=== PATIENT | female | born 1980 | race Caucasian/White ===

== ENCOUNTER 2020-02-05 14:21 | Outpatient (REF) | payer SELFPAY | END 2020-02-05 14:22 | disposition home or self-care (01) | LOC: HO.LNP 14:21 | PROVIDERS: Visit Provider Internal Medicine | DX: Z20.828 Contact with and (suspected) exposure to other viral communicable diseases (principal) | CPT/HCPCS: U0003 ==

== ENCOUNTER 2020-11-05 13:59 | Outpatient (REF) | payer OTHER, SELFPAY ==
[2020-11-05 14:45] LABS: Influenza A PCR NEGATIVE (Negative); Influenza B PCR NEGATIVE (Negative); Resp Syncy Virus RNA Qual PCR NEGATIVE (Negative); SARS COV2 PCR INHOUSE NEGATIVE (Negative)
== END 2020-11-05 14:00 | disposition home or self-care (01) ==
LOC: HO.LNP 13:59
PROVIDERS: Visit Provider Internal Medicine
DX: Z20.822 Contact with and (suspected) exposure to COVID-19 (principal)
CPT/HCPCS: 0241U

== ENCOUNTER 2020-11-08 11:29 | Emergency (ER) | payer OTHER, SELFPAY ==
[2020-11-08 11:48] VITALS: BP 149/86; PULSE 82; RESP 16; TEMP 36.3; O2SAT 98; BMI 42.0
--- NOTE | 2020-11-08 12:41 | ED_ITS ---
HPI - Skin/Abscess/Foreign Bdy General Chief complaint: Skin/Abscess/Foreign Body Stated complaint: eye swollen, reaction? Time Seen by Provider: 11/08/20 12:06 Source: patient Mode of arrival: ambulatory History of Present Illness HPI narrative: 40-year-old female with no significant past medical history presenting to the ED complaining of right eyelid swelling, erythema, and pain x2 days. Admits to white spot to upper eyelid. Wears glasses and contacts however has not been wearing contacts. Denies direct injury/trauma, visual change/loss, blurry vision, and foreign body sensation, pain with EOMs, fever, chills, ear pain Related Data Previous Rx's Medication Instructions Recorded cefdinir 300 mg capsule 300 mg PO BID 7 Days #14 cap 11/08/20 sulfamethoxazole 800 1 tab PO Q12H 7 Days #14 tab 11/08/20 mg-trimethoprim 160 mg tablet (Bactrim DS) Allergies Allergy/AdvReac Type Severity Reaction Status Date / Time amoxicillin [AMOXICILLIN] Allergy Unknown RASH Unverified 11/07/19 15:06 Review of Systems Review of Systems: Constitutional: No Fever, No Chills, No Fatigue, No Malaise ENT/Mouth: No Ear Pain, No sore throat Eyes: No Eye Pain, + Swelling, + Redness, No Foreign Body, No Discharge, No Vision Changes Cardiovascular: No Chest Pain, No SOB Respiratory: No Cough, No Dyspnea Gastrointestinal: No Nausea, No Vomiting, No Diarrhea, No Constipation, No Abdominal pain Genitourinary:No Dysuria, No Urinary Frequency, No Hematuria Musculoskeletal: No joint pain, No Myalgias, No Joint Swelling Skin: No Skin Lesions, No rash Neuro: No Weakness, No Numbness, No Headache Yes all other systems are reviewed and are negative [facility] Past Medical History Attestation statement: The following information was validated with the patient. Social History Social History Advance Directives: No Advance Directives Information Provided: No Physical Exam Vital Signs: Vital Signs: Last Vital Signs Temp 97.3 F 11/08/20 11:48 Pulse 82 11/08/20 11:48 Resp 16 11/08/20 11:48 BP 149/86 H 11/08/20 11:48 Pulse Ox 98 11/08/20 11:48 Body Mass Index 42.0 Const: General: cooperative and healthy appearing Orientation /consciousness: patient oriented x3 Limitations: no limitations HENMT: Head: Yes normal to inspection Ears: hearing grossly normal bilaterally General nose exam: Normal external nose present Face and sinus: Yes normal facial exam Eyes: Other: Right upper eyelid with notable swelling and erythema with large internal stye. Clear watery eye discharge. Conjunctivae/sclerae WNL EOMs intact without pain General: appearance normal, both eyes and all related structures Conjunctivae: conjunctivae normal Sclerae: sclerae normal Pupils: Equal, round and reactive pupils present EOM: EOMs intact bilaterally Neck: Neck: Yes normal visual inspection Resp: Effort & Inspection: normal respiratory effort Auscultation: clear to auscultation bilaterally Cardio: Rate: regular rate Heart sounds: S1 normal heart sound present and S2 normal heart sound present Skin: Rashes: no rashes Wounds: no wounds Neuro: General: patient oriented x3 Cranial nerves: Yes Equal, round and reactive pupils present Gait exam (Neuro): Normal gait present Extrem: General: Yes normal to inspection MDM - Skin/Abscess/Foreign Bdy MDM Narrative Medical decision making narrative: 40-year-old female with no significant past medical history presenting to the ED complaining of right eyelid swelling, erythema, and pain x2 days. On exam VSS, NAD/well-appearing, physical exam as above. Concern for infected stye/preseptal cellulitis. Exam not consistent with orbital cellulitis. Discussed worrisome signs and symptoms and strict return precautions Medical Records Attestation: I reviewed the patient's medical records. Discharge Plan Discharge Clinical Impression: Preseptal cellulitis of right eye Patient Disposition: Home, Self-Care Instructions: Periorbital Cellulitis in Adults (ED) Additional Instructions: Cefdinir and Bactrim are antibiotics, please take as prescribed Apply warm compresses to her eye Please follow-up with her doctor or return to the ED for re-evaluation in 2 days If area begins to look worse, swelling worsens, it develops redness, you have any visual change/loss or fever return to the ED immediately Prescriptions: New sulfamethoxazole-trimethoprim [Bactrim DS] 800-160 mg tablet 1 tab PO Q12H 7 Days Qty: 14 RF: 0 cefdinir 300 mg capsule 300 mg PO BID 7 Days Qty: 14 RF: 0 Referrals: Boris Jones MD [Primary Care Provider] - 3 days Stand Alone Forms: Work/School Release Interventions: ED Discharge Assessment Last Done: 11/08/20 12:53 Discharge Date/Time: 11/08/20 12:53
== END 2020-11-08 12:53 | disposition home or self-care (01) ==
PROVIDERS: Emergency Provider Emergency Medicine Emergency Medical Services; PCP Internal Medicine
DX: H00.033 Abscess of eyelid right eye, unspecified eyelid (principal); H57.11 Ocular pain, right eye; Z79.899 Other long term (current) drug therapy
CPT/HCPCS: 99283; 99284

== ENCOUNTER 2021-01-11 11:39 | Outpatient (REF) | payer OTHER, SELFPAY ==
[2021-01-11 11:57] VITALS: BMI 44.8
[2021-01-11 11:58] VITALS: BP 157/93; PULSE 82; RESP 16; TEMP 37.1; O2SAT 98
[2021-01-11 13:53] VITALS: BP 148/77; PULSE 76; RESP 16; O2SAT 98
== END 2021-01-11 11:40 | disposition home or self-care (01) ==
LOC: HO.MS 11:39
PROVIDERS: PCP Internal Medicine; Visit Provider Ophthalmology
PROC: (CPT 67800; principal; 2021-01-11 15:40)
DX: H00.11 Chalazion right upper eyelid (principal); I10 Essential (primary) hypertension; Z79.899 Other long term (current) drug therapy; Z88.0 Allergy status to penicillin
CPT/HCPCS: 67800

== ENCOUNTER 2021-02-17 10:01 | Emergency (ER) | payer OTHER, SELFPAY ==
[2021-02-17 11:17] VITALS: BP 167/72; PULSE 80; RESP 18; TEMP 36.7; O2SAT 100; BMI 45.7
--- NOTE | 2021-02-17 12:14 | ED.URI ---
HPI - URI/Sore Throat General Chief Complaint: Upper Respiratory Symptoms Stated Complaint: +covid test at home Time Seen by Provider: 02/17/21 11:57 Source: patient Mode of arrival: ambulatory Limitations: no limitations History of Present Illness HPI Narrative: Patient comes emergency room complaining of cough, headache, itchy throat. Patient states that her son has similar symptoms. His son tested positive with a home kit. Patient was questionably positive. Patient denies chest pain, no shortness of breath, calf pain. Related Data Previous Rx's Medication Instructions Recorded cefdinir 300 mg capsule 300 mg PO BID 7 Days #14 cap 11/08/20 sulfamethoxazole 800 1 tab PO Q12H 7 Days #14 tab 11/08/20 mg-trimethoprim 160 mg tablet (Bactrim DS) acetaminophen 500 mg capsule 500 mg PO QID PRN #14 cap 02/17/21 Allergies Allergy/AdvReac Type Severity Reaction Status Date / Time amoxicillin [AMOXICILLIN] Allergy Unknown RASH Unverified 02/17/21 11:26 Review of Systems Review of Systems: Constitutional : No Weight loss, No Fever, No Chills, No Night Sweats, No Fatigue, No Malaise ENT/Mouth : No ear pain, no nasal congestion, no sinus pain, complaining itchy throat, no difficulty swallowing Eyes: No Eye Pain, No Swelling, No Redness, No Foreign Body, No Discharge, No Vision Changes Cardiovascular : No Chest Pain, No SOB, No Dyspnea on Exertion, No Orthopnea, No Edema, No Palpitations Respiratory : Complaining of dry cough, No Sputum, No Wheezing, No Smoke Exposure, No Dyspnea Gastrointestinal : No Nausea, No Vomiting, No Diarrhea, No Constipation, No abdominal Pain, No Hematochezia, No Melena Genitourinary : no irregular bleeding, No Dysuria, No Urinary Frequency, No Hematuria, No Urinary Incontinence, No Urgency, No Flank Pain, No Urinary Flow Changes, No Hesitancy Musculoskeletal : No joint pain, No Myalgias, No Joint Swelling Skin : No Skin Lesions, No rash Neuro : No Weakness, No Numbness, No Paresthesias, No Loss of Consciousness, No Dizziness, complaining of Headache Psych : No Anxiety/Panic, No Depression, No SI/HI/AH/VH, No Social Issues, Heme/Lymph: No Bruising, No Bleeding,No Lymphadenopathy Endocrine : No Polyuria, No Polydipsia, No Temperature Intolerance [facility] Past Medical History Medical History Hypertension Social History Social History Advance Directives: No Advance Directives Information Provided: No Patient : No Physical Exam Vital Signs: Vital Signs: Last Vital Signs Temp 98.0 F 02/17/21 11:17 Pulse 80 02/17/21 11:17 Resp 18 02/17/21 11:17 BP 167/72 H 02/17/21 11:17 Pulse Ox 100 02/17/21 11:17 BMI result Body Mass Index 45.7 Const: Other: Appearance: Alert. Oriented X3. No acute distress. Eyes: Pupils equal, round and reactive to light. ENT: Pharynx normal. Neck: Normal inspection. Neck supple. No lymph nodes noted. No crepitus CVS: Normal heart rate and rhythm. Pulses normal. Normal S1 and S2 Respiratory: No respiratory distress. Breath sounds normal. No Wheezing. No rales Abdomen: Soft and nontender. No rigidity. No distention. Skin: Skin warm and dry. Normal skin color. Normal skin turgor. Extremities: No lower extremity edema. No Lacerations. No Rash Neuro: Oriented X 3. No motor deficit. No sensory deficit. Moving all extermities. No slurred speech. Course Course Course Narrative: Patient tested positive for COVID-19. Patient has no respiratory symptoms other than cough, no shortness of breath, no chest pain, oxygen saturation 100% on room air MDM - URI/Sore Throat Lab Data Labs: Lab Results 02/17/21 Range/Units 13:36 COVID-19 ([facility]AD[facility]) Positive A (Negative) COVID-19 Clin Com See Note Discharge Plan Discharge Clinical Impression: COVID-19 Patient Disposition: Home, Self-Care Instructions: COVID-19 (Coronavirus Disease 2019) (ED) Additional Instructions: You need to quarantine for 7 days. Please follow-up with your primary care physician tomorrow. If you have any worsening or new symptoms, please return to the emergency room or call 911 Prescriptions: New acetaminophen 500 mg capsule 500 mg PO QID PRN (Reason: fever or pain) Qty: 14 RF: 0 No Action sulfamethoxazole-trimethoprim [Bactrim DS] 800-160 mg tablet 1 tab PO Q12H 7 Days Qty: 14 RF: 0 cefdinir 300 mg capsule 300 mg PO BID 7 Days Qty: 14 RF: 0
[2021-02-17 13:50] LABS: COVID-19 Test Positive (Negative)
== END 2021-02-17 14:09 | disposition home or self-care (01) ==
PROVIDERS: Physician Assistant; Emergency Provider Emergency Medicine; PCP Internal Medicine
DX: U07.1 COVID-19 (principal); I10 Essential (primary) hypertension
CPT/HCPCS: 36415; 87635; 99283

== ENCOUNTER 2021-09-30 12:00 | Outpatient (REF) | payer OTHER, SELFPAY ==
[2021-09-30 13:41] LABS: MANUAL DIFF FLAG NO
[2021-09-30 13:43] LABS: Basophils Percent Auto 0.3 % (0-2); Eosinophils Absolute Auto 0.2 X10*3/uL (0.0-0.4); Hematocrit 32.3 % (37.0-47.0); Hemoglobin 9.5 g/dl (12.0-16.0); Imm Gran Abs Auto 0.03 X10*3/uL (0.00-0.03); Imm Gran Pct Auto 0.3 % (0.0-0.4); Lymphocytes Absolute Auto 2.8 X10*3/uL (1.2-4.9); Lymphocytes Percent Auto 29.6 % (20-40); Mean Corpuscular HGB Conc 29.4 g/dl (31.0-35.0); Mean Corpuscular Hemoglobin 20.6 pg (27.0-33.0); Mean Corpuscular Volume 69.9 fL (80.0-98.0); Mean Platelet Volume 8.7 fL (9.4-12.3); Monocytes Absolute Auto 0.5 X10*3/uL (0.1-1.2); Monocytes Percent Auto 5.5 % (2-11); Neutrophils Absolute Auto 5.8 x10*3/uL (2.0-8.3); Neutrophils Percent Auto 62.3 % (45-73); Platelet Count 483 X10*3/uL (160-400); Red Blood Count 4.62 X10*6/uL (4.20-5.50); Red Cell Distribution Width 18.8 % (11.0-16.0); White Blood Count 9.3 X10*3/uL (4.8-10.8)
[2021-09-30 14:04] LABS: Alanine Aminotransferase 14 U/L (0-31); Albumin Level 3.9 g/dL (3.5-5.0); Alkaline Phosphatase 46 U/L (39-117); Anion Gap 15 (12-20); Aspartate Amino Transferase 13 U/L (5-31); Bilirubin Total 0.5 mg/dL (0.0-1.0); Blood Urea Nitrogen 12 mg/dL (9-16); Calcium 9.2 mg/dL (8.4-10.2); Carbon Dioxide 24 mmol/L (22-29); Chloride 105 mmol/L (96-108); Cholesterol 167 mg/dL; Estimated Glomerular Filt Rate > 60; Glucose Fasting 93 mg/dL (60-99); HDL Cholesterol 48 mg/dL; LDL Cholesterol Calculated 102 mg/dl; Potassium 4.2 mmol/L (3.3-5.1); Sodium 140 mmol/L (135-145); Total Protein 7.9 g/dL (6.5-8.0); Triglycerides 87 mg/dL
[2021-09-30 14:25] LABS: Free T4 (Free Thyroxine) 1.11 ng/dL (0.71-1.85); Thyroid Stimulating Hormone 1.12 uIU/mL (0.32-4.0)
[2021-09-30 14:41] LABS: Vitamin B12 315 pg/mL (200-900)
== END 2021-09-30 12:01 | disposition home or self-care (01) ==
LOC: HO.10HDL 12:00
PROVIDERS: Visit Provider Internal Medicine
DX: I10 Essential (primary) hypertension (principal); R53.83 Other fatigue; R51.9 Headache, unspecified
CPT/HCPCS: 36415; 80053; 80061; 82607; 84439; 84443; 85025

== ENCOUNTER 2022-02-17 10:07 | Outpatient (REF) | payer OTHER, SELFPAY ==
--- NOTE | ~2022-02-17 | XR_ITS ---
EXAMINATION: XR LUMBOSACRAL SPINE CLINICAL INFORMATION: Right sciatica pain COMPARISON: Lumbar radiographs 02/05/2016 TECHNIQUE: Three views of the lumbosacral spine. FINDINGS: Normal lumbar segmentation with 5 nonrib-bearing lumbar vertebrae of normal height and normal lumbar lordosis. There is borderline dextrocurvature again demonstrated. There is no lumbar vertebral compression, spondylolisthesis, destructive process. There is interval disc narrowing L4-L5. No endplate sclerosis or erosive changes. The SI joints and visualized sacrum are unremarkable. XR/XR lumbar spine 2-3V IMPRESSION: 1. Interval disc narrowing L4-L5 since prior imaging 2015. 2. No vertebral compression, spondylolisthesis, destructive process.
== END 2022-02-17 10:08 | disposition home or self-care (01) ==
LOC: HO.XRAY 10:07
PROVIDERS: PCP Internal Medicine; Visit Provider Internal Medicine
DX: M54.31 Sciatica, right side (principal)
CPT/HCPCS: 72100

== ENCOUNTER 2022-02-22 08:32 | Emergency (ER) | payer OTHER, SELFPAY ==
[2022-02-22 08:59] VITALS: BP 178/104; PULSE 77; RESP 20; TEMP 36.7; O2SAT 98; BMI 41.1
--- NOTE | 2022-02-22 10:53 | ED_ITS ---
HPI - Back Pain/Injury General Chief Complaint: Back Pain/Injury Stated Complaint: Sciatic pain Time Seen by Provider: 02/22/22 10:48 Source: patient Mode of arrival: ambulatory Limitations: no limitations History of Present Illness HPI Narrative: Patient is a 42-year-old female who presents to the emergency department for evaluation of right-sided sciatica pain. She reports this has been ongoing x1 month since early January. She was seen by her primary care provider for this. Initially was given a prescription for gabapentin without any improvement. 02/15/2022 she was given a prescription for methylprednisolone Dosepak, she is going to complete this tonight but she states she has not had any improvement. Had a lumbar spine x-ray obtained 02/17/2022 but has not yet received the results from her primary care provider. Pain continues to be in the right lower back radiating into the buttock and down the leg to the foot. Reports intermittent numbness to the right to great toe. Has had a history of sciatica pain in the past, but typically does not last this long. Denies recent precipitating injury, fevers, chills, burning with micturition, urinary frequency/urgency/hesitancy, bladder or bowel dysfunction, numbness or tingling of the perineum or bilateral legs. Denies any recent surgical procedures, any known immune compromising conditions, personal history of cancer, or IV drug usage. MD elicited complaint: back pain Related Data Previous Rx's Medication Instructions Recorded cefdinir 300 mg capsule 300 mg PO BID 7 days #14 caps 11/08/20 sulfamethoxazole 800 1 tab PO Q12H 7 days #14 tabs 11/08/20 mg-trimethoprim 160 mg tablet (Bactrim DS) acetaminophen 500 mg capsule 500 mg PO QID PRN fever or pain 02/17/21 #14 caps cyclobenzaprine 10 mg tablet 10 mg PO TID PRN muscle spasm #14 02/22/22 tabs Allergies Allergy/AdvReac Type Severity Reaction Status Date / Time amoxicillin [AMOXICILLIN] Allergy Unknown RASH Unverified 02/17/21 11:26 Review of Systems Review of Systems: Constitutional: No weight loss, fever, chills, weakness or fatigue. HEENT: No visual loss, blurred vision, double vision. No hearing loss, sneezing, congestion, runny nose or sore throat. Skin: No rash or itching. Cardiovascular: No chest pain, chest pressure or chest discomfort. No palpitations or pedal edema. Respiratory: No shortness of breath, cough or sputum production. Gastrointestinal: No anorexia, nausea, vomiting or diarrhea. No abdominal pain or blood in stool. Genitourinary: No burning micturition. No urinary frequency or incontinence. Neurologic: No headache, dizziness, syncope, unilateral weakness, ataxia, numbness or tingling in the extremities. No change in bowel or bladder control. Musculoskeletal: + Back pain as noted in HPI. No joint pain or stiffness. Hematologic: No bleeding or bruising. Lymphatics: No enlarged lymph nodes. Psychiatric:No depression or anxiety. Endocrine: No reports of sweating. No cold or heat intolerance. No polyuria or polydipsia. Yes all other systems are reviewed and are negative PMF Past Medical History Attestation statement: The following information was validated with the patient. Source: old records reviewed Medical History Hypertension Social History Social History Advance Directives: No Advance Directives Information Provided: Yes Physical Exam Vital Signs: Vital Signs: Last Vital Signs Temp 98.1 F 02/22/22 08:59 Pulse 77 02/22/22 08:59 Resp 20 02/22/22 08:59 BP 178/104 H 02/22/22 08:59 Pulse Ox 98 02/22/22 08:59 O2 Del Method 02/22/22 08:59 BMI result Body Mass Index 41.1 Appearance: Alert.?Oriented to person, place and time. No acute distress.?Normal affect. Eyes: Pupils equal, round and reactive to light.? ENT: Pharynx normal.?? Neck: Normal inspection.? Neck supple.?? CVS: Heart sounds normal. Normal heart rate and rhythm.? Pulses normal; bilateral radial pulses 2+, bilateral posterior tibial/dorsalis pedis pulses 2+.? Respiratory: No respiratory distress.? Lung sounds clear to auscultation bilaterally?? Abdomen: Soft and non-tender. Normoactive bowel sounds. No pulsatile mass.?? Skin: Skin warm and dry.? Normal skin color.? Normal skin turgor.?? Extremities: No lower extremity edema.? No calf ttp? Back: + mild paraspinal muscular tenderness from lumbar region to coccyx. No CVA tenderness. No midline spinal tenderness, step-off's, or deformity. Full ROM intact in bilateral lower extremities. Straight leg test positive on right; Straight leg test negative on left. No rashes, lesions, areas of induration or fluctuance, or signs of infection noted., Neuro: Moves all extremities spontaneously. 5/5 strength in hip extension/flexion, abduction, adduction. Sensation to light touch intact bilaterally. Patellar and Achilles reflex 2+ bilaterally. No ataxia, gait normal and steady.. No focal neuro deficits. Medical Decision Making Medical Decision Making MDM Narrative: Patient is a 42-year-old female with a past medical history of hypertension presenting to emergency department for evaluation of right lower back pain. Of note patient found to be hypertensive today, , she is currently compliant with her antihypertensive regimen, and states she is following her primary care provider closely as she has been having elevated blood pressure readings in the recent past; currently she is without dizziness, lightheadedness, headache, vision changes, neck pain, chest pain, difficulty breathing; asymptomatic hypertension at this time. Regarding her back pain, she is overall well- appearing, ambulatory with a slow steady gait. Pain is most consistent with lumbar radiculopathy, although cannot completely exclude herniated disc. On neurological exam there are no deficits. Not consistent with spinal fracture, spinal infection, epidural abscess, AAA, epidural abscess, or dissection. No high risk past medical history including incontinence, fever, immunosuppression, recent surgery or lumbar puncture, coagulopathy, significant trauma, recent unintentional weight loss, pulsatile mass, history of cancer, history of TB, history of IV drug use that would warrant MRI or CT. Not consistent with ectopic , pyelonephritis, urinary tract infection, renal calculi, pelvic infection, appendicitis, diverticulitis. On exam no concern for cauda equina syndrome. No imaging is currently indicated at this time. Plan for discharge home with prescription for cyclobenzaprine, and follow-up with primary care provider, and patient agreed with plan. Differential Diagnosis Differential Diagnoses: The differential diagnosis associated with the presentation includes (As noted above) Tests considered The following testing was considered but not selected: Considered CT/MRI of the lumbar spine, however history and physical examination without concern for cauda equina syndrome, no focal neurological deficits, imaging deferred at this time Prescription Management I considered prescription management with: Pain Medication (Prescription for cyclobenzaprine sent to patient's pharmacy.) Discharge Plan Discharge Clinical Impression: Lumbar radiculopathy Patient Disposition: Home, Self-Care Instructions: Lumbar Radiculopathy (ED), Lower Back Exercises (ED) Additional Instructions: As discussed, please contact your primary care provider to arrange for a follow- up visit regarding your persistent back pain, recent x-ray imaging, and elevated blood pressure readings despite the use of your blood pressure medications. A prescription for cyclobenzaprine, a muscle relaxer was sent to your pharmacy. As we discussed, this medication may make you drowsy. You should not drive, drink alcohol, or work while taking this medication. Please be sure to rest over the next few days, consider gentle stretching exercises of the lower back as advised and handouts. You may return back to emergency department with any new or worsening symptoms or concerns. Prescriptions: New cyclobenzaprine 10 mg tablet 10 mg PO TID PRN (Reason: muscle spasm) Qty: 14 0RF No Action sulfamethoxazole-trimethoprim [Bactrim DS] 800-160 mg tablet 1 tab PO Q12H 7 Days Qty: 14 0RF cefdinir 300 mg capsule 300 mg PO BID 7 Days Qty: 14 0RF acetaminophen 500 mg capsule 500 mg PO QID PRN (Reason: fever or pain) Qty: 14 0RF Referrals: Boris Jones MD [Primary Care Provider] -
[2022-02-22 10:57] VITALS: BP 188/99; PULSE 74; RESP 16; O2SAT 100
== END 2022-02-22 11:14 | disposition home or self-care (01) ==
PROVIDERS: Emergency Provider Emergency Medicine; PCP Internal Medicine
DX: M54.16 Radiculopathy, lumbar region (principal); I10 Essential (primary) hypertension; Z79.899 Other long term (current) drug therapy
CPT/HCPCS: 99283

== ENCOUNTER 2022-03-11 12:47 | Outpatient (REF) | payer OTHER, SELFPAY ==
--- NOTE | ~2022-03-11 | MR_ITS ---
EXAMINATION: MR LUMBAR SPINE WITHOUT CONTRAST CLINICAL INFORMATION: Right buttock and leg pain. Right foot paresthesias. Right sciatic and sacroiliac joint pain. COMPARISON: Most recent lumbar spine radiographs dated 02/17/2022. TECHNIQUE: MRI of the lumbar spine was obtained using routine sequences without contrast. FINDINGS: Normal vertebral body alignment. The lumbar lordosis is maintained. No acute fracture or subluxation. No loss of vertebral body height. Loss of intervertebral disc height with disc desiccation at L4-L5. The remaining intervertebral discs are well hydrated. No marrow edema or evidence of acute osseous injury. No concerning lytic or blastic osseous lesion. The visualized paraspinal soft tissues are unremarkable. The visualized distal cord is unremarkable with the conus terminating at the level of T12. L1-L2: No significant disc bulge. No central canal or neural foraminal stenosis. L2-L3: No significant disc bulge. No central canal or neural foraminal stenosis. L3-L4: No significant disc bulge. Bilateral facet arthropathy. No central canal or neural foraminal stenosis. L4-L5: Broad-based disc bulge with a superimposed right paracentral disc protrusion which contacts and displaces the traversing right L5 nerve root within the lateral recess as well as abuts the traversing left L5 nerve root within the lateral recess. Bilateral facet arthropathy and thickening of the ligamentum flavum with no significant neural foraminal stenosis. L5-S1: No significant disc bulge. Bilateral facet arthropathy. No central canal or neural foraminal stenosis. MR/MR lumbar spine wo con IMPRESSION: 1. Degenerative disc disease at L4-L5 with a broad-based disc bulge and superimposed right paracentral disc protrusion which contacts and displaces the traversing right L5 nerve root as well as abuts the traversing left L5 nerve root. Bilateral facet arthropathy and thickening of the ligamentum flavum without significant neural foraminal stenosis. 2. Bilateral facet arthropathy at L3-L4 and L5-S1 without significant central canal or neural foraminal stenosis.
== END 2022-03-11 12:48 | disposition home or self-care (01) ==
LOC: HO.MRI 12:47
PROVIDERS: PCP Internal Medicine; Visit Provider Internal Medicine
DX: M54.31 Sciatica, right side (principal); M25.551 Pain in right hip; M53.88 Other specified dorsopathies, sacral and sacrococcygeal region
CPT/HCPCS: 72148

== ENCOUNTER → 2022-03-14 15:41 | Outpatient (BNVA) | payer OTHER, SELFPAY | PROVIDERS: PCP Internal Medicine; Visit Provider Physician Assistant | DX: Z13.89 Encounter for screening for other disorder (principal) ==

== ENCOUNTER → 2022-03-23 08:14 | Outpatient (BNVA) | payer OTHER, SELFPAY | PROVIDERS: PCP Internal Medicine; Visit Provider Surgery | DX: Z13.89 Encounter for screening for other disorder (principal) ==

== ENCOUNTER 2022-03-28 17:00 | Outpatient (RCR) | payer OTHER, SELFPAY ==
--- NOTE | 2022-03-16 10:42 | MHC.PT.EP ---
[facility] [place] Office [place] Office [place] Office [address] Rao Ritchie [address] [phone] F: [phone] F: [phone] F: [phone] F: [phone] Physical Therapy Plan of Care Date of Evaluation: Date of Surgery: N/A Diagnosis: Pain in right hip sciatica, right side other specified dorsopathies, sacral and sacrococcygeal region Assessment: Pt is a pleasant 42yo F who presents to PT with low back pain radiating into R LE. She is awaiting results of lumbar MRI. She presents to PT with current impairments in pain, decreased lumbar ROM, decreased muscle length, decreased core stabilization, increased lumbar lordosis, impaired posture, and impaired gait. She is TTP throughout lumbar vertebrae, lumbar PS, R glutes and R piriformis. She is limited functionally by prolonged standing, prolonged walking, stair navigation, and bending. She is an excellent candidate for skilled PT in order to address current impairments to facilitate return to PLOF. Frequency and Duration: The patient will be seen 2x/week for 5 weeks Short Term Goals: Pt will be I with HEP to promote self management of symptoms Pt will have centralization of symptoms Pt will demonstrate improvements in postural awareness and body mechanics throughout the day Penitentiary Goals: Pt will demonstrate ability to squat and pick object up from the floor with proper mechanics and minimal to no pain Pt will tolerate standing and walking with improved gait mechanics > 60 min with minimal to no pain Pt will demonstrate improvements in functional mobility as evidenced by statistically significant improvement in Modified Oswestry Low Back Pain Disability Questionnaire Treatment Plan: Modalities to reduce pain, spasms and effusion. Manual therapy to restore motion and function. Therapeutic exercise to improve strength and flexibility. Neuromuscular re-education for posture and balance. Therapeutic activities to return to functional activities of daily living. Electronically signed by: Riya Barroso, PT, DPT Please sign and return to therapist. Thank you for your referral.
--- NOTE | 2022-04-04 11:04 | MHC.PT.DC ---
[facility] [place] Office [place] [facility] [place] [facility] [address] Rao Ritchie [address] [phone] F: [phone] F: [phone] F: [phone] F: [phone] Physical Therapy Discharge Report Diagnosis: Pain in right hip sciatica, right side other specified dorsopathies, sacral and sacrococcygeal region Date of Surgery: N/A Date of Evaluation: 03/15/22 Date of Discharge: 04/04/22 Treatments to Date: 2 Cancellations to Date: No Shows to Date: Discharge Status: Patient Elected to Stop Discharge Summary: Pt was seen for PT from 03/15/22-03/17/22. She attended initial PT evaluation and 1 treatment session. Pt called [facility] on 03/28/22 requesting to self D/C from PT. Pt is being D/C from PT at this time per her request. Pt current level of function unknown. Electronically signed by: Riya Barroso, PT, DPT Please sign and return to therapist. Thank you for your referral.
== END 2022-04-04 11:04 | disposition home or self-care (01) ==
LOC: HO.PT 17:00
PROVIDERS: PCP Internal Medicine; Visit Provider Internal Medicine
DX: M25.551 Pain in right hip (principal); M54.31 Sciatica, right side; M53.88 Other specified dorsopathies, sacral and sacrococcygeal region
CPT/HCPCS: 97110; 97112; 97140; 97162

== ENCOUNTER 2022-03-30 09:08 | Emergency (ER) | payer OTHER, SELFPAY ==
[2022-03-30 09:22] VITALS: BP 193/89; PULSE 86; RESP 16; TEMP 36.8; O2SAT 98; BMI 43.0
--- NOTE | 2022-03-30 10:11 | ED.BACK ---
HPI - Back Pain/Injury General Chief Complaint: Back Pain/Injury Stated Complaint: back pain going into L leg Time Seen by Provider: 03/30/22 09:21 Source: patient Mode of arrival: ambulatory Limitations: no limitations History of Present Illness HPI Narrative: 42 yo female with history of sciatia, bulging discs, GERD, obesity, HTN who presents to the ER for evaluation of nontraumatic acute on chronic right sided low back pain for the last 2 months. She has been followed closely by her primary care doctor and recently had an MRI. This showed bulging discs. She has an appointment with a neurosurgeon next week. She has been given 2 courses of prednisone among other medications with no relief. She reports the pain is her right lower back and extends down the back of her right leg to just about the knee. She reports difficulty with ambulation and driving. She denies any urinary issues but she has been constipated lately. No incontinence. No numbness or tingling just pain. MD elicited complaint: back pain Pertinent past history: prior back pain Onset (ago): month(s) Timing: constant and progressively worsening Severity: severe Pain scale (0-10): 10 Similar Symptoms Previously: Yes Quality: burning, sharp and spasming Location: right lower back Radiation: right upper leg and right leg below the knee Exacerbating factors: movement and walking Relieving factors: none Context: unknown Associated symptoms: denies other symptoms Treatments prior to arrival: NSAIDS Work related injury: No Related Data Home Medications Medication Instructions Recorded Confirmed losartan 50 mg tablet 50 mg PO BID 03/14/22 03/23/22 tramadol 50 mg tablet 50 mg PO BID PRN 03/23/22 03/23/22 Previous Rx's Medication Instructions Recorded acetaminophen 500 mg capsule 500 mg PO QID PRN fever or pain 02/17/21 #14 caps cyclobenzaprine 10 mg tablet 10 mg PO TID PRN muscle spasm #14 03/30/22 tabs hydrocodone 5 mg-acetaminophen 325 1 tab PO Q4-6H PRN severe pain 03/30/22 mg tablet (scale score 7-10) #10 tabs lidocaine 5 % topical patch 1 patch topical DAILY #15 ea 03/30/22 naproxen 500 mg tablet 500 mg PO BID PRN pain #20 tabs 03/30/22 Allergies Allergy/AdvReac Type Severity Reaction Status Date / Time amoxicillin [AMOXICILLIN] Allergy Unknown RASH Verified 03/23/22 12:39 Review of Systems Review of Systems: Yes all other systems are reviewed and are negative [facility] Past Medical History Medical History (Updated 03/30/22 @ 10:12 by ALIZE Tomas) Back pain GERD (gastroesophageal reflux disease) Hypertension Morbid obesity Surgical History (Updated 03/23/22 @ 12:43 by Jermaine Lucas MD) History of appendectomy Hx of eye surgery Family History Family History (Updated 03/14/22 @ 15:58 by Alicja Thomson CMA) Mother Fibromyalgia Arthritis Father Heart problem Brother No problems noted. Son Asthma Social History Social History (Updated 03/14/22 @ 15:58 by Alicja Thomson CMA) Alcohol intake: current Alcohol intake frequency: holidays/special occasions only Patient Tobacco Use Status: Never used Tobacco Advance Directives: No Advance Directives Information Provided: No Physical Exam Vital Signs: Vital Signs: Last Vital Signs Temp 98.3 F 03/30/22 09:22 Pulse 86 03/30/22 09:22 Resp 16 03/30/22 09:22 BP 193/89 H 03/30/22 09:22 Pulse Ox 98 03/30/22 09:22 O2 Del Method 03/30/22 09:22 BMI result Body Mass Index 43.0 Appearance: Alert. Oriented X3. Sitting at the edge of the stretcher, appears uncomfortable. HEENT: normal inspection CVS: Normal heart rate and rhythm. Pulses normal. Respiratory: No respiratory distress. Skin: Skin warm and dry. Normal skin color. Normal skin turgor. No rashes. Back: normal inspection, tenderness of the right lower lumbar area and SI joint. Extremities: normal inspection of bilateral LE. Neuro: Oriented X 3. No motor deficit. No sensory deficit. Slow but steady gait. Course Course Course Narrative: 42 yo female presenting with acute on chronic right-sided low back pain that radiates down the right leg. History of sciatica with recent MRI. No red flag symptoms today. She has a appointment with a neurosurgeon in 1 week. She is ambulatory. Will prescribe short course of oral narcotics and muscle relaxers. She is stable for discharge home with ongoing outpatient workup and follow-up. Patient agrees with plan. Medications Administered Discontinued Medications Generic Name Dose Route Start Last Admin Trade Name Freq PRN Reason Stop Dose Admin Acetaminophen 975 mg 03/30/22 10:10 03/30/22 10:15 Acetaminophen 325 Mg Tablet PO 03/30/22 10:11 975 mg ONCE ONE Administration Ketorolac Tromethamine 30 mg 03/30/22 10:10 03/30/22 10:16 Ketorolac Tromethamine 30 Mg/Ml Vial IM 03/30/22 10:11 30 mg ONCE ONE Administration Lidocaine 1 patch 03/30/22 10:10 03/30/22 10:16 Lidocaine 4 % Patch Adh..Patch TRANSDERMA 03/30/22 10:11 1 patch ONCE ONE Administration Protocol Medical Decision Making Differential Diagnosis Differential Diagnoses: The differential diagnosis associated with the presentation includes Inflammatory disorders, malignancy, , trauma, osteoporosis, nerve root compression, radiculopathy, plexopathy, degenerative disc disease, disc herniation, spinal stenosis, sacroiliac joint dysfunction, facet joint injury, and less likely infection like epidural or paraspinal abscess External Record Review External record reviewed: Outpatient record, Prior outpatient labs and Prior outpatient radiology ?MR/MR lumbar spine wo con IMPRESSION: 1. Degenerative disc disease at L4-L5 with a broad-based disc bulge and superimposed right paracentral disc protrusion which contacts and displaces the traversing right L5 nerve root as well as abuts the traversing left L5 nerve root. Bilateral facet arthropathy and thickening of the ligamentum flavum without significant neural foraminal stenosis. ? 2. Bilateral facet arthropathy at L3-L4 and L5-S1 without significant central canal or neural foraminal stenosis. Prescription Management I considered prescription management with: Pain Medication Chronic Conditions Patient?s care impacted by: Other ( Obesity and degenerative disc disease) Critical Care Time Critical Care Time Critical Care Time: No Discharge Plan Discharge Clinical Impression: Sciatica Patient Disposition: Home, Self-Care Instructions: Sciatica (ED) Additional Instructions: No bending, lifting or twisting. Use ice several times per day for 20 minutes at a time for the next 48 hours and then change to heat. Take medications as prescribed to help with pain and discomfort. Follow up with your Primary Care Doctor this week as well as your Neurosurgeon as scheduled on 04/05. If your pain worsens, if you develop new numbness, tingling, weakness, loss of function or incontinence call 911 or come back to the ER right away for evaluation. Prescriptions: New cyclobenzaprine 10 mg tablet 10 mg PO TID PRN (Reason: muscle spasm) Qty: 14 0RF lidocaine 5 % adhesive patch,medicated 1 patch topical DAILY Qty: 15 0RF Rx Instructions: leave on most painful area for up to 12 hrs naproxen 500 mg tablet 500 mg PO BID PRN (Reason: pain) Qty: 20 0RF hydrocodone-acetaminophen 5-325 mg tablet 1 tab PO Q4-6H PRN (Reason: severe pain (scale score 7-10)) Qty: 10 0RF Rx Instructions: Partial Fill upon patient request. No Action acetaminophen 500 mg capsule 500 mg PO QID PRN (Reason: fever or pain) Qty: 14 0RF losartan 50 mg tablet 50 mg PO BID tramadol 50 mg tablet 50 mg PO BID PRN Referrals: Borsi Jones MD [Primary Care Provider] - Stand Alone Forms: Work/School Release Interventions: ED Discharge Assessment Last Done: 03/30/22 10:25 Discharge Date/Time: 03/30/22 10:25
[2022-03-30] MEDS: Acetaminophen 325 MG TABLET 975 MG PO (10:15)
[2022-03-30] MEDS: Lidocaine 4 % Patch ADH..PATCH 1 PATCH TRANSDERMA (10:16)
[2022-03-30] MEDS: Ketorolac Tromethamine 30 MG/ML VIAL IM (10:16)
== END 2022-03-30 10:25 | disposition home or self-care (01) ==
PROVIDERS: Emergency Provider Emergency Medicine; PCP Internal Medicine
DX: M54.41 Lumbago with sciatica, right side (principal); I10 Essential (primary) hypertension; E66.9 Obesity, unspecified; Z68.41 Body mass index [BMI] 40.0-44.9, adult; Z79.899 Other long term (current) drug therapy
CPT/HCPCS: 96372; 99283; 99284; J1885

== ENCOUNTER 2022-04-01 07:55 | Outpatient (REF) | payer OTHER, SELFPAY ==
--- NOTE | ~2022-04-01 | XR_ITS ---
EXAMINATION: XR CHEST CLINICAL INFORMATION: Morbid obesity COMPARISON: None TECHNIQUE: 2 views of the chest were obtained. FINDINGS: Clear lungs. No effusion or pneumothorax. Cardiomediastinal silhouette is within normal limits. XR/XR chest 2V IMPRESSION: Unremarkable examination.
[2022-04-01 08:12] LABS: MANUAL DIFF FLAG NO
--- NOTE | 2022-04-01 08:12 | ECG_ITS ---
Test Reason : morbid obesity Blood Pressure : / mmHG Vent. Rate : 074 BPM Atrial Rate : 074 BPM P-R Int : 160 ms QRS Dur : 076 ms QT Int : 358 ms P-R-T Axes : 013 042 025 degrees QTc Int : 397 ms Normal sinus rhythm Normal ECG When compared with ECG of 23-OCT-2018 08:40, QT has shortened Referred By: Jermaine Lucas Electronically Signed By:NERY LEE MD
[2022-04-01 08:47] LABS: Basophils Percent Auto 0.4 % (0-2); Eosinophils Absolute Auto 0.2 X10*3/uL (0.0-0.4); Eosinophils Percent Auto 2.2 % (0-4); Hematocrit 31.9 % (37.0-47.0); Hemoglobin 9.3 g/dl (12.0-16.0); Imm Gran Abs Auto 0.03 X10*3/uL (0.00-0.03); Imm Gran Pct Auto 0.4 % (0.0-0.4); Lymphocytes Absolute Auto 2.4 X10*3/uL (1.2-4.9); Lymphocytes Percent Auto 28.4 % (20-40); Mean Corpuscular HGB Conc 29.2 g/dl (31.0-35.0); Mean Corpuscular Hemoglobin 20.9 pg (27.0-33.0); Mean Corpuscular Volume 71.7 fL (80.0-98.0); Mean Platelet Volume 9.1 fL (9.4-12.3); Monocytes Absolute Auto 0.6 X10*3/uL (0.1-1.2); Monocytes Percent Auto 6.9 % (2-11); Neutrophils Absolute Auto 5.3 x10*3/uL (2.0-8.3); Neutrophils Percent Auto 61.7 % (45-73); Platelet Count 434 X10*3/uL (160-400); Red Blood Count 4.45 X10*6/uL (4.20-5.50); Red Cell Distribution Width 19.7 % (11.0-16.0); White Blood Count 8.5 X10*3/uL (4.8-10.8)
[2022-04-01 08:51] LABS: Estimated Average Glucose 123 mg/dL; Hemoglobin A1c % 5.9 %
[2022-04-01 09:08] LABS: Alanine Aminotransferase 10 U/L (0-31); Albumin Level 3.7 g/dL (3.5-5.0); Alkaline Phosphatase 39 U/L (39-117); Anion Gap 13 (12-20); Aspartate Amino Transferase 12 U/L (5-31); Bilirubin Total 0.2 mg/dL (0.0-1.0); Blood Urea Nitrogen 13 mg/dL (9-16); C Reactive Protein 3.39 mg/dL (< or = 0.50); Carbon Dioxide 22 mmol/L (22-29); Chloride 108 mmol/L (96-108); Cholesterol 162 mg/dL; Estimated Glomerular Filt Rate > 60; Glucose Random 104 mg/dL (60-115); HDL Cholesterol 55 mg/dL; Iron 27 mcg/dL (30-160); LDL Cholesterol Calculated 90 mg/dl; Percent Iron Saturation 8 % (15-50); Potassium 4.4 mmol/L (3.3-5.1); Sodium 139 mmol/L (135-145); Total Iron Binding Capacity 351 mcg/dL (228-428); Total Protein 7.1 g/dL (6.5-8.0); Triglycerides 86 mg/dL; Unsaturated Iron Binding 324 ug/dL
[2022-04-01 09:41] LABS: Ferritin 9 ng/mL (10-250); Folate 10.6 ng/mL (> or = 4.0); Insulin 23 uU/mL (2-29); TSH reflex Free T4 1.94 uIU/mL (0.32-4.0); Vitamin B12 343 pg/mL (200-900); Vitamin D 25-OH Total 6.3 ng/mL (>30)
[2022-04-05 17:17] LABS: Zinc 67 mcg/dL (60-130)
[2022-04-07 03:54] LABS: Vitamin A 42 mcg/dL (38-98)
[2022-04-14 14:33] LABS: Vitamin B1 18 nmol/L (8-30)
== END 2022-04-01 07:56 | disposition home or self-care (01) ==
LOC: HO.XRAY 07:55
PROVIDERS: PCP Internal Medicine; Visit Provider Surgery
DX: E66.01 Morbid (severe) obesity due to excess calories (principal); I10 Essential (primary) hypertension; K21.9 Gastro-esophageal reflux disease without esophagitis
CPT/HCPCS: 36415; 71046; 80053; 80061; 82306; 82607; 82728; 82746; 83036; 83525; 83540; 83970; 84425; 84443; 84590; 84630; 85025; 86140; 93005

== ENCOUNTER → 2022-04-05 08:00 | Outpatient (BNVA) | payer OTHER, SELFPAY | PROVIDERS: PCP Internal Medicine; Visit Provider Physician Assistant Surgical | DX: Z11.0 Encounter for screening for intestinal infectious diseases (principal) | CPT/HCPCS: 99211 ==

== ENCOUNTER 2022-04-05 16:07 | Outpatient (REF) | payer OTHER, SELFPAY ==
[2022-04-06 12:06] LABS: H Pylori Breath Test Positive (Negative)
== END 2022-04-05 16:08 | disposition home or self-care (01) ==
LOC: HO.LNP 16:07
PROVIDERS: Visit Provider Surgery
DX: E66.01 Morbid (severe) obesity due to excess calories (principal); K21.9 Gastro-esophageal reflux disease without esophagitis; I10 Essential (primary) hypertension
CPT/HCPCS: 83013

== ENCOUNTER → 2022-04-20 08:26 | Outpatient (BNVA) | payer OTHER, SELFPAY | PROVIDERS: PCP Internal Medicine; Visit Provider Surgery | DX: Z13.89 Encounter for screening for other disorder (principal) ==

== ENCOUNTER 2022-04-27 15:34 | Outpatient (REF) | payer OTHER, SELFPAY ==
[2022-04-27 15:59] LABS: IDNOW Serial# 6674DD1D
[2022-04-27 16:01] LABS: Strep A Nucleic Acid Invalid (Negative)
== END 2022-04-27 15:35 | disposition home or self-care (01) ==
LOC: HO.LNP 15:34
PROVIDERS: Visit Provider Internal Medicine
DX: J02.9 Acute pharyngitis, unspecified (principal)
CPT/HCPCS: 87651

== ENCOUNTER 2022-12-30 09:44 | Outpatient (REF) | payer OTHER, SELFPAY ==
[2022-12-30 11:09] LABS: MANUAL DIFF FLAG NO
[2022-12-30 11:34] LABS: Basophils Percent Auto 0.5 % (0-2); Eosinophils Absolute Auto 0.1 X10*3/uL (0.0-0.4); Eosinophils Percent Auto 1.9 % (0-4); Hematocrit 33.9 % (37.0-47.0); Imm Gran Abs Auto 0.02 X10*3/uL (0.00-0.03); Imm Gran Pct Auto 0.3 % (0.0-0.4); Lymphocytes Absolute Auto 2.6 X10*3/uL (1.2-4.9); Lymphocytes Percent Auto 34.7 % (20-40); Mean Corpuscular HGB Conc 29.5 g/dl (31.0-35.0); Mean Corpuscular Hemoglobin 21.6 pg (27.0-33.0); Mean Corpuscular Volume 73.4 fL (80.0-98.0); Mean Platelet Volume 8.8 fL (9.4-12.3); Monocytes Absolute Auto 0.6 X10*3/uL (0.1-1.2); Neutrophils Percent Auto 54.6 % (45-73); Platelet Count 428 X10*3/uL (160-400); Red Blood Count 4.62 X10*6/uL (4.20-5.50); Red Cell Distribution Width 16.8 % (11.0-16.0); White Blood Count 7.4 X10*3/uL (4.8-10.8)
[2022-12-30 11:40] LABS: Anion Gap 9 (12-20); Blood Urea Nitrogen 10 mg/dL (9-16); C Reactive Protein 3.04 mg/dL (< or = 0.50); Calcium 9.2 mg/dL (8.4-10.2); Carbon Dioxide 28 mmol/L (22-29); Chloride 107 mmol/L (96-108); Estimated Glomerular Filt Rate > 60; Glucose Random 93 mg/dL (60-115); Potassium 4.2 mmol/L (3.3-5.1); Sodium 140 mmol/L (135-145)
[2022-12-30 11:54] LABS: Estimated Average Glucose 120 mg/dL; Hemoglobin A1c % 5.8 % (<6.0)
[2022-12-30 11:59] LABS: Vitamin B12 460 pg/mL (200-900)
== END 2022-12-30 09:45 | disposition home or self-care (01) ==
LOC: HO.10HDL 09:44
PROVIDERS: Visit Provider Internal Medicine
DX: I10 Essential (primary) hypertension (principal); R73.03 Prediabetes; G62.9 Polyneuropathy, unspecified
CPT/HCPCS: 36415; 80048; 82550; 82607; 83036; 85025; 86140

== ENCOUNTER 2023-01-04 08:55 | Outpatient (REF) | payer OTHER, SELFPAY ==
--- NOTE | 2023-01-04 09:08 | EMG_ITS ---
Please see scanned EMG / Nerve Conduction Report. MTDD
== END 2023-01-04 08:56 | disposition home or self-care (01) ==
LOC: HO.NEURO 08:55
PROVIDERS: PCP Internal Medicine; Visit Provider Internal Medicine
DX: M79.641 Pain in right hand (principal); M79.642 Pain in left hand
CPT/HCPCS: 95886; 95913

== ENCOUNTER 2023-01-14 15:12 | Emergency (ER) | payer OTHER, SELFPAY ==
--- NOTE | ~2023-01-14 | XR_ITS ---
EXAMINATION: XR CHEST CLINICAL INFORMATION: Cough, chest tightness COMPARISON: None available. TECHNIQUE: 2 views of the chest were obtained. FINDINGS: No significant abnormality is noted involving the heart, lungs, mediastinum, bony thorax or soft tissues. XR/XR chest 2V IMPRESSION: Unremarkable chest examination.
[2023-01-14 15:17] VITALS: BP 159/90; PULSE 106; RESP 16; TEMP 36.5; O2SAT 100; BMI 42.1
--- NOTE | 2023-01-14 15:17 | ED.GENADULT ---
HPI - General Adult General Chief complaint: Upper Respiratory Symptoms Stated complaint: back pain,cough,congestion Time Seen by Provider: 01/14/23 17:10 Source: patient, RN notes reviewed and old records reviewed Mode of arrival: ambulatory History of Present Illness HPI narrative: 42-year-old female with a past medical history of vitamin B12 and D deficiency, anemia, GERD, HTN, obesity, presenting to the ED complaining of dry cough x 3 days with SOB, chest tightness/discomfort with coughing, and back discomfort with coughing. Also reports sore throat which is improved at present. Denies fever/chills, recent travel, sick contacts, difficulty/inability to swallow, pedal edema Onset (ago): day(s) Related Data Home Medications Medication Instructions Recorded Confirmed losartan 50 mg tablet 50 mg PO BID 03/14/22 03/23/22 tramadol 50 mg tablet 50 mg PO BID PRN 03/23/22 03/23/22 Previous Rx's Medication Instructions Recorded acetaminophen 500 mg capsule 500 mg PO QID PRN fever or pain 02/17/21 #14 caps cyclobenzaprine 10 mg tablet 10 mg PO TID PRN muscle spasm #14 03/30/22 tabs hydrocodone 5 mg-acetaminophen 325 1 tab PO Q4-6H PRN severe pain 03/30/22 mg tablet (scale score 7-10) #10 tabs lidocaine 5 % topical patch 1 patch topical DAILY #15 ea 03/30/22 naproxen 500 mg tablet 500 mg PO BID PRN pain #20 tabs 03/30/22 cholecalciferol (vitamin D3) 125 125 mcg PO DAILY #30 caps 04/07/22 mcg (5,000 unit) capsule clarithromycin 500 mg tablet 500 mg PO Q12H #28 tabs 04/07/22 iron,carbonyl 65 mg-vitamin C 125 1 tab PO DAILY #30 tabs 04/07/22 mg tablet,delayed release (Vitron-C) mecobalamin (vitamin B12) 1,000 1,000 mcg sublingual DAILY #30 tabs 04/07/22 mcg disintegrating tablet,sublingual metronidazole 500 mg tablet 500 mg PO Q12H #28 tabs 04/07/22 omeprazole 40 mg capsule,delayed 40 mg PO DAILY #14 caps 04/07/22 release bismuth subsalicylate 262 mg 2 tab PO QID 14 days #112 tabs 04/20/22 chewable tablet ciprofloxacin HCl 500 mg tablet 500 mg PO Q12H #28 tabs 04/20/22 (Cipro) esomeprazole magnesium 40 mg 40 mg PO DAILY #14 caps 04/20/22 capsule,delayed release metronidazole 500 mg tablet 500 mg PO BID #28 tabs 04/20/22 albuterol sulfate 90 mcg/actuation 2 puff inhalation Q4-6H PRN 01/14/23 aerosol inhaler shortness of breath or wheezing #6.7 grams benzonatate 100 mg capsule 100 mg PO TID PRN cough #14 caps 01/14/23 hydrocodone-homatropine 5 mg-1.5 5 ml PO Q4-6H PRN cough 3 days 01/14/23 mg/5 mL (5 mL) oral syrup (Hycodan) #100 mL prednisone 20 mg tablet 40 mg (2 x 20 mg) PO DAILY 5 days 01/14/23 #10 tabs Allergies Allergy/AdvReac Type Severity Reaction Status Date / Time amoxicillin [AMOXICILLIN] Allergy Unknown RASH Verified 01/14/23 15:20 Review of Systems Review of Systems: Constitutional: No Fever, No Chills ENT/Mouth: No Ear Pain, No Nasal Congestion, No Sinus Pain, No Hoarseness, No sore throat, + Rhinorrhea, No Swallowing Difficulty Cardiovascular: + Chest Pain w/cough, + SOB Respiratory: + Cough, No Sputum, No Wheezing Gastrointestinal: No Nausea, No Vomiting, No Diarrhea, No Constipation, No Abdominal pain Musculoskeletal: No joint pain, No Myalgias, No Joint Swelling Skin: No Skin Lesions, No rash Yes all other systems are reviewed and are negative Constitutional: Constitutional: Reports as per [facility] Past Medical History Attestation statement: The following information was validated with the patient. Source: old records reviewed Medical History Back pain GERD (gastroesophageal reflux disease) Morbid obesity Hypertension Surgical History History of appendectomy Hx of eye surgery Family History Family History Mother Fibromyalgia Arthritis Father Heart problem Brother No problems noted. Son Asthma Social History Alcohol intake: current Alcohol intake frequency: holidays/special occasions only Patient Tobacco Use Status: Never used Tobacco Advance Directives: No Advance Directives Information Provided: No Physical Exam ED Vital Signs: Vital Signs - 24 hr 01/14/23 15:17 Temperature 97.7 F Pulse Rate 106 H Respiratory Rate 16 Blood Pressure 159/90 H Pulse Oximetry 100 Oxygen Delivery Method Room Air BMI result Body Mass Index 42.1 Const General: cooperative, healthy appearing and no acute distress Orientation/consciousness: patient oriented x3 Limitations: no limitations HENMT Head: Yes normal to inspection and Yes atraumatic Ears: hearing grossly normal bilaterally, external ears normal and TM's normal bilaterally General nose exam: Normal external nose present Face and sinus: Yes normal facial exam Mouth: Normal oral and palatal mucosa present Throat: Yes posterior oropharynx normal, Yes tonsils normal, Yes uvula midline, No peritonsillar mass, No uvula laterally displaced and No uvular edema Eyes General: appearance normal, both eyes and all related structures EOM: EOMs intact bilaterally Neck Neck: Yes normal visual inspection and Yes no meningeal signs Chest Chest palpation & inspection: normal inspection of the chest Resp Effort & Inspection: normal respiratory effort and no respiratory distress Auscultation: clear to auscultation bilaterally, no crackles, no rales, no rhonchi and no wheezes Cardio Rate: regular rate and tachycardic Heart sounds: S1 normal heart sound present and S2 normal heart sound present GI Inspection: Yes normal to inspection Palpation (GI): Soft to palpation, nontender, no guarding and not rigid Skin Rashes: no rashes Wounds: no wounds Neuro General: patient oriented x3, tone normal and no meningeal signs Cranial nerves: Yes CN's II-XII intact bilaterally Gait exam (Neuro): Normal gait present Extrem General: Yes normal to inspection and Yes no pedal edema Course Course Course Narrative: RME:?42 yo female w/ hx of GERD, HTN, obesity, anemia presents to the ED today for eval of cough productive of green sputum x5 days. Began having chest tightness and rib pain on coughing today. Reports sore throat 1 week ago that has resolved. Taking robutussin at home. No sick contacts. Denies fever, palpitations, wheezing, sob, chest pain. No recent travel/car rides. PE: no chest wall ttp. lungs cta b/l. Plan: serology, cxr Full HPI, ROS and PE to be performed by the primary ED provider. XR chest 2V IMPRESSION: Unremarkable chest examination. -COVID/flu/RSV negative Results discussed with patient including worrisome signs and symptoms and strict return precautions, and when to return to the emergency department. They verbalized understanding and feel safe for discharge at this time. Medical Decision Making Medical Decision Making MDM Narrative: 42-year-old female with a past medical history of vitamin B12 and D deficiency, anemia, GERD, HTN, obesity, presenting to the ED complaining of dry cough x 3 days with SOB, chest tightness/discomfort with coughing, and back discomfort with coughing. On exam mildly tachycardic likely from dry cough on exam, NAD, nontoxic appearing, lungs CTA, oropharynx WNL, no respiratory distress, talking in complete sentences. Concern for bronchitis vs pneumonia vs viral syndrome vs costochondritis. Low suspicion for ACS/PE, DVT, dissection or strep pharyngitis plan: Viral testing, CXR, cough suppressant Please refer to course for remaining clinical decision making, interpretation of labs/imaging results, and discussions with consultants and/or family members. Differential Diagnosis Differential Diagnoses: The differential diagnosis associated with the presentation includes As above Lab Data [facility] Lab Attestation statement: I reviewed the patient's lab results. Labs: Lab Results 01/14/23 Range/Units 15:37 Influenza Type A (PCR) NEGATIVE (Negative) Influenza Type B (PCR) NEGATIVE (Negative) RSV RNA Qual (PCR) NEGATIVE (Negative) SARS-CoV-2 RNA (RT-PCR) NEGATIVE (Negative) Independent Interpretation I performed an independent interpretation of an: Plain X-Ray Radiology Impression Discussion of test interpretation with radiology: I have reviewed the radiologist's reading. External Record Review External record reviewed: Inpatient record, Office record, Outpatient record, Prior outpatient labs, Prior outpatient radiology, Primary care record and Outside ED record Tests considered The following testing was considered but not selected: As above Prescription Management I considered prescription management with: Pain Medication and Antibiotic Discharge Plan Discharge Clinical Impression: Bronchitis Patient Disposition: Home, Self-Care Instructions: Acute Bronchitis (ED) Additional Instructions: You tested negative for COVID, flu, RSV. your x-ray is unremarkable use inhalers at home as needed tessalon Perles are for cough. Hycodan is an opiate cough medication, take only when cough is severe for the next 3 days Prednisone as a steroid which will help clear you out Follow-up with your doctor If symptoms persist or worsen return to the ED Prescriptions: New prednisone 20 mg tablet 40 mg PO DAILY 5 Days Qty: 10 0RF benzonatate 100 mg capsule 100 mg PO TID PRN (Reason: cough) Qty: 14 0RF albuterol sulfate 90 mcg/actuation HFA aerosol inhaler 2 puff inhalation Q4-6H PRN (Reason: shortness of breath or wheezing) Qty: 6.7 0RF hydrocodone-homatropine [Hycodan] 5-1.5 mg/5 mL (5 mL) syrup 5 ml PO Q4-6H PRN (Reason: cough) 3 Days Qty: 100 0RF Rx Instructions: Partial Fill upon patient request. No Action Vitron-C 65 mg iron- 125 mg tablet,delayed release (DR/EC) 1 tab PO DAILY Qty: 30 2RF Rx Instructions: swallow whole; do not chew/break/dissolve/open cholecalciferol (vitamin D3) 125 mcg (5,000 unit) capsule 125 mcg PO DAILY Qty: 30 2RF mecobalamin (vitamin B12) 1,000 mcg tablet,disintegrating 1,000 mcg sublingual DAILY Qty: 30 2RF Rx Instructions: place tablet under tongue and allow to dissolve for at least30 secs before swallowing omeprazole 40 mg capsule,delayed release(DR/EC) 40 mg PO DAILY Qty: 14 0RF clarithromycin 500 mg tablet 500 mg PO Q12H Qty: 28 0RF metronidazole 500 mg tablet 500 mg PO Q12H Qty: 28 0RF acetaminophen 500 mg capsule 500 mg PO QID PRN (Reason: fever or pain) Qty: 14 0RF cyclobenzaprine 10 mg tablet 10 mg PO TID PRN (Reason: muscle spasm) Qty: 14 0RF lidocaine 5 % adhesive patch,medicated 1 patch topical DAILY Qty: 15 0RF Rx Instructions: leave on most painful area for up to 12 hrs naproxen 500 mg tablet 500 mg PO BID PRN (Reason: pain) Qty: 20 0RF hydrocodone-acetaminophen 5-325 mg tablet 1 tab PO Q4-6H PRN (Reason: severe pain (scale score 7-10)) Qty: 10 0RF Rx Instructions: Partial Fill upon patient request. losartan 50 mg tablet 50 mg PO BID tramadol 50 mg tablet 50 mg PO BID PRN esomeprazole magnesium 40 mg capsule,delayed release(DR/EC) 40 mg PO DAILY Qty: 14 0RF ciprofloxacin HCl [Cipro] 500 mg tablet 500 mg PO Q12H Qty: 28 0RF metronidazole 500 mg tablet 500 mg PO BID Qty: 28 0RF bismuth subsalicylate 262 mg tablet,chewable 2 tab PO QID 14 Days Qty: 112 0RF Referrals: Boris Jones MD [Primary Care Provider] - 5 days
[2023-01-14 16:29] LABS: Influenza A PCR NEGATIVE (Negative); Influenza B PCR NEGATIVE (Negative); Resp Syncy Virus RNA Qual PCR NEGATIVE (Negative); SARS COV2 PCR INHOUSE NEGATIVE (Negative)
[2023-01-14 17:34] VITALS: PULSE 94; RESP 18; O2SAT 98
[2023-01-14] MEDS: HYDROcodone/Homat 5/1.5/5 ML 5 ML SYRUP PO (17:37)
[2023-01-14] MEDS: Benzonatate 100 MG CAPSULE PO (17:38)
== END 2023-01-14 17:45 | disposition home or self-care (01) ==
PROVIDERS: Physician Assistant Medical; Emergency Provider Emergency Medicine Emergency Medical Services; PCP Internal Medicine
DX: J40 Bronchitis, not specified as acute or chronic (principal); Z20.822 Contact with and (suspected) exposure to COVID-19; Z20.828 Contact with and (suspected) exposure to other viral communicable diseases; E66.9 Obesity, unspecified; Z68.41 Body mass index [BMI] 40.0-44.9, adult
CPT/HCPCS: 0241U; 71046; 99283

== ENCOUNTER 2023-04-30 17:14 | Inpatient (IN) | payer OTHER, SELFPAY ==
--- NOTE | 2023-04-30 17:26 | ECG_ITS ---
Test Reason : OVERDOSED Blood Pressure : / mmHG Vent. Rate : 071 BPM Atrial Rate : 071 BPM P-R Int : 170 ms QRS Dur : 086 ms QT Int : 378 ms P-R-T Axes : 015 014 015 degrees QTc Int : 410 ms Normal sinus rhythm Normal ECG When compared with ECG of 01-APR-2022 08:16, No significant change was found Referred By: Angelic Gomez Electronically Signed By:NERY LEE MD
[2023-04-30 17:34] VITALS: BP 127/72; BP 140/90; PULSE 83; PULSE 84; RESP 16; TEMP 36.7; O2SAT 95; O2SAT 98; BMI 46.6
--- NOTE | 2023-04-30 17:35 | ED.OVERDOSE ---
HPI - Overdose General Chief Complaint: Psychiatric Symptoms Stated Complaint: SI, unknown amount of cough and blood pressure med Time Seen by Provider: 04/30/23 17:25 Source: patient, EMS and RN notes reviewed Mode of arrival: EMS Limitations: no limitations History of Present Illness HPI Narrative: Patient is a 43-year-old female presenting to the emergency department via EMS after family called 911 for a wellbeing check. Patient was found by police on the side of the road, emotionally upset. She reported to PD that she took liquid cough medication as well as Losartan, but is unable to state amount. She reports feeling depressed and states ingestion was an intentional suicide attempt. Patient is answering questions with minimal answers, is guarded. She denies any current chest or abdominal pain, shortness of breath. She denies homicidal ideation, auditory or visual hallucinationss. MD complaint: intentional overdose Onset (ago): hour(s) Timing confirmed by: other (unknown) Intent: suicide attempt How Overdose Was Discovered: other (family called for wellbeing check) Associated symptoms: depression Treatments Prior to Arrival: none Related Data Home Medications Medication Instructions Recorded Confirmed losartan 50 mg tablet 50 mg PO BID 03/14/22 04/30/23 tramadol 50 mg tablet 50 mg PO BID PRN 03/23/22 03/23/22 Previous Rx's Medication Instructions Recorded acetaminophen 500 mg capsule 500 mg PO QID PRN fever or pain 02/17/21 #14 caps cyclobenzaprine 10 mg tablet 10 mg PO TID PRN muscle spasm #14 03/30/22 tabs hydrocodone 5 mg-acetaminophen 325 1 tab PO Q4-6H PRN severe pain 03/30/22 mg tablet (scale score 7-10) #10 tabs lidocaine 5 % topical patch 1 patch topical DAILY #15 ea 03/30/22 naproxen 500 mg tablet 500 mg PO BID PRN pain #20 tabs 03/30/22 clarithromycin 500 mg tablet 500 mg PO Q12H #28 tabs 04/07/22 iron,carbonyl 65 mg-vitamin C 125 1 tab PO DAILY #30 tabs 04/07/22 mg tablet,delayed release (Vitron-C) mecobalamin (vitamin B12) 1,000 1,000 mcg sublingual DAILY #30 tabs 04/07/22 mcg disintegrating tablet,sublingual metronidazole 500 mg tablet 500 mg PO Q12H #28 tabs 04/07/22 omeprazole 40 mg capsule,delayed 40 mg PO DAILY #14 caps 04/07/22 release esomeprazole magnesium 40 mg 40 mg PO DAILY #14 caps 04/20/22 capsule,delayed release metronidazole 500 mg tablet 500 mg PO BID #28 tabs 04/20/22 albuterol sulfate 90 mcg/actuation 2 puff inhalation Q4-6H PRN 01/14/23 aerosol inhaler shortness of breath or wheezing #6.7 grams hydrocodone-homatropine 5 mg-1.5 5 ml PO Q4-6H PRN cough 3 days 01/14/23 mg/5 mL (5 mL) oral syrup (Hycodan) #100 mL prednisone 20 mg tablet 40 mg (2 x 20 mg) PO DAILY 5 days 01/14/23 #10 tabs Allergies Allergy/AdvReac Type Severity Reaction Status Date / Time amoxicillin [AMOXICILLIN] Allergy Unknown RASH Verified 01/14/23 15:20 Review of Systems Review of Systems: As per HPI. Yes all other systems are reviewed and are negative Constitutional: Constitutional: Reports as per HPI [facility] Past Medical History Medical History Back pain GERD (gastroesophageal reflux disease) Morbid obesity Hypertension Surgical History History of appendectomy Hx of eye surgery Family History Family History Mother Fibromyalgia Arthritis Father Heart problem Brother No problems noted. Son Asthma Social History Social History Alcohol intake: current Alcohol intake frequency: holidays/special occasions only Patient Tobacco Use Status: Never used Tobacco Advance Directives: No Advance Directives Information Provided: No Physical Exam Vital Signs: Vital Signs: Last Vital Signs Temp 97.5 F 04/30/23 21:58 Pulse 70 04/30/23 21:58 Resp 12 04/30/23 21:58 BP 130/78 04/30/23 21:58 Pulse Ox 96 04/30/23 21:58 O2 Del Method Room Air 04/30/23 21:58 BMI result Body Mass Index 46.6 Vital signs have been reviewed and appear to be correct. Blood pressure normal. Heart rate normal. Respiratory rate normal. Temperature normal. Oxygen saturation normal. Const: General: cooperative, healthy appearing and no acute distress Orientation/consciousness: oriented to person, oriented to place, oriented to time and patient oriented x3 Limitations: no limitations HEENT: Head: Yes normocephalic and Yes atraumatic Ears: external ears normal General nose exam: Normal external nose present Face and sinus: Yes face symmetric Mouth: oropharynx normal and moist mucous membranes Throat: Yes uvula midline Eyes: Pupils: Equal, round and reactive pupils present Neck: Neck: Yes normal visual inspection and Yes supple Resp: Effort & Inspection: normal respiratory effort and able to speak in complete sentences Auscultation: clear to auscultation bilaterally Cardio: Rate: regular rate Rhythm: regular rhythm Heart sounds: S1 normal heart sound present and S2 normal heart sound present GI: Palpation (GI): Soft to palpation and nontender Auscultation: normoactive bowel sounds : General: Yes no CVA tenderness Back/Spine/Pelvis: Back: no CVA tenderness Skin: General skin exam: elasticity normal and turgor normal Neuro: General: oriented to person, oriented to place, oriented to time, patient oriented x3, moves all extremities, no focal motor deficits and CN's II-XI intact bilaterally Cranial nerves: Yes Equal, round and reactive pupils present Cognition (Neuro): normal cognition Extrem: General: Yes full ROM, Yes no pedal edema and Yes no calf tenderness Psych: Appearance: grossly normal Mental Status: mental status grossly normal Speech and movement: Normal speech and movement present Affect: Sad affect present Attitude: Guarded attititude/behavior present Thought process: Normal thought process present Thought content: Suicidality present, no homicidality, no hallucinations and Depressive thoughts present Course Course Course Narrative: Wilbur from CARE team recommending section for inpatient treatment and I am in agreement with this plan, will be inpatient bed search. Medications Administered Discontinued Medications Generic Name Dose Route Start Last Admin Trade Name Freq PRN Reason Stop Dose Admin Ondansetron HCl 4 mg 04/30/23 21:41 04/30/23 21:47 Ondansetron Odt 4 Mg Tab.Deisidis TRANSLINGU 04/30/23 21:42 4 mg ONCE ONE Administration Medical Decision Making Medical Decision Making MDM Narrative: Patient is a 43-year-old female presenting to the emergency department via EMS after intentional ingestion of Hycodan cough syrup and losartan in suicide attempt. On exam patient is awake, A+Ox3, VS WNL, afebrile, normal neurological exam without focal deficits, physical exam findings as above. Given reported symptoms and physical exam findings, initial differential includes intentional overdose, depression, suicide attempt. RN contacted poison control who recommended CBC, CMP, magnesium, EKG, Tylenol and ASA levels, and close monitoring. Labs notable for chronic anemia, no significant electrolyte abnormalities, flat troponin. Patient has been observed in the ED for 4 hours, RN spoke with poison control again who agree patient can be medically cleared for CARE team eval. Will place patient on physician observation pending CARE eval. Differential Diagnosis Differential Diagnoses: The differential diagnosis associated with the presentation includes As per MDM. Admission/Observation Consideration of admission/observation: Escalation of care including admission/observation considered Consult Healthcare Provider Management of the patient was discussed with: Behavioral Health Provider Lab Data [facility] Lab Attestation statement: I reviewed the patient's lab results. As per MDM. 04/30/23 17:49 04/30/23 17:49 Labs: Lab Results 04/30/23 04/30/23 04/30/23 Range/Units 17:49 18:52 20:52 WBC 11.4 H (4.8-10.8) X10*3/uL RBC 4.64 (4.20-5.50) X10*6/uL Hgb 10.5 L (12.0-16.0) g/dl Hct 33.4 L (37.0-47.0) % MCV 72.0 L (80.0-98.0) fL MCH 22.6 L (27.0-33.0) pg MCHC 31.4 (31.0-35.0) g/dl RDW 17.4 H (11.0-16.0) % Plt Count 450 H (160-400) X10*3/uL MPV 8.8 L (9.4-12.3) fL Immature Gran % (Auto) 0.4 (0.0-0.4) % Neut % (Auto) 77.5 H (45-73) % Lymph % (Auto) 14.2 L (20-40) % [place] % (Auto) 7.5 (2-11) % Eos % (Auto) 0.1 (0-4) % Baso % (Auto) 0.3 (0-2) % Lymph # (Auto) 1.6 (1.2-4.9) X10*3/uL [place] # (Auto) 0.9 (0.1-1.2) X10*3/uL Eos # (Auto) 0.0 (0.0-0.4) X10*3/uL Baso # (Auto) 0.0 (0.0-0.2) X10*3/uL Abs Immat Gran (auto) 0.04 H (0.00-0.03) X10*3/uL Absolute Neuts (auto) 8.8 H (2.0-8.3) x10*3/uL Absolute Nucleated RBC 0.000 (0.0-0.012) X10*3/uL Nucleated RBC % (auto) 0.0 (0.0-0.2) /100WBC PT 13.9 H (11.1-13.3) SEC INR 1.1 (0.9-1.1) Sodium 141 (135-145) mmol/L Potassium 3.6 (3.3-5.1) mmol/L Chloride 107 (96-108) mmol/L Carbon Dioxide 22 (22-29) mmol/L Anion Gap 16 (12-20) BUN 10 (9-16) mg/dL Creatinine 0.90 (0.5-1.4) mg/dL Estim Creat Clear Calc 108.1 Estimated GFR > 60 Random Glucose 135 H (60-115) mg/dL Calcium 9.4 (8.4-10.2) mg/dL Magnesium 2.2 (1.6-2.6) mg/dL Total Bilirubin 0.4 (0.0-1.0) mg/dL AST 10 (5-31) U/L ALT 8 (0-31) U/L Alkaline Phosphatase 45 (39-117) U/L Troponin I High Sens 5.8 5.7 (<3.5-17.0) ng/L Total Protein 8.0 (6.5-8.0) g/dL Albumin 3.8 (3.5-5.0) g/dL Beta HCG, Quant < 2 mIU/mL Urine Color Yellow Urine Appearance Cloudy Urine pH 6.5 (5.0-9.0) Ur Specific [place] 1.020 (1.005-1.025) Urine Protein 30 (1+) H (Neg-Trace) mg/dL Urine Glucose (UA) Negative (Negative) mg/dL Urine Ketones Trace (Negative) mg/dL Urine Blood Large (3+) H (Negative) Urine Nitrite Negative (Negative) Ur Leukocyte Esterase Moderate (2+) H (Negative) Urine RBC >20 H (0-2) /HPF Urine WBC 21-50 H (0-5) /HPF Ur Squamous Epith Cells 11-20 (0-2) /HPF Urine Bacteria 4+ (None Seen) Hyaline Casts 3-5 (0-2) /LPF Salicylates < 5.0 L (15-30) mg/dL Urine Opiates Screen POSITIVE H (Not Detect) Urine Fentanyl Screen Not Detected (Not Detect) Acetaminophen < 3 (<30) mcg/mL Ur Barbiturates Screen Not Detected (Not Detect) Ur Phencyclidine Scrn Not Detected (Not Detect) Ur Amphetamines Screen Not Detected (Not Detect) U Benzodiazepines Scrn Not Detected (Not Detect) Urine Cocaine Screen Not Detected (Not Detect) U Marijuana (THC) Screen Not Detected (Not Detect) Ethyl Alcohol < 10 mg/dL COVID-19 (PRADEEP) Negative (Negative) COVID-19 Clin Com See Note Independent Interpretation I performed an independent interpretation of an: EKG (normal sinus rhythm 71 bpm, normal UT interval and QTc) External Record Review External record reviewed: Inpatient record, Office record and Outpatient record Discharge Plan Discharge Clinical Impression: Intentional overdose, Suicidal ideation Patient Disposition: Still a Patient Prescriptions: No Action Vitron-C 65 mg iron- 125 mg tablet,delayed release (DR/EC) 1 tab PO DAILY Qty: 30 2RF Rx Instructions: swallow whole; do not chew/break/dissolve/open mecobalamin (vitamin B12) 1,000 mcg tablet,disintegrating 1,000 mcg sublingual DAILY Qty: 30 2RF Rx Instructions: place tablet under tongue and allow to dissolve for at least30 secs before swallowing omeprazole 40 mg capsule,delayed release(DR/EC) 40 mg PO DAILY Qty: 14 0RF clarithromycin 500 mg tablet 500 mg PO Q12H Qty: 28 0RF metronidazole 500 mg tablet 500 mg PO Q12H Qty: 28 0RF acetaminophen 500 mg capsule 500 mg PO QID PRN (Reason: fever or pain) Qty: 14 0RF cyclobenzaprine 10 mg tablet 10 mg PO TID PRN (Reason: muscle spasm) Qty: 14 0RF lidocaine 5 % adhesive patch,medicated 1 patch topical DAILY Qty: 15 0RF Rx Instructions: leave on most painful area for up to 12 hrs naproxen 500 mg tablet 500 mg PO BID PRN (Reason: pain) Qty: 20 0RF hydrocodone-acetaminophen 5-325 mg tablet 1 tab PO Q4-6H PRN (Reason: severe pain (scale score 7-10)) Qty: 10 0RF Rx Instructions: Partial Fill upon patient request. prednisone 20 mg tablet 40 mg PO DAILY 5 Days Qty: 10 0RF albuterol sulfate 90 mcg/actuation HFA aerosol inhaler 2 puff inhalation Q4-6H PRN (Reason: shortness of breath or wheezing) Qty: 6.7 0RF hydrocodone-homatropine [Hycodan] 5-1.5 mg/5 mL (5 mL) syrup 5 ml PO Q4-6H PRN (Reason: cough) 3 Days Qty: 100 0RF Rx Instructions: Partial Fill upon patient request. losartan 50 mg tablet 50 mg PO BID tramadol 50 mg tablet 50 mg PO BID PRN esomeprazole magnesium 40 mg capsule,delayed release(DR/EC) 40 mg PO DAILY Qty: 14 0RF metronidazole 500 mg tablet 500 mg PO BID Qty: 28 0RF Interventions: [place]-Suicide Risk Severity Scale Last Done: 04/30/23 17:49
[2023-04-30 17:53] VITALS: BP 122/77; PULSE 69; RESP 14; TEMP 36.6; O2SAT 97
[2023-04-30 17:58] LABS: MANUAL DIFF FLAG NO
[2023-04-30 17:59] LABS: Basophils Percent Auto 0.3 % (0-2); Eosinophils Percent Auto 0.1 % (0-4); Hematocrit 33.4 % (37.0-47.0); Hemoglobin 10.5 g/dl (12.0-16.0); Imm Gran Abs Auto 0.04 X10*3/uL (0.00-0.03); Imm Gran Pct Auto 0.4 % (0.0-0.4); Lymphocytes Absolute Auto 1.6 X10*3/uL (1.2-4.9); Lymphocytes Percent Auto 14.2 % (20-40); Mean Corpuscular HGB Conc 31.4 g/dl (31.0-35.0); Mean Corpuscular Hemoglobin 22.6 pg (27.0-33.0); Mean Platelet Volume 8.8 fL (9.4-12.3); Monocytes Absolute Auto 0.9 X10*3/uL (0.1-1.2); Monocytes Percent Auto 7.5 % (2-11); Neutrophils Absolute Auto 8.8 x10*3/uL (2.0-8.3); Neutrophils Percent Auto 77.5 % (45-73); Platelet Count 450 X10*3/uL (160-400); Red Blood Count 4.64 X10*6/uL (4.20-5.50); Red Cell Distribution Width 17.4 % (11.0-16.0); White Blood Count 11.4 X10*3/uL (4.8-10.8)
--- NOTE | 2023-04-30 18:04 | MHC.EDTECH ---
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
[2023-04-30 18:06] LABS: INTERNATIONAL NORM RATIO 1.1 (0.9-1.1); Prothrombin Time 13.9 SEC (11.1-13.3)
[2023-04-30 18:18] LABS: Acetaminophen LAB < 3 mcg/mL (<30); Magnesium 2.2 mg/dL (1.6-2.6); Salicylate < 5.0 mg/dL (15-30)
[2023-04-30 18:23] LABS: Anion Gap 16 (12-20); Blood Urea Nitrogen 10 mg/dL (9-16); Carbon Dioxide 22 mmol/L (22-29); Chloride 107 mmol/L (96-108); Creatinine Clr Calc Pharmacy 108.1; Estimated Glomerular Filt Rate > 60; Glucose Random 135 mg/dL (60-115); Potassium 3.6 mmol/L (3.3-5.1); Sodium 141 mmol/L (135-145)
[2023-04-30 18:24] LABS: Alanine Aminotransferase 8 U/L (0-31); Albumin Level 3.8 g/dL (3.5-5.0); Alkaline Phosphatase 45 U/L (39-117); Aspartate Amino Transferase 10 U/L (5-31); Bilirubin Total 0.4 mg/dL (0.0-1.0); Calcium 9.4 mg/dL (8.4-10.2); Ethanol < 10 mg/dL
[2023-04-30 18:25] LABS: Troponin-I High Sensitivity 5.8 ng/L (<3.5-17.0)
[2023-04-30 18:28] LABS: COVID-19 Test Negative (Negative); IDNOW Serial# 08D9AD1C
[2023-04-30 18:31] LABS: HCG Quantitative < 2 mIU/mL
--- NOTE | 2023-04-30 18:42 | PC.NURSE ---
This director underwriter sales called and spoke with Christiana from poison control, alerted pt took unknown amount of Losartan, and hydrocodone-homatrapine. Labs ordered that were requested, told we could call back once EKG/labs results. At this time supportive care provided, pt tearful and not wanting to give up much more information. Pt unable to say how she got were PD found her, why she took the medications besides for SI reasons, she does not want to talk with family at this time.
[2023-04-30 19:03] LABS: Appearance Urine Cloudy; Color Urine Yellow; Glucose Urine UA Negative (Negative); Leukocyte Esterase Urine Moderate (2+) (Negative); Nitrite Urine Negative (Negative); PH 6.5 (5.0-9.0); UMIC TRIGGER UACC YES; Urine Blood Large (3+) (Negative); Urine Ketones Trace mg/dL (Negative); Urine Protein 30 (1+) mg/dL (Neg-Trace)
--- NOTE | 2023-04-30 19:07 | PC.NURSE ---
This RN received report from Luisa DENIS, assumed care of pt. pt resting in stretcher, no acute distress noted. pt normal sinus on tele 67-68bpm. 1:1 sitter at bedside, pt refusing to answer si/hi at this time.
[2023-04-30 19:08] LABS: Bacteria Urine 4+ (None Seen); RBC Urine >20 /HPF (0-2); UACC Culture Trigger YES; WBC Urine 21-50 /HPF (0-5)
[2023-04-30 19:13] LABS: Amphetamine Screen Urine Not Detected (Not Detect); Barbiturates, Urine Not Detected (Not Detect); Benzodiazepines Screen Urine Not Detected (Not Detect); Cannabinoid Screen Urine Not Detected (Not Detect); Cocaine Screen Urine Not Detected (Not Detect); Fentanyl, urine Not Detected (Not Detect); Opiate Screen Urine POSITIVE (Not Detect); Phencyclidine Screen Urine Not Detected (Not Detect)
[2023-04-30 21:17] LABS: Troponin-I High Sensitivity 5.7 ng/L (<3.5-17.0)
--- NOTE | 2023-04-30 21:24 | PC.NURSE ---
Santa from [facility] on phone for update, update given, recommendation for medical clearance.
[2023-04-30] MEDS: Ondansetron ODT 4 MG TAB.RAPDIS TRANSLINGU (21:47)
--- NOTE | 2023-04-30 21:48 | PC.NURSE ---
pt medicated per apr nausea.
[2023-04-30 21:58] VITALS: BP 130/78; PULSE 70; RESP 12; TEMP 36.4; O2SAT 96
--- NOTE | 2023-04-30 22:07 | PC.NURSE ---
attempted to do medreq for pt, pt reports only taking losarton, denies other home medication use.
--- NOTE | 2023-04-30 22:15 | PC.NURSE ---
report given to Diamond RN in pod.
[2023-05-01 05:21] VITALS: BP 135/59; PULSE 70; RESP 17; TEMP 36.6; O2SAT 98
--- NOTE | 2023-05-01 06:57 | PC.NURSE ---
Assumed care of patient at 0645, patient appears to be sleeping, respirations even and unlabored, no apparent distress noted. Continue plan of care for Sec 12 inpt bedsearch
[2023-05-01] MEDS: hydrOXYzine HCL 50 MG TABLET PO (12:36)
--- NOTE | 2023-05-01 15:47 | PM.PSYCN ---
History of Present Illness Date of Service: 05/01/2023 Chief Complaint: depressed SI Reason for Consult: SA Discussed with referring provider: Yes Sources of Information: patient interviewed, chart reviewed and crisis/core team assessment reviewed HPI Narrative: Ms. Galvin is a 42 year-old woman with hx of MDD. She was brought via EMS after found in car after she reported intentional OD on medications including losartan and cough medication to her ex partner. In the ED, pt was alert. She seemed guarded but no medical complications found after intentional OD. No EKG changes, no LOC, no electrolyte abnormality, normal renal function as well as liver function. Pt seen in the ED. She presents somewhat tearful. She reports she had recent break up of relationship with partner of 2 years. She reports relationship is over. She adamantly denies SI/HI. She reports wanting to be connected with OP services. She reports she lives with mother who was present during our interview. She denies hx of VH/AH. No delusional content. REPLACED BY [facility] Medical History (Updated 05/04/23 @ 08:38 by Chris Davis MD) Agoraphobia without history of panic disorder MDD (major depressive disorder), recurrent severe, without psychosis Back pain GERD (gastroesophageal reflux disease) Morbid obesity Hypertension Surgical History History of appendectomy Hx of eye surgery Diagnostics Vital Signs (24Hr): Vital Signs - 24 hr 04/30/23 17:34 04/30/23 17:53 04/30/23 21:58 Temperature 98.0 F 97.9 F 97.5 F Pulse Rate 83 69 70 Respiratory Rate 16 14 12 Blood Pressure 127/72 122/77 130/78 Pulse Oximetry 95 97 96 Oxygen Delivery Method Room Air Room Air Room Air 05/01/23 05:21 Temperature 97.8 F Pulse Rate 70 Respiratory Rate 17 Blood Pressure 135/59 L Pulse Oximetry 98 Oxygen Delivery Method Room Air BMI result Body Mass Index 46.6 Labs 04/30/23 17:49 05/03/23 08:32 Labs: Laboratory Results - last 48 hr 04/30/23 04/30/23 04/30/23 17:49 18:52 20:52 WBC 11.4 H RBC 4.64 Hgb 10.5 L Hct 33.4 L MCV 72.0 L MCH 22.6 L MCHC 31.4 RDW 17.4 H Plt Count 450 H MPV 8.8 L Immature Gran % (Auto) 0.4 Neut % (Auto) 77.5 H Lymph % (Auto) 14.2 L [place] % (Auto) 7.5 Eos % (Auto) 0.1 Baso % (Auto) 0.3 Lymph # (Auto) 1.6 [place] # (Auto) 0.9 Eos # (Auto) 0.0 Baso # (Auto) 0.0 Abs Immat Gran (auto) 0.04 H Absolute Neuts (auto) 8.8 H Absolute Nucleated RBC 0.000 Nucleated RBC % (auto) 0.0 PT 13.9 H INR 1.1 Sodium 141 Potassium 3.6 Chloride 107 Carbon Dioxide 22 Anion Gap 16 BUN 10 Creatinine 0.90 Estim Creat Clear Calc 108.1 Estimated GFR > 60 Random Glucose 135 H Calcium 9.4 Magnesium 2.2 Total Bilirubin 0.4 AST 10 ALT 8 Alkaline Phosphatase 45 Troponin I High Sens 5.8 5.7 Total Protein 8.0 Albumin 3.8 Beta HCG, Quant < 2 Urine Color Yellow Urine Appearance Cloudy Urine pH 6.5 Ur Specific [place] 1.020 Urine Protein 30 (1+) H Urine Glucose (UA) Negative Urine Ketones Trace Urine Blood Large (3+) H Urine Nitrite Negative Ur Leukocyte Esterase Moderate (2+) H Urine RBC >20 H Urine WBC 21-50 H Ur Squamous Epith Cells 11-20 Urine Bacteria 4+ Hyaline Casts 3-5 Salicylates < 5.0 L Urine Opiates Screen POSITIVE H Urine Fentanyl Screen Not Detected Acetaminophen < 3 Ur Barbiturates Screen Not Detected Ur Phencyclidine Scrn Not Detected Ur Amphetamines Screen Not Detected U Benzodiazepines Scrn Not Detected Urine Cocaine Screen Not Detected U Marijuana (THC) Screen Not Detected Ethyl Alcohol < 10 COVID-19 (PRADEEP) Negative COVID-19 Clin Com See Note Mental Status Exam Mental Status Exam Narrative: Appearance: wearing hospital gown, fair hygiene, in NAD Behavior: guarded, superficially cooperative Psychomotor: no agitation or retardation noted Speech: clear, normal rate/rhythm/volume, spontaneous TP: linear TC: wanting to go home Mood: anxious Affect: somewhat frustrated, mildly irritable SI: denies HI: none VH/AH: none Delusions: none Insight/judgment: fair x 2. memory/cog: alert, oriented x 3. grossly intact to conversational testing. Medications Allergies Allergies Allergy/AdvReac Type Severity Reaction Status Date / Time amoxicillin [AMOXICILLIN] Allergy Unknown RASH Verified 01/14/23 15:20 Assessment & Plan Assessment & Plan (1) MDD (major depressive disorder), recurrent severe, without psychosis: Status: Acute Code(s): F33.2 - Major depressive disorder, recurrent severe without psychotic features Plan Ms. Galvin is a 43 year-old woman with hx of MDD. She was brought via EMS after police found her in her car, upset, reported intentional OD with losartan and cough medication as suicide attempt in setting of recently break up of relationship. She denied SI/HI. She did request connection with therapy and psychiatry. She was somewhat guarded and minimizing events leading to ED visit. PLAN 1. inpt level of care for safety, containment and stabilization Total time managing care of this patient today ____ minutes.
[2023-05-01 17:07] VITALS: BP 109/49; PULSE 69; RESP 16; TEMP 36.8; O2SAT 99
--- NOTE | 2023-05-01 20:10 | PC.NURSE ---
patient appears to remain at rest at present respirations are even and unlabored patient appears in no distress, using phone ad melvin.
[2023-05-01] MEDS: Losartan Potassium 50 MG TABLET PO (21:56)
[2023-05-02 06:13] VITALS: BP 118/70; PULSE 70; RESP 16; TEMP 36.6; O2SAT 98
[2023-05-02] MEDS: Losartan Potassium 50 MG TABLET PO ×2 (09:33→20:10)
[2023-05-02] MEDS: LORazepam 1 MG TABLET 2 MG PO (09:33)
--- NOTE | 2023-05-02 09:33 | PC.NURSE ---
pt verbalized feeling anxious and lookung for something to calm down, pt reports she takes no meds other than her losartan. spoke wtih MD rowland and PO 2mg Ativan ordered. will give per MAR
[2023-05-02 09:39] VITALS: BP 123/69; PULSE 78; TEMP 36.8; O2SAT 97
[2023-05-02 15:16] VITALS: BMI 42.2
[2023-05-02 15:17] VITALS: BP 144/84; PULSE 88; RESP 18; O2SAT 99
--- NOTE | 2023-05-02 15:25 | PC.NURSE ---
Pt signed 3 day notice 05/02/23 1522
[2023-05-02 20:05] VITALS: BP 143/74; PULSE 95; TEMP 36.6
--- NOTE | 2023-05-03 01:52 | PC.ADMIT ---
A single, , female aged 43 years [facility] at 1458 following referral from [facility] ED and CARE team. Pt signed a 3-day notice shortly after arrival. Pt had skin check upon arrival with no skin issues noted. Pt reports IPLOC elsewhere, but denies inpatient admissions for Etoh or substances. Pt was brought to ED via ambulance after family called 911 for a wellness check on pt. Pt was found tearful on side of road by police who called ambulance. Pt informed EMS that she had attempted to commit suicide via overdose of cough syrup. Pt reported the stressor of recent a break up with significant other. Pt reports a previous suicide attempt about 5-6 years ago; pt was unable to remember means. Pt was calm and cooperative with admission. Pt rated anxiety as high and depression at 8/10. Pt denied SI/HI, AVH. Pt reports ok sleep . Pt stated that sometimes her brain won't shut down . Pt reports unknown amount of weight loss r/t decreased appetite due to depressive symptoms. Pt reports having a trauma history, but was vague. Pt does not have therapist or psychiatric medication provider. Pt says is open to referral to providers and medication management. Pt lives with her mother and adult child in a house in [place] and has stable housing. Medical issues include: HTN, obstructive sleep apnea. Pt reports history of back surgery in June 2022. Pt reports ongoing right leg pain. Pt denied current pain during admission. HINTON positive for opioids. [id number] done, admission orders obtained. Initial treatment plan and safety tool done but need to be signed. Pt is resting in room at this time on 15 minute safety checks.
[2023-05-03] MEDS: Acetaminophen 325 MG TABLET 650 MG PO ×2 (05:36→14:19)
[2023-05-03 07:45] VITALS: BP 122/57; PULSE 69; RESP 18; TEMP 36.1; O2SAT 99
[2023-05-03] MEDS: Losartan Potassium 50 MG TABLET PO ×2 (08:20→20:33)
[2023-05-03 08:48] LABS: Estimated Average Glucose 114 mg/dL; Hemoglobin A1c % 5.6 % (<6.0)
[2023-05-03 09:18] LABS: Alanine Aminotransferase 12 U/L (0-31); Alkaline Phosphatase 49 U/L (39-117); Anion Gap 12 (12-20); Aspartate Amino Transferase 15 U/L (5-31); Bilirubin Total 0.3 mg/dL (0.0-1.0); Blood Urea Nitrogen 22 mg/dL (9-16); Carbon Dioxide 27 mmol/L (22-29); Chloride 106 mmol/L (96-108); Cholesterol 168 mg/dL (<200); Estimated Glomerular Filt Rate 32; Glucose Fasting 113 mg/dL (60-99); HDL Cholesterol 43 mg/dL (>40); LDL Cholesterol Calculated 104 mg/dL (<100); Potassium 3.9 mmol/L (3.3-5.1); Sodium 141 mmol/L (135-145); Total Protein 8.3 g/dL (6.5-8.0); Triglycerides 108 mg/dL (<150)
[2023-05-03 09:21] LABS: TSH reflex Free T4 0.87 uIU/mL (0.32-4.0)
--- NOTE | 2023-05-03 09:39 | P.HPPS_ITS ---
HPI Date of Service: 05/03/23 Chief Complaint: depressed SI Sources of Information: patient interviewed, chart reviewed and crisis/core team assessment reviewed HPI Subjective Notes: Jacobo Warning, Conditional Voluntary and 3 Day Narrative: pt is a 43 yo with hx of hypertension, MDD, anxiety with agoraphobia who presents for worsening depression and suicide attempt in face of upsetting break up. Pt reports she was doing well, in relationship with boyfriend for 2 years, living together for 7 months. Last month, without warning he broke up with her and asked her to move out; she went to her moms house. For the past weeks patient has felt depressed, still working which she does from home but not wanting to do much else, staying in bed more of the day, increased anxiety, low energy, diminished interest. Patient has been intermittently talking to her Ex on the phone trying to get resolution but he remained vague and would give her no substantial reasons for suddenly breaking off their 2 year relationship. The other day patient was in the car, talking to him, feeling distraught. While on the phone she had overwhelming sense of emptiness, despair and still while talking with them took an overdose of losartan and cough medicine; she told him she was doing so and he called her mother who called 911 and patient was brought to the hospital. No medical interventions necessary. Patient says at the time she wanted to , that her Flood of emotions blocked out all reason including thinking about her son. However she is very grateful she did not . Now in the hospital she feels she is accepted that the relationship is over and feels ready to move on. She has therapy appointment pending and agrees she needs to get into therapy and not only processes event but her history of anxiety and why she had such a strong emotional reaction. Patient denies any history of twyla, symptoms or episodes; denies any drug or alcohol abuse; denies history of trauma; endorses chronic anxiety with agoraphobia, avoiding crowds, going into stores if she can, sometimes needing to leave; no panic. Patient has not been on psychotropic medications but agrees it is armijo to start 1 now and agrees to Lexapro, (risks/side effects reviewed and understood). Past Psychiatric History: One psychiatric hospitalization 6 years ago for depressive episode with SI following divorce. Patient said she pseudo attempted suicide but not really Medical Evaluation Reviewed: Yes no UTI tsh wnl PMFSH Medical History (Updated 05/04/23 @ 08:38 by Chris Davis MD) Agoraphobia without history of panic disorder MDD (major depressive disorder), recurrent severe, without psychosis Back pain GERD (gastroesophageal reflux disease) Morbid obesity Hypertension Surgical History History of appendectomy Hx of eye surgery Family History: mother: depression Social History: Works full-time at [employer] Now, from home recent break up with boyfriend after 2 years; moved back to live with mother who is very supportive Has a young son who lives with his biological father; patient sees him regularly Substance History: Denies Trauma History: Deny Diagnostics Vital Signs (24Hr): Vital Signs - 24 hr 05/02/23 15:17 05/02/23 20:05 05/03/23 07:45 Temperature 97.9 F 97.0 F Pulse Rate 88 95 69 Respiratory Rate 18 18 Blood Pressure 144/84 H 143/74 H 122/57 L Pulse Oximetry 99 99 Oxygen Delivery Method Room Air Room Air BMI result Body Mass Index 42.2 Labs 04/30/23 17:49 05/03/23 08:32 Labs: Laboratory Results - last 48 hr 05/03/23 08:32 Sodium 141 Potassium 3.9 Chloride 106 Carbon Dioxide 27 Anion Gap 12 BUN 22 H Creatinine 1.75 H Estim Creat Clear Calc 47.0 Estimated GFR 32 Fasting Glucose 113 H Estimat Average Glucose 114 Hemoglobin A1c % 5.6 Calcium 10.0 D Total Bilirubin 0.3 AST 15 ALT 12 Alkaline Phosphatase 49 Total Protein 8.3 H Albumin 4.0 Triglycerides 108 Cholesterol 168 LDL Cholesterol, Calc 104 H HDL Cholesterol 43 TSH 0.87 Meds/Allergies Meds Home Medications Medication Instructions Recorded Confirmed Type losartan 50 mg tablet 50 mg PO BID 03/14/22 04/30/23 History Allergies Allergies Allergy/AdvReac Type Severity Reaction Status Date / Time amoxicillin [AMOXICILLIN] Allergy Unknown RASH Verified 01/14/23 15:20 Mental Status Exam Mental Status Exam Narrative: Pt is alert and oriented; behavior is cooperative, friendly and calm; patient is not in distress; dressed in casual attire with adequate hygiene; mood is described as okay, better and affect congruent; eye contact appropriate; Speech is normal rate, volume and prosody and not pressured; no psychomotor agitation/retardation present; thought process is organized and goal directed; Thought content is on tx; otherwise pertinent to relevant topics and without any delusional content, paranoid ideations or grandiosity; denies any SI/HI. There is no evidence of perceptual disturbance. Patients insight and judgment appear intact. Assessment & Plan Assessment & Plan (1) MDD (major depressive disorder), recurrent severe, without psychosis: Status: Acute Code(s): F33.2 - Major depressive disorder, recurrent severe without psychotic features (2) Agoraphobia without history of panic disorder: Status: Acute Code(s): F40.02 - Agoraphobia without panic disorder Plan pt is a 43 yo with hx of hypertension, MDD, anxiety with agoraphobia who presents for worsening depression and suicide attempt in face of upsetting break up. Pt reports she was doing well, in relationship with boyfriend for 2 years, living together for 7 months. Last month, without warning he broke up with her and asked her to move out; she went to her moms house. For the past weeks patient has felt depressed, still working which she does from home but not wanting to do much else, staying in bed more of the day, increased anxiety, low energy, diminished interest. Patient has been intermittently talking to her Ex on the phone trying to get resolution but he remained vague and would give her no substantial reasons for suddenly breaking off their 2 year relationship. The other day patient was in the car, talking to him, feeling distraught. While on the phone she had overwhelming sense of emptiness, despair and still while talking with them took an overdose of losartan and cough medicine; she told him she was doing so and he called her mother who called 911 and patient was brought to the hospital. No medical interventions necessary. Patient says at the time she wanted to , that her Flood of emotions blocked out all reason including thinking about her son. However she is very grateful she did not . Now in the hospital she feels she is accepted that the relationship is over and feels ready to move on. She has therapy appointment pending and agrees she needs to get into therapy and not only processes event but her history of anxiety and why she had such a strong emotional reaction. Patient denies any history of twyla, symptoms or episodes; denies any drug or alcohol abuse; denies history of trauma; endorses chronic anxiety with agoraphobia, avoiding crowds, going into stores if she can, sometimes needing to leave; no panic. Patient has not been on psychotropic medications but agrees it is armijo to start 1 now and agrees to Lexapro, (risks/side effects reviewed and understood). Impression: History of MDD; history of chronic anxiety/agoraphobia. No history of medication trials. Patient presents with insight knowing that she needs to address her anxiety and figure out why she had such a strong emotional reaction resulting in a suicide attempt (albeit with low lethality and high rescue). Patient says she is feeling better, regrets attempt and would like to return home and continue treatment as an outpatient. Patient's mother visited day of admission and discussed case with director underwriter sales. She feels that patient is now doing much better, getting back to her regular self; she corroborates the patient has not had any other suicidality at all other than after her divorce 6 years ago and thinks that patient is safe, able to return home. -patient agrees to start Lexapro Plan: CV but then signed 3 day Q 15 minute checks Start Lexapro 5 mg daily for anxiety/depression Continue losartan Hydroxyzine and clonidine available p.r.n. for anxiety Patient educated on: diagnosis, medication risk/benefits and therapeutic strategies Informed Consent: understands Reason for continued inpatient stay Substantial Risk for: rapid decompensation Statement Statement: I have reviewed the history and physical and performed a pertinent examination on my patient. No changes have occurred unless specified. If the History and Physical was not performed prior to admission, the Hospitalist's service will be consulted for completing the admission physical. Time Spent With Patient Time: Total time managing care of this patient today ____ minutes.
[2023-05-03] MEDS: Escitalopram Oxalate 5 MG TABLET PO (13:48)
[2023-05-03 18:00] VITALS: BP 133/68; PULSE 72; RESP 18; TEMP 36.6; O2SAT 98
[2023-05-04 07:00] VITALS: BMI 42.6
[2023-05-04] MEDS: Losartan Potassium 50 MG TABLET PO ×2 (08:24→19:57)
[2023-05-04 08:31] VITALS: BP 137/72; PULSE 87; RESP 18; TEMP 36.1; O2SAT 97
--- NOTE | 2023-05-04 09:44 | P.PNPSI_ITS ---
Subjective Subjective Date of Service: 05/04/23 Reason For Visit: depressed SI Interim History: met with patient; discussed with team Patient reports that her mood is better and she does not feel overly anxious. Tried Lexapro yesterday and pretty quickly afterwards, about 25 minutes she said she started feeling quiet and thinks it is due to the medication; later on she said she got a headache. Today this morning she has a dry mouth. Instead, she agreed to switch to Zoloft which securities underwriter will start at a very low dose to avoid any risk of side effects. Discussed patient's history and she was able to identify that fear of being abandoned is big trigger for her which is why she got so emotional and suicidal. Patient discussed a little bit about her past, being raised by her grandmother and there complicated relationship were sometimes she would get punished and then reported immediately afterwards. She feels that her feelings of abandonment and struggles with self-worth stem from experiences in childhood. Patient agreed that she very much needs therapy and says she will engage on discharge. She remains without any SI and looking forward to going home. Mental Status Exam Mental Status Exam Narrative: Pt is alert and oriented; behavior is cooperative, friendly and calm; patient is not in distress; dressed in casual attire with adequate hygiene; mood is described as good and affect congruent, brighter, calm; eye contact appropriate; Speech is normal rate, volume and prosody and not pressured; no psychomotor agitation/retardation present; thought process is organized and goal directed; Thought content is on tx; otherwise pertinent to relevant topics and without any delusional content, paranoid ideations or grandiosity; denies any SI/HI. There is no evidence of perceptual disturbance. Patients insight and judgment is intact Diagnostics Vital Signs (24Hr): Vital Signs - 24 hr 05/03/23 18:00 05/04/23 08:31 Temperature 97.8 F 96.9 F Pulse Rate 72 87 Respiratory Rate 18 18 Blood Pressure 133/68 137/72 Pulse Oximetry 98 97 Oxygen Delivery Method Room Air Room Air BMI result Body Mass Index 42.6 Labs 04/30/23 17:49 05/03/23 08:32 Labs: Laboratory Results - last 48 hr 05/03/23 08:32 Sodium 141 Potassium 3.9 Chloride 106 Carbon Dioxide 27 Anion Gap 12 BUN 22 H Creatinine 1.75 H Estim Creat Clear Calc 47.0 Estimated GFR 32 Fasting Glucose 113 H Estimat Average Glucose 114 Hemoglobin A1c % 5.6 Calcium 10.0 D Total Bilirubin 0.3 AST 15 ALT 12 Alkaline Phosphatase 49 Total Protein 8.3 H Albumin 4.0 Triglycerides 108 Cholesterol 168 LDL Cholesterol, Calc 104 H HDL Cholesterol 43 TSH 0.87 Medications Medications Current Medications Acetaminophen (Acetaminophen 325 Mg Tablet) 650 mg PO Q6H PRN PRN Reason: Headache/Pain Mild Scale (1-3) Last Admin: 05/03/23 14:19 Dose: 650 mg Al Hydroxide/Mg Hydroxide (Magnesium Hydrox/Alum Hydrox 30 Ml Oral.Susp) 30 ml PO Q6H PRN PRN Reason: Heartburn/Nausea Clonidine HCl (Clonidine Hcl 0.1 Mg Tablet) 0.1 mg PO Q4H PRN; Protocol PRN Reason: anxiety Escitalopram Oxalate (Escitalopram Oxalate 5 Mg Tablet) 5 mg PO DAILY [facility] Last Admin: 05/04/23 08:30 Dose: Not Given Hydroxyzine HCl (Hydroxyzine Hcl 25 Mg Tablet) 25 mg PO Q6H PRN PRN Reason: Anxiety Losartan Potassium (Losartan Potassium 50 Mg Tablet) 50 mg PO BID [facility]; Protocol Last Admin: 05/04/23 08:24 Dose: 50 mg Magnesium Hydroxide (Milk Of Magnesia 30 Ml Oral.Susp) 30 ml PO DAILY PRN PRN Reason: Constipation Nicotine Polacrilex (Nicotine Polacrilex 2 Mg Gum) 4 mg BUCCAL Q2H PRN PRN Reason: Nicotine Cravings Olanzapine (Olanzapine 5 Mg Tablet) 5 mg PO TID PRN PRN Reason: agitation Trazodone HCl (Trazodone Hcl 50 Mg Tablet) 50 mg PO BEDTIME [id number] PRN PRN Reason: Insomnia Allergies Allergies Allergy/AdvReac Type Severity Reaction Status Date / Time amoxicillin [AMOXICILLIN] Allergy Unknown RASH Verified 01/14/23 15:20 Assessment & Plan Assessment & Plan (1) MDD (major depressive disorder), recurrent severe, without psychosis: Status: Acute Code(s): F33.2 - Major depressive disorder, recurrent severe without psychotic features (2) Agoraphobia without history of panic disorder: Status: Acute Code(s): F40.02 - Agoraphobia without panic disorder Plan pt is a 43 yo with hx of hypertension, MDD, anxiety with agoraphobia who presents for worsening depression and suicide attempt in face of upsetting break up. Pt reports she was doing well, in relationship with boyfriend for 2 years, living together for 7 months. Last month, without warning he broke up with her and asked her to move out; she went to her moms house. For the past weeks patient has felt depressed, still working which she does from home but not wanting to do much else, staying in bed more of the day, increased anxiety, low energy, diminished interest. Patient has been intermittently talking to her Ex on the phone trying to get resolution but he remained vague and would give her no substantial reasons for suddenly breaking off their 2 year relationship. The other day patient was in the car, talking to him, feeling distraught. While on the phone she had overwhelming sense of emptiness, despair and still while talking with them took an overdose of losartan and cough medicine; she told him she was doing so and he called her mother who called 911 and patient was brought to the hospital. No medical interventions necessary. Patient says at the time she wanted to , that her Flood of emotions blocked out all reason including thinking about her son. However she is very grateful she did not . Now in the hospital she feels she is accepted that the relationship is over and feels ready to move on. She has therapy appointment pending and agrees she needs to get into therapy and not only processes event but her history of anxiety and why she had such a strong emotional reaction. Patient denies any history of twyla, symptoms or episodes; denies any drug or alcohol abuse; denies history of trauma; endorses chronic anxiety with agoraphobia, avoiding crowds, going into stores if she can, sometimes needing to leave; no panic. Patient has not been on psychotropic medications but agrees it is armijo to start 1 now and agrees to Lexapro, (risks/side effects reviewed and understood). Impression: History of MDD; history of chronic anxiety/agoraphobia. No history of medication trials. Patient presents with insight knowing that she needs to address her anxiety and figure out why she had such a strong emotional reaction resulting in a suicide attempt (albeit with low lethality and high rescue). Patient says she is feeling better, regrets attempt and would like to return home and continue treatment as an outpatient. Patient's mother visited day of admission and discussed case with securities underwriter. She feels that patient is now doing much better, getting back to her regular self; she corroborates the patient has not had any other suicidality at all other than after her divorce 6 years ago and thinks that patient is safe, able to return home. -patient agrees to start Lexapro Hospital course: 05/03 Patient reports that her mood is better and she does not feel overly anxious. Tried Lexapro yesterday and pretty quickly afterwards, about 25 minutes she said she started feeling quiet and thinks it is due to the medication; later on she said she got a headache. Today this morning she has a dry mouth. Instead, she agreed to switch to Zoloft which securities underwriter will start at a very low dose to avoid any risk of side effects. Discussed patient's history and she was able to identify that fear of being abandoned is big trigger for her which is why she got so emotional and suicidal. Patient discussed a little bit about her past, being raised by her grandmother and there complicated relationship were sometimes she would get punished and then reported immediately afterwards. She feels that her feelings of abandonment and struggles with self-worth stem from experiences in childhood. Patient agreed that she very much needs therapy and says she will engage on discharge. She remains without any SI and looking forward to going home. Patient's 3 day notice is coming due. She has remained in good behavioral and impulse control, appropriate with peers and staff. She remains without any SI and feels she is getting back to her regular self, safe and able to go home and continue treatment in the community. Patient's mother agrees that she is safe and ready to come home. Patient returns to live with her mother who is supportive. She has outpatient services being set up and she remains future oriented, ready to get back to work. Patient is not in imminent risk for harm to self or others and request for discharge honored. Plan: 3 day Q 15 minute checks Start Zoloft 12.5 mg daily for anxiety/depression Continue losartan Hydroxyzine and clonidine available p.r.n. for anxiety Patient educated on: diagnosis, medication risk/benefits and therapeutic strategies Informed Consent: understands Reason for continued inpatient stay Substantial Risk for: stable for discharge Time Spent With Patient Time: Total time managing care of this patient today ____ minutes.
[2023-05-04] MEDS: Sertraline HCL 25 MG TABLET 12.5 MG PO (14:02)
[2023-05-04 18:00] VITALS: BP 160/69; PULSE 70; RESP 18; TEMP 35.9; O2SAT 100
--- NOTE | 2023-05-04 18:40 | PM.PSYDC ---
DS: Providers Provider Date of Service: 05/05/23 Date of admission: 05/02/23 14:39 Date of discharge: 05/05/23 Primary care physician: Boris Jones MD Attending physician on admission: Chris Davis Consults: 04/30/23 21:44 Consult to Care Team Routine Comment: Reason for consultation: SI, intentional overdose Attending physician on discharge: Chris Davis DS: Diagnosis Discharge Diagnosis (1) MDD (major depressive disorder), recurrent severe, without psychosis: Status: Acute (2) Agoraphobia without history of panic disorder: Status: Acute DS: Medications Discharge Medications Home Medications: Home Medications Medication Instructions Recorded Confirmed losartan 50 mg tablet 50 mg PO BID 03/14/22 04/30/23 Mental Status Exam Mental Status Exam Narrative: Pt is alert and oriented; behavior is cooperative, friendly and calm; patient is not in distress; dressed in casual attire with adequate hygiene; mood is described as good and affect congruent, brighter, calm; eye contact appropriate; Speech is normal rate, volume and prosody and not pressured; no psychomotor agitation/retardation present; thought process is organized and goal directed; Thought content is on tx; otherwise pertinent to relevant topics and without any delusional content, paranoid ideations or grandiosity; denies any SI/HI. There is no evidence of perceptual disturbance. Patients insight and judgment is intact Data Data Completed and Pending Completed studies during hospitalization [Text1]: 04/30/23 04/30/23 04/30/23 17:49 18:52 20:52 WBC 11.4 H RBC 4.64 Hgb 10.5 L Hct 33.4 L MCV 72.0 L MCH 22.6 L MCHC 31.4 RDW 17.4 H Plt Count 450 H MPV 8.8 L Immature Gran % (Auto) 0.4 Neut % (Auto) 77.5 H Lymph % (Auto) 14.2 L [place] % (Auto) 7.5 Eos % (Auto) 0.1 Baso % (Auto) 0.3 Lymph # (Auto) 1.6 [place] # (Auto) 0.9 Eos # (Auto) 0.0 Baso # (Auto) 0.0 Abs Immat Gran (auto) 0.04 H Absolute Neuts (auto) 8.8 H Absolute Nucleated RBC 0.000 Nucleated RBC % (auto) 0.0 PT 13.9 H INR 1.1 Sodium 141 Potassium 3.6 Chloride 107 Carbon Dioxide 22 Anion Gap 16 BUN 10 Creatinine 0.90 Estim Creat Clear Calc 108.1 Estimated GFR > 60 Random Glucose 135 H Fasting Glucose Estimat Average Glucose Hemoglobin A1c % Calcium 9.4 Magnesium 2.2 Total Bilirubin 0.4 AST 10 ALT 8 Alkaline Phosphatase 45 Troponin I High Sens 5.8 5.7 Total Protein 8.0 Albumin 3.8 Triglycerides Cholesterol LDL Cholesterol, Calc HDL Cholesterol TSH Beta HCG, Quant < 2 Urine Color Yellow Urine Appearance Cloudy Urine pH 6.5 Ur Specific Calvin 1.020 Urine Protein 30 (1+) H Urine Glucose (UA) Negative Urine Ketones Trace Urine Blood Large (3+) H Urine Nitrite Negative Ur Leukocyte Esterase Moderate (2+) H Urine RBC >20 H Urine WBC 21-50 H Ur Squamous Epith Cells 11-20 Urine Bacteria 4+ Hyaline Casts 3-5 Salicylates < 5.0 L Urine Opiates Screen POSITIVE H Urine Fentanyl Screen Not Detected Acetaminophen < 3 Ur Barbiturates Screen Not Detected Ur Phencyclidine Scrn Not Detected Ur Amphetamines Screen Not Detected U Benzodiazepines Scrn Not Detected Urine Cocaine Screen Not Detected U Marijuana (THC) Screen Not Detected Ethyl Alcohol < 10 COVID-19 ([facility]) Negative COVID-19 Clin Com See Note 05/03/23 08:32 WBC RBC Hgb Hct MCV MCH MCHC RDW Plt Count MPV Immature Gran % (Auto) Neut % (Auto) Lymph % (Auto) [place] % (Auto) Eos % (Auto) Baso % (Auto) Lymph # (Auto) [place] # (Auto) Eos # (Auto) Baso # (Auto) Abs Immat Gran (auto) Absolute Neuts (auto) Absolute Nucleated RBC Nucleated RBC % (auto) PT INR Sodium 141 Potassium 3.9 Chloride 106 Carbon Dioxide 27 Anion Gap 12 BUN 22 H Creatinine 1.75 H Estim Creat Clear Calc 47.0 Estimated GFR 32 Random Glucose Fasting Glucose 113 H Estimat Average Glucose 114 Hemoglobin A1c % 5.6 Calcium 10.0 D Magnesium Total Bilirubin 0.3 AST 15 ALT 12 Alkaline Phosphatase 49 Troponin I High Sens Total Protein 8.3 H Albumin 4.0 Triglycerides 108 Cholesterol 168 LDL Cholesterol, Calc 104 H HDL Cholesterol 43 TSH 0.87 Beta HCG, Quant Urine Color Urine Appearance Urine pH Ur Specific Calvin Urine Protein Urine Glucose (UA) Urine Ketones Urine Blood Urine Nitrite Ur Leukocyte Esterase Urine RBC Urine WBC Ur Squamous Epith Cells Urine Bacteria Hyaline Casts Salicylates Urine Opiates Screen Urine Fentanyl Screen Acetaminophen Ur Barbiturates Screen Ur Phencyclidine Scrn Ur Amphetamines Screen U Benzodiazepines Scrn Urine Cocaine Screen U Marijuana (THC) Screen Ethyl Alcohol COVID-19 ([facility]) COVID-19 Clin Com 04/30/23 18:52 Urine clean catch - Urine casey top Urine Culture - Final DS: Summary Hospital Course Hospital Course: HPI: pt is a 43 yo with hx of hypertension, MDD, anxiety with agoraphobia who presents for worsening depression and suicide attempt in face of upsetting break up. Pt reports she was doing well, in relationship with boyfriend for 2 years, living together for 7 months. Last month, without warning he broke up with her and asked her to move out; she went to her moms house. For the past weeks patient has felt depressed, still working which she does from home but not wanting to do much else, staying in bed more of the day, increased anxiety, low energy, diminished interest. Patient has been intermittently talking to her Ex on the phone trying to get resolution but he remained vague and would give her no substantial reasons for suddenly breaking off their 2 year relationship. The other day patient was in the car, talking to him, feeling distraught. While on the phone she had overwhelming sense of emptiness, despair and still while talking with them took an overdose of losartan and cough medicine; she told him she was doing so and he called her mother who called 911 and patient was brought to the hospital. No medical interventions necessary. Patient says at the time she wanted to , that her Flood of emotions blocked out all reason including thinking about her son. However she is very grateful she did not . Now in the hospital she feels she is accepted that the relationship is over and feels ready to move on. She has therapy appointment pending and agrees she needs to get into therapy and not only processes event but her history of anxiety and why she had such a strong emotional reaction. Patient denies any history of twyla, symptoms or episodes; denies any drug or alcohol abuse; denies history of trauma; endorses chronic anxiety with agoraphobia, avoiding crowds, going into stores if she can, sometimes needing to leave; no panic. Patient has not been on psychotropic medications but agrees it is armijo to start 1 now and agrees to Lexapro, (risks/side effects reviewed and understood). Initial Impression: History of MDD; history of chronic anxiety/agoraphobia. No history of medication trials. Patient presents with insight knowing that she needs to address her anxiety and figure out why she had such a strong emotional reaction resulting in a suicide attempt (albeit with low lethality and high rescue). Patient says she is feeling better, regrets attempt and would like to return home and continue treatment as an outpatient. Patient's mother visited day of admission and discussed case with advertising copywriter. She feels that patient is now doing much better, getting back to her regular self; she corroborates the patient has not had any other suicidality at all other than after her divorce 6 years ago and thinks that patient is safe, able to return home. Hospital course: 05/03 Patient reports that her mood is better and she does not feel overly anxious. Tried Lexapro yesterday and pretty quickly afterwards, about 25 minutes she said she started feeling quiet and thinks it is due to the medication; later on she said she got a headache. Today this morning she has a dry mouth. Instead, she agreed to switch to Zoloft which advertising copywriter will start at a very low dose to avoid any risk of side effects. Discussed patient's history and she was able to identify that fear of being abandoned is big trigger for her which is why she got so emotional and suicidal. Patient discussed a little bit about her past, being raised by her grandmother and there complicated relationship were sometimes she would get punished and then reported immediately afterwards. She feels that her feelings of abandonment and struggles with self-worth stem from experiences in childhood. Patient agreed that she very much needs therapy and says she will engage on discharge. She remains without any SI and looking forward to going home. Patient made safety plan with social service agency director. Patient's 3 day notice is coming due. She has remained in good behavioral and impulse control, appropriate with peers and staff. She remains without any SI and feels she is getting back to her regular self, safe and able to go home and continue treatment in the community. Patient's mother agrees that she is safe and ready to come home. Patient returns to live with her mother who is supportive. She has outpatient services being set up and she remains future oriented, ready to get back to work. Patient is not in imminent risk for harm to self or others and request for discharge honored. Time spent discussing smoking cessation with patient: 3 to 10 minutes Status at Discharge Functional status at discharge: independent ambulation Overall status at discharge: patient is progressing back to baseline Time Spent with Patient Time attestation: Total time managing care of this patient today __35__ minutes. Time spent: Greater than 30 minutes Discharge Plan Discharge Anticipated Discharge Date/Time: 05/05/23 11:00 Patient Disposition: Home, Self-Care Discharge Diagnosis: MDD, recurrent, severe without psychosis, in partial remission Referrals: [facility] Intake w Nichelle Sheets [Other] - 05/09/23 2:00 pm [facility] Psychiatry w Lupis Eric [Other] - 06/07/23 1:00 pm (Telehealth in the office.) [facility] Med Mgmt w Lupis Eric [Other] - 07/05/23 10:00 am (Telehealth in office.) Boris Jones MD [Primary Care Provider] - 05/10/23 10:45 am (in office) Discharge Medications: New hydroxyzine HCl 25 mg Tablet See Rx Instructions .ROUTE .COMPLEX PRN (Reason: Anxiety) 30 Days Qty: 60 1RF Rx Instructions: take 1 to 2 tabs, up to 3x a day as needed for anxiety sertraline 25 mg Tablet 12.5 mg PO DAILY 30 Days Qty: 15 0RF Continued losartan 50 mg tablet 50 mg PO BID Discharge Orders: Discharge Order (Routine); Ordered 05/05/23 Ordered By: Chris Davis Diet: Regular diet Activity on Discharge: As tolerated Stand Alone Forms: Patient Portal Discharge page, Community Support Print Language: Faroese Care Plan Goals: Maintain mood and safe behaviors Take medications as prescribed Practice coping skills Continue with outpatient providers and reach out to them as needed Health Concerns: Mood stability and behaviors Hypertension Plan of Treatment: Follow up with your PCP, psychiatric provider and other outpatient providers regarding above concerns Take medications as prescribed Assessment: Risk assessment at time of discharge:? Patient was interviewed prior to discharge and found to be fully oriented and without any SI or HI. Patient has improved insight and judgment and wants to continue treatment. Patient is not in imminent risk of harm to self or others and has a safety plan that includes presenting to the closest ER or calling 911 if feeling unsafe.? Patient has been observed closely by nursing and unit staff throughout admission; patient has not engaged in any behaviors that suggest dangerousness to self or others and has demonstrated appropriate behaviors and impulse control Discharge Date/Time: 05/05/23 10:38
[2023-05-05 08:10] VITALS: BP 123/77; PULSE 71; RESP 16; TEMP 36.4; O2SAT 95
[2023-05-05] MEDS: Sertraline HCL 25 MG TABLET 12.5 MG PO (08:27)
[2023-05-05] MEDS: Losartan Potassium 50 MG TABLET PO (08:27)
== END 2023-05-05 10:38 | disposition home or self-care (01) | DRG 751 ==
LOC: HO.ED 05-02 06:50 → HO.PM5 05-02 14:51
PROVIDERS: Registered Nurse Emergency; Admitting Provider Psychiatry & Neurology Psychiatry; Emergency Provider Emergency Medicine Emergency Medical Services; PCP Internal Medicine; Visit Provider Psychiatry & Neurology Psychiatry
DX: F33.2 Major depressive disorder, recurrent severe without psychotic features (principal); R45.851 Suicidal ideations; F40.02 Agoraphobia without panic disorder; Z20.822 Contact with and (suspected) exposure to COVID-19; Z79.899 Other long term (current) drug therapy
CPT/HCPCS: 36415; 80053; 80061; 80143; 80179; 80307; 81001; 81003; 83036; 83735; 84443; 84484; 84702; 85025; 85610; 87086; 87635; 93005; 99285; S9485

== ENCOUNTER → 2023-04-30 17:26 | Outpatient (BNV) | payer OTHER, SELFPAY | PROVIDERS: Emergency Provider Emergency Medicine; PCP Internal Medicine; Visit Provider Internal Medicine Cardiovascular Disease | DX: R41.82 Altered mental status, unspecified (principal) | CPT/HCPCS: 93010 ==

== ENCOUNTER → 2023-05-02 14:39 | Outpatient (BNV) | payer OTHER, SELFPAY | PROVIDERS: Admitting Provider Psychiatry & Neurology Psychiatry; Emergency Provider Emergency Medicine Emergency Medical Services; PCP Internal Medicine; Visit Provider Psychiatry & Neurology Psychiatry | DX: F33.2 Major depressive disorder, recurrent severe without psychotic features (principal); F40.02 Agoraphobia without panic disorder | CPT/HCPCS: 90792; 99232; 99239; 99285 ==

== ENCOUNTER 2023-09-01 16:06 | Outpatient (REF) | payer OTHER, SELFPAY ==
[2023-09-01 16:46] LABS: Estimated Average Glucose 120 mg/dL; Hemoglobin A1c % 5.8 % (<6.0)
[2023-09-01 17:05] LABS: Anion Gap 13 (12-20); Blood Urea Nitrogen 10 mg/dL (9-16); Calcium 9.6 mg/dL (8.4-10.2); Carbon Dioxide 27 mmol/L (22-29); Chloride 105 mmol/L (96-108); Estimated Glomerular Filt Rate > 60; Glucose Random 93 mg/dL (60-115); Potassium 3.9 mmol/L (3.3-5.1); Sodium 141 mmol/L (135-145)
[2023-09-01 17:21] LABS: Thyroid Stimulating Hormone 0.91 uIU/mL (0.32-4.0)
== END 2023-09-01 16:07 | disposition home or self-care (01) ==
LOC: HO.LAB 16:06
PROVIDERS: PCP Internal Medicine; Visit Provider Internal Medicine
DX: I10 Essential (primary) hypertension (principal); R73.03 Prediabetes; R63.5 Abnormal weight gain
CPT/HCPCS: 36415; 80048; 83036; 84443

== ENCOUNTER → 2024-05-14 07:47 | Outpatient (BNVA) | payer OTHER, SELFPAY | PROVIDERS: PCP Internal Medicine; Visit Provider Surgery ==

== ENCOUNTER 2024-05-20 08:06 | Outpatient (AMB) | payer OTHER, SELFPAY ==
--- NOTE | 2024-05-20 10:02 | MHC.OFFVISWM ---
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*: Details: Start time: 9.49am, End time: 10.34am ?I spent 36 minutes speaking with the patient on the phone plus an additional 5 minutes reviewing and updating records for a total of 41 minutes HPI Comments Details: Previous weight loss efforts: Weight Watchers, self diets Wakes up: 6am, Sleeps: 10pm Breakfast: skips Lunch: 12pm (sandwich, salad) Dinner: 4-5pm (rice, beans, salad, chicken) Snacks: 11am (chips or cake), 9pm (cakes, chips) Exercise: has treadmill at home and Gym membership Fluids: Coffee: 1 cup/day (cream and sugar), Tea: none, soda: Coke zero, juice: V8 plus 2-3/week, ETOH: 2/month (1 drink) [facility] Medical History (Updated 09/09/23 @ 00:03 by Alex Parrish) Intentional overdose Agoraphobia without history of panic disorder MDD (major depressive disorder), recurrent severe, without psychosis Back pain GERD (gastroesophageal reflux disease) Morbid obesity Hypertension Surgical History History of appendectomy Hx of eye surgery Family History (Updated 05/14/24 @ 07:53 by NAM Jaquez) Mother Fibromyalgia Arthritis Father Heart problem Brother No problems noted. Son Asthma Maternal Grandmother Diabetes Social History Household Members: Other Household Members Other:: mother and son Housing: House Do you presently have visiting nurse or other home services: No Alcohol intake: current Alcohol intake frequency: holidays/special occasions only Patient Tobacco Use Status: Never used Tobacco e-Cigarette/Vaping Use: Never Used Second Hand Smoke Exposure: No service: No Sexual orientation: Straight/Heterosexual Telehealth Telehealth Telehealth Platform: Telephone Location of provider rendering services: practice address Location of patient: address on file Patient Identification confirmed using: Name, : Yes Telehealth method: voice only Patient verbally consented to treatment: Yes Patient verbally consented to billing insurance company: Yes Patient informed of any privacy concerns related to visit: Yes Minutes spent on Phone/Video with Pt.: 45 Assessment & Plan Assessment & Plan (1) Morbid obesity: Code(s): E66.01 - Morbid (severe) obesity due to excess calories Category: Medical Plan: 1.? Plan for lap sleeve gastrectomy. If diaphragmatic or ventral hernias are present at time of surgery, these will be repaired laparoscopically as well. I emphasized the importance of close follow-up, adherence to instructions and good communication. The surgery does not replace the need to change your lifestlyle which is the cause of the obesity problem. The surgery provides the motivation to try again to change your lifestyle, it reduces the appetite and make the transition to a better lifestyle easier and doubles the amount of weight you would lose compared to doing the lifestyle change without the surgery. You will need to be on a liquid diet with protein shakes for 2 weeks before surgery to maximize weight loss and boost your nutritional status to recover better from surgery and also for the first two weeks after surgery to let the stomach heal before we introduce other foods. After the first 2 weeks we will introduce protein bars and soft foods like scrambled eggs, cottage cheese and yogurt and after the 6th week will introduce meat, fish and cooked vegetables in small amounts. Over time you should be able to eat everything in small amounts. Side effects like nausea, vomiting, heartburn or abdominal pain are not common in the practice unless you are not following in the practice. This operation requires lifetime commitment to following in our practice and communication with me. You will much less weight and experience side effects if you don?t communicate or not following in the practice. Complications are rare and in our practice is about 1/10 of the national average. However, you can develop bleeding that may require transfusion (hasn?t happened for year in the practice), you may from complications (we did not have any deaths in the practice) and infections. Infections are usually a result of breakdown in communication or not understanding or following directions correctly. They are difficult to treat, they can happen during the first 6 weeks, they may require to be in the hospital for weeks or even months, not being able to eat by mouth and you may have drains and surgeries to try and correct the issue. Other risks and complications include possible conversion to an open procedure, leaks, small bowel obstruction, blood clots, cardiac, or pulmonary complications, as residential complications such as ulcers, insufficient weight loss and vitamin deficiencies. 2. You will receive a link of our software kyle to generate an individualized nutritional and exercise plan specific for you. Please send me a screenshot of the plans you will generate Meal to include lean meat (beef, fish, pork, turkey, chicken), or honduran yogurt, or egg whites, or beans with a salad with olive oil and fruits (berries, pears, apples, kiwi). Avoid salt, breads, potatoes, rice, pasta, desserts. ?3. If you choose shakes, each shake would be drunk slowly, like coffee in a period of 2 hours. ?4. If you choose bars, cut each bar in 4 pieces and eat each piece in 30min ?to make each bar last 2 hours. ?5. I emphasized the importance of measuring accurately the food portion and measure it when serving the food in plate ?6. The meal portions include a specific number of forks of meat and salad. You always eat the meat portion but you can replace up to half of salad/vegetables portion with rice, potatoes or pasta, or a fruit ?if you like. The less you do it the better weight loss will be. ?7. One full-size fork is what it can be scooped on the fork without falling aside and not what can be bit with the fork. Use regular forks like those you find in a typical restaurant. ?8.? Please buy the body composition scale we discussed and send me weight measurements as soon as possible and then once a week. Always include your diet and exercise plan. 9. The best choice would be to purchase a stationary bike, elliptical or treadmill at home that can track calories. Let me know if you do so I can give you an exercise plan. 9. The best exercise choice would be to use your treadmill at home that can track calories. You can create and exercise plan with the [employer] kyle. ?10.?It is important of avoiding and for at least 18 months postoperatively and has been discussed at the infosession. ?11. Goal is to lose at least 1.5-2lbs per week ?12. Goal to lose 10% of your weight before surgery, which is about 25lbs. Ultimate weight goal: 225lbs before surgery 13. Please follow the diet plan exactly without any change. If you don't like something about the plan or you feel hungry you need to communicate with me so I can help you revise the plan. You should not change the plan yourself. 14. To be scheduled for EGD due to the history of GERD. The possibility of biopsies was discussed. Patient needs to avoid use of NSAIDs and aspirin for 1 week prior to EGD. You must be on liquids only the day before your endoscopy. Risks of perforation and bleeding was discussed with the patient. This will be an outpatient procedure with IV sedation. 15. Start the Zepbound when you get your body composition scale once a week. We discussed the potential side effects of Zepbound such as nausea, vomiting, abdominal pain, diarrhea and constipation and you will need to contact me if any of these symptoms occur or for any other new symptom you may experience Orders: Orders H Pylori Breath Test Today E66.01 - Morbid (severe) obesity due to excess calories, I10 - Essential (primary) hypertension, K21.9 - Gastro-esophageal reflux disease without esophagitis Comprehensive Met. Panel Today E66.01 - Morbid (severe) obesity due to excess calories, I10 - Essential (primary) hypertension, K21.9 - Gastro-esophageal reflux disease without esophagitis Vitamin B12 and Folate Today E66.01 - Morbid (severe) obesity due to excess calories, I10 - Essential (primary) hypertension, K21.9 - Gastro-esophageal reflux disease without esophagitis Vitamin A Today E66.01 - Morbid (severe) obesity due to excess calories, I10 - Essential (primary) hypertension, K21.9 - Gastro-esophageal reflux disease without esophagitis TSH reflex Free T4 Today E66.01 - Morbid (severe) obesity due to excess calories, I10 - Essential (primary) hypertension, K21.9 - Gastro-esophageal reflux disease without esophagitis Ferritin Today E66.01 - Morbid (severe) obesity due to excess calories, I10 - Essential (primary) hypertension, K21.9 - Gastro-esophageal reflux disease without esophagitis US abdomen comp w elastography Today E66.01 - Morbid (severe) obesity due to excess calories, I10 - Essential (primary) hypertension, K21.9 - Gastro-esophageal reflux disease without esophagitis XR chest 2V Today E66.01 - Morbid (severe) obesity due to excess calories, I10 - Essential (primary) hypertension, K21.9 - Gastro-esophageal reflux disease without esophagitis ECG 12 lead EKG Today E66.01 - Morbid (severe) obesity due to excess calories, I10 - Essential (primary) hypertension, K21.9 - Gastro-esophageal reflux disease without esophagitis FL upper GI w air Today E66.01 - Morbid (severe) obesity due to excess calories, I10 - Essential (primary) hypertension, K21.9 - Gastro-esophageal reflux disease without esophagitis Insulin Today E66.01 - Morbid (severe) obesity due to excess calories, I10 - Essential (primary) hypertension, K21.9 - Gastro-esophageal reflux disease without esophagitis Hemoglobin A1c Today E66.01 - Morbid (severe) obesity due to excess calories, I10 - Essential (primary) hypertension, K21.9 - Gastro-esophageal reflux disease without esophagitis Complete Blood Count Auto Diff Today E66.01 - Morbid (severe) obesity due to excess calories, I10 - Essential (primary) hypertension, K21.9 - Gastro-esophageal reflux disease without esophagitis Lipid Panel Today E66.01 - Morbid (severe) obesity due to excess calories, I10 - Essential (primary) hypertension, K21.9 - Gastro-esophageal reflux disease without esophagitis IRON PROFILE Today E66.01 - Morbid (severe) obesity due to excess calories, I10 - Essential (primary) hypertension, K21.9 - Gastro-esophageal reflux disease without esophagitis Zinc Today E66.01 - Morbid (severe) obesity due to excess calories, I10 - Essential (primary) hypertension, K21.9 - Gastro-esophageal reflux disease without esophagitis C Reactive Protein Today E66.01 - Morbid (severe) obesity due to excess calories, I10 - Essential (primary) hypertension, K21.9 - Gastro-esophageal reflux disease without esophagitis Vitamin B1 Today E66.01 - Morbid (severe) obesity due to excess calories, I10 - Essential (primary) hypertension, K21.9 - Gastro-esophageal reflux disease without esophagitis Vitamin D 25-OH Total Today E66.01 - Morbid (severe) obesity due to excess calories, I10 - Essential (primary) hypertension, K21.9 - Gastro-esophageal reflux disease without esophagitis Referrals Behavioral Health Referral E66.01 - Morbid (severe) obesity due to excess calories, I10 - Essential (primary) hypertension, K21.9 - Gastro-esophageal reflux disease without esophagitis Nutrition/Dietitian Referral E66.01 - Morbid (severe) obesity due to excess calories, I10 - Essential (primary) hypertension, K21.9 - Gastro-esophageal reflux disease without esophagitis Medications: New tirzepatide (weight loss) (Zepbound) for 4 weeks 2.5 mg (0.5 mL) subcut QWEEK 2 mL 0RF E66.01 - Morbid (severe) obesity due to excess calories
[2024-05-20 10:12] VITALS: BMI 45.8
== END 2024-05-20 10:34 | disposition home or self-care (01) ==
LOC: HO.HBS 08:06
PROVIDERS: PCP Internal Medicine; Visit Provider Surgery
DX: E66.813 Obesity, class 3 (principal); Z68.42 Body mass index [BMI] 45.0-49.9, adult
CPT/HCPCS: 98014

== ENCOUNTER → 2024-05-28 15:48 | Outpatient (BNVA) | payer OTHER, SELFPAY | PROVIDERS: PCP Internal Medicine; Visit Provider Physician Assistant Surgical ==

== ENCOUNTER 2024-05-31 11:20 | Outpatient (AMB) | payer OTHER, SELFPAY ==
--- NOTE | 2024-05-31 11:05 | A.OFFWM_ITS ---
Intake Intake Visit Reasons: VIDEO BH Intake Allergies amoxicillin [AMOXICILLIN] Allergy (Unknown, Verified 05/20/24 10:02) [facility] Medical History (Updated 09/09/23 @ 00:03 by Alex Parrish) Intentional overdose Agoraphobia without history of panic disorder MDD (major depressive disorder), recurrent severe, without psychosis Back pain GERD (gastroesophageal reflux disease) Morbid obesity Hypertension Surgical History History of appendectomy Hx of eye surgery Family History (Updated 05/14/24 @ 07:53 by NAM Jaquez) Mother Fibromyalgia Arthritis Father Heart problem Brother No problems noted. Son Asthma Maternal Grandmother Diabetes Social History Household Members: Other Household Members Other:: mother and son Housing: House Do you presently have visiting nurse or other home services: No Alcohol intake: current Alcohol intake frequency: holidays/special occasions only Patient Tobacco Use Status: Never used Tobacco e-Cigarette/Vaping Use: Never Used Second Hand Smoke Exposure: No service: No Sexual orientation: Straight/Heterosexual Behavioral Health Assessment Weight Management Therapy Therapy Notes Details PT is a 44 years old Female, who presents for a initial visit to start BH assessment as part of surgical weight loss program. Presenting Concerns Referral Source WMP-Provider. Reason for referral Completion of behavioral health assessment as part of process for weight-loss surgery. Precipitating Event Obesity Living Situation Current Living Situation Relative's/Guardian's Ryann Comments PT lives with her mother, who is a home over and her son. Food/Weight/Diet Expectations of change Initial goal to lose 10% of your weight before surgery, which is about 25lbs. Ultimate weight goal: 225lbs before surgery PT started the program on 05/20/2024 at 250Lbs, and most recent weight recorded on 05/25/2024 was 248.8 Lbs PT wants to improve her health, be more active and able to do normal things without being out of breath. She hopes to reach at least 160Lbs post-op, and definitely out of the 200Lb. PT is implementing the following: Current meal plan: Shakes and 2 meals at day (lunch and dinner, 7F/7F) Exercise plan: treadmill 3 times at week. scale: yes Communication with surgeon: Saturdays. History/Relationship with food Example of meals before starting the program: Breakfast: Lunch: Dinner: Snacks: Drinks/Liquids: History/Relationship with weight In the last 10 years, the patient's Lowest weight was and highest Social History Family history and relationship PT is in 2019. She has 1 son who is 19 y/o. She is currently living at her mom's house. Her father is . She has 1 sibling. PT reports good family relationships. 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 Developmental history and status None reported. Currently WNL. Social support Mother and best friend. Some family members. Community support Pt has a counselor. Jain/Spirituality Sabianism. Cultural/Ethnic information . Legal Involvement and History Current or historical involvement with the legal system? None reported. Education Highest grade completed HS. Some college. Preferred learning style Learn by doing and Visual Currently enrolled in educational program? No Interested in further educational program? 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 ) Wants help to find employment? No Meaningful activities Home, shopping family activities, reading. Financial Situation Describe current financial situation Comfortable Financial assistance? None Service Service? No Mental Health and Addiction Treatment Current/Past substance abuse? No Comments Alcohol: 1-2 times at month, 1 drink either wine or a mixed drink like a keith. Cigarettes/Tobacco: None. Cannabis/Edibles: None. Current/Past addictive behavior concerns? No Psychiatric history PT currently attends counseling at [facility] every 2 weeks in person and sees a prescriber at the same place, she sees Dr Stafford. She has been diagnosed with depression and anxiety but doesn't know the type or specific diagnosis. Last year she had Sx of agoraphobia when going to places, and avoiding leaving the house, however now she is better and is able to manage her anxiety Sx. Currently gets prescribed with: - Hydroxyzine 25mg, 1 as needed. - Sertraline 25mg, 1 at day. She started these meds about a year ago. PT reports she has been hospitalized for MH, last time was april/2023 due to a suicide attempt while she went trough a major depressive episode. She also had another SA in 2019. PT denies an y recent safety concerns around SI/SA since last hospitalization and/or any other concern around self-harm/other harm ever. PT reports she feels stable at this time. Medical and Physical Health Summary Additional Medical History not covered in history None additional Sexual History concerns None reported. Physical exam in the last year? Yes Pain Screening Current pain? Yes Pain in the last few months? Yes Comments Back pain, she had surgery. At times pain radiates towards her left side down left leg. Medications Is the patient compliant with medications? Yes Does the patient have Bae Guardian in place? Not applicable Does the patient use complimentary health approaches? No Trauma/Abuse History History of trauma? No Questionnaires PHQ-9 Over the last 2 weeks, how often have you been bothered by any of the following problems? 1. Little interest or pleasure in doing things: not at all 2. Feeling down, depressed, or hopeless: not at all 3. Trouble falling or staying asleep, or sleeping too much: not at all 4. Feeling tired or having little energy: several days 5. Poor appetite or overeating: more than half the days 6. Feeling bad about yourself - or that you are a failure or have let yourself or your family down: not at all 7. Trouble concentrating on things, such as reading the newspaper or watching television: not at all 8. Moving or speaking so slowly that other people could have noticed. Or the opposite - being so fidgety or restless that you have been moving around a lot more than usual: not at all 9. Thoughts that you would be better off or of hurting yourself in some way: not at all Total score: 3 Depression Screening Interpretation: Negative (Completed on 05/14/2024 with new PT pack, scanned on 05/22. New one will be administered before finishing evaluation.) Depression Screening Done: Yes Source: Developed by Drs. Jesse Tovar, Jerica B.W. Henrique Coleman and colleagues, with an educational marito from [employer]. Binge Eating Scale Group 1 A. I don't feel self-conscious about my wt. or body size when I'm with others. B. I feel concerned about how I look to others, but it normally does not make me fell disappointed with myself C. I do get self-conscious about my appearance and wt. which makes me feel disappointed in myself. D. I feel very self-conscious about my wt. and frequently I feel intense shame and disgust for myself. I try to avoid social contacts because of my self- consciousness. Response Group 1: B Group 2 A. I don't have any difficulty eating slowly in the proper manner. B. Although I seem to gobble down foods, I don't end up feeling stuffed because of eating to much. C. At times, I tend to eat quickly and then, I feel uncomfortably full afterwards. D. I have the habit of bolting down my food, without really chewing it. When this happens I usually feel uncomfortably stuffed because I've eaten to much. Response Group 2: A Group 3 A. I feel capable to control my eating urges when I want to. B. I feel like I have failed to control my eating more than the average person. C. I feel utterly helpless when it comes to feeling in control of my eating urges. D. Because I feel so helpless about controlling my eating I have become very desperate about trying to get control. Response Group 3: C Group 4 A. I don't have the habit of eating when I'm bored. B. I sometimes eat when I'm bored, but often I'm able to get busy and get my mind off food. C. I have a regular habit of eating when I'm bored, but occasionally, I can use some other activity to get my mind off eating. D. I have a strong habit of eating when I'm bored. Nothing seems to help me breath the habit. Response Group 4: D Group 5 A. I'm usually physically hungry when I eat something. B. Occasionally, I eat something on impulse even though I really am not hungry. C. I have the regular habit of eating foods, that I might not really enjoy, to satisfy a hungry feeling even though physically, I don't need the food. D. Although I'm not physically hungry, I get a hungry feeling in my mouth that only seems to be satisfied when I eat a food, like sandwich, that fills my mouth. Sometimes, when I eat the food to satisfy my mouth hunger, I then spit the food out so I won't gain weight. Response Group 5: B Group 6 A. I don't feel any guilt or self-hate after I overeat. B. After I overeat, occasionally I feel guilt or self-hate. C. Almost all the time I experience strong guilt or self-hate after I overeat. Response Group 6: A Group 7 A. I don't lose total control of my eating when dieting even after periods when I overeat. B. Sometimes when I eat a forbidden food on a diet, I feel like I blew it and eat even more. C. Frequently, I have the habit of saying to myself, I've blown it now, why not go all the way, when I overeat on a diet. When that happens I eat more. D. I have a regular habit of starting a strict diets for myself but I break the diets by going on an eating binge. My life seems to be either a feast or famine. Response Group 7: B Group 8 A. I rarely eat so much food that I feel uncomfortably stuffed afterwards. B. Usually about once a month, I each such a quantity of food, I end up feeling very stuffed. C. I have regular periods during the month when I eat large amounts of food, either at mealtime or at snacks. D. I eat so much food that I regularly feel quite uncomfortable after eating and sometimes a bit nauseous. Response Group 8: C Group 9 A. My level of calorie intake does not go up very high or go down very low on a regular basis. B. Sometimes after I overeat, I will try to reduce my caloric intake to almost nothing to compensate for the excess calories I've eaten. C. I have a regular habit of overeating during the night. It seems that my routine is not to be hungry in the morning but overeat in the evening. D. In my adult years, I have had week-long periods where I practically starve myself. This follows periods when I overeat. It seems I live a life of either feast or famine. Response Group 9: C Group 10 A. I usually am able to stop eating when I want to. I know when enough is enou gh. B. Every so often, I experience a compulsion to eat which I can't seem to control. C. Frequently, I experience strong urges to eat which I seem unable to control, but at other times I can control my eating urges. D. I feel incapable of controlling urges to eat. I have a fear of not being able to stop eating voluntarily. Response Group 10: B Group 11 A. I don't have any problem stopping eating when I feel full. B. I usually can stop eating when I feel full but occasionally overeat leaving me feeling uncomfortably stuffed. C. I have a problem stopping eating once I start and usually I feel un comfortably stuffed after I eat a meal. D. Because I have a problem not being able to stop eating when I want, I sometimes have to induce vomiting to relieve my stuffed feeling. Response Group 11: B Group 12 A. I seem to eat just as much when I'm with others, Family social gatherings as when I'm by myself. B. Sometimes, when I'm with other persons, I don't eat as much as I want to eat because I'm self-conscious about my eating. C. Frequently, I eat only a small amount of food when others are present, because I'm very embarrassed about my eating. D. I feel so ashamed about overeating that I pick times to overeat when I know no one will see me. I feel like a closet eater. Response Group 12: B Group 13 A. I eat three meals a day with only an occasional between meal snack. B. I eat 3 meals a day, but I also normally snack between meals. C. When I am snacking heavily, I get in the habit of skipping regular meals. D. There are regular periods when I seem to be continually eating, with no planned meals. Response Group 13: C Group 14 A. I don't think much about trying to control unwanted eating urges. B. At least some of the time, I feel my thoughts are pre-occupied with trying to control my eating urges. C. I feel that frequently I spend much time thinking about how much I ate or about trying not to eat anymore. D. It seems to me that most of my waking hours are pre-occupied by thoughts about eating or not eating. I feel like I'm constantly struggling not to eat. Response Group 14: A Group 15 A. I don't think about food a great deal. B. I have strong craving for food but they last only for brief periods of time. C. I have days when I can't seem to think about anything else but food. D. Most of my days seem to be pre-occupied with thoughts about food. I feel like I live to eat. Response Group 15: B Group 16 A. I usually know whether or not I'm physically hungry. I take the right portion of food to satisfy me. B. Occasionally, I feel uncertain about knowing whether or not I'm physically hungry. A these times it's hard to know how much food I should take to satisfy me. C. Even though I might know how many calories I should eat, I don't have any idea what is a normal amount of food for me. Response Group 16: B Binge Eating Score: 19 Score less than 17 Minimal Risk Score between 18-26 Moderate Risk Score between 27-46 High Risk Assessment & Plan Assessment & Plan (1) Major depressive disorder: Code(s): F32.9 - Major depressive disorder, single episode, unspecified Qualifiers: Active/Remission status: remission status unspecified Major depression recurrence: recurrent Qualified Code(s): F33.9 - Major depressive disorder, recurrent, unspecified (2) Agoraphobia without history of panic disorder: Code(s): F40.02 - Agoraphobia without panic disorder (3) Pre-bariatric surgery psychological evaluation: Code(s): Z71.89 - Other specified counseling Plan Patient was not cleared today as the behavioral health assessment has not yet been completed. She will be seen again in 2?4 weeks to continue the evaluation. A new PHQ-9 will be administered at the next visit, and the Binge Eating Scale (BES) will also be reviewed. Next appointment: 06/24/2024 at 12:00 PM, via Telehealth. Telehealth Telehealth Telehealth Platform: [employer] Location of provider rendering services: practice address Location of patient: address on file Patient Identification confirmed using: Name, : Yes Telehealth method: voice only Patient verbally consented to treatment: Yes Patient verbally consented to billing insurance company: Yes Patient informed of any privacy concerns related to visit: Yes Minutes spent on Phone/Video with Pt.: 55 Coding Level of Care Code New Pt Tele Psy Diag Eval ([id number]) Patient Type New Diagnoses Recurrent major depressive disorder, remission status unspecified F33.9 Active/Remission status: remission status unspecified Major depression recurrence: recurrent Agoraphobia without history of panic disorder F40.02 Pre-bariatric surgery psychological evaluation Z71.89 Time Spent (min) 55
--- OUTSIDE RECORDS SUMMARY | 2024-05-31 12:20 | XMS_ITS | Clinical Summary ---
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 Name Role Phone Unavailable Primary Care Provider Unavailabl e Immunizations Immunization Administration Dates Next Due DTP 1985, 3,1980,1980,1980 Hep B, ped/adol 09/07/1998 MMR 09/30/1991,04/01/1982 OPV 1985, 3,1980,1980,1980 Td (adult) (Tenivac), 5 Lf t etanus toxoid, PF, adsorbed 03/23/1994 Social History Tobacco Use Types Packs/Day Years Used Date Smoking Tobacco: Never Assessed Comments Unknown Sex and Gender Information Value Date Recorded Sex Assigned at Not on file Legal Sex Female 3:10 PM EDT Gender Identity Not on file Sexual Orientation Not on file Plan of Treatment Health Maintenance Due Date Last Done Comments Varicella Vaccines (1 of 2 - 13+ 2-dose series) 02/17/1993 DTaP,Tdap,and Td Vaccines (6 - Tdap) 03/24/1994 03/23/1994, 1985, 04/01/1982, Additional history exists Hepatitis B Vaccines (2 of 3 - 3-dose series) 10/05/1998 09/07/1998 Influenza Vaccines (#1) 2023 COVID-19 Vaccine ( season) 2023 IPV Vaccines Completed 1985, 03/23, 1980, Additional history exists MMR Vaccines Completed 09/30/1991, 04/01/1982 HIB Vaccines Aged Out No longer eligi ble based on patient's age to complete this topic HPV Vaccines Aged Out No longer eligi ble based on patient's age to complete this topic Hepatitis A Vaccines Aged Out No long er eligible based on patient's age to complete this topic Men B Vaccine Aged Out No longer elig ible based on patient's age to complete this topic Meningococcal Vaccine Aged Out No wenyd villa eligible based on patient's age to complete this topic Pneumococcal Vaccine Aged Out No long er eligible based on patient's age to complete this topic
== END 2024-05-31 12:04 | disposition home or self-care (01) ==
LOC: HO.HBST 11:20
PROVIDERS: PCP Internal Medicine; Visit Provider Counselor Mental Health
DX: F33.9 Major depressive disorder, recurrent, unspecified (principal); F40.02 Agoraphobia without panic disorder; Z71.89 Other specified counseling
CPT/HCPCS: 90791

== ENCOUNTER → 2024-06-07 08:12 | Outpatient (REF) | payer OTHER, SELFPAY ==
--- NOTE | ~2024-06-07 | XR_ITS ---
CLINICAL HISTORY: E66.01 - Morbid (severe) obesity due to excess calories 2 view chest x-ray Comparison: 01/14/2023 Findings: No consolidation or effusion. Normal size heart. No acute fracture. IMPRESSION: 1. No acute findings. This document has been electronically signed by: Cornelio Vazquez MD on 06/08/2024 08:52:23
[2024-06-07 08:26] LABS: MANUAL DIFF FLAG NO
--- NOTE | 2024-06-07 08:32 | ECG_ITS ---
Test Reason : e66.01 Blood Pressure : */* mmHG Vent. Rate : 65 BPM Atrial Rate : 65 BPM P-R Int : 134 ms QRS Dur : 84 ms QT Int : 384 ms P-R-T Axes : 7 25 8 degrees QTcB Int : 399 ms Normal sinus rhythm Normal ECG When compared with ECG of 30-Apr-2023 17:28, No significant change was found Referred By: Jermaine Lucas Electronically Signed By: NERY LEE MD
--- OUTSIDE RECORDS SUMMARY | 2024-06-07 08:33 | XMS_ITS | Clinical Summary ---
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
[2024-06-07 09:01] LABS: Basophils Percent Auto 0.4 % (0-2); Eosinophils Absolute Auto 0.1 X10*3/uL (0.0-0.4); Eosinophils Percent Auto 1.7 % (0-4); Hemoglobin 10.1 g/dl (12.0-16.0); Imm Gran Abs Auto 0.01 X10*3/uL (0.00-0.03); Imm Gran Pct Auto 0.2 % (0.0-0.4); Lymphocytes Absolute Auto 1.8 X10*3/uL (1.2-4.9); Lymphocytes Percent Auto 34.3 % (20-40); Mean Corpuscular HGB Conc 30.6 g/dl (31.0-35.0); Monocytes Absolute Auto 0.4 X10*3/uL (0.1-1.2); Monocytes Percent Auto 7.7 % (2-11); Neutrophils Percent Auto 55.7 % (45-73); Platelet Count 336 X10*3/uL (160-400); Red Cell Distribution Width 17.8 % (11.0-16.0); White Blood Count 5.3 X10*3/uL (4.8-10.8)
[2024-06-07 09:15] LABS: Estimated Average Glucose 120 mg/dL; Hemoglobin A1C 108.3305 umol/L; Hemoglobin A1c % 5.8 % (<6.0)
[2024-06-07 10:29] LABS: Folate 10.9 ng/mL (> or = 4.0); Vitamin B12 491 pg/mL (200-900)
[2024-06-07 10:30] LABS: Alanine Aminotransferase 20 U/L (0-31); Albumin Level 3.7 g/dL (3.5-5.0); Anion Gap 13 (12-20); Aspartate Amino Transferase 27 U/L (5-31); Bilirubin Total 0.3 mg/dL (0.0-1.0); Blood Urea Nitrogen 14 mg/dL (9-16); Calcium 9.4 mg/dL (8.4-10.2); Carbon Dioxide 24 mmol/L (22-29); Chloride 107 mmol/L (96-108); Cholesterol 150 mg/dL (<200); Estimated Glomerular Filt Rate > 60; Glucose Random 92 mg/dL (60-115); HDL Cholesterol 48 mg/dL (>40); Iron 21 mcg/dL (30-160); LDL Cholesterol Calculated 75 mg/dL (<100); Percent Iron Saturation 6 % (15-50); Potassium 3.9 mmol/L (3.3-5.1); Sodium 140 mmol/L (135-145); Total Iron Binding Capacity 341 mcg/dL (228-428); Total Protein 7.4 g/dL (6.5-8.0); Triglycerides 135 mg/dL (<150); Unsaturated Iron Binding 320 ug/dL
[2024-06-07 10:43] LABS: Alkaline Phosphatase 38 U/L (39-117); Ferritin 9 ng/mL (10-250); Insulin 19 uU/mL (2-29); Vitamin D 25-OH Total 15.9 ng/mL (>30)
[2024-06-10 23:48] LABS: Zinc 70 mcg/dL (60-130)
== END ==
LOC: HO.CARD 08:12
PROVIDERS: Visit Provider Surgery
DX: E66.01 Morbid (severe) obesity due to excess calories (principal); K21.9 Gastro-esophageal reflux disease without esophagitis; I10 Essential (primary) hypertension
CPT/HCPCS: 36415; 71046; 80053; 80061; 82306; 82607; 82728; 82746; 83036; 83525; 83540; 84425; 84443; 84590; 84630; 85025; 86140; 93005

== ENCOUNTER → 2024-06-07 08:32 | Outpatient (BNV) | payer OTHER, SELFPAY | PROVIDERS: Visit Provider Internal Medicine Cardiovascular Disease | DX: E66.01 Morbid (severe) obesity due to excess calories (principal) | CPT/HCPCS: 93010 ==

== ENCOUNTER → 2024-06-07 08:39 | Outpatient (BNV) | payer OTHER, SELFPAY | PROVIDERS: Visit Provider Specialist | DX: E66.01 Morbid (severe) obesity due to excess calories (principal) | CPT/HCPCS: 71046 ==

== ENCOUNTER 2024-06-19 12:26 | Emergency (ER) | payer OTHER, SELFPAY ==
--- NOTE | ~2024-06-19 | XR_ITS ---
EXAMINATION: XR CHEST CLINICAL INFORMATION: left sided chest pain COMPARISON: June 07, 2024. TECHNIQUE: 2 views of the chest were obtained. FINDINGS: No consolidation, pleural effusion or pneumothorax. Cardiomediastinal silhouette size is normal. Multilevel thoracic spondylosis. Patient's large body habitus. XR/XR chest 2V IMPRESSION: No acute airspace disease. Stable chest. Electronically signed by: Keith Gilbert MD 06/19/2024 01:04 PM EDT
--- NOTE | 2024-06-19 12:28 | ECG_ITS ---
Test Reason : cp Blood Pressure : */* mmHG Vent. Rate : 56 BPM Atrial Rate : 56 BPM P-R Int : 158 ms QRS Dur : 88 ms QT Int : 410 ms P-R-T Axes : 51 25 15 degrees QTcB Int : 395 ms Sinus bradycardia with sinus arrhythmia Otherwise normal ECG When compared with ECG of 07-Jun-2024 08:27, No significant change was found Referred By: Generic ED Physician Electronically Signed By: Lenard Morales
[2024-06-19 12:42] VITALS: BP 155/85; PULSE 62; RESP 20; TEMP 36.6; O2SAT 99; BMI 44.1
--- NOTE | 2024-06-19 12:42 | ED_ITS ---
HPI - Chest Pain General Chief Complaint: Chest Pain Stated Complaint: Chest pain Time Seen by Provider: 06/19/24 12:54 Related Data Home Medications ?Medication ?Instructions ?Recorded ?Confirmed losartan 50 mg tablet 50 mg PO BID 03/14/22 05/20/24 albuterol sulfate 90 mcg/actuation inhalation 05/14/24 05/20/24 aerosol inhaler Previous Rx's ?Medication ?Instructions ?Recorded hydroxyzine HCl 25 mg tablet See Rx Instructions .Route 05/04/23 .COMPLEX PRN Anxiety 30 days #60 tabs sertraline 25 mg tablet 12.5 mg (1/2 x 25 mg) PO DAILY 30 05/04/23 days #15 tabs tirzepatide (weight loss) 2.5 2.5 mg (0.5 mL) subcut QWEEK #2 mL 05/20/24 mg/0.5 mL subcutaneous pen injector (Zepbound) cholecalciferol (vitamin D3) 125 125 mcg PO DAILY #90 caps 06/08/24 mcg (5,000 unit) capsule iron,carbonyl 65 mg-vitamin C 125 1 tab PO DAILY #90 tabs 06/08/24 mg tablet,delayed release (Vitron-C) mecobalamin (vitamin B12) 1,000 1,000 mcg sublingual DAILY #90 tabs 06/08/24 mcg disintegrating tablet,sublingual tirzepatide (weight loss) 5 mg/0.5 5 mg (0.5 mL) subcut QWEEK #2 mL 06/14/ mL subcutaneous pen injector (Zepbound) vitamin A palmitate 3,000 mcg 10,000 unit PO DAILY #30 caps 06/17/24 (10,000 unit) capsule Allergies Allergy/AdvReac Type Severity Reaction Status Date / Time amoxicillin [AMOXICILLIN] Allergy Unknown RASH Verified 06/19/24 12:43 [facility] Past Medical History Medical History Intentional overdose Agoraphobia without history of panic disorder MDD (major depressive disorder), recurrent severe, without psychosis Back pain GERD (gastroesophageal reflux disease) Morbid obesity Hypertension Surgical History History of appendectomy Hx of eye surgery Family History Family History Mother Fibromyalgia Arthritis Father Heart problem Brother No problems noted. Son Asthma Maternal Grandmother Diabetes Social History Social History Household Members: Other Household Members Other:: mother and son Housing: House Do you presently have visiting nurse or other home services: No Alcohol intake: current Alcohol intake frequency: holidays/special occasions only Patient Tobacco Use Status: Never used Tobacco Smoked in Last 30 Days: No e-Cigarette/Vaping Use: Never Used Second Hand Smoke Exposure: No Advance Directives: No Advance Directives Information Provided: Yes Do you have a plan to hurt others: No Plan service: No Sexual orientation: Straight/Heterosexual Physical Exam 2 Vital Signs: Vital Signs: Last Vital Signs Temp 98.5 F 06/19/24 15:38 Pulse 63 06/19/24 15:38 Resp 16 06/19/24 15:38 BP 126/64 06/19/24 15:38 Pulse Ox 99 06/19/24 15:38 O2 Del Method Room Air 06/19/24 15:38 BMI result Body Mass Index 44.1 Course Course Course Narrative: This is a Rapid Medical Examination (RME) performed by Rosibel Chaves PA-C in triage. Full HPI, ROS, assessment and treatment plan per primary provider in the Main ED. 06/19/24 1242 ALIZE Becerra Hx: 44 yo female here for eval of sternal chest pain radiating to left chest, wrapping around to left back since yesterday. pain began while seated. took tylenol around 0300 this morning without relief. no clear exacerbating/ reliving factors. no hx similar. no recent travel/ long car rides. no LE pain/swelling. PE/vitals: well appearing Plan: labs, ekg, cxr Reevaluation(s) Reevaluation #1: This is a duplicate note. Please refer to Dr. Sahu's completed note regarding patient's visit on 06/19/2024. Medications Administered Discontinued Medications Generic Name Dose Route Start Last Admin Trade Name Freq PRN Reason Stop Dose Admin Ibuprofen 800 mg 06/19/24 14:25 06/19/24 14:51 Ibuprofen 800 Mg Tablet PO 06/19/24 14:26 800 mg ONCE ONE Administration Medical Decision Making Lab Data 06/19/24 12:53 06/19/24 12:53 Labs: Lab Results 06/19/24 06/19/24 Range/Units 12:53 14:33 WBC 6.7 (4.8-10.8) X10*3/uL RBC 4.47 (4.20-5.50) X10*6/uL Hgb 10.4 L (12.0-16.0) g/dl Hct 33.0 L (37.0-47.0) % MCV 73.8 L (80.0-98.0) fL MCH 23.3 L (27.0-33.0) pg MCHC 31.5 (31.0-35.0) g/dl RDW 17.2 H (11.0-16.0) % Plt Count 348 (160-400) X10*3/uL MPV 8.9 L (9.4-12.3) fL Immature Gran % (Auto) 0.1 (0.0-0.4) % Neut % (Auto) 49.5 (45-73) % Lymph % (Auto) 39.3 (20-40) % Shoshone % (Auto) 7.0 (2-11) % Eos % (Auto) 3.7 (0-4) % Baso % (Auto) 0.4 (0-2) % Lymph # (Auto) 2.6 (1.2-4.9) X10*3/uL [place]osh[place] # (Auto) 0.5 (0.1-1.2) X10*3/uL Eos # (Auto) 0.3 (0.0-0.4) X10*3/uL Baso # (Auto) 0.0 (0.0-0.2) X10*3/uL Abs Immat Gran (auto) 0.01 (0.00-0.03) X10*3/uL Absolute Neuts (auto) 3.3 (2.0-8.3) x10*3/uL Absolute Nucleated RBC 0.000 (0.0-0.012) X10*3/uL Nucleated RBC % (auto) 0.0 (0.0-0.2) /100WBC D-Dimer High Sensitivty < 150 NG/ML Hold Blue Top SEE NOTE Sodium 139 (135-145) mmol/L Potassium 4.0 (3.3-5.1) mmol/L Chloride 106 (96-108) mmol/L Carbon Dioxide 25 (22-29) mmol/L Anion Gap 12 (12-20) BUN 13 (9-16) mg/dL Creatinine 0.84 (0.5-1.4) mg/dL Estim Creat Clear Calc 99.5 Estimated GFR > 60 Random Glucose 86 (60-115) mg/dL Calcium 9.7 (8.4-10.2) mg/dL Magnesium 2.0 (1.6-2.6) mg/dL Total Bilirubin 0.3 (0.0-1.0) mg/dL AST 24 (5-31) U/L ALT 20 (0-31) U/L Alkaline Phosphatase 43 (39-117) U/L Troponin I High Sens 14.4 D 12.2 (<3.5-17.0) ng/L Total Protein 7.4 (6.5-8.0) g/dL Albumin 3.8 (3.5-5.0) g/dL Lipase 40 (8-78) U/L Beta HCG, Quant < 2 mIU/mL Discharge Plan Discharge Clinical Impression: Chest pain Qualifiers: Chest pain type: precordial pain Qualified Code(s): R07.2 - Precordial pain Patient Disposition: Home, Self-Care Instructions: Chest Pain (DC) Additional Instructions: Follow-up with your primary care physician return to the emergency room if you worse any concern Prescriptions: No Action Vitron-C 65 mg iron- 125 mg tablet,delayed release (DR/EC) 1 tab PO DAILY Qty: 90 0RF Rx Instructions: swallow whole; do not chew/break/dissolve/open cholecalciferol (vitamin D3) 125 mcg (5,000 unit) capsule 125 mcg PO DAILY Qty: 90 0RF mecobalamin (vitamin B12) 1,000 mcg tablet,disintegrating 1,000 mcg sublingual DAILY Qty: 90 0RF Rx Instructions: place tablet under tongue and allow to dissolve for at least30 secs before swallowing Zepbound 5 mg/0.5 mL pen injector 5 mg subcut QWEEK Qty: 2 0RF vitamin A palmitate 3,000 mcg (10,000 unit) capsule 10,000 unit PO DAILY Qty: 30 0RF hydroxyzine HCl 25 mg Tablet See Rx Instructions .ROUTE .COMPLEX PRN (Reason: Anxiety) 30 Days Qty: 60 1RF Rx Instructions: take 1 to 2 tabs, up to 3x a day as needed for anxiety sertraline 25 mg Tablet 12.5 mg PO DAILY 30 Days Qty: 15 0RF losartan 50 mg tablet 50 mg PO BID albuterol sulfate 90 mcg/actuation HFA aerosol inhaler inhalation Zepbound 2.5 mg/0.5 mL pen injector 2.5 mg subcut QWEEK Qty: 2 0RF Rx Instructions: for 4 weeks Referrals: Christos Perez MD [Primary Care Provider] - 2 days Interventions: ED Discharge Assessment Last Done: 06/19/24 15:38 Discharge Date/Time: 06/19/24 15:39 Print Language: Syriac
[2024-06-19 12:57] LABS: MANUAL DIFF FLAG NO
[2024-06-19 12:59] LABS: Basophils Percent Auto 0.4 % (0-2); Eosinophils Absolute Auto 0.3 X10*3/uL (0.0-0.4); Eosinophils Percent Auto 3.7 % (0-4); Hemoglobin 10.4 g/dl (12.0-16.0); Imm Gran Abs Auto 0.01 X10*3/uL (0.00-0.03); Imm Gran Pct Auto 0.1 % (0.0-0.4); Lymphocytes Absolute Auto 2.6 X10*3/uL (1.2-4.9); Lymphocytes Percent Auto 39.3 % (20-40); Mean Corpuscular HGB Conc 31.5 g/dl (31.0-35.0); Mean Corpuscular Hemoglobin 23.3 pg (27.0-33.0); Mean Corpuscular Volume 73.8 fL (80.0-98.0); Mean Platelet Volume 8.9 fL (9.4-12.3); Monocytes Absolute Auto 0.5 X10*3/uL (0.1-1.2); Neutrophils Absolute Auto 3.3 x10*3/uL (2.0-8.3); Neutrophils Percent Auto 49.5 % (45-73); Platelet Count 348 X10*3/uL (160-400); Red Blood Count 4.47 X10*6/uL (4.20-5.50); Red Cell Distribution Width 17.2 % (11.0-16.0); White Blood Count 6.7 X10*3/uL (4.8-10.8)
[2024-06-19 13:03] VITALS: BP 147/68; PULSE 63; RESP 18; O2SAT 100
[2024-06-19 13:05] VITALS: PULSE 63
--- NOTE | 2024-06-19 13:09 | PC.NURSE ---
Patient presents with substernal chest pressure which began at 7pm yesterday. History of HTN. Alert and oriented. Lungs clear bilat. Respirations even and non-labored. Abdomen large soft, non-tender with positive bowel sounds. Positive pedal pulses with no edema noted.
--- NOTE | 2024-06-19 13:14 | ED.CHESTPAIN ---
HPI - Chest Pain General Chief Complaint: Chest Pain Stated Complaint: Chest pain Time Seen by Provider: 06/19/24 12:54 Source: patient Mode of arrival: ambulatory Limitations: no limitations History of Present Illness HPI narrative: This is a 44 years old the patient presented to the emergency department with a chief complaint of left chest pain since last night about 19:00 pain is localized in the left precordial under the left breast no radiation no diaphoresis no exertional symptoms. Patient denies history of diabetes /hypercholesterolemia, she is nonsmoker MD complaint: chest pain Onset (ago): day(s) (1) Timing of current episode: constant Onset: during rest Pain location: substernal Pain radiation: none Severity: mild Quality: aching Relieving factors: nothing Exacerbating factors: nothing Risk Factors Coronary artery disease risk factors: hypertension Thoracic aortic dissection risk factors: none Related Data On Oral Contraceptives: No Home Medications ?Medication ?Instructions ?Recorded ?Confirmed losartan 50 mg tablet 50 mg PO BID 03/14/22 05/20/24 albuterol sulfate 90 mcg/actuation inhalation 05/14/24 05/20/24 aerosol inhaler Previous Rx's ?Medication ?Instructions ?Recorded hydroxyzine HCl 25 mg tablet See Rx Instructions .Route 05/04/23 .COMPLEX PRN Anxiety 30 days #60 tabs sertraline 25 mg tablet 12.5 mg (1/2 x 25 mg) PO DAILY 30 05/04/23 days #15 tabs tirzepatide (weight loss) 2.5 2.5 mg (0.5 mL) subcut QWEEK #2 mL 05/20/24 mg/0.5 mL subcutaneous pen injector (Zepbound) cholecalciferol (vitamin D3) 125 125 mcg PO DAILY #90 caps 06/08/24 mcg (5,000 unit) capsule iron,carbonyl 65 mg-vitamin C 125 1 tab PO DAILY #90 tabs 06/08/24 mg tablet,delayed release (Vitron-C) mecobalamin (vitamin B12) 1,000 1,000 mcg sublingual DAILY #90 tabs 06/08/24 mcg disintegrating tablet,sublingual tirzepatide (weight loss) 5 mg/0.5 5 mg (0.5 mL) subcut QWEEK #2 mL 06/14/25 mL subcutaneous pen injector (Zepbound) vitamin A palmitate 3,000 mcg 10,000 unit PO DAILY #30 caps 06/17/24 (10,000 unit) capsule Allergies Allergy/AdvReac Type Severity Reaction Status Date / Time amoxicillin [AMOXICILLIN] Allergy Unknown RASH Verified 06/19/24 12:43 Review of Systems Constitutional: Constitutional: Reports no additional constitutional complaints ENT: Reports system reviewed and no additional complaints, except as documented Gastrointestinal: Gastrointestinal: Reports no additional gastrointestinal complaints PMFSH Past Medical History Attestation statement: The following information was validated with the patient. [facility] Narrative: Hypertension, obesity Medical History Intentional overdose Agoraphobia without history of panic disorder MDD (major depressive disorder), recurrent severe, without psychosis Back pain GERD (gastroesophageal reflux disease) Morbid obesity Hypertension Surgical History History of appendectomy Hx of eye surgery Family History Family History Mother Fibromyalgia Arthritis Father Heart problem Brother No problems noted. Son Asthma Maternal Grandmother Diabetes Social History Social History Household Members: Other Household Members Other:: mother and son Housing: House Do you presently have visiting nurse or other home services: No Alcohol intake: current Alcohol intake frequency: holidays/special occasions only Patient Tobacco Use Status: Never used Tobacco Smoked in Last 30 Days: No e-Cigarette/Vaping Use: Never Used Second Hand Smoke Exposure: No Advance Directives: No Advance Directives Information Provided: Yes Do you have a plan to hurt others: No Plan service: No Sexual orientation: Straight/Heterosexual Physical Exam Vital Signs: Vital Signs: Last Vital Signs Temp 98 F 06/19/24 12:42 Pulse 58 06/19/24 14:00 Resp 18 06/19/24 14:00 BP 119/48 L 06/19/24 14:00 Pulse Ox 100 06/19/24 14:00 O2 Del Method Room Air 06/19/24 14:00 BMI result Body Mass Index 44.1 No acute distress Const: General: cooperative Nutritional Appearance: well nourished Orientation/consciousness: patient oriented x3 Limitations: no limitations HEENT: Head: Yes normal to inspection General nose exam: Normal external nose present Face and sinus: Yes normal facial exam Mouth: Normal oral and palatal mucosa present Throat: Yes posterior oropharynx normal Neck: Neck: Yes normal visual inspection Resp: Effort & Inspection: normal respiratory effort Cardio: Jugular venous distension: no JVD Rate: regular rate Rhythm: regular rhythm GI: Inspection: Yes normal to inspection Palpation (GI): Soft to palpation Skin: General skin exam: no rashes or lesions noted Rashes: no rashes Neuro: General: patient oriented x3 Extrem: General: Yes normal to inspection Course Reevaluation(s) Reevaluation #1: POCUS heart examination was done by me, no pericardial effusion no wall motion abnormality no loss. Time: 13:19 Reevaluation #2: Delta troponin flat, D-dimer negative anticipate discharge Reevaluation #3: pain free Time: 15:29 Medications Administered Discontinued Medications Generic Name Dose Route Start Last Admin Trade Name Freq PRN Reason Stop Dose Admin Ibuprofen 800 mg 06/19/24 14:25 06/19/24 14:51 Ibuprofen 800 Mg Tablet PO 06/19/24 14:26 800 mg ONCE ONE Administration Medical Decision Making Medical Decision Making [facility] Narrative: Patient presented to the emergency department complaining of left chest pain we will obtain delta trop , D-dimer Differential Diagnosis Differential Diagnoses: The differential diagnosis associated with the presentation includes ACS/PE/musculoskeletal chest pain Admission/Observation Consideration of admission/observation: Escalation of care including admission/observation considered Lab Data [facility] Lab Attestation statement: I reviewed the patient's lab results. 06/19/24 12:53 06/19/24 12:53 Labs: Lab Results 06/19/24 06/19/24 Range/Units 12:53 14:33 WBC 6.7 (4.8-10.8) X10*3/uL RBC 4.47 (4.20-5.50) X10*6/uL Hgb 10.4 L (12.0-16.0) g/dl Hct 33.0 L (37.0-47.0) % MCV 73.8 L (80.0-98.0) fL MCH 23.3 L (27.0-33.0) pg MCHC 31.5 (31.0-35.0) g/dl RDW 17.2 H (11.0-16.0) % Plt Count 348 (160-400) X10*3/uL MPV 8.9 L (9.4-12.3) fL Immature Gran % (Auto) 0.1 (0.0-0.4) % Neut % (Auto) 49.5 (45-73) % Lymph % (Auto) 39.3 (20-40) % Ness % (Auto) 7.0 (2-11) % Eos % (Auto) 3.7 (0-4) % Baso % (Auto) 0.4 (0-2) % Lymph # (Auto) 2.6 (1.2-4.9) X10*3/uL Ness # (Auto) 0.5 (0.1-1.2) X10*3/uL Eos # (Auto) 0.3 (0.0-0.4) X10*3/uL Baso # (Auto) 0.0 (0.0-0.2) X10*3/uL Abs Immat Gran (auto) 0.01 (0.00-0.03) X10*3/uL Absolute Neuts (auto) 3.3 (2.0-8.3) x10*3/uL Absolute Nucleated RBC 0.000 (0.0-0.012) X10*3/uL Nucleated RBC % (auto) 0.0 (0.0-0.2) /100WBC D-Dimer High Sensitivty < 150 NG/ML Hold Blue Top SEE NOTE Sodium 139 (135-145) mmol/L Potassium 4.0 (3.3-5.1) mmol/L Chloride 106 (96-108) mmol/L Carbon Dioxide 25 (22-29) mmol/L Anion Gap 12 (12-20) BUN 13 (9-16) mg/dL Creatinine 0.84 (0.5-1.4) mg/dL Estim Creat Clear Calc 99.5 Estimated GFR > 60 Random Glucose 86 (60-115) mg/dL Calcium 9.7 (8.4-10.2) mg/dL Magnesium 2.0 (1.6-2.6) mg/dL Total Bilirubin 0.3 (0.0-1.0) mg/dL AST 24 (5-31) U/L ALT 20 (0-31) U/L Alkaline Phosphatase 43 (39-117) U/L Troponin I High Sens 14.4 D 12.2 (<3.5-17.0) ng/L Total Protein 7.4 (6.5-8.0) g/dL Albumin 3.8 (3.5-5.0) g/dL Lipase 40 (8-78) U/L Beta HCG, Quant < 2 mIU/mL Independent Interpretation I performed an independent interpretation of an: EKG Interpretation: Normal sinus rhythm rate [address]-T changes normal EKG Radiology Impression Discussion of test interpretation with radiology: I have reviewed the radiologist's reading. Radiologist Impression: XR CHEST CLINICAL INFORMATION: left sided chest pain COMPARISON: June 07, 2024. TECHNIQUE: 2 views of the chest were obtained. FINDINGS: No consolidation, pleural effusion or pneumothorax. Cardiomediastinal silhouette size is normal. Multilevel thoracic spondylosis. Patient's large body habitus. XR/XR chest 2V IMPRESSION: No acute airspace disease. Stable chest. Electronically signed by: Keith Gilbert MD 06/19/2024 01:04 PM EDT RP Dictated By: Keith Augustin MD Signed By: <Electronically signed by Keith Sosa MD in OV> 06/19/24 1304 Discharge Plan Discharge Clinical Impression: Chest pain Qualifiers: Chest pain type: precordial pain Qualified Code(s): R07.2 - Precordial pain Prescriptions: No Action Vitron-C 65 mg iron- 125 mg tablet,delayed release (DR/EC) 1 tab PO DAILY Qty: 90 0RF Rx Instructions: swallow whole; do not chew/break/dissolve/open cholecalciferol (vitamin D3) 125 mcg (5,000 unit) capsule 125 mcg PO DAILY Qty: 90 0RF mecobalamin (vitamin B12) 1,000 mcg tablet,disintegrating 1,000 mcg sublingual DAILY Qty: 90 0RF Rx Instructions: place tablet under tongue and allow to dissolve for at least30 secs before swallowing Zepbound 5 mg/0.5 mL pen injector 5 mg subcut QWEEK Qty: 2 0RF vitamin A palmitate 3,000 mcg (10,000 unit) capsule 10,000 unit PO DAILY Qty: 30 0RF hydroxyzine HCl 25 mg Tablet See Rx Instructions .ROUTE .COMPLEX PRN (Reason: Anxiety) 30 Days Qty: 60 1RF Rx Instructions: take 1 to 2 tabs, up to 3x a day as needed for anxiety sertraline 25 mg Tablet 12.5 mg PO DAILY 30 Days Qty: 15 0RF losartan 50 mg tablet 50 mg PO BID albuterol sulfate 90 mcg/actuation HFA aerosol inhaler inhalation Zepbound 2.5 mg/0.5 mL pen injector 2.5 mg subcut QWEEK Qty: 2 0RF Rx Instructions: for 4 weeks Print Language: Romansh
[2024-06-19 13:20] LABS: Alanine Aminotransferase 20 U/L (0-31); Albumin Level 3.8 g/dL (3.5-5.0); Alkaline Phosphatase 43 U/L (39-117); Anion Gap 12 (12-20); Aspartate Amino Transferase 24 U/L (5-31); Bilirubin Total 0.3 mg/dL (0.0-1.0); Blood Urea Nitrogen 13 mg/dL (9-16); Calcium 9.7 mg/dL (8.4-10.2); Carbon Dioxide 25 mmol/L (22-29); Chloride 106 mmol/L (96-108); Creatinine Clr Calc Pharmacy 99.5; Estimated Glomerular Filt Rate > 60; Glucose Random 86 mg/dL (60-115); Lipase 40 U/L (8-78); Sodium 139 mmol/L (135-145); Total Protein 7.4 g/dL (6.5-8.0)
[2024-06-19 13:22] LABS: Troponin-I High Sensitivity 14.4 ng/L (<3.5-17.0)
[2024-06-19 13:36] LABS: HCG Quantitative < 2 mIU/mL
[2024-06-19 14:00] VITALS: BP 119/48; PULSE 58; RESP 18; O2SAT 100
--- OUTSIDE RECORDS SUMMARY | 2024-06-19 14:23 | XMS_ITS | Clinical Summary ---
Author Organization [facility] Address [address] [place] [phone] Phone Care Team Providers Care Housing Quality Standard Inspector Name Role Phone Unavailable Primary Care Provider [...]
[2024-06-19 14:48] LABS: D Dimer High Sensitivity < 150 NG/ML
[2024-06-19] MEDS: Ibuprofen 800 MG TABLET PO (14:51)
[2024-06-19 14:58] LABS: Troponin-I High Sensitivity 12.2 ng/L (<3.5-17.0)
[2024-06-19 15:38] VITALS: BP 126/64; PULSE 63; RESP 16; TEMP 36.9; O2SAT 99
== END 2024-06-19 15:39 | disposition home or self-care (01) ==
PROVIDERS: Physician Assistant Medical; Emergency Provider Emergency Medicine; PCP Internal Medicine
DX: R07.2 Precordial pain (principal); I10 Essential (primary) hypertension; Z79.899 Other long term (current) drug therapy
CPT/HCPCS: 36415; 71046; 80053; 83690; 83735; 84484; 84702; 85025; 85379; 93005; 99284; 99285

== ENCOUNTER → 2024-06-19 12:28 | Outpatient (BNV) | payer OTHER, SELFPAY | PROVIDERS: Emergency Provider Emergency Medicine; PCP Internal Medicine; Visit Provider Internal Medicine Cardiovascular Disease | DX: I49.9 Cardiac arrhythmia, unspecified (principal); R00.1 Bradycardia, unspecified | CPT/HCPCS: 93010 ==

== ENCOUNTER → 2024-06-19 12:44 | Outpatient (BNV) | payer OTHER, SELFPAY | PROVIDERS: Emergency Provider Emergency Medicine; PCP Internal Medicine; Visit Provider Radiology Diagnostic Radiology | DX: R07.9 Chest pain, unspecified (principal) | CPT/HCPCS: 71046 ==

== ENCOUNTER 2024-06-24 12:19 | Outpatient (AMB) | payer OTHER, SELFPAY ==
--- NOTE | 2024-06-24 12:05 | MHC.WMTHER ---
Intake Intake Visit Reasons: VIDEO Intake Part 2 Allergies amoxicillin [AMOXICILLIN] Allergy (Unknown, Verified 06/19/24 12:43) [facility] Medical History Intentional overdose Agoraphobia without history of panic disorder MDD (major depressive disorder), recurrent severe, without psychosis Back pain GERD (gastroesophageal reflux disease) Morbid obesity Hypertension Surgical History History of appendectomy Hx of eye surgery Family History Mother Fibromyalgia Arthritis Father Heart problem Brother No problems noted. Son Asthma Maternal Grandmother Diabetes Social History Household Members: Other Household Members Other:: mother and son Housing: House Do you presently have visiting nurse or other home services: No Alcohol intake: current Alcohol intake frequency: holidays/special occasions only Patient Tobacco Use Status: Never used Tobacco e-Cigarette/Vaping Use: Never Used Second Hand Smoke Exposure: No service: No Sexual orientation: Straight/Heterosexual Behavioral Health Assessment Weight Management Therapy Therapy Notes Details PT is a 44-year-old female presenting for a second behavioral health assessment as part of the surgical weight loss program. She seeks to improve her health, increase activity, and perform daily tasks without breathlessness. Her post-op weight goal is under 200 lbs, ideally 160 lbs. PT attends monthly counseling and sees Dr. Stafford at [facility]. She has diagnoses of depression and anxiety (unspecified) and previously experienced agoraphobia-like symptoms, which are now well-managed. Current medications (started ~1 year ago) include: Hydroxyzine 25 mg PRN Sertraline 25 mg daily She was hospitalized in April 2023 after a suicide attempt during a major depressive episode; a prior attempt occurred in 2018. Since then, she denies any suicidal ideation, self-harm, or safety concerns and reports feeling stable. She is currently beginning therapy termination and may start tapering off medications this summer. Results from the Binge Eating Scale (BES) indicate low risk for binge eating behaviors, and PHQ-9 scores reveal no current depressive symptoms. Additionally, her mental status exam was within normal limits, with no signs of impaired functioning. Based on today?s evaluation, PT is cleared from a behavioral health standpoint. Presenting Concerns Referral Source WMP-Provider. Reason for referral Completion of behavioral health assessment as part of process for weight-loss surgery. Precipitating Event Obesity Living Situation Current Living Situation Relative's/Guardian's Ryann At risk of losing current housing? No Satisfied with current living situation? Yes Comments PT lives with her mother, who is a home over and her son. Food/Weight/Diet Expectations of change PT began the program on 05/20/2024 at 250 lbs, with an initial goal to lose 10% (~25 lbs) pre-op. Target pre-op weight is 225 lbs. Weight recorded: 248.8 lbs on 05/25/2024 and 238 lbs on 06/22/2024. PT aims to improve health, increase activity, and reduce breathlessness with a post-op goal of =160 lbs and under 200 lbs overall. PT is implementing the following: Current meal plan: Shakes and 2 meals per day (lunch and dinner, 7F/7F) Exercise plan: treadmill 3 times a week. scale: yes Communication with surgeon: Saturdays. History/Relationship with food PT reports a history of stress and boredom eating, often snacking throughout the day and sometimes eating chips or drinking soda when waking at night. She recalls being offered food frequently growing up, with her grandmother cooking whatever she wanted. Pre-program eating habits: Breakfast: Often skipped; occasionally at 9 AM?2 scrambled eggs, 2 toasts, 1 glass of juice AM snacks: Fruit, chips, peanuts, cookies, or cake Lunch (12 PM): [place], chips, cookies; often skipped if not home Afternoon snacks: Similar to AM snacks Dinner (5 PM): Rice, chicken, juice, bread Night snacks: Varied based on cravings?fruit, chips, peanuts, cookies, or cake Drinks: ~5 cups of juice daily, 1?2 glasses of soda, no coffee History/Relationship with weight PT reports being thin as a child, becoming ?chunky? around age 12, and reaching 200 lbs by age 18. She gained over 50 lbs during , reaching 265 lbs. Over the past 10 years, her weight has ranged from a low of 214 lbs to a high of 260 lbs. History/Relationship with dieting Portion control using a plate and cups to measure food. 2020 - Weight Watchers - for over a year Gym membership around 2019 was when she lost weight and was at 214 lbs. Binge Eating Do you frequently eat large amounts of food in short periods of time, not feeling physically hungry? No Do you feel out of control when you eat a large amount of food in a short period of time? No Do you eat large amounts of food rapidly and typically alone? No Night Eating Do you wake up at least once during the night to eat? Yes If you wake up in the night, do you find that it is necessary to eat something in order to fall back asleep? No Do you have little or no appetite in the morning and feel very hungry in the evening, often overeating between dinner and when you go to bed? Yes Social History Family history and relationship PT is in 2019. She has 1 son who is 19 y/o. She is currently living at her mom's house. Her father is . She has 1 sibling. PT reports good family relationships. Parental/Familial rn clinical quality obligations 19 y/o son. Developmental history and status None reported. Currently WNL. Social support Mother and best friend. Some family members. Community support Pt has a counselor. Christian/Spirituality Sabianist. Cultural/Ethnic information . Legal Involvement and History Current or historical involvement with the legal system? None reported. Education Highest grade completed HS. Some college. Preferred learning style Learn by doing and Visual Currently enrolled in educational program? No Interested in further educational program? 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 ) Wants help to find employment? No Meaningful activities Home, shopping family activities, reading. Financial Situation Describe current financial situation Comfortable Financial assistance? None Service Service? No Mental Health and Addiction Treatment Current/Past substance abuse? No Comments Alcohol: 1-2 times at month, 1 drink either wine or a mixed drink like a keith. Cigarettes/Tobacco: None. Cannabis/Edibles: None. Current/Past addictive behavior concerns? No Psychiatric history PT currently attends counseling at [facility] every 4 weeks in person and sees a prescriber at the same place, she sees Dr Stafford. She has been diagnosed with depression and anxiety, but doesn't know the type or specific diagnosis. Last year, she had symptoms of agoraphobia when going to places, and avoiding leaving the house; however, now she is better and can manage her anxiety symptoms. Currently gets prescribed with: - Hydroxyzine 25mg, 1 as needed. - Sertraline 25mg, 1 at day. She started these meds about a year ago. PT reports she has been hospitalized for MH, last time was April/2023, due to a suicide attempt while she went through a major depressive episode. She also had another SA in 2019. PT denies any recent safety concerns around SI/SA since last hospitalization and/or any other concern around self-harm/other harm ever. PT reports she feels stable at this time. She has started the termination process with the therapist as goals have been met, and over the summer, she might start a weaning process to d/c meds. Medical and Physical Health Summary Additional Medical History not covered in history None additional Sexual History concerns None reported. Physical exam in the last year? Yes Pain Screening Current pain? Yes Pain in the last few months? Yes Comments Back pain, she had surgery. At times pain radiates towards her left side down left leg. Medications Is the patient compliant with medications? Yes Does the patient have Bae Guardian in place? Not applicable Does the patient use complimentary health approaches? No Trauma/Abuse History History of trauma? No Questionnaires PHQ-9 Over the last 2 weeks, how often have you been bothered by any of the following problems? 1. Little interest or pleasure in doing things: not at all 2. Feeling down, depressed, or hopeless: not at all 3. Trouble falling or staying asleep, or sleeping too much: not at all 4. Feeling tired or having little energy: several days 5. Poor appetite or overeating: not at all 6. Feeling bad about yourself - or that you are a failure or have let yourself or your family down: not at all 7. Trouble concentrating on things, such as reading the newspaper or watching television: not at all 8. Moving or speaking so slowly that other people could have noticed. Or the opposite - being so fidgety or restless that you have been moving around a lot more than usual: not at all 9. Thoughts that you would be better off or of hurting yourself in some way: not at all Total score: 1 Depression Screening Interpretation: Negative Depression Screening Done: Yes 58824 - PHQ-9 Billing: Yes Source: Developed by Drs. Jesse Tovar, Jerica Coleman, Henrique Grimaldo and colleagues, with an educational marito from [employer]. Binge Eating Scale Group 1 A. I don't feel self-conscious about my wt. or body size when I'm with others. B. I feel concerned about how I look to others, but it normally does not make me fell disappointed with myself C. I do get self-conscious about my appearance and wt. which makes me feel disappointed in myself. D. I feel very self-conscious about my wt. and frequently I feel intense shame and disgust for myself. I try to avoid social contacts because of my self-consciousness. Response Group 1: B Group 2 A. I don't have any difficulty eating slowly in the proper manner. B. Although I seem to gobble down foods, I don't end up feeling stuffed because of eating to much. C. At times, I tend to eat quickly and then, I feel uncomfortably full afterwards. D. I have the habit of bolting down my food, without really chewing it. When this happens I usually feel uncomfortably stuffed because I've eaten to much. Response Group 2: A Group 3 A. I feel capable to control my eating urges when I want to. B. I feel like I have failed to control my eating more than the average person. C. I feel utterly helpless when it comes to feeling in control of my eating urges. D. Because I feel so helpless about controlling my eating I have become very desperate about trying to get control. Response Group 3: C Group 4 A. I don't have the habit of eating when I'm bored. B. I sometimes eat when I'm bored, but often I'm able to get busy and get my mind off food. C. I have a regular habit of eating when I'm bored, but occasionally, I can use some other activity to get my mind off eating. D. I have a strong habit of eating when I'm bored. Nothing seems to help me breath the habit. Response Group 4: D Group 5 A. I'm usually physically hungry when I eat something. B. Occasionally, I eat something on impulse even though I really am not hungry. C. I have the regular habit of eating foods, that I might not really enjoy, to satisfy a hungry feeling even though physically, I don't need the food. D. Although I'm not physically hungry, I get a hungry feeling in my mouth that only seems to be satisfied when I eat a food, like sandwich, that fills my mouth. Sometimes, when I eat the food to satisfy my mouth hunger, I then spit the food out so I won't gain weight. Response Group 5: B Group 6 A. I don't feel any guilt or self-hate after I overeat. B. After I overeat, occasionally I feel guilt or self-hate. C. Almost all the time I experience strong guilt or self-hate after I overeat. Response Group 6: A Group 7 A. I don't lose total control of my eating when dieting even after periods when I overeat. B. Sometimes when I eat a forbidden food on a diet, I feel like I blew it and eat even more. C. Frequently, I have the habit of saying to myself, I've blown it now, why not go all the way, when I overeat on a diet. When that happens I eat more. D. I have a regular habit of starting a strict diets for myself but I break the diets by going on an eating binge. My life seems to be either a feast or famine. Response Group 7: B Group 8 A. I rarely eat so much food that I feel uncomfortably stuffed afterwards. B. Usually about once a month, I each such a quantity of food, I end up feeling very stuffed. C. I have regular periods during the month when I eat large amounts of food, either at mealtime or at snacks. D. I eat so much food that I regularly feel quite uncomfortable after eating and sometimes a bit nauseous. Response Group 8: C Group 9 A. My level of calorie intake does not go up very high or go down very low on a regular basis. B. Sometimes after I overeat, I will try to reduce my caloric intake to almost nothing to compensate for the excess calories I've eaten. C. I have a regular habit of overeating during the night. It seems that my routine is not to be hungry in the morning but overeat in the evening. D. In my adult years, I have had week-long periods where I practically starve myself. This follows periods when I overeat. It seems I live a life of either feast or famine. Response Group 9: C Group 10 A. I usually am able to stop eating when I want to. I know when enough is enough. B. Every so often, I experience a compulsion to eat which I can't seem to control. C. Frequently, I experience strong urges to eat which I seem unable to control, but at other times I can control my eating urges. D. I feel incapable of controlling urges to eat. I have a fear of not being able to stop eating voluntarily. Response Group 10: B Group 11 A. I don't have any problem stopping eating when I feel full. B. I usually can stop eating when I feel full but occasionally overeat leaving me feeling uncomfortably stuffed. C. I have a problem stopping eating once I start and usually I feel uncomfortably stuffed after I eat a meal. D. Because I have a problem not being able to stop eating when I want, I sometimes have to induce vomiting to relieve my stuffed feeling. Response Group 11: B Group 12 A. I seem to eat just as much when I'm with others, Family social gatherings as when I'm by myself. B. Sometimes, when I'm with other persons, I don't eat as much as I want to eat because I'm self-conscious about my eating. C. Frequently, I eat only a small amount of food when others are present, because I'm very embarrassed about my eating. D. I feel so ashamed about overeating that I pick times to overeat when I know no one will see me. I feel like a closet eater. Response Group 12: B Group 13 A. I eat three meals a day with only an occasional between meal snack. B. I eat 3 meals a day, but I also normally snack between meals. C. When I am snacking heavily, I get in the habit of skipping regular meals. D. There are regular periods when I seem to be continually eating, with no planned meals. Response Group 13: C Group 14 A. I don't think much about trying to control unwanted eating urges. B. At least some of the time, I feel my thoughts are pre-occupied with trying to control my eating urges. C. I feel that frequently I spend much time thinking about how much I ate or about trying not to eat anymore. D. It seems to me that most of my waking hours are pre-occupied by thoughts about eating or not eating. I feel like I'm constantly struggling not to eat. Response Group 14: A Group 15 A. I don't think about food a great deal. B. I have strong craving for food but they last only for brief periods of time. C. I have days when I can't seem to think about anything else but food. D. Most of my days seem to be pre-occupied with thoughts about food. I feel like I live to eat. Response Group 15: B Group 16 A. I usually know whether or not I'm physically hungry. I take the right portion of food to satisfy me. B. Occasionally, I feel uncertain about knowing whether or not I'm physically hungry. A these times it's hard to know how much food I should take to satisfy me. C. Even though I might know how many calories I should eat, I don't have any idea what is a normal amount of food for me. Response Group 16: B Binge Eating Score: 19 Score less than 17 Minimal Risk Score between 18-26 Moderate Risk Score between 27-46 High Risk Assessment & Plan Assessment & Plan (1) Major depressive disorder: Code(s): F32.9 - Major depressive disorder, single episode, unspecified (2) Agoraphobia without history of panic disorder: Code(s): F40.02 - Agoraphobia without panic disorder (3) Pre-bariatric surgery psychological evaluation: Code(s): Z71.89 - Other specified counseling Plan The patient has been cleared from a behavioral health standpoint. She was reminded of the importance of maintaining regular communication with her surgical team and adhering to her prescribed meal and exercise plans to support successful weight loss outcomes. Also, it was reflected on the need for long-term commitment to the program and the lifestyle changes necessary for sustained success. The patient will return for a behavioral health follow-up if she proceeds with surgery. Next Appointment: To be scheduled 2?4 weeks post-surgery. Telehealth Telehealth [facility]health [facility]: [facility] Location of provider rendering services: other Location of patient: address on file Patient Identification confirmed using: Name, : Yes Telehealth method: video Patient verbally consented to treatment: Yes Patient verbally consented to billing insurance company: Yes Patient informed of any privacy concerns related to visit: Yes Minutes spent on Phone/Video with Pt.: 55 Coding Level of Care Code Established Pt Tele Psytx >53 mins (36118) Patient Type Established Diagnoses Major depressive disorder F32.9 Agoraphobia without history of panic disorder F40.02 Pre-bariatric surgery psychological evaluation Z71.89 Additional Codes PHQ-9 - 90510 - PHQ-9 Billing: Yes ([id number]) Time Spent (min) 55
--- OUTSIDE RECORDS SUMMARY | 2024-06-24 13:46 | XMS_ITS | Clinical Summary ---
Author Organization [facility] Address [address] [place] [id number] Phone Care Team Providers Care Retail Wireless Sales Consultant Name Role Phone Unavailable Primary Care Provider [...]
== END 2024-06-24 13:19 | disposition home or self-care (01) ==
LOC: HO.HBST 12:19
PROVIDERS: PCP Internal Medicine; Visit Provider Counselor Mental Health
DX: F32.1 Major depressive disorder, single episode, moderate (principal); F40.02 Agoraphobia without panic disorder; Z71.89 Other specified counseling
CPT/HCPCS: 90837

== ENCOUNTER → 2024-06-24 12:19 | Outpatient (BNVA) | payer OTHER, SELFPAY | PROVIDERS: PCP Internal Medicine; Visit Provider Counselor Mental Health ==

== ENCOUNTER 2024-06-28 10:09 | Outpatient (REF) | payer OTHER, SELFPAY ==
--- NOTE | ~2024-06-28 | US_ITS ---
EXAMINATION: US ABDOMEN COMPLETE WITH LIVER ELASTOGRAPHY HISTORY: E66.01 - Morbid (severe) obesity due to excess calories TECHNIQUE: Real-time grayscale ultrasound imaging of the abdomen was performed and images were reviewed. COMPARISON: There are no prior studies for comparison. FINDINGS: Liver: The right lobe of the liver measures 17.4 cm in size. The left lobe of the liver measures 8.2 cm in size. The liver demonstrates normal homogeneous echotexture. No focal mass or intrahepatic biliary ductal dilatation is identified. There is normal hepatopedal flow in the portal vein. Ultrasound elastography of the liver was performed with 10 separate measurements of the liver parenchyma with the patient in the supine position. Measurements were obtained approximately 2 cm below Teo's capsule and perpendicular to the capsule. Images are of satisfactory quality. The median shear wave velocity is 1.43 m/s. The interquartile range/median (IQR/median) is 0.17. Gallbladder and biliary tree: There is a shadowing calculus in the gallbladder. In addition, there is ringdown artifact from the gallbladder wall, consistent with adenomyomatosis. There is no wall thickening or pericholecystic fluid. There is no sonographic Coffman sign. The common bile duct is normal in caliber measuring 4 mm. Kidneys: The right kidney measures 12.1 cm in length. The left kidney measures 11.6 cm in length. The kidneys are unremarkable, without evidence of masses, hydronephrosis, or calculi. Pancreas: The pancreatic head, neck, and body are unremarkable. The pancreatic tail is obscured by bowel gas. Spleen: The spleen is normal in size and contour, measuring 10.1 cm in length. Abdominal aorta and inferior vena cava: The visualized portions of the abdominal aorta and inferior vena cava are normal in caliber. There is no free fluid in the abdomen. US/US abdomen comp w elastography IMPRESSION: Cholelithiasis and adenomyomatosis of the gallbladder. The median shear wave velocity in the liver is 1.43 m/s, corresponding to a median liver stiffness of 6.43 kPa. The IQR/median value is 0.17. This is indicative of a poor quality data set, and the estimated liver stiffness may be unreliable. Findings are indicative of a low elastography value which rules out advanced chronic liver disease in asymptomatic patients. REFERENCE: Society of Radiologists in Ultrasound Liver Stiffness Thresholds (2020): LIVER STIFFNESS THRESHOLDS: *Shear wave velocity less than 1.3 m/s (Liver Stiffness equal or less than 5 kPa): High probability of being normal. *Shear wave velocity less than 1.7 m/s (Liver Stiffness less than 9 kPa): In the absence of other known clinical signs, rules out compensated advanced chronic liver disease. *Shear wave velocity between 1.7-2.1 m/s (Liver Stiffness 9-13 kPa): Suggestive of compensated advanced chronic liver disease but need further test for confirmation. *Shear wave velocity between 2.1-2.4 m/s (Liver Stiffness 13-17 kPa): Rules in compensated advanced chronic liver disease. *Shear wave velocity greater than 2.4 m/s (Liver Stiffness over 17 kPa): Suggestive of clinically significant portal hypertension. QUALITY OF DATA SET: *IQR/Median value equal or less than 0.15 implies a quality data set. *IQR/Median value over 0.15 implies a poor quality data set. SIGNIFICANT CHANGE FROM PRIOR EXAM: Significant change if liver stiffness measurement is 10% or greater from prior exam. OTHER CONSIDERATIONS: The stage of liver fibrosis may be overestimated in the setting of acute hepatitis, liver inflammation, elevated liver function tests, hepatic vascular congestion, obstructive cholestasis, non-fasting state, and infiltrative diseases such as amyloidosis and lymphoma. In some patients with NAFLD, the liver stiffness thresholds for compensated advanced chronic liver disease may be lower. In causes other than viral hepatitis and NAFLD, liver stiffness thresholds are not well established. Electronically signed by: Jesse De Jesus MD 06/28/2024 11:08 AM EDT
--- OUTSIDE RECORDS SUMMARY | 2024-06-28 10:39 | XMS_ITS | Clinical Summary ---
Author Organization [facility] Address [address] [place] [phone] Phone Care Team Providers Care Wood Crafter Name Role Phone Unavailable Primary Care Provider [...]
== END 2024-06-28 10:10 | disposition home or self-care (01) ==
LOC: HO.US 10:09
PROVIDERS: PCP Internal Medicine; Visit Provider Surgery
DX: E66.01 Morbid (severe) obesity due to excess calories (principal); K21.9 Gastro-esophageal reflux disease without esophagitis; I10 Essential (primary) hypertension
CPT/HCPCS: 76700; 76981

== ENCOUNTER → 2024-06-28 10:16 | Outpatient (BNV) | payer OTHER, SELFPAY | PROVIDERS: PCP Internal Medicine; Visit Provider Radiology Diagnostic Radiology | DX: K82.9 Disease of gallbladder, unspecified (principal); E66.01 Morbid (severe) obesity due to excess calories | CPT/HCPCS: 76700; 76981 ==

== ENCOUNTER 2024-07-22 08:47 | Outpatient (AMB) | payer OTHER, SELFPAY ==
--- NOTE | 2024-07-22 08:52 | MHC.PC.OV ---
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 She has no concerns at today's visit. Hypertension-continues on losartan 50 mg b.i.d.. Blood pressure in the office 138/86, controlled Major depressive disorder/kmbrffh-PPI-5 score 1, willian 7 score 1. Continues on sertraline 25 mg daily. No SI/HI. Morbid obesity-BMI 41.9. Following with bariatric surgery. She will be undergoing sleeve gastrectomy on August 08. She has been using tirzepatide as well as following healthy diet and going to the gym regularly. Has lost 25 lb thus far. She is currently taking vitamin supplements including vitamin B1, vitamin-A, vitamin B12, and an iron supplement. Health maintenance: Mammogram-overdue. Does have history of breast cancer in her maternal aunt. She is unsure about her aunts genetic screenings. ROS: General: No fevers, malaise, unintentional weight loss HEENT: No blurred vision, diplopia. No sore throat, nasal congestion, rhinorrhea, sinus pain, ear pain Cardiovascular: No chest pain, palpitations, or leg edema Respiratory: No shortness of breath, wheezing, cough Neuro: No headaches, weakness, paresthesias Psych: see hpi Skin: No rashes or lesions EXAM: Constitutional - Awake and Alert, No apparent distress Eyes - PERRLA, EOMI Cardiovascular - S1S2, RRR, No edema Respiratory - Normal lung expansion, Normal respiratory effort, No respiratory distress, CTA bilaterally Extremities - no calf tenderness bilaterally, no swelling Skin - Warm/Dry Neurological - Alert & oriented x3 Psychological - Appropriate affect [facility] Medical History (Updated 07/22/24 @ 09:13 by ALIZE Diamond) Prediabetes Intentional overdose Agoraphobia without history of panic disorder MDD (major depressive disorder), recurrent severe, without psychosis Back pain GERD (gastroesophageal reflux disease) Morbid obesity Hypertension Surgical History History of appendectomy Hx of eye surgery Family History Mother Fibromyalgia Arthritis Father Heart problem Brother No problems noted. Son Asthma Maternal Grandmother Diabetes Social History Household Members: Other Household Members Other:: mother and son Housing: House Do you presently have visiting nurse or other home services: No Alcohol intake: current Alcohol intake frequency: holidays/special occasions only Patient Tobacco Use Status: Never used Tobacco e-Cigarette/Vaping Use: Never Used Second Hand Smoke Exposure: No service: No Sexual orientation: Straight/Heterosexual Questionnaire PHQ-9 Over the last 2 weeks, how often have you been bothered by any of the following problems? 1. Little interest or pleasure in doing things: not at all 2. Feeling down, depressed, or hopeless: not at all 3. Trouble falling or staying asleep, or sleeping too much: not at all 4. Feeling tired or having little energy: several days 5. Poor appetite or overeating: not at all 6. Feeling bad about yourself - or that you are a failure or have let yourself or your family down: not at all 7. Trouble concentrating on things, such as reading the newspaper or watching television: not at all 8. Moving or speaking so slowly that other people could have noticed. Or the opposite - being so fidgety or restless that you have been moving around a lot more than usual: not at all 9. Thoughts that you would be better off or of hurting yourself in some way: not at all Total score: 1 Source: Developed by Drs. Jesse Tovar, Jerica Coleman, Henrique Grimaldo and colleagues, with an educational marito from [employer]. Thrive Questionnaire Date Thrive assessed: 07/22/24 I am a: Patient What is your living situation today?: I have a steady place to live Within the past 12 months, did the food you bought not last and you didn't have the money to get more?: Never true Within the past 12 months, did you worry whether your food would run out before you got money to buy more?: Never true Do you have trouble paying for medicines?: No Do you have trouble getting transportation to medical appointments?: No Do you have trouble paying your heating and electricity bill?: No Do you have trouble taking care of your child, family member or friend?: No Do you have trouble with day-to-day activities such as bathing, preparing meals, shopping, managing finances, etc.?: No Are you currently unemployed and looking for a job?: No Are you interested in more education?: No Please select the resources that you would like help with: None THRIVE Score: 0 WILLIAN-7 AMB Questionnaire WILLIAN-7 Date WILLIAN - 7 assessed: 07/22/24 Feeling nervous, anxious, or on edge: 0 = Not at all Not being able to stop or control worryin = Not at all Worrying too much about different things: 1 = Several days Trouble relaxin = Not at all Being so restless that it is hard to sit still: 0 = Not at all Becoming easily annoyed or irritable: 0 = Not at all Feeling afraid as if something awful might happen: 0 = Not at all Total WILLIAN-7 score (0-4 normal; 5-9 mild; 10-14 moderate; 15-21 severe): 1 Source: Developed by Drs. Jesse Tovar, Jerica Coleman, Henrique Grimaldo and colleagues, with an educational marito from [employer]. Physical exam (Primary Care) Vital Signs: Last Vital Signs Temp 97.3 F 07/22/24 08:54 Pulse 69 07/22/24 08:54 Resp 14 07/22/24 08:54 BP 138/86 07/22/24 08:54 Pulse Ox 98 07/22/24 08:54 Oxygen Delivery Method Room Air 07/22/24 08:54 BMI result Body Mass Index 41.9 Tobacco/Smoking Status: Tobacco use Status Patient Tobacco Use Status Never used Tobacco 07/22/24 08:58 e-Cigarette/Vaping Use Never Used 07/22/24 08:58 Thrive Assessment: Date of Thrive Assessment Date Thrive assessed 05/04/23 07/22/24 08:58 Coding Level of Care Code New Pt Level 4 (36457) Complex EM visit Add On G2211 Diagnoses Hypertension I10 MDD (major depressive disorder), recurrent severe, without psychosis F33.2 Morbid obesity E66.01 Assessment & Plan Assessment & Plan (1) Hypertension: Code(s): I10 - Essential (primary) hypertension Category: Medical Plan: Controlled. Continue losartan 50 mg b.i.d.. Low-sodium diet. (2) MDD (major depressive disorder), recurrent severe, without psychosis: Code(s): F33.2 - Major depressive disorder, recurrent severe without psychotic features Category: Medical Plan: Stable. PHQ-9 and willian 7 reviewed. Continue sertraline 25 mg daily and hydroxyzine p.r.n.. (3) Morbid obesity: Code(s): E66.01 - Morbid (severe) obesity due to excess calories Category: Medical Plan: Continue following with bariatric surgery with sleeve gastrectomy scheduled for August 08. Continued his appetite for now, plans for continuation per bariatric surgery. Continue with vitamin supplementation. Continue with healthy diet and regular exercise. Plan Follow-up in the office in 6 months, labs to be completed prior to visit. Labs from 05/2024 reviewed. Screening mammogram ordered. Continue medications as prescribed. Orders: Orders MM tomosynthesis screening BI Today Z12.31 - Encounter for screening mammogram for malignant neoplasm of breast Lipid Panel 6 Months E66.01 - Morbid (severe) obesity due to excess calories, F33.2 - Major depressive disorder, recurrent severe without psychotic features, I10 - Essential (primary) hypertension Basic Metabolic Panel 6 Months E66.01 - Morbid (severe) obesity due to excess calories, F33.2 - Major depressive disorder, recurrent severe without psychotic features, I10 - Essential (primary) hypertension
[2024-07-22 08:54] VITALS: BP 138/86; PULSE 69; RESP 14; TEMP 36.3; O2SAT 98; BMI 41.9
--- OUTSIDE RECORDS SUMMARY | 2024-07-22 09:10 | XMS_ITS | Clinical Summary ---
Author Organization [facility] Address [address] [place] [id number] Phone Care Team Providers Care Diet Assistant Name Role Phone Unavailable Primary Care Provider [...]
== END 2024-07-22 09:09 | disposition home or self-care (01) ==
LOC: HO.HMCHD 08:47
PROVIDERS: Visit Provider Physician Assistant
DX: I10 Essential (primary) hypertension (principal); F33.2 Major depressive disorder, recurrent severe without psychotic features; E66.01 Morbid (severe) obesity due to excess calories

== ENCOUNTER → 2024-07-22 08:47 | Outpatient (BNVA) | payer OTHER, SELFPAY | PROVIDERS: Visit Provider Physician Assistant | DX: I10 Essential (primary) hypertension (principal); K21.9 Gastro-esophageal reflux disease without esophagitis; F33.2 Major depressive disorder, recurrent severe without psychotic features; E66.01 Morbid (severe) obesity due to excess calories; Z68.41 Body mass index [BMI] 40.0-44.9, adult | CPT/HCPCS: 99202 ==

== ENCOUNTER 2024-07-23 12:44 | Day surgery (SDC) | payer OTHER, SELFPAY ==
--- OUTSIDE RECORDS SUMMARY | 2024-07-02 15:37 | XMS_ITS | Clinical Summary ---
Author Organization [facility] Address [address] [place] [phone] Phone Care Team Providers Care Factory Lay Out Engineer Name Role Phone Unavailable Primary Care Provider [...]
[2024-07-16 11:44] VITALS: BMI 45.7
--- NOTE | 2024-07-22 11:07 | HO.ANESPROP2 ---
Documented by User: Gregoria Concepcion NP 07/22/24 11:11 HPI - Anesthesia Eval Consult details Narrative: 44yo F for Upper Endoscopy BMI 45.7 Anesthesia Pre-Procedure Meds Is the patient on any of the following meds?: GLP1/DPP4 PMFSH Active Problems Active Problems: All Active Problems Prediabetes (Acute) Vitamin B1 deficiency (Acute) Vitamin A deficiency (Acute) Agoraphobia without history of panic disorder (Acute) MDD (major depressive disorder), recurrent severe, without psychosis (Acute) H. pylori infection (Acute) Vitamin B12 deficiency (Acute) Vitamin D deficiency (Acute) Anemia (Acute) Back pain (Acute) GERD (gastroesophageal reflux disease) (Acute) Hypertension (Acute) Morbid obesity (Acute) COVID-19 (Acute) Past Medical History Medical History Prediabetes Agoraphobia without history of panic disorder MDD (major depressive disorder), recurrent severe, without psychosis Intentional overdose Back pain GERD (gastroesophageal reflux disease) Morbid obesity Hypertension Family History Family History Mother Fibromyalgia Arthritis Father Heart problem Brother No problems noted. Son Asthma Maternal Grandmother Diabetes Surgical History Surgical History Previous back surgery History of appendectomy Hx of eye surgery Social History Social History Household Members: Other Household Members Other:: mother and son Housing: House Do you presently have visiting nurse or other home services: No Alcohol intake: current Alcohol intake frequency: does not drink Patient Tobacco Use Status: Never used Tobacco e-Cigarette/Vaping Use: Never Used Second Hand Smoke Exposure: No Have you been hit, kicked, punched, or otherwise hurt by someone within the past year? If so, by whom?: No Are you DNR?: No Advance Directives: No Advance Directives Information Provided: Yes Patient : No service: No Sexual orientation: Straight/Heterosexual Meds Allergies Allergy/AdvReac Type Severity Reaction Status Date / Time amoxicillin [AMOXICILLIN] Allergy Unknown RASH Verified 07/22/24 08:52 Home Medications ?Medication ?Instructions ?Recorded ?Confirmed ?Last Taken ?Type losartan 50 mg tablet 50 mg PO BID 03/14/22 07/22/24 Unknown History albuterol sulfate 90 mcg/actuation inhalation 05/14/24 07/22/24 Unknown History aerosol inhaler Exam Height,Weight and Vital Signs: Height 5 ft 2 in Weight 113.398 kg Assessment and Plan Assessment Anesthesia Assessment: Chart Reviewed Documented by User: Lupis Yun MD 07/23/24 13:06 [facility] Past Medical History Medical History Prediabetes Agoraphobia without history of panic disorder MDD (major depressive disorder), recurrent severe, without psychosis Intentional overdose Back pain GERD (gastroesophageal reflux disease) Morbid obesity Hypertension Family History Family History Mother Fibromyalgia Arthritis Father Heart problem Brother No problems noted. Son Asthma Maternal Grandmother Diabetes Family history of problems with anesthesia: No Surgical History Surgical History Previous back surgery History of appendectomy Hx of eye surgery History of Problems with Anesthesia: Yes Social History Social History Household Members: Other Household Members Other:: mother and son Housing: House Do you presently have visiting nurse or other home services: No Alcohol intake: current Alcohol intake frequency: does not drink Patient Tobacco Use Status: Never used Tobacco e-Cigarette/Vaping Use: Never Used Second Hand Smoke Exposure: No Have you been hit, kicked, punched, or otherwise hurt by someone within the past year? If so, by whom?: No Are you DNR?: No Advance Directives: No Advance Directives Information Provided: Yes Patient : No service: No Sexual orientation: Straight/Heterosexual Meds Allergies Allergy/AdvReac Type Severity Reaction Status Date / Time amoxicillin [AMOXICILLIN] Allergy Unknown RASH Verified 07/22/24 08:52 Home Medications ?Medication ?Instructions ?Recorded ?Confirmed ?Last Taken ?Type losartan 50 mg tablet 50 mg PO BID 03/14/22 07/22/24 Unknown History albuterol sulfate 90 mcg/actuation inhalation 05/14/24 07/22/24 Unknown History aerosol inhaler Exam Airway Mallampati Class: II TM Dist: >3cm Neck ROM: Full Loose/Missing/Broken Teeth: No Heart: RRR Lungs: CTA Assessment and Plan Final Anesthetic Review Family History of Problems with Anesthesia: No History of Problems with Anesthesia: Yes NPO: Yes ASA Class: III Final Preanesthetic Review: Meds/Allgs Chart Reviewed, Consent Obtained/Reviewed and Anes Risks/Benef Reviewed Patient Risk: Intermediate Procedure Risk: Intermediate Anesthetic Plan Anesthetic Plan: MAC: Disposition: Standard PACU
[2024-07-23 12:54] VITALS: BP 167/67; PULSE 69; RESP 18; TEMP 36.9; O2SAT 98; BMI 41.3
[2024-07-23 13:05] LABS: UPreg QC Valid YES; Urine Pregnancy NEGATIVE (NEGATIVE)
[2024-07-23] MEDS: Lactated Ringers 1,000 ML 80 ML IVCONT (13:07)
--- NOTE | 2024-07-23 13:23 | P.HPSUR_ITS ---
Pre-Procedural Eval Section A - 24 Hr Update-Section A only Date of Service: 07/23/24 The patient is an INPATIENT: No The patient has been examined within 24 hours of the surgical procedure. The History & Physical has been completed within 30 days and I have reviewed it.: Yes Section B - Complete if H&P > 30 days Chief Complaint: Morbid (severe) obesity due to excess calories Details of Present Illness: GERD Relevant Family History (Specify if Yes): No Relevant Social History: None Present Medications: None Medical History: No relevant PMH History of Previous Operations: No relevant previous surgery Allergies: Allergies Allergy/AdvReac Type Severity Reaction Status Date / Time amoxicillin [AMOXICILLIN] Allergy Unknown RASH Verified 07/22/24 08:52 Review of Systems Sugical H&P ROS: Negative: Constitution, Cardiovascular, Respiratory, Neurological, Psychiatric, Hem-Onc, Allergic/Immunologic, Gastrointestinal, Genitourinary, Musculoskeletal, Integumentary, Endocrine and Eyes/Ea rs/Nose/Throat Exam Surgical H&P Exam: Normal: HEENT, Normal: Heart, Normal: Lungs, Normal: Extremities, Normal: Abdomen, Normal: Skin and Normal: Neurological Plan Diagnosis/Plan: Unchanged (EGD to assess etiology of GERD. Risks of bleeding and perforation were discussed with the patient and she is in agreement with the plan.) I have reviewed the history and physical and performed a pertinent physical examination on my patient. No changes have occurred unless specified. Time Spent With Patient Time: Total time managing care of this patient today ____ minutes.
--- NOTE | 2024-07-23 13:24 | P.BOP_ITS ---
Brief Operative Note Date of Service: 07/23/24 Pre-op diagnosis: GERD Post-op diagnosis: same Procedure: PROCEDURE DATE: 07/23/2024 PREOPERATIVE DIAGNOSIS: GERD POSTOPERATIVE DIAGNOSIS: ?Same as above. 1) small diaphragmatic hernia PROCEDURE: Cblfnpor-vaoshy-iroutpfvdtsc with biopsies Surgeon: Vargas Lucas M.D.. Ph.D. Director Of Advertising Sales: None ? Anesthesia: IV sedation Estimated blood loss: ?Minimal FINDINGS AND PROCEDURE: ? OPERATIVE INDICATIONS: ?The patient is a 44 year old female known to me who is interested in bariatric surgery. The patient has GERD. Based on this information I recommended an upper endoscopy to evaluate the patient's symptoms. Risks and complications of the surgery were discussed with the patient in advance particularly the possibility of perforation or bleeding that may require surgical intervention. The patient understood the risks and was in agreement with the plan. ? PROCEDURE: After informed consent was obtained by the patient, the patient was ?transferred to the Operating Room and was placed in the supine position.? After successful induction of IV sedation, a mouth block was inserted and the patient was placed in the left lateral decubitus position. An upper endoscopy was performed next, the oropharynx and esophagus appeared within the normal limits. There was a small 2cm hiatal hernia. The z-line was smooth. Two biopsies were obtained from the distal esophagus 2-3 cm proximal to the GE junction and two additional biopsies from the GE junction. The stomach was entered and it appeared to be of normal size. There was no gastritis. There was no stricture or ulcer. A biopsy was obtained from the gastric fundus and the antrum. No significant bleeding was noted from any of the biopsy sites. Retroflexion of the scope confirmed the presence of a small diaphragmatic hernia. The scope was then advanced into the duodenum which appeared to be normal as well. At that point the duodenum ?and the stomach were decompressed and the scope was withdrawn from the patient's mouth. The patient extubated and was transferred in stable condition to the Recovery Room for further care. I was present and performed all steps of the procedure. There were no residents to assist with this case. Christiano Lucas M.D., Ph.D. Surgeon: Jermaine Lucas MD Anesthesia: MAC Was an Director Of Advertising Sales used for this Procedure?: No Estimated blood loss (mL): 0 IV fluids (mL): 400 Urine output (mL): 0 (No [place] to record output) Pathology: other (1) antrum x1, 2) fundus x1, 3) GE junction x2, 4) distal esophagus x2) Condition: stable Disposition: PACU
[2024-07-23 13:48] VITALS: BP 120/68; PULSE 79; RESP 16; TEMP 36.6; O2SAT 97
[2024-07-23 14:02] VITALS: BP 123/68; PULSE 65; RESP 18; TEMP 36.6; O2SAT 100
== END 2024-07-23 14:24 | disposition home or self-care (01) ==
PROVIDERS: Nurse Practitioner; PCP Internal Medicine; Visit Provider Surgery
PROC: 0DJ08ZZ Inspection of Upper Intestinal Tract, Via Natural or Artificial Opening Endoscopic (ICD-10-PCS; CPT 43235; principal; 2024-07-23 15:00)
DX: K21.9 Gastro-esophageal reflux disease without esophagitis (principal); E66.01 Morbid (severe) obesity due to excess calories; Z68.42 Body mass index [BMI] 45.0-49.9, adult; K44.9 Diaphragmatic hernia without obstruction or gangrene; I10 Essential (primary) hypertension; F33.2 Major depressive disorder, recurrent severe without psychotic features; F40.02 Agoraphobia without panic disorder; Z79.899 Other long term (current) drug therapy; Z88.1 Allergy status to other antibiotic agents; Z98.890 Other specified postprocedural states
CPT/HCPCS: 43239; 81025; 88305; 88313; 88342; J2704

== ENCOUNTER → 2024-07-23 12:44 | Outpatient (BNV) | payer OTHER, SELFPAY | PROVIDERS: PCP Internal Medicine; Visit Provider Surgery | DX: K44.9 Diaphragmatic hernia without obstruction or gangrene (principal) | CPT/HCPCS: 43239 ==

== ENCOUNTER 2024-07-24 08:19 | Outpatient (AMB) | payer OTHER, SELFPAY ==
--- NOTE | 2024-07-24 12:09 | A.OFFVIS_ITS ---
VS Expanded 07/24/24 12:15 Height 5 ft 2 in Weight 225 lb 4 oz BMI 41.2 Body Fat % 54.6 Body Fat Mass 123 Fat Free Mass 102 Visceral Fat Rating 22 Body Water % 31.1 Body Water Mass 70 Basal Metabolic Rate/Score 1,370 Intake Visit Reasons: TV Pre Op LSG 08/08/24 Allergies amoxicillin [AMOXICILLIN] Allergy (Unknown, Verified 07/24/24 12:10) RASH Medication List - Last Reconciled 07/24/24 by Jermaine Lucas MD albuterol sulfate 90 mcg/actuation inhalation cholecalciferol (vitamin D3) 125 mcg PO DAILY hydroxyzine HCl take 1 to 2 tabs, up to 3x a day as needed for anxiety 30 days iron,carbonyl-vitamin C 65 mg iron- 125 mg (Vitron-C) 1 tab PO DAILY losartan 50 mg PO BID mecobalamin (vitamin B12) 1,000 mcg sublingual DAILY ondansetron 4 mg PO Q12H pantoprazole 40 mg PO DAILY pantoprazole 40 mg PO DAILY polyethylene glycol 3350 17 grams PO DAILY sertraline 12.5 mg (1/2 x 25 mg) PO DAILY 30 days sucralfate 10 mL PO BID thiamine HCl (vitamin B1) 100 mg PO DAILY tirzepatide (weight loss) (Zepbound) 7.5 mg (0.5 mL) subcut QWEEK vitamin A palmitate 10,000 units PO DAILY HPI HPI TV Pre Op LSG 08/08/24: Details: Start time: 12pm, End time: 12.30pm ?I spent 25 minutes speaking with the patient on the phone plus an additional 5 minutes reviewing and updating records for a total of 30 minutes HPI Comments Details: Overall weight loss: 25.4lbs, or 10.13% TBWL Is doing 1 Fairlife protein shake, 2 Fit Crunch protein bars and one meal (7 forkfuls of protein and 7 forkfuls of salad/vegetables) Exercise: Is doing treadmill daily for 300-400 calories [facility] Medical History Prediabetes Agoraphobia without history of panic disorder MDD (major depressive disorder), recurrent severe, without psychosis Intentional overdose Back pain GERD (gastroesophageal reflux disease) Morbid obesity Hypertension Surgical History Previous back surgery History of appendectomy Hx of eye surgery Family History Mother Fibromyalgia Arthritis Father Heart problem Brother No problems noted. Son Asthma Maternal Grandmother Diabetes Social History Household Members: Other Household Members Other:: mother and son Housing: House Do you presently have visiting nurse or other home services: No Alcohol intake: current Alcohol intake frequency: does not drink Patient Tobacco Use Status: Never used Tobacco e-Cigarette/Vaping Use: Never Used Second Hand Smoke Exposure: No service: No Sexual orientation: Straight/Heterosexual Telehealth Telehealth Telehealth Platform: Telephone Location of provider rendering services: practice address Location of patient: address on file Patient Identification confirmed using: Name, : Yes Telehealth method: voice only Patient verbally consented to treatment: Yes Patient verbally consented to billing insurance company: Yes Patient informed of any privacy concerns related to visit: Yes Minutes spent on Phone/Video with Pt.: 30 Assessment & Plan Assessment & Plan (1) Morbid obesity: Code(s): E66.01 - Morbid (severe) obesity due to excess calories Category: Medical Plan: 1. Plan for lap sleeve gastrectomy including upper GI endoscopy. All tests has been completed and reviewed and the patient is cleared for the surgery. ?If diaphragmatic or ventral hernias are present at time of surgery, these will be repaired laparoscopically as well. Risks and complications were discussed in detail including possible conversion to an open procedure, anastomotic leak, bleeding requiring transfusion, small bowel obstruction, , DVT and pulmonary embolism, cardiac, or pulmonary complications, as custodial complications such as anastomotic ulcer, insufficient weight loss and vitamin deficiencies. I emphasized the importance of close follow-up, adherence to instructions and good communication. So far she has proven to be an excellent communicator and very compliant with all our directions accomplishing a great weight loss. I believe that she is an excellent candidate and she is ready. 2. Preop prescriptions were provided and explained the purpose of each one. Need to be purchased preop. Start Pantoprazole now as you get it from the pharmacy, 1 pill per day. Sucralfate and Zofran are for after surgery as needed. 3. Bowel prep: please do 7 packets ?of Miralax mixing each one with a an 8oz glass of water, crystal light, gatorade zero, or propel ?on 08/06/24 and the same amount on 08/07/24. The Miralax you begin with one packet at a time in 8oz water or crystal light, gatorade zero, or propel ?as early in the day as you can and you do them back to back until you finish them. Continue the protein shakes during ?the bowel prep. 4. Needs to purchase 1oz medicine cups . 5. Needs to purchase Children's liquid Tylenol for postop pain control. 6. She needs to stop the Zepbound at least one week before surgery date. So last injection should be at least one week prior to surgery. Avoid aspirin, motrin, Advil, Aleve, Meloxicam, Excedrin, Ibuprofen, Naproxyn. Tylenol is OK. 7. She needs to purchase the Celebrate multivitamins from the hospital's gift shop, chewable or pills whatever you prefer. 8. Will do basic preop blood work-up any day between Monday07/29/24 and Monday08/02/24 fasting for 12 hours and is scheduled to see the Anesthesiologist prior to the day of surgery. 9. Importance of adherence to postop follow-up and recommendations was underscored and she understands that. 10. Stop food and bars as of Monday07/29/24 and continue with 4 Fairlife protein shakes (mix 6oz of Fairlife shake with 2oz almond milk) at 9am-11am, 12pm-2pm, 3pm-5pm, 6pm-8pm and one more Whole-Bottle Fairlife protein shake at 9pm-11pm 11. No soups, broths or V8 12. The patient's?medical?history has been reviewed and they are considered low risk for post op DVT and therefore DVT prophylaxis is not considered necessary. Travel after surgery was reviewed. The patient has not disclosed any travel plans during the first 30 days after surgery and they have been advised that within the first 30 days after surgery any bus, plane, train or car travel over 2 hours in duration is contraindicated due to the possibility of developing blood clots from immobility. Any travel, needs to include periods of ambulation of 10 minutes in duration every 2 hours.? Patient was instructed to discuss any plans for travel during this period with their bariatric surgeon.? 13. As of tomorrow, please check your blood pressure daily in the morning. If your blood pressure is: Below 120/70: do not take the Losartan 121/71 to 135/85: take HALF Losartan Over 136/86: take the whole Losartan 14. Please take at the day of surgery the following medications: Losartan if the blood pressure that day is high enough to justify it based on the parameters at the previous bullet point. 15. Stop any control pills and don't use them for one month after surgery 16. Absolutely no smoking or vaping, or marijuana until the surgery and for at least the first 4 weeks. Only nicotine patches are allowed. 17. Send me weight measurements on Monday07/27/24, Monday08/03/24 and then on 08/08/24, the day of surgery before you go to the hospital. 18. Avoid any steroids by mouth for any reason. Let me know if someone prescribes them to you 19. These instructions supersede anything else you read in the handbook, anything you watched in videos or classes or you were told by any other provider. If there is any conflict, you follow the above instructions and nothing else. Orders: Orders Comprehensive Met. Panel Today E66.01 - Morbid (severe) obesity due to excess calories, I10 - Essential (primary) hypertension, R73.03 - Prediabetes Prothrombin Time INR Today E66.01 - Morbid (severe) obesity due to excess calories, I10 - Essential (primary) hypertension, R73.03 - Prediabetes Lipid Panel Today E66.01 - Morbid (severe) obesity due to excess calories, I10 - Essential (primary) hypertension, R73.03 - Prediabetes C Reactive Protein Today E66.01 - Morbid (severe) obesity due to excess calories, I10 - Essential (primary) hypertension, R73.03 - Prediabetes TSH reflex Free T4 Today E66.01 - Morbid (severe) obesity due to excess calories, I10 - Essential (primary) hypertension, R73.03 - Prediabetes Hemoglobin A1c Today E66.01 - Morbid (severe) obesity due to excess calories, I10 - Essential (primary) hypertension, R73.03 - Prediabetes Type and Screen Today E66.01 - Morbid (severe) obesity due to excess calories, I10 - Essential (primary) hypertension, R73.03 - Prediabetes Partial Thromboplastin Time Today E66.01 - Morbid (severe) obesity due to excess calories, I10 - Essential (primary) hypertension, R73.03 - Prediabetes Complete Blood Count Auto Diff Today E66.01 - Morbid (severe) obesity due to excess calories, I10 - Essential (primary) hypertension, R73.03 - Prediabetes Insulin Today E66.01 - Morbid (severe) obesity due to excess calories, I10 - Essential (primary) hypertension, R73.03 - Prediabetes Medications: New pantoprazole 40 mg PO DAILY 90 tabs 0RF K21.9 - Gastro-esophageal reflux disease without esophagitis sucralfate 10 mL PO BID 600 mL 2RF K21.9 - Gastro-esophageal reflux disease without esophagitis ondansetron Only take one every 12 hours as needed if you have nausea 4 mg PO Q12H 20 tabs 0RF nausea and vomiting R11.0 - Nausea polyethylene glycol 3350 Mix each measuring cup with 8oz of water, Crystal light, or Gatorade zero, or Propel and do 7 measuring cups on 08/06/24 and another 7 measuring cups on 08/07/24 17 grams PO DAILY 238 grams 0RF Z01.818 - Encounter for other preprocedural examination
[2024-07-24 12:15] VITALS: BMI 41.2
== END 2024-07-24 12:30 | disposition home or self-care (01) ==
LOC: HO.HBS 08:19
PROVIDERS: PCP Internal Medicine; Visit Provider Surgery
DX: E66.01 Morbid (severe) obesity due to excess calories (principal); Z68.41 Body mass index [BMI] 40.0-44.9, adult
CPT/HCPCS: 99499

== ENCOUNTER 2024-08-08 05:51 | Inpatient (IN) | payer OTHER, SELFPAY ==
[2024-07-26 09:49] VITALS: BMI 40.6
[2024-08-02 08:41] LABS: MANUAL DIFF FLAG NO
[2024-08-02 09:14] LABS: Basophils Percent Auto 0.3 % (0-2); Eosinophils Absolute Auto 0.1 X10*3/uL (0.0-0.4); Eosinophils Percent Auto 1.2 % (0-4); Hematocrit 35.1 % (37.0-47.0); Hemoglobin 10.9 g/dl (12.0-16.0); Imm Gran Abs Auto 0.02 X10*3/uL (0.00-0.03); Imm Gran Pct Auto 0.3 % (0.0-0.4); Lymphocytes Absolute Auto 1.8 X10*3/uL (1.2-4.9); Lymphocytes Percent Auto 24.6 % (20-40); Mean Corpuscular HGB Conc 31.1 g/dl (31.0-35.0); Mean Corpuscular Hemoglobin 23.1 pg (27.0-33.0); Mean Corpuscular Volume 74.5 fL (80.0-98.0); Mean Platelet Volume 9.3 fL (9.4-12.3); Monocytes Absolute Auto 0.5 X10*3/uL (0.1-1.2); Monocytes Percent Auto 6.9 % (2-11); Neutrophils Absolute Auto 4.8 x10*3/uL (2.0-8.3); Neutrophils Percent Auto 66.7 % (45-73); Platelet Count 379 X10*3/uL (160-400); Red Blood Count 4.71 X10*6/uL (4.20-5.50); Red Cell Distribution Width 17.7 % (11.0-16.0); White Blood Count 7.3 X10*3/uL (4.8-10.8)
[2024-08-02 09:21] LABS: INTERNATIONAL NORM RATIO 1.2 (0.9-1.1); Prothrombin Time 13.2 SEC (10.9-12.4)
[2024-08-02 09:23] LABS: Partial Thromboplastin Time 31.5 SEC (26.0-36.8)
[2024-08-02 09:28] LABS: Estimated Average Glucose 105 mg/dL; Hemoglobin A1C 98.6144 umol/L; Hemoglobin A1c % 5.3 % (<6.0); Total Hemoglobin (HGBA1C) 2900.8375 umol/L
[2024-08-02 09:50] LABS: Alanine Aminotransferase 24 U/L (0-31); Albumin Level 4.2 g/dL (3.5-5.0); Alkaline Phosphatase 43 U/L (39-117); Anion Gap 11 (12-20); Aspartate Amino Transferase 25 U/L (5-31); Bilirubin Total 0.6 mg/dL (0.0-1.0); Blood Urea Nitrogen 15 mg/dL (9-16); C Reactive Protein 5.55 mg/dL (< or = 0.50); Calcium 9.6 mg/dL (8.4-10.2); Carbon Dioxide 23 mmol/L (22-29); Chloride 106 mmol/L (96-108); Cholesterol 154 mg/dL (<200); Creatinine Clr Calc Pharmacy 90.5; Estimated Glomerular Filt Rate > 60; Glucose Random 79 mg/dL (60-115); HDL Cholesterol 40 mg/dL (>40); LDL Cholesterol Calculated 90 mg/dL (<100); Potassium 3.9 mmol/L (3.3-5.1); Sodium 136 mmol/L (135-145); Total Protein 7.8 g/dL (6.5-8.0); Triglycerides 122 mg/dL (<150)
[2024-08-02 10:10] LABS: TSH reflex Free T4 1.91 uIU/mL (0.32-4.0)
[2024-08-02 11:25] LABS: Insulin 11 uU/mL (2-29)
--- NOTE | 2024-08-06 15:03 | HO.ANESPROP2 ---
Documented by User: Gregoria Concepcion NP 08/06/24 15:04 HPI - Anesthesia Eval Consult details Narrative: 44yo F for Gastrectomy Sleeve,EGD,possible Diaphragmatic Hernia,possible Ventral Hernia,possible Open PMFSH Active Problems Active Problems: All Active Problems Vitamin B1 deficiency (Acute) Vitamin A deficiency (Acute) H. pylori infection (Acute) Vitamin B12 deficiency (Acute) Vitamin D deficiency (Acute) Anemia (Acute) COVID-19 (Acute) Prediabetes (Acute) Agoraphobia without history of panic disorder (Acute) MDD (major depressive disorder), recurrent severe, without psychosis (Acute) Back pain (Acute) GERD (gastroesophageal reflux disease) (Acute) Hypertension (Acute) Morbid obesity (Acute) Past Medical History Medical History Anemia Hiatal hernia Postoperative nausea Depression Asthma Prediabetes Agoraphobia without history of panic disorder MDD (major depressive disorder), recurrent severe, without psychosis Intentional overdose Back pain GERD (gastroesophageal reflux disease) Morbid obesity Hypertension Family History Family History Mother Fibromyalgia Arthritis Father Heart problem Brother No problems noted. Son Asthma Maternal Grandmother Diabetes Family history of problems with anesthesia: No Surgical History Surgical History History of esophagogastroduodenoscopy (EGD) Previous back surgery History of appendectomy Hx of eye surgery History of Problems with Anesthesia: Yes Social History Social History Household Members: Other Household Members Other:: mother & minor child Housing: House Are you a primary home health care physician to a significant other at home: Yes (minor child) Do you presently have visiting nurse or other home services: No Alcohol intake: current Alcohol intake frequency: does not drink Patient Tobacco Use Status: Never used Tobacco e-Cigarette/Vaping Use: Never Used Second Hand Smoke Exposure: No Use of substances other than those prescribed or required for medical reasons: No Have you been hit, kicked, punched, or otherwise hurt by someone within the past year? If so, by whom?: No Spiritual Healthcare Practices: no Christianity Healthcare Practices: no Cultural Healthcare Practices: no Are you DNR?: No Advance Directives: No (mother is primary contact) Advance Directives Information Provided: Yes (as above noted) Advance Directives on File: No Patient : No FDLMP: last week : No Poor oral hygiene: No service: No Sexual orientation: Straight/Heterosexual Meds Allergies Allergy/AdvReac Type Severity Reaction Status Date / Time adhesive tape Allergy Intermediate blister-skin Verified 07/26/24 09:57 tears amoxicillin (AMOXICILLIN) Allergy Intermediate RASH Verified 07/26/24 09:57 Home Medications ?Medication ?Instructions ?Recorded ?Confirmed ?Last Taken ?Type losartan 50 mg tablet 25 mg PO DAILY 03/14/22 07/26/24 08/08/24 History albuterol sulfate 90 mcg/actuation 2 puff inhalation Q4H PRN 05/14/24 07/26/24 02/08/24 History aerosol inhaler Shortness Of Breath Or Wheezing sertraline 25 mg tablet 25 mg PO DAILY 07/26/24 07/26/24 Unknown History Exam Height,Weight and Vital Signs: Height 5 ft 2 in Weight 100.698 kg Pertinent Lab Results Pertinent Lab Results: Laboratory Tests 08/02/24 08/02/24 08:35 08:40 WBC 7.3 RBC 4.71 Hgb 10.9 L Hct 35.1 L MCV 74.5 L MCH 23.1 L MCHC 31.1 RDW 17.7 H Plt Count 379 MPV 9.3 L Immature Gran % (Auto) 0.3 Neut % (Auto) 66.7 Lymph % (Auto) 24.6 [place] % (Auto) 6.9 Eos % (Auto) 1.2 Baso % (Auto) 0.3 Lymph # (Auto) 1.8 [place] # (Auto) 0.5 Eos # (Auto) 0.1 Baso # (Auto) 0.0 Abs Immat Gran (auto) 0.02 Absolute Neuts (auto) 4.8 Absolute Nucleated RBC 0.000 Nucleated RBC % (auto) 0.0 PT 13.2 H INR 1.2 H APTT 31.5 Sodium 136 Potassium 3.9 Chloride 106 Carbon Dioxide 23 Anion Gap 11 L BUN 15 Creatinine 0.88 Estim Creat Clear Calc 90.5 Estimated GFR > 60 Random Glucose 79 Estimat Average Glucose 105 Hemoglobin A1c % 5.3 Insulin Level 11 Calcium 9.6 Total Bilirubin 0.6 AST 25 ALT 24 Alkaline Phosphatase 43 C-Reactive Protein 5.55 H Total Protein 7.8 Albumin 4.2 Triglycerides 122 Cholesterol 154 LDL Cholesterol, Calc 90 HDL Cholesterol 40 L TSH 1.91 Blood Type O Positive Antibody Screen NEGATIVE Narrative Narrative: EKG 05/2024 Vent. Rate : 56 BPM Atrial Rate : 56 BPM P-R Int : 158 ms QRS Dur : 88 ms QT Int : 410 ms P-R-T Axes : 51 25 15 degrees QTcB Int : 395 ms Sinus bradycardia with sinus arrhythmia Otherwise normal ECG When compared with ECG of 07-Jun-2024 08:27, No significant change was found Assessment and Plan Assessment Anesthesia Assessment: Chart Reviewed Final Anesthetic Review Family History of Problems with Anesthesia: No History of Problems with Anesthesia: Yes Documented by User: Lupis Yun MD 08/08/24 07:59 PMFSH Past Medical History Medical History Anemia Hiatal hernia Postoperative nausea Depression Asthma Prediabetes Agoraphobia without history of panic disorder MDD (major depressive disorder), recurrent severe, without psychosis Intentional overdose Back pain GERD (gastroesophageal reflux disease) Morbid obesity Hypertension Family History Family History Mother Fibromyalgia Arthritis Father Heart problem Brother No problems noted. Son Asthma Maternal Grandmother Diabetes Surgical History Surgical History History of esophagogastroduodenoscopy (EGD) Previous back surgery History of appendectomy Hx of eye surgery Social History Social History Household Members: Other Household Members Other:: mother & minor child Housing: House Are you a primary home health care physician to a significant other at home: Yes (minor child) Do you presently have visiting nurse or other home services: No Alcohol intake: current Alcohol intake frequency: does not drink Patient Tobacco Use Status: Never used Tobacco e-Cigarette/Vaping Use: Never Used Second Hand Smoke Exposure: No Use of substances other than those prescribed or required for medical reasons: No Have you been hit, kicked, punched, or otherwise hurt by someone within the past year? If so, by whom?: No Spiritual Healthcare Practices: no Christianity Healthcare Practices: no Cultural Healthcare Practices: no Are you DNR?: No Advance Directives: No (mother is primary contact) Advance Directives Information Provided: Yes (as above noted) Advance Directives on File: No Patient : No FDLMP: last week : No Poor oral hygiene: No service: No Sexual orientation: Straight/Heterosexual Meds Allergies Allergy/AdvReac Type Severity Reaction Status Date / Time adhesive tape Allergy Intermediate blister-skin Verified 07/26/24 09:57 tears amoxicillin (AMOXICILLIN) Allergy Intermediate RASH Verified 07/26/24 09:57 Home Medications ?Medication ?Instructions ?Recorded ?Confirmed ?Last Taken ?Type losartan 50 mg tablet 25 mg PO DAILY 03/14/22 07/26/24 08/08/24 History albuterol sulfate 90 mcg/actuation 2 puff inhalation Q4H PRN 05/14/24 07/26/24 02/08/24 History aerosol inhaler Shortness Of Breath Or Wheezing sertraline 25 mg tablet 25 mg PO DAILY 07/26/24 07/26/24 Unknown History Exam Airway Mallampati Class: II TM Dist: >3cm Neck ROM: Full Loose/Missing/Broken Teeth: No Heart: RRR Lungs: CTA Assessment and Plan Assessment Anesthesia Assessment: Anesthesia Plan Discussed Final Anesthetic Review NPO: Yes ASA Class: II Final Preanesthetic Review: Meds/Allgs Chart Reviewed, Consent Obtained/Reviewed and Anes Risks/Benef Reviewed Patient Risk: Low Procedure Risk: Intermediate Anesthetic Plan Anesthetic Plan: GA Disposition: Standard PACU
[2024-08-08] VITALS (10 sets, daily range): BP systolic 123–158; BP diastolic 57–86; PULSE 71–88; RESP 15–20; TEMP 36–36.6; O2SAT 94–100; BMI 38.6; BMI 41.1
[2024-08-08 06:03] LABS: UPreg QC Valid YES; Urine Pregnancy NEGATIVE (NEGATIVE)
[2024-08-08] MEDS: Aprepitant 32 MG/4.4 ML VIAL IVPUSH (06:18)
[2024-08-08] MEDS: Lactated Ringers 1,000 ML 999 ML IV (06:19)
--- OUTSIDE RECORDS SUMMARY | 2024-08-08 06:38 | XMS_ITS | Clinical Summary ---
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
--- NOTE | 2024-08-08 07:01 | PHA.MEDREC ---
Pharmacy Consult ? Medication Reconciliation Pharmacy has completed the medication reconciliation. Reviewed med rec done by nursing, matches claims and office visit from 07/24/24.
--- NOTE | 2024-08-08 07:28 | P.HPSUR_ITS ---
Pre-Procedural Eval Section A - 24 Hr Update-Section A only Date of Service: 08/08/24 The patient is an INPATIENT: Yes The patient has been examined within 24 hours of the surgical procedure. The History & Physical has been completed within 30 days and I have reviewed it.: Yes Section B - Complete if H&P > 30 days Chief Complaint: obesity Relevant Family History (Specify if Yes): No Relevant Social History: None Present Medications: None Medical History: No relevant PMH History of Previous Operations: No relevant previous surgery Allergies: Allergies Allergy/AdvReac Type Severity Reaction Status Date / Time adhesive tape Allergy Intermediate blister-skin Verified 07/26/24 09:57 tears amoxicillin (AMOXICILLIN) Allergy Intermediate RASH Verified 07/26/24 09:57 Review of Systems Sugical H&P ROS: Negative: Constitution, Cardiovascular, Respiratory, Neurological, Psychiatric, Hem-Onc, Allergic/Immunologic, Gastrointestinal, Genitourinary, Musculoskeletal, Integumentary, Endocrine and Eyes/Ears/N ose/Throat Exam Surgical H&P Exam: Normal: HEENT, Normal: Heart, Normal: Lungs, Normal: Extremities, Normal: Abdomen, Normal: Skin and Normal: Neurological Plan Diagnosis/Plan: Unchanged I have reviewed the history and physical and performed a pertinent physical examination on my patient. No changes have occurred unless specified. Time Spent With Patient Time: Total time managing care of this patient today ____ minutes.
--- NOTE | 2024-08-08 07:31 | PC.NURSE ---
pt recieved one liter in preop
[2024-08-08] MEDS: levoFLOXacin/D5W 500 MG/100 ML PIGGYBACK 100 MG IV (07:47)
--- NOTE | 2024-08-08 09:45 | P.BOP_ITS ---
Brief Operative Note Date of Service: 08/08/24 Pre-op diagnosis: Severe obesity with comorbidities (see below) Post-op diagnosis: same (congenital abdominal adhesions) Procedure: INITIAL PATIENT BMI ON PRESENTATION AT OUR OFFICE: 45.9 kg/m2 LAST BMI BEFORE SURGERY: 39.5 kg/m2 COMORBIDITIES: back pain, hypertension, GERD, asthma ?The patient presented to the Weight Management Program with significant obesity that was negatively impacting the patient's comorbidities as listed above.? The program is a phased program with a special focus on preoperative medical weight management to promote substantial weight loss and prepare the patients for the second phase of the program: bariatric surgery. The patient participated in an intensive weekly lifestyle ?intervention and exercise program during which the patient ?has lost between the initial office visit and the last preoperative visit 36.2lbs, or 14.4% of initial actual body weight. It was deemed appropriate for the patient to now have bariatric surgery. In light of the current Covid-19 pandemic and the well documented strong association of obesity and increased risk of worse outcomes if infected with Covid-19 (REFERENCES: https://pubmed.ncbi.nlm.nih.gov/59627187/ ,? https://pubmed.ncbi.nlm.nih.gov/06993181/ ), any delay in undergoing bariatric surgery may lead to the patient's worsening health condition and increased?risk of more severe Covid-19 disease if infected. In addition a recent?study from [facility] published in [facility] [employer] on 02/15/2021 ([email or web address]) found that, among patients with obesity, substantial weight loss achieved with surgery was associated with improved outcomes of COVID-19 infection. The findings suggest that obesity can be a modifiable risk factor for the severity of COVID-19 infection. In addition, the patient met the BMI-criteria for bariatric surgery based on the BMI on initial presentation. The patient should not be penalized for achieving such weight loss because ?it is not sustainable long-term without surgical intervention and it was achieved in preparation for bariatric surgery ?under my direction and based on my published research ([email or web address]).[email or web address] and? https://www.soard.org/article/[email or web address](66)87251-X/pdf ) ?that a 10% preoper ative weight loss improves long-term weight loss after surgery and reduces perioperative complications.? Insurance carriers such as [facility] have endorsed my recommendations ?and have included in their policies criteria to include a 10% preoperative weight loss requirement. PROCEDURE: Esophago-gastroscopy, laparoscopic lysis of adhesions, laparoscopic sleeve gastrectomy and laparoscopic gastropexy INDICATIONS: This is a 51 year-old female who was electively scheduled for laparoscopic, possibly open sleeve gastrectomy. The risks and complications of the procedure were discussed with the patient in advance, particularly the possibility of ; pulmonary embolism; staple line leak; bleeding; GERD; cardiac, pulmonary, or renal complications; as well as long-term problems such as insufficient weight loss, vitamin deficiency, strictures, or ulcers. The patient understood all the risks, and was in agreement to proceed with surgery. DESCRIPTION OF PROCEDURE: After informed consent was obtained from the patient, the patient was given preoperative antibiotics, and was transferred to the operating room. After successful induction of general anesthesia, pneumatic compression devices were placed on both lower extremities. An upper endoscopy was performed next. The oropharynx and esophagus appeared to be within normal limits. 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 The stomach was entered. Then after all fluid and air were suctioned and the stomach was fully decompressed, the scope was withdrawn and secured in the mid esophagus. The patient was then prepped and draped in the usual sterile manner, and abdominal access was established at the right upper quadrant with the Sandra technique. A 12 mm blunt port was inserted, and the abdomen was insufflated with CO2 to a pressure of 15 mmHg. Under direct visualization, additional ports were placed, specifically two 5 mm Versi-step ports to the left upper quadrant, and a 5 mm Versi-Step port to the right upper quadrant. 1% lidocaine plain was used to infiltrate all port sites as well as all fascia defects. There were adhesions in the abdomen from previous appendectomy involving the omentum and the left anterior abdominal wall. Those were lysed completely with the ultrasonic device. Following that, the patient was placed in a steep reverse Trendelenburg position. An additional 5 mm port was placed to the right flank for the Mediflex retractor that was used to retract the left lobe of the liver. The gastro-esophageal fat pad was opened with the ultrasonic device (Thunderbeat, Olympus) and the anterior esophagus and hiatus were exposed. The angle of His was opened with the ultrasonic device the fundus of the stomach from any diaphragmatic and splenic attachments. I then opened the gastrocolic ligament between the transverse colon and the greater curvature of the stomach with the ultrasonic device to enter the lesser sac and facilitate the ligation of the short gastric vessels. I started at a mid-point along the greater curvature and using the Thunderbeat, all short gastric vessels were divided all the way to the angle of His until the left oleg was completely dissected at its entirety. I then divided the gastro-colic ligament distally to a distance of about 3-4 cm proximal to the pylorus. There were extensive congenital adhesions between the pancreas and posterior gastric wall. Those were lysed completely with the ultrasonic device. Adhesiolysis took approximately 45 min to complete. ? The stomach was then divided transversely with three Endo KAVON-45 purple and two KAVON-60 articulating purple loads using the FilesX stapler and loads. Every effort was made that the gastric sleeve had a tubular shape and an even caliber throughout. Once the sleeve resection was completed, the staple line of the gastric sleeve was reinforced with Hemoclips. The resected stomach was retrieved without difficulty from the Sandra port. A gastropexy was then performed in order to prevent postoperative GERD and partial gastric volvulus. Several interrupted 2.0 Surgidac sutures were placed between the sleeve's staple line and the previously divided greater omentum and gastro-colic ligament using the Endo-Stitch device. ?An upper endoscopy was performed. There was no narrowing at the GE junction. The scope was easily advanced all the way to the pylorus which was clearly visualized. There was no narrowing anywhere and the sleeve's caliber was even throughout. The sleeve's staple line was inspected and there was no evidence of ischemia, bleeding or dehiscence. At that point the gastroscope was withdrawn from the patient?s mouth while we were decompressing the bowel and the stomach from any remaining air. I looked into the lesser sac to see how the sleeve was situating and it was situating well. There was no bleeding from the staple line, spleen, or short gastric vessels. The Mediflex retractor was removed, and the undersurface of the liver was inspected and there was no bleeding. The patient was placed in supine position. I closed the fascial defect of the 12 mm port site with a figure of eight #1 Polysorb suture. Then 30cc Ropivacaine plain with 10 mg of Dexamethasone were used to infiltrate the fascial closure as well as all skin incisions. At this point, the abdomen was deflated, all ports were removed under direct vision, and no bleeding was noted from any of the port sites. The skin incisions were irrigated with saline and were closed with 4-0 absorbable monofilament sutures. Steri-Strips and OpSites were used to cover all incisions. The patient was extubated and was transferred in stable condition to the recovery room for further care. I was present and performed all olsen parts of the procedure. Ms. Abdalla was the wheelchair van operator first responder. There were no residents to assist with this case. Christiano Lucas MD, PhD, FACS Surgeon: Jermaine Lucas MD Anesthesia: local and other (TAP block) Was an Medical Insurance Coder used for this Procedure?: Yes Medical Insurance Coder: Tarah Abdalla Estimated blood loss (mL): 10 IV fluids (mL): 2,200 Urine output (mL): 0 (No Milton to record output) Pathology: other (1) Stomach, 2) gastro-esophageal fat pad) Condition: stable Disposition: PACU
--- NOTE | 2024-08-08 09:45 | PM.DS ---
DS: Providers Provider Date of admission: 08/08/24 05:51 Primary care physician: ALIZE Diamond DS: Summary Hospital Course Hospital Course: ADMITTING DIAGNOSIS: morbid obesity DISCHARGE DIAGNOSIS: same, s/p laparoscopic sleeve gastrectomy and gastropexy PAST SURGICAL HISTORY:? Previous back surgery History of appendectomy Hx of eye surgery PROCEDURE: upper endoscopy, laparoscopic sleeve gastrectomy and gastropexy DISCHARGE SUMMARY: History of Present Illness: The patient is a?44 year-old woman with a BMI of?38.6 kg/m2 and associated co-morbidities as described above. The patient had extensive work-up, lost?38.2 lbs preoperatively and was electively scheduled for laparoscopic, possible open sleeve gastrectomy and gastropexy. Risks and complications of the surgery were discussed with the patient in advance, particularly the possibility of , pulmonary embolism, anastomotic leak, bleeding, bowel injury, GERD, cardiac, renal or pulmonary complications. The patient understood all the risks and was in agreement with the surgical plan. Hospital Course: The patient underwent an uneventful laparoscopic sleeve gastrectomy with gastropexy on the day of admission. Postoperatively, the patient was transferred to the surgical floor. The patient received IV acetaminophen and IV Dilaudid for pain control. Patient was started on bariatric phase 1 diet POD #0. On postoperative day one, the patient was feeling well without nausea, vomiting, fevers, or tachycardia. The patient had some mild incisional pain and the abdomen was soft.? ? On the morning of postoperative day one, the patient was continued on 1 ounce of water or ice every half hour. During the day, the patient did fairly well, having some incisional pain, but able to ambulate adequately and to tolerate liquids well. Since the patient is doing well, we decided that the patient was ready to be discharged. The patient was given instructions to follow-up in office next week and to call the office for any fever over 101, persistent abdominal pain, nausea, vomiting, GERD, symptoms of DVT such as calf tenderness, or leg swelling, or pulmonary embolism such as chest pain or shortness of breath.? The patient was also instructed to drink 40-60 ounces of liquids per day using the 1-ounce cups. The patient had been given prescriptions for Tylenol for pain, Zofran prn for nausea, and pantoprazole and carafate previously. The patient was encouraged to ambulate and use the incentive spirometer. The patient was allowed to shower, but no baths, and encouraged to stay active at home. All of these instructions were given to the patient personally. All questions were answered and the patient understood all instructions, the instructions were also given to the patient in print. Time Attestation Discharge Coordination Time (in mins): 30 Quality: Safe Use of Opioids Does Pt have an Active Cancer Diagnosis on the Problem List?: No Quality: Stroke Does the patient have a stroke diagnosis?: No Physical Exam Vital Signs: Vital Signs: Last Vital Signs Temp 97.3 F 08/08/24 09:32 Pulse 84 08/08/24 09:42 Resp 16 08/08/24 09:42 BP 147/79 H 08/08/24 09:42 Pulse Ox 96 08/08/24 09:42 O2 Del Method Nasal Cannula wit h Capnography 08/08/24 09:42 O2 Flow Rate 3 08/08/24 09:42 BMI result Body Mass Index 38.6 DS: Data Data Completed and Pending Pending studies at discharge: Pending at discharge 08/08/24 08:39 Surgical [PTH] Routine Labs on day of discharge: Laboratory Results - last 24 hr 08/08/24 05:55 Urine Test NEGATIVE Discharge Plan Discharge Anticipated Discharge Date/Time: 08/09/24 10:00 Patient Disposition: Home, Self-Care Discharge Diagnosis: s/p laparoscopic sleeve gastrectomy with gastropexy Referrals: Tarah Muller PA [Primary Care Provider, Hospitalist] - 1 Week Discharge Medications: Continued sertraline 25 mg tablet 25 mg PO DAILY hydroxyzine HCl 25 mg Tablet See Rx Instructions .ROUTE .COMPLEX PRN (Reason: Anxiety) 30 Days Qty: 60 1RF Rx Instructions: take 1 to 2 tabs, up to 3x a day as needed for anxiety pantoprazole 40 mg tablet,delayed release (DR/EC) 40 mg PO DAILY Qty: 90 0RF sucralfate 100 mg/mL suspension 10 ml PO BID Qty: 600 2RF Patient Comments: postop med ondansetron 4 mg tablet,disintegrating 4 mg PO Q12H Qty: 20 0RF Patient Comments: postop med Rx Instructions: Only take one every 12 hours as needed if you have nausea albuterol sulfate 90 mcg/actuation HFA aerosol inhaler 2 puff inhalation Q4H PRN (Reason: Shortness Of Breath Or Wheezing) Held losartan 50 mg tablet 25 mg PO DAILY Hold Instructions: Resume on 08/09/24. Only resume according to parameters given by Dr. Lucas Discontinued Vitron-C 65 mg iron- 125 mg tablet,delayed release (DR/EC) 1 tab PO DAILY Qty: 90 0RF Rx Instructions: swallow whole; do not chew/break/dissolve/open mecobalamin (vitamin B12) 1,000 mcg tablet,disintegrating 1,000 mcg sublingual DAILY Qty: 90 0RF Rx Instructions: place tablet under tongue and allow to dissolve for at least30 secs before swallowing vitamin A palmitate 3,000 mcg (10,000 unit) capsule 10,000 unit PO DAILY Qty: 30 0RF cholecalciferol (vitamin D3) 125 mcg (5,000 unit) capsule 125 mcg PO DAILY Qty: 90 0RF thiamine HCl (vitamin B1) 100 mg tablet 100 mg PO DAILY Qty: 90 0RF Zepbound 7.5 mg/0.5 mL pen injector 7.5 mg subcut QWEEK Qty: 2 0RF Rx Instructions: takes on polyethylene glycol 3350 17 gram/dose powder 17 g PO DAILY Qty: 238 0RF Rx Instructions: Mix each measuring cup with 8oz of water, Crystal light, or Gatorade zero, or Propel and do 7 measuring cups on 08/06/24 and another 7 measuring cups on 08/07/24 Activity on Discharge: No heavy lifting Stand Alone Forms: Patient Portal Discharge page Print Language: Citizen Of [place] Care Plan Goals: weight loss Health Concerns: obesity Plan of Treatment: No tub baths, sex or returning to work until discussed at first post op appointment. No alcohol, tobacco or illegal drug use. Continue to use incentive spirometer hourly while awake. Walk in home for 5- 10 minutes every 2 hours during the first week. Wear abdominal binder with activity. Follow all meal plan instructions from your bariatric surgeon. Review bariatric handbook and call with any questions. Discharge Instructions 1. Please call your doctor or come back to the emergency room should any new symptoms arise. 2. Activity: abstain from alcohol,? limited stair climbing, no bending, no driving, no exercise, no illicit substances, no lifting, no sex, no tub bath, no work. 4. Diet: follow your bariatric surgeon's recommendations for advancing diet. 5. Dressing Change/Wound Care: Your incisions are covered with waterproof dressings. You can shower with these and pat dry. Do not rub over dressings or incisions. If the area is tender, you may apply an ice pack for short intervals (no more than 20 minutes on, followed by at least 20 minutes off). Do not apply heat. Do not use creams, lotions, or topical antibiotics unless instructed to do so by your surgeon. 6. Call your doctor if: - Your temperature exceeds 101.5 F - You experience excessive pain or swelling - You have an unexpected reaction to medication - You have excessive bleeding - You experience continued vomiting/nausea - Your incision begins to separate - Your incision shows signs of infection such as increased redness, swelling, excessive pain, heat, or drainage (light blood or clear fluid is normal) General instructions: No lifting greater than 10 lbs for the next 6 weeks. No driving within 24 hours of taking narcotic pain medications. If you do not move your bowels in the next 2 days, please take milk of magnesia over the counter. Please follow the post op diet and do not advance your diet until instructed by your surgeon or until you are seen in the office in about 1 week. Please walk around your home every hour or two to prevent blood clots from forming in your legs. You do not need to wake from sleeping to walk. Please sleep in a bed or couch to prevent kinking at the hips and knees. Please take your incentive spirometer (your lung solar energy installation manager) home with you and use it for the next few days to prevent pneumonias. You may shower; no hot tubs, baths or swimming pools. Please make sure you are consuming 40-60 ounces of total fluids per day. Avoid all carbonation. Please call the office with any questions or concerns such as increasing abdominal pain, fever, chills, shortness of breath, chest pain, leg pain or swelling, or redness or drainage from your incisions. Do not hesitate to contact the office with any questions at . The patient's medical history has been reviewed and they are considered low risk for post op DVT and therefore DVT prophylaxis is not considered necessary. Travel after surgery was reviewed. The patient has not disclosed any travel plans during the first 30 days after surgery and they have been advised that within the first 30 days after surgery any bus, plane, train or car travel over 2 hours in duration is contraindicated due to the possibility of developing blood clots from immobility. Any travel, needs to include periods of ambulation of 10 minutes in duration every 2 hours.? The patient was instructed to discuss any plans for travel during this period with their bariatric surgeon. Assessment: s/p laparoscopic sleeve gastrectomy with gastropexy
--- NOTE | 2024-08-08 09:49 | P.PNGS_ITS ---
Subjective Subjective Date of Service: 08/09/24 Interval history: Feels well. Mild incisional pain. She is tolerating phase 1 bariatric diet Physical Exam 2 Vital Signs: Vital Signs: Last Vital Signs Temp 97.3 F 08/08/24 09:32 Pulse 84 08/08/24 09:42 Resp 16 08/08/24 09:42 BP 147/79 H 08/08/24 09:42 Pulse Ox 96 08/08/24 09:42 O2 Del Method Nasal Cannula wit h Capnography 08/08/24 09:42 O2 Flow Rate 3 08/08/24 09:42 BMI result Body Mass Index 38.6 GI: Inspection: Yes normal to inspection and Yes incision (clean, dry and intact) Palpation (GI): Soft to palpation Extrem: Right lower extremity: normal to inspection (no calf tenderness) L eft lower extremity: normal to inspection (no calf tenderness) Objective Data Active Medications Albuterol/Ipratropium (Albuterol/Iprat 2.5/0.5mg 3 Ml Ampul.Neb) 3 ml INHALE ONCE PRN PRN Reason: Bronchospasm/wheezing Stop: 08/08/24 14:00 Fentanyl (Fentanyl Citrate/Pf 100 Mcg/2 Ml Vial) 25 mcg IVPUSH Q5M PRN PRN Reason: Pain, Moderate to Severe (Pain Scale 4-10) Stop: 08/08/24 14:00 Haloperidol Lactate (Haloperidol Lactate 5 Mg/Ml Vial) 1 mg IVPUSH ONCE PRN PRN Reason: intractable nausea Stop: 08/08/24 14:00 Hydromorphone HCl (Hydromorphone Hcl 0.5 Mg/0.5 Ml Syringe) 0.25 mg IVPUSH Q5M PRN PRN Reason: Pain, Moderate to Severe (Pain Scale 4-10) Stop: 08/08/24 14:00 Naloxone HCl (Naloxone Hcl 0.4 Mg/Ml Vial) 0.04 mg IVPUSH Q5M PRN PRN Reason: Excessive sedation or RR < 8 Ondansetron HCl (Ondansetron Hcl 4 Mg/2 Ml Vial) 4 mg IVPUSH ONCE PRN PRN Reason: Nausea and Vomiting Stop: 08/08/24 14:00 Oxycodone HCl (Oxycodone Hcl Immed Release 5 Mg Tablet) 5 mg PO ONCE PRN PRN Reason: Pain, Moderate(Pain Scale 4-6) if no IV Access Stop: 08/08/24 14:00 Labs 08/09/24 05:35 08/09/24 05:35 Labs: Laboratory Results - last 24 hr 08/08/24 05:55 Urine Test NEGATIVE Procedures Date of Service Date of Service: 08/09/24 Progress Note: A&P Assessment and plan (1) Obesity: Status: Acute Assessment and Plan: s/p laparoscopic sleeve gastrectomy, lysis of adhesions and gastropexy Doing well Will check am labs and if OK the patient will be discharged home (2) BMI 39.0-39.9,adult: Status: Acute (3) Congenital intra-abdominal adhesions: Status: Acute (4) Intra-abdominal adhesions: Status: Acute (5) GERD (gastroesophageal reflux disease): Status: Acute (6) Hypertension: Status: Acute (7) Anxiety: Status: Acute (8) S/P laparoscopic sleeve gastrectomy: Status: Acute Time Spent With Patient Time: Total time managing care of this patient today ____ minutes. Quality Stroke Does the patient have a stroke diagnosis?: No VTE Prior VTE?: No VTE Risk Level:: Surgical - moderate VTE Device Contraindication: N/A - Device Ordered VTE Drug Contraindication: Treatment Not Indicated
[2024-08-08 10:05] LABS: Hematocrit 32.5 % (37.0-47.0); Hemoglobin 10.3 g/dl (12.0-16.0)
[2024-08-08 10:20] LABS: Anion Gap 16 (12-20); Blood Urea Nitrogen 7 mg/dL (9-16); Carbon Dioxide 20 mmol/L (22-29); Chloride 105 mmol/L (96-108); Estimated Glomerular Filt Rate > 60; Glucose Random 100 mg/dL (60-115); Potassium 3.7 mmol/L (3.3-5.1); Sodium 137 mmol/L (135-145)
[2024-08-08] MEDS: Lactated Ringers 1,000 ML 100 ML IVCONT ×2 (10:59→19:36)
--- NOTE | 2024-08-08 11:03 | PC.NURSE ---
Pt ambulated to the BR voided 400. Instructed on incentive spirometer
[2024-08-08] MEDS: Metoclopramide HCl 10 MG/2 ML VIAL IVPUSH (13:21)
[2024-08-08] MEDS: Acetaminophen 1,000 MG/100 ML PIGGYBACK 16.7 MG IV ×2 (13:59→19:36)
[2024-08-08] MEDS: Famotidine/PF 20 MG/2 ML VIAL IVPUSH (20:59)
[2024-08-09] MEDS: Acetaminophen 1,000 MG/100 ML PIGGYBACK 16.7 MG IV ×2 (00:06→05:04)
[2024-08-09 03:30] VITALS: BP 131/61; PULSE 66; RESP 18; TEMP 36.9; O2SAT 97
[2024-08-09] MEDS: Lactated Ringers 1,000 ML 100 ML IVCONT (04:32)
[2024-08-09 06:11] LABS: MANUAL DIFF FLAG NO
[2024-08-09 06:25] LABS: Basophils Percent Auto 0.1 % (0-2); Hematocrit 33.3 % (37.0-47.0); Hemoglobin 10.7 g/dl (12.0-16.0); Imm Gran Abs Auto 0.06 X10*3/uL (0.00-0.03); Imm Gran Pct Auto 0.7 % (0.0-0.4); Lymphocytes Absolute Auto 1.6 X10*3/uL (1.2-4.9); Lymphocytes Percent Auto 19.2 % (20-40); Mean Corpuscular HGB Conc 32.1 g/dl (31.0-35.0); Mean Corpuscular Hemoglobin 23.4 pg (27.0-33.0); Mean Corpuscular Volume 72.7 fL (80.0-98.0); Mean Platelet Volume 9.5 fL (9.4-12.3); Monocytes Absolute Auto 0.8 X10*3/uL (0.1-1.2); Monocytes Percent Auto 9.7 % (2-11); Neutrophils Absolute Auto 5.8 x10*3/uL (2.0-8.3); Neutrophils Percent Auto 70.3 % (45-73); Platelet Count 338 X10*3/uL (160-400); Red Blood Count 4.58 X10*6/uL (4.20-5.50); Red Cell Distribution Width 17.8 % (11.0-16.0); White Blood Count 8.2 X10*3/uL (4.8-10.8)
[2024-08-09 06:31] LABS: Anion Gap 18 (12-20); Blood Urea Nitrogen 5 mg/dL (9-16); Calcium 9.8 mg/dL (8.4-10.2); Carbon Dioxide 16 mmol/L (22-29); Chloride 107 mmol/L (96-108); Creatinine Clr Calc Pharmacy 119.9; Estimated Glomerular Filt Rate > 60; Glucose Random 80 mg/dL (60-115); Potassium 3.8 mmol/L (3.3-5.1); Sodium 137 mmol/L (135-145)
[2024-08-09] MEDS: HYDROmorphone HCl 0.5 MG/0.5 ML SYRINGE 0.25 MG IVPUSH (07:41)
[2024-08-09] MEDS: 0.9 % Sodium Chloride Flush 3 ML SYRINGE IVFLUSH (07:43)
[2024-08-09 08:00] VITALS: BP 131/72; PULSE 74; RESP 16; TEMP 36.2; O2SAT 98
--- NOTE | 2024-08-09 08:18 | HO.POSTANES ---
Post Anesthesia Evaluation Post Anesthesia Evaluation Date of Service: 08/09/24 Vital Signs: Vital Signs Temp Pulse Resp BP Pulse Ox O2 Del Method 08/09/24 03:30 98.5 F 66 18 131/61 97 Room Air 08/08/24 23:12 97.9 F 77 18 123/57 L 95 Room Air Anesthesia: General Endotracheal-GETA and General Mental Status: Awake Pain Control: Satisfactory Nausea/Vomiting: None Hydration: Adequate Anesthesia-Related Issues: No Anes. Related Issues
--- NOTE | 2024-08-09 09:00 | MHC.CM.PN ---
pt dcd home self care
[2024-08-09] MEDS: Sertraline HCL 25 MG TABLET PO (09:40)
[2024-08-09] MEDS: Famotidine/PF 20 MG/2 ML VIAL IVPUSH (09:40)
== END 2024-08-09 10:04 | disposition home or self-care (01) | DRG 403 ==
LOC: HO.SSSA 06:36 → HO.S3 09:43
PROVIDERS: Nurse Practitioner; Physician Assistant Surgical; Admitting Provider Surgery; PCP Physician Assistant; Visit Provider Surgery
PROC: 0DB64Z3 Excision of Stomach, Percutaneous Endoscopic Approach, Vertical (ICD-10-PCS; CPT 43845; principal; 2024-08-08 07:30)
DX: E66.01 Morbid (severe) obesity due to excess calories (principal); Q43.3 Congenital malformations of intestinal fixation; I10 Essential (primary) hypertension; M54.9 Dorsalgia, unspecified; K21.9 Gastro-esophageal reflux disease without esophagitis; J45.909 Unspecified asthma, uncomplicated; Z68.39 Body mass index [BMI] 39.0-39.9, adult; Z79.899 Other long term (current) drug therapy
CPT/HCPCS: 36415; 80048; 80053; 80061; 81025; 83036; 83525; 84443; 85014; 85018; 85025; 85610; 85730; 86140; 86850; 86900; 86901; 88304; 88305; 88307; 88342; A4649; C9145; J0131; J1100; J1171; J1308; J1956; J2003; J2250; J2405; J2704; J2765; J2795; J3010; J7120

== ENCOUNTER → 2024-08-08 05:51 | Outpatient (BNV) | payer OTHER, SELFPAY | PROVIDERS: Admitting Provider Surgery; PCP Physician Assistant; Visit Provider Surgery | DX: E66.9 Obesity, unspecified (principal); Z68.39 Body mass index [BMI] 39.0-39.9, adult; Q43.3 Congenital malformations of intestinal fixation; K66.0 Peritoneal adhesions (postprocedural) (postinfection); K21.9 Gastro-esophageal reflux disease without esophagitis; I10 Essential (primary) hypertension; F41.9 Anxiety disorder, unspecified; Z98.84 Bariatric surgery status | CPT/HCPCS: 43659; 43775; 99024 ==

== ENCOUNTER 2024-08-14 10:28 | Outpatient (AMB) | payer OTHER, SELFPAY ==
--- NOTE | 2024-08-14 10:31 | A.OFFVIS_ITS ---
VS Expanded 08/14/24 10:41 BP 147/69 H Blood Pressure Location Rt brachial Blood Pressure Position Sitting Pulse 75 Pulse Source Pulse Oximeter Temp 98.5 F Temperature Source Temporal Artery Scan Pulse Oximetry 100 Oxygen Delivery Method Room Air Height 5 ft 2 in Weight 202 lb 12.8 oz BMI 37.1 Body Fat % 42.2 Body Fat Mass 85.6 Fat Free Mass 117.0 Visceral Fat Rating 11.0 Body Water % 41.2 Body Water Mass 83.6 Muscle Mass/Score 111.2 Basal Metabolic Rate/Score 1,631 Intake Visit Reasons: (OV) PO LSG 08/08/24 Allergies adhesive tape Allergy (Intermediate, Verified 08/14/24 10:44) blister-skin tears amoxicillin (AMOXICILLIN) Allergy (Intermediate, Verified 08/14/24 10:44) RASH HPI Comments Details: Patient is a pleasant 44-year-old female who returns to the office today in follow-up. She is 6 days post sleeve gastrectomy performed on 08/08/2024. She had an intolerance to the [employer] life shakes and so she is using celebrate clear protein water, to per day and 32 oz of water. She has moved her bowels. [facility] Medical History (Updated 08/10/24 @ 00:02 by Alex Parrish) COVID-19 Anemia Hiatal hernia Postoperative nausea Depression Asthma Prediabetes Agoraphobia without history of panic disorder MDD (major depressive disorder), recurrent severe, without psychosis Intentional overdose Back pain GERD (gastroesophageal reflux disease) Morbid obesity Hypertension Surgical History (Updated 08/14/24 @ 10:45 by Alicja Thomson CMA) S/P laparoscopic sleeve gastrectomy History of esophagogastroduodenoscopy (EGD) Previous back surgery History of appendectomy Hx of eye surgery Family History Mother Fibromyalgia Arthritis Father Heart problem Brother No problems noted. Son Asthma Maternal Grandmother Diabetes Social History Household Members: Family Household Members Other:: mother & minor child Housing: Apartment Are you a primary nanny caregiver to a significant other at home: Yes (minor child) Do you presently have visiting nurse or other home services: No Alcohol intake: current Alcohol intake frequency: does not drink Patient Tobacco Use Status: Never used Tobacco e-Cigarette/Vaping Use: Never Used Second Hand Smoke Exposure: No service: No Sexual orientation: Straight/Heterosexual Physical Exam Vital Signs: Last Vital Signs Temp 98.5 F 08/14/24 10:41 Pulse 75 08/14/24 10:41 BP 147/69 H 08/14/24 10:41 Pulse Ox 100 08/14/24 10:41 Oxygen Delivery Method Room Air 08/14/24 10:41 BMI result Body Mass Index 37.1 GI Inspection: Yes incision (Clean, dry, intact.) Assessment & Plan Assessment & Plan (1) S/P laparoscopic sleeve gastrectomy: Code(s): Z98.84 - Bariatric surgery status Category: Surgical Plan: POD 6 s/p LSG on 08/08/[address] Lucas Weight loss prior to surgery was 29.5 pounds or 11.7 % TBWL. Original weight on 05/20/2024 was 250.8 pounds and op weight was 221.3 pounds. Be sure to text Dr Lucas exactly 1 week after surgery your weight from your home scale so he can adjust your meal plan. Continue meal plan until f/u germain Chakraborty in 2 weeks May shower, no submersion in bath for another week Continue abdominal binder with activity and exercise for the next 2 weeks. Exercise prior to surgery was treadmill and may resume No abdominal exercises for 6 weeks post operatively Will be emailed link to post op video for review Reminded of the pace of drinking, 2 mL per minute, 1 oz/15 min.
[2024-08-14 10:41] VITALS: BP 147/69; PULSE 75; TEMP 36.9; O2SAT 100; BMI 37.1
--- OUTSIDE RECORDS SUMMARY | 2024-08-14 12:19 | XMS_ITS | Clinical Summary ---
Author Organization [facility] Address [address] [place] [id number] Phone Care Team Providers Care Acoustical Carpenter Name Role Phone Unavailable Primary Care Provider [...]
== END 2024-08-14 11:10 | disposition home or self-care (01) ==
LOC: HO.HBS 10:29
PROVIDERS: PCP Internal Medicine; Visit Provider Physician Assistant Surgical
DX: Z98.84 Bariatric surgery status (principal)
CPT/HCPCS: 99024

== ENCOUNTER → 2024-08-14 10:28 | Outpatient (BNVA) | payer OTHER, SELFPAY | PROVIDERS: PCP Internal Medicine; Visit Provider Physician Assistant Surgical | DX: Z98.84 Bariatric surgery status (principal) | CPT/HCPCS: 99212 ==

== ENCOUNTER 2024-08-15 08:37 | Outpatient (AMB) | payer OTHER, SELFPAY ==
--- NOTE | 2024-08-15 08:32 | A.OFFWM_ITS ---
Intake Intake Visit Reasons: (TV) PO LSG 08/08/24 Allergies adhesive tape Allergy (Intermediate, Verified 08/14/24 10:44) blister-skin tears amoxicillin (AMOXICILLIN) Allergy (Intermediate, Verified 08/14/24 10:44) RASH PFSH Medical History (Updated 08/10/24 @ 00:02 by Alex Parrish) COVID-19 Anemia Hiatal hernia Postoperative nausea Depression Asthma Prediabetes Agoraphobia without history of panic disorder MDD (major depressive disorder), recurrent severe, without psychosis Intentional overdose Back pain GERD (gastroesophageal reflux disease) Morbid obesity Hypertension Surgical History (Updated 08/14/24 @ 10:45 by Alicja Thomson CMA) S/P laparoscopic sleeve gastrectomy History of esophagogastroduodenoscopy (EGD) Previous back surgery History of appendectomy Hx of eye surgery Family History Mother Fibromyalgia Arthritis Father Heart problem Brother No problems noted. Son Asthma Maternal Grandmother Diabetes Social History Household Members: Family Household Members Other:: mother & minor child Housing: Apartment Are you a primary critical care unit nurse to a significant other at home: Yes (minor child) Do you presently have visiting nurse or other home services: No Alcohol intake: current Alcohol intake frequency: does not drink Patient Tobacco Use Status: Never used Tobacco e-Cigarette/Vaping Use: Never Used Second Hand Smoke Exposure: No service: No Sexual orientation: Straight/Heterosexual Behavioral Health Assessment Weight Management Therapy Therapy Notes Details Subjective: The patient underwent weight loss surgery on August 08. Her weight on the day of surgery was 211 lbs, and as of August 14, 2024, her weight is 202 lbs. She denies any pain but reports difficulty tolerating protein shakes, leading her to switch to protein water. Currently, she is not meeting her liquid intake goals. She feels hungry and thinks about food when she doesn't meet her intake targets. Overall, her mood is good, and she has started incorporating walks into her routine. The patient last saw her therapist on August 05 and plans to continue sessions on a monthly basis. She has an appointment with her prescriber on August 19. Due to significant progress, she is considering terminating therapy and may begin weaning off her medications after her next appointment with the prescriber. She plans to take about one month off from work. Her mother has been her biggest support. Objective: The patient presents for a post-operative follow-up visit. A guided emotional check-in was conducted to assess her current functioning, recovery, mood, and emotional state. Psychoeducation was provided on the emotional and psychological adjustments commonly experienced after bariatric surgery. The discussion focused on distinguishing between hunger and cravings or food thoughts, exploring possible reasons for these experiences, and strategies to work on her mindset. Emphasis was placed on becoming mindful of her physical and mental needs during these times while staying on track. The PHQ-9 was administered to screen for symptoms of depression. The importance of adhering to the Weight Management Program (WMP) providers' instructions was emphasized, including the pace of drinking and following the meal and exercise plan. Program resources were provided, and the patient was invited to join our Facebook group to stay informed about ongoing events and activities. Assessment/Response: * Mental status: WNL * Risk reported/identified: None. Questionnaires PHQ-9 Over the last 2 weeks, how often have you been bothered by any of the following problems? 1. Little interest or pleasure in doing things: not at all 2. Feeling down, depressed, or hopeless: not at all 3. Trouble falling or staying asleep, or sleeping too much: not at all 4. Feeling tired or having little energy: several days 5. Poor appetite or overeating: not at all 6. Feeling bad about yourself - or that you are a failure or have let yourself or your family down: not at all 7. Trouble concentrating on things, such as reading the newspaper or watching television: not at all 8. Moving or speaking so slowly that other people could have noticed. Or the opposite - being so fidgety or restless that you have been moving around a lot more than usual: not at all 9. Thoughts that you would be better off or of hurting yourself in some way: not at all Total score: 1 Depression Screening Interpretation: Negative Depression Screening Done: Yes 16835 - PHQ-9 Billing: Yes Source: Developed by Drs. Jesse Tovar, Jerica Coleman, Henrique Grimaldo and colleagues, with an educational marito from [employer]. Assessment & Plan Assessment & Plan (1) Major depressive disorder: Code(s): F32.9 - Major depressive disorder, single episode, unspecified (2) Agoraphobia without history of panic disorder: Code(s): F40.02 - Agoraphobia without panic disorder (3) S/P laparoscopic sleeve gastrectomy: Code(s): Z98.84 - Bariatric surgery status Plan No safety concerns or issues were identified that would necessitate behavioral health monitoring. The patient declined further visits but is aware of the available behavioral health support if needed in the future. Telehealth Telehealth Telehealth Platform: [employer] Location of provider rendering services: other Location of patient: address on file Patient Identification confirmed using: Name, : Yes Telehealth method: video Patient verbally consented to treatment: Yes Patient verbally consented to billing insurance company: Yes Patient informed of any privacy concerns related to visit: Yes Minutes spent on Phone/Video with Pt.: 25 Coding Level of Care Code Established Pt Tele Psytx 30 mins (92108) Patient Type Established Diagnoses Major depressive disorder F32.9 Agoraphobia without history of panic disorder F40.02 S/P laparoscopic sleeve gastrectomy Z98.84 Additional Codes PHQ-9 - 42747 - PHQ-9 Billing: Yes ([id number]) Time Spent (min) 25
--- OUTSIDE RECORDS SUMMARY | 2024-08-15 09:02 | XMS_ITS | Clinical Summary ---
Author Organization [facility] Address [address] [place] [phone] Phone Care Team Providers Care Web Content Director Name Role Phone Unavailable Primary Care Provider [...]
== END 2024-08-15 09:24 | disposition home or self-care (01) ==
LOC: HO.HBST 08:37
PROVIDERS: PCP Internal Medicine; Visit Provider Counselor Mental Health
DX: F32.9 Major depressive disorder, single episode, unspecified (principal); F40.02 Agoraphobia without panic disorder; Z98.84 Bariatric surgery status
CPT/HCPCS: 90832

== ENCOUNTER 2024-08-21 09:41 | Emergency (ER) | payer OTHER, SELFPAY ==
[2024-08-21 09:47] VITALS: BP 125/71; BP 140/90; PULSE 60; PULSE 88; RESP 18; TEMP 36.4; O2SAT 99; BMI 36.3
--- NOTE | 2024-08-21 09:52 | ECG_ITS ---
Test Reason : syncope Blood Pressure : */* mmHG Vent. Rate : 60 BPM Atrial Rate : 60 BPM P-R Int : 170 ms QRS Dur : 90 ms QT Int : 412 ms P-R-T Axes : -15 26 17 degrees QTcB Int : 412 ms Normal sinus rhythm Normal ECG When compared with ECG of 19-Jun-2024 12:28, No significant change was found Referred By: Generic ED Physician Electronically Signed By: NERY LEE MD
--- NOTE | 2024-08-21 10:15 | PC.NURSE ---
Pt arrived via EMS for syncopal episode. A/O x 3, no apparent s/s of distress. Reports feeling faint in shower this AM, pt states she lowered herself to shower floor and called out to family member for help before loss of consciousness. States she is post op gastric bypass surgery done on 08/08. Reports low PO fluid intake last couple of days and has had increased nausea. Reports h/a 05/30, placed on monitor- NSR. #20 placed in L AC, ekg and labs pending.
[2024-08-21 10:21] LABS: MANUAL DIFF FLAG NO
[2024-08-21 10:23] LABS: Hematocrit 36.4 % (37.0-47.0); Hemoglobin 11.5 g/dl (12.0-16.0); Imm Gran Abs Auto 0.04 X10*3/uL (0.00-0.03); Imm Gran Pct Auto 0.5 % (0.0-0.4); Mean Corpuscular HGB Conc 31.6 g/dl (31.0-35.0); Mean Corpuscular Hemoglobin 23.6 pg (27.0-33.0); Mean Corpuscular Volume 74.6 fL (80.0-98.0); NRBC Pct Auto 0.0 /100WBC (0.0-0.2); Platelet Count 305 X10*3/uL (160-400); Red Blood Count 4.88 X10*6/uL (4.20-5.50); White Blood Count 8.2 X10*3/uL (4.8-10.8)
[2024-08-21 10:24] LABS: Lymphocytes Absolute Auto 1.7 X10*3/uL (1.2-4.9); NRBC Abs Auto 0.000 X10*3/uL (0.0-0.012)
[2024-08-21 10:37] LABS: Alanine Aminotransferase 23 U/L (0-31); Albumin Level 4.1 g/dL (3.5-5.0); Alkaline Phosphatase 38 U/L (39-117); Anion Gap 19 (12-20); Aspartate Amino Transferase 28 U/L (5-31); Blood Urea Nitrogen 11 mg/dL (9-16); Calcium 9.8 mg/dL (8.4-10.2); Carbon Dioxide 21 mmol/L (22-29); Chloride 105 mmol/L (96-108); Creatinine Clr Calc Pharmacy 86.0; Estimated Glomerular Filt Rate > 60; Potassium 3.0 mmol/L (3.3-5.1); Sodium 142 mmol/L (135-145); Total Protein 7.6 g/dL (6.5-8.0)
--- OUTSIDE RECORDS SUMMARY | 2024-08-21 10:57 | XMS_ITS | Clinical Summary ---
Author Organization [facility] Address [address] [place] [phone] Phone Care Team Providers Care Funeral Greeter Name Role Phone Unavailable Primary Care Provider [...] of 3 - 3-dose series) 10/05/1998 09/07/1998 COVID-19 Vaccine ( season) 2023 Influenza Vaccines (#1) 2024 IPV Vaccines Completed 1985, 03/23, 1980, Additional [...]
--- NOTE | 2024-08-21 11:37 | ED_ITS ---
HPI - Syncope General Chief Complaint: Syncope Stated Complaint: SYNCOPAL EPISODE, DIZZINESS Time Seen by Provider: 08/21/24 09:48 History of Present Illness HPI narrative: Patient is a 44-year-old female has a history of having gastric bypass done on August 06. Presented today with having lightheadedness while trying to walk to the bathroom and taking a shower. Patient never actually passed out. Did not hit her head. Did not notice any bloody stool. She is having a heavy menses. The house was not hot. Patient denies any chest pain. There is no leg swelling. There is no nausea vomiting there is no abdominal pain. From home. Tolerating p.o. but not a lot of fluids. Passing gas. Has a history of ulcers in the past. History of anxiety. No history of diabetes positive history of hypertension no history of high cholesterol no history smoking no history of DE. Related Data Home Medications ?Medication ?Instructions ?Recorded ?Confirmed losartan 50 mg tablet 25 mg PO DAILY 03/14/2208/14 Held on 08/09/24. Instructions: Resume on 08/10/24. Check your blood pressure every morning as soon as you wake up and send it to Dr. Lucas. Do no take the blood pressure medication if the blood pressure is below 120/70. Wait every day to hear back from Dr. Lucas before you take the medication. albuterol sulfate 90 mcg/actuation 2 puff inhalation Q 4H PRN 05/14/24 07/26/24 aerosol inhaler Shortness Of Breath Or Wheez ing sertraline 25 mg tablet 25 mg PO DAILY 07/26/2408/14 Previous Rx's ?Medication ?Instructions ?Recorded hydroxyzine HCl 25 mg tablet See Rx Instructions .Rout e 05/04/23 .COMPLEX PRN Anxiety 30 days #60 tabs ondansetron 4 mg disintegrating 4 mg PO Q12H nausea an d vomiting 07/24/24 tablet #20 tabs pantoprazole 40 mg tablet,delayed 40 mg PO DAILY #90 t abs 07/24/24 release sucralfate 100 mg/mL oral 10 ml PO BID #600 mL 5 suspension Allergies Allergy/AdvReac Type Severity Reaction Status Date / Time adhesive tape Allergy Intermediate blister-skin Verified 08/21/24 09:50 tears amoxicillin (AMOXICILLIN) Allergy Intermediate RASH Verified 08/21/24 09:50 Review of Systems 2 Review of Systems: Positive lightheadedness Yes all other systems are reviewed and are negative [facility] Past Medical History Attestation statement: The following information was validated with the patient. Medical History COVID-19 Anemia Hiatal hernia Postoperative nausea Depression Asthma Prediabetes Agoraphobia without history of panic disorder MDD (major depressive disorder), recurrent severe, without psychosis Intentional overdose Back pain GERD (gastroesophageal reflux disease) Morbid obesity Hypertension Surgical History S/P laparoscopic sleeve gastrectomy History of esophagogastroduodenoscopy (EGD) Previous back surgery History of appendectomy Hx of eye surgery Family History Family History Mother Fibromyalgia Arthritis Father Heart problem Brother No problems noted. Son Asthma Maternal Grandmother Diabetes Social History Social History Household Members: Family Household Members Other:: mother & minor child Housing: Apartment Are you a primary childcare center administrator to a significant other at home: Yes (minor child) Do you presently have visiting nurse or other home services: No Alcohol intake: current Alcohol intake frequency: does not drink Patient Tobacco Use Status: Never used Tobacco Smoked in Last 30 Days: No e-Cigarette/Vaping Use: Never Used Second Hand Smoke Exposure: No Use of substances other than those prescribed or required for medical reasons: No Advance Directives: No Advance Directives Information Provided: Yes service: No Sexual orientation: Straight/Heterosexual Physical Exam 2 Vital Signs: Vital Signs: Last Vital Signs Temp 97.6 F 08/21/24 09:47 Pulse 55 08/21/24 11:49 Resp 18 08/21/24 09:47 BP 110/44 L 08/21/24 11:49 Pulse Ox 99 08/21/24 09:47 O2 Del Method Room Air 08/21/24 10:08 BMI result Body Mass Index 36.3 Appearance: Alert. Oriented X3. No acute distress. Eyes: Pupils equal, round and reactive to light. ENT: Pharynx normal. Neck: Normal inspection. Neck supple. No lymph nodes noted. No crepitus CVS: Normal heart rate and rhythm. Pulses normal. Normal S1 and S2 Respiratory: No respiratory distress. Breath sounds normal. No Wheezing. No rales Abdomen: Soft and nontender. No rigidity. No distention. good BS x4 Skin: Skin warm and dry. Normal skin color. Normal skin turgor. Extremities: No lower extremity edema. Neurovascular intact to all extremities. No Lacerations. No Rash Neuro: Oriented X 3. No motor deficit. No sensory deficit. Moving all extermities. No slurred speech Medications Administered Discontinued Medications Generic Name Dose Route Start Last Admin Trade Name Freq PRN Reason Stop Dose Admin Sodium Chloride 1,000 mls @ 999 mls/hr 08/21/24 11:45 08/21/24 11:53 Ns IV 08/21/24 12:45 999 mls/hr .Q1H1M LORRAINE Administration Sodium Chloride 1,000 mls @ 999 mls/hr 08/21/24 11:45 08/21/24 11:53 Ns IV 08/21/24 12:45 999 mls/hr .Q1H1M LORRAINE Administration Medical Decision Making Medical Decision Making [facility] Narrative: Patient well appearing no acute distress she is having a heavier than usual menstruation. Her test is negative no related issue. Her hemoglobin is 11 which is approximately baseline orthostatics was done heart rate is about the same. Patient is status post gastric bypass about 2 weeks ago there is no leg swelling there is no chest pain there is no shortness of breath. History not consistent with PE. Patient had decreased p.o. intake. We did give patient IV fluid with good results symptomatically feels improved. Her cardiac enzyme is 14.9 which is about baseline for patient. Will discharge patient home. Close follow-up on an outpatient basis. My interpretation of her EKG showed a sinus rhythm heart rate is 60 [place] QRS QTC normal no acute ST segment elevation. Differential Diagnosis Differential Diagnoses: The differential diagnosis associated with the presentation includes Dehydration, PE, anemia, irregular heartbeat Admission/Observation Consideration of admission/observation: Escalation of care including admission/observation considered Lab Data [facility] Lab Attestation statement: I reviewed the patient's lab results. 08/21/24 10:05 08/21/24 10:05 Labs: Lab Results 08/21/24 Range/Units 10:05 WBC 8.2 (4.8-10.8) X10*3/uL RBC 4.88 (4.20-5.50) X10*6/uL Hgb 11.5 L (12.0-16.0) g/dl Hct 36.4 L (37.0-47.0) % MCV 74.6 L (80.0-98.0) fL MCH 23.6 L (27.0-33.0) pg MCHC 31.6 (31.0-35.0) g/dl RDW 19.1 H (11.0-16.0) % Plt Count 305 (160-400) X10*3/uL MPV 10.3 (9.4-12.3) fL Immature Gran % (Auto) 0.5 H (0.0-0.4) % Neut % (Auto) 69.4 (45-73) % Lymph % (Auto) 20.7 (20-40) % Runnels % (Auto) 8.0 (2-11) % Eos % (Auto) 1.2 (0-4) % Baso % (Auto) 0.2 (0-2) % Lymph # (Auto) 1.7 (1.2-4.9) X10*3/uL Runnels # (Auto) 0.7 (0.1-1.2) X10*3/uL Eos # (Auto) 0.1 (0.0-0.4) X10*3/uL Baso # (Auto) 0.0 (0.0-0.2) X10*3/uL Abs Immat Gran (auto) 0.04 H (0.00-0.03) X10*3/uL Absolute Neuts (auto) 5.7 (2.0-8.3) x10*3/uL Absolute Nucleated RBC 0.000 (0.0-0.012) X10*3/uL Nucleated RBC % (auto) 0.0 (0.0-0.2) /100WBC Sodium 142 (135-145) mmol/L Potassium 3.0 L D (3.3-5.1) mmol/L Chloride 105 (96-108) mmol/L Carbon Dioxide 21 L (22-29) mmol/L Anion Gap 19 (12-20) BUN 11 (9-16) mg/dL Creatinine 0.87 (0.5-1.4) mg/dL Estim Creat Clear Calc 86.0 Estimated GFR > 60 Random Glucose 100 (60-115) mg/dL Calcium 9.8 (8.4-10.2) mg/dL Total Bilirubin 0.5 (0.0-1.0) mg/dL AST 28 (5-31) U/L ALT 23 (0-31) U/L Alkaline Phosphatase 38 L (39-117) U/L Troponin I High Sens 14.9 (<3.5-17.0) ng/L Total Protein 7.6 (6.5-8.0) g/dL Albumin 4.1 (3.5-5.0) g/dL Beta HCG, Quant < 2 mIU/mL Independent Interpretation I performed an independent interpretation of an: EKG (Sinus heart rate is 70 [place] QRS QTC normal no acute ST segment elevation) Social Determinants Patient?s care significantly limited by Social Determinants of Health including: Problems related to primary support group Discharge Plan Discharge Clinical Impression: Syncope, vasovagal Patient Disposition: Home, Self-Care Instructions: Syncope (DC) Prescriptions: No Action sertraline 25 mg tablet 25 mg PO DAILY hydroxyzine HCl 25 mg Tablet See Rx Instructions .ROUTE .COMPLEX PRN (Reason: Anxiety) 30 Days Qty: 60 1RF Rx Instructions: take 1 to 2 tabs, up to 3x a day as needed for anxiety losartan 50 mg tablet 25 mg PO DAILY pantoprazole 40 mg tablet,delayed release (DR/EC) 40 mg PO DAILY Qty: 90 0RF sucralfate 100 mg/mL suspension 10 ml PO BID Qty: 600 2RF Patient Comments: postop med ondansetron 4 mg tablet,disintegrating 4 mg PO Q12H Qty: 20 0RF Patient Comments: postop med Rx Instructions: Only take one every 12 hours as needed if you have nausea albuterol sulfate 90 mcg/actuation HFA aerosol inhaler 2 puff inhalation Q4H PRN (Reason: Shortness Of Breath Or Wheezing) Referrals: Tarah Muller PA [Primary Care Provider, Hospitalist] - 08/26/24 Print Language: Ukrainian
[2024-08-21 11:48] VITALS: BP 110/44; PULSE 55
[2024-08-21 11:49] VITALS: BP 110/44; BP 117/63; BP 126/65; PULSE 55; PULSE 65; PULSE 70
[2024-08-21 12:14] LABS: Troponin-I High Sensitivity 14.9 ng/L (<3.5-17.0)
--- NOTE | 2024-08-21 13:10 | PC.NURSE ---
Pt ambulated in hallway, denies any lightheadedness or dizziness. Steady gait.
[2024-08-21 13:11] VITALS: BP 129/83; PULSE 54; RESP 17; TEMP 36.5; O2SAT 100
[2024-08-21 14:40] VITALS: BP 129/83; PULSE 54; RESP 17; TEMP 36.5; O2SAT 100
== END 2024-08-21 14:41 | disposition home or self-care (01) ==
PROVIDERS: Emergency Provider Emergency Medicine Emergency Medical Services; PCP Physician Assistant
DX: R55 Syncope and collapse (principal); I10 Essential (primary) hypertension; J45.909 Unspecified asthma, uncomplicated
CPT/HCPCS: 36415; 80053; 84484; 84702; 85025; 93005; 96360; 96361; 99284; 99285

== ENCOUNTER → 2024-08-21 09:52 | Outpatient (BNV) | payer OTHER, SELFPAY | PROVIDERS: Emergency Provider Emergency Medicine Emergency Medical Services; PCP Physician Assistant; Visit Provider Internal Medicine Cardiovascular Disease | DX: R55 Syncope and collapse (principal) | CPT/HCPCS: 93010 ==

== ENCOUNTER 2024-08-23 17:17 | Inpatient (IN) | payer OTHER, SELFPAY ==
--- NOTE | ~2024-08-23 | CT_ITS ---
CLINICAL HISTORY: Positive D-Dimer CT angiography chest with contrast. 3D Postprocessing. Comparison: Prior chest radiographs most recently on 06/19/2024 Findings: The heart size is normal. RV/LV ratio is normal. Unremarkable thoracic aorta and great vessels. No aneurysm. No pulmonary artery filling defects. The visualized thyroid and mediastinum are unremarkable. The lungs are clear. The upper abdomen is unremarkable. The bones are intact. IMPRESSION: 1. No acute cardiopulmonary abnormality identified. Specifically, no evidence of acute pulmonary embolism. This document has been electronically signed by: Shira Edmonds MD on 08/24/2024 01:39:26
[2024-08-23 17:21] VITALS: BP 132/88; PULSE 72; O2SAT 98
[2024-08-23 17:24] VITALS: BP 123/50; PULSE 50; RESP 16; TEMP 36.5; O2SAT 97; BMI 36.6
--- NOTE | 2024-08-23 17:30 | ECG_ITS ---
Test Reason : SYNCOPE Blood Pressure : */* mmHG Vent. Rate : 50 BPM Atrial Rate : 50 BPM P-R Int : 178 ms QRS Dur : 86 ms QT Int : 408 ms P-R-T Axes : 55 28 19 degrees QTcB Int : 371 ms Sinus bradycardia with sinus arrhythmia Otherwise normal ECG When compared with ECG of 21-Aug-2024 10:06, No significant change was found Referred By: Ena Ferrer Electronically Signed By: NERY LEE MD
--- OUTSIDE RECORDS SUMMARY | 2024-08-23 17:43 | XMS_ITS | Clinical Summary ---
Author Organization [facility] Address [address] [place] [phone] Phone Care Team Providers Care Director Internal Control Name Role Phone Unavailable Primary Care Provider [...]
[2024-08-23 17:49] LABS: MANUAL DIFF FLAG NO
[2024-08-23 17:54] LABS: Hematocrit 34.2 % (37.0-47.0); Hemoglobin 11.2 g/dl (12.0-16.0); Imm Gran Abs Auto 0.03 X10*3/uL (0.00-0.03); Imm Gran Pct Auto 0.4 % (0.0-0.4); Lymphocytes Absolute Auto 1.7 X10*3/uL (1.2-4.9); Mean Corpuscular HGB Conc 32.7 g/dl (31.0-35.0); Mean Corpuscular Hemoglobin 24.1 pg (27.0-33.0); Mean Corpuscular Volume 73.7 fL (80.0-98.0); NRBC Abs Auto 0.000 X10*3/uL (0.0-0.012); NRBC Pct Auto 0.0 /100WBC (0.0-0.2); Platelet Count 287 X10*3/uL (160-400); Red Blood Count 4.64 X10*6/uL (4.20-5.50); White Blood Count 7.5 X10*3/uL (4.8-10.8)
[2024-08-23 18:15] LABS: Alanine Aminotransferase 20 U/L (0-31); Albumin Level 3.9 g/dL (3.5-5.0); Alkaline Phosphatase 38 U/L (39-117); Anion Gap 21 (12-20); Aspartate Amino Transferase 25 U/L (5-31); Blood Urea Nitrogen 11 mg/dL (9-16); Calcium 9.5 mg/dL (8.4-10.2); Carbon Dioxide 18 mmol/L (22-29); Chloride 108 mmol/L (96-108); Creatinine Clr Calc Pharmacy 75.1; Estimated Glomerular Filt Rate > 60; Potassium 3.0 mmol/L (3.3-5.1); Sodium 144 mmol/L (135-145); Total Protein 7.4 g/dL (6.5-8.0); Troponin-I High Sensitivity 18.3 ng/L (<3.5-17.0)
[2024-08-23 18:24] VITALS: BP 127/67; PULSE 59; RESP 15; O2SAT 99
--- NOTE | 2024-08-23 19:09 | ED_ITS ---
HPI - General Adult General Chief complaint: Syncope Stated complaint: syncope episode Time Seen by Provider: 08/23/24 18:29 Source: patient Mode of arrival: EMS Limitations: no limitations History of Present Illness ED Provider: Fortunato HERRMANN HPI narrative: The patient is a 44-year-old female with history of GERD, hypertension, depression, anxiety, asthma, anemia, and obesity with gastric sleeve bariatric surgery performed at this facility on 08/08, presenting to the ED for evaluation of near-syncope while showering earlier today. The patient reports she was doing well immediately after surgery however then began experiencing decreased tolerance of p.o. fluids. Patient was seen in this ED on 08/21 for evaluation of poor p.o. intake, found to be hypokalemic, treated with potassium supplementation and discharged home. The patient reports since returning home she has had persistent inability to tolerate adequate p.o. fluids as designated by her surgeon. Today the patient reports she only had 7 oz of fluid intake throughout the day, patient reports she was taking a lukewarm shower when she developed dizziness, weakness, and nausea, called out to her family who lowered her to the toilet without fall. The patient denies head strike or true syncope. Patient reports tinnitus, tunnel vision, and some left hand contractures and left perioral paresthesias during the incident , which all resolved after less than 5 minutes prior to EMS arrival. Patient denies any of these symptoms in the ED. The patient denies any associated abdominal pain, vomiting, fever, chills, chest pain, pleurisy, shortness of breath, cough or urinary symptoms. Related Data Home Medications ?Medication ?Instructions ?Recorded ?Confirmed losartan 50 mg tablet 25 mg PO DAILY 03/14/2208/14 Held on 08/09/24. Instructions: Resume on 08/10/24. Check your blood pressure every morning as soon as you wake up and send it to Dr. Lucas. Do no take the blood pressure medication if the blood pressure is below 120/70. Wait every day to hear back from Dr. Lucas before you take the medication. albuterol sulfate 90 mcg/actuation 2 puff inhalation Q 4H PRN 05/14/24 07/26/24 aerosol inhaler Shortness Of Breath Or Wheez ing sertraline 25 mg tablet 25 mg PO DAILY 07/26/2408/14 Previous Rx's ?Medication ?Instructions ?Recorded hydroxyzine HCl 25 mg tablet See Rx Instructions .Rout e 05/04/23 .COMPLEX PRN Anxiety 30 days #60 tabs ondansetron 4 mg disintegrating 4 mg PO Q12H nausea an d vomiting 07/24/24 tablet #20 tabs pantoprazole 40 mg tablet,delayed 40 mg PO DAILY #90 t abs 07/24/24 release sucralfate 100 mg/mL oral 10 ml PO BID #600 mL 5 suspension potassium chloride 40 mEq/15 mL 40 meq (15 mL) PO SONAL Y #473 mL 08/21/24 oral liquid Allergies Allergy/AdvReac Type Severity Reaction Status Date / Time adhesive tape Allergy Intermediate blister-skin Verified 08/23/24 17:26 tears amoxicillin (AMOXICILLIN) Allergy Intermediate RASH Verified 08/23/24 17:26 Review of Systems 2 Review of Systems: Yes all other systems are reviewed and are negative PMFSH Past Medical History Medical History COVID-19 Anemia Hiatal hernia Postoperative nausea Depression Asthma Prediabetes Agoraphobia without history of panic disorder MDD (major depressive disorder), recurrent severe, without psychosis Intentional overdose Back pain GERD (gastroesophageal reflux disease) Morbid obesity Hypertension Surgical History S/P laparoscopic sleeve gastrectomy History of esophagogastroduodenoscopy (EGD) Previous back surgery History of appendectomy Hx of eye surgery Family History Family History Mother Fibromyalgia Arthritis Father Heart problem Brother No problems noted. 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 other at home: Yes (minor child) Do you presently have visiting nurse or other home services: No Alcohol intake: current Alcohol intake frequency: does not drink Patient Tobacco Use Status: Never used Tobacco Smoked in Last 30 Days: No e-Cigarette/Vaping Use: Never Used Second Hand Smoke Exposure: No Use of substances other than those prescribed or required for medical reasons: No Advance Directives: No Advance Directives Information Provided: No Do you have a plan to hurt others: No Plan service: No Sexual orientation: Straight/Heterosexual Physical Exam ED Vital Signs: Vital Signs - 24 hr 08/23/24 17:24 08/23/24 18:24 08/23/24 20:02 Temperature 97.7 F 97.9 F Pulse Rate 50 59 54 Respiratory Rate 16 15 16 Blood Pressure 123/50 L 127/67 132/69 Pulse Oximetry 97 99 97 Oxygen Delivery Method Room Air Room Air Room Air 08/23/24 21:12 08/23/24 21:51 Temperature 98.3 F Pulse Rate 57 Respiratory Rate 16 Blood Pressure 144/82 H Pulse Oximetry 98 98 Oxygen Delivery Method Room Air Room Air BMI result Body Mass Index 36.6 CONSTITUTIONAL: The patient appears non-toxic, well nourished and in no acute distress. Vital signs as documented. HEAD: Atraumatic, normocephalic. EYES: EOMs grossly intact, pupils equal, conjunctiva clear, no exudate. ENT: Nares patent, no discharge. Airway patent, no audible stridor, visible mucosa is pink and moist without noted lesions. NECK: Trachea is midline, no obvious masses or gross abnormalities. CHEST: Symmetric movement, normal appearance. LUNGS: LS present and CTAB, no w/r/r. Non-labored work of breathing. CARDIAC: Regular Rhythm, S1/S2 appreciated, no murmurs, rubs or gallops. ABDOMEN: Abdomen soft and non-tender x4 quadrants, no palpable masses or organomegaly. : Deferred. EXTREMITIES: Normal tone, moves all extremities spontaneously without reported pain. No obvious acute injury or deformity noted. NEURO: Alert and oriented x3, CN II-XII intact. Cerebellar Functioning intact. No sensory or motor deficits. Speech clear and appropriate. Strength 5/5 x4. PSYCH: normal affect, appropriate eye contact, fluid speech, with appropriate response to questioning. No reported suicidality or homicidality. SKIN: Warm, dry, color appropriate, normal turgor. No rashes noted. Medications Administered Generic Name Dose Route Start Last Admin Trade Name Freq PRN Reason Stop Dose Admin Potassium Chloride 10 meq in 100 mls @ 100 mls/hr 08/23/24 19:30 08/23/24 21:44 Potassium Chloride/H20 IV 08/23/24 23:29 100 mls/hr Q1H LORRAINE Administration Discontinued Medications Generic Name Dose Route Start Last Admin Trade Name Patito PRN Reason Stop Dose Admin Sodium Chloride 1,000 mls @ 999 mls/hr 08/23/24 19:30 08/23/24 20:44 Ns IV 08/23/24 20:30 Infused .Q1H1M LORRAINE Infusion Ondansetron HCl 4 mg 08/23/24 19:21 08/23/24 19:42 Ondansetron Hcl 4 Mg/2 Ml Vial IVPUSH 08/23/24 19:22 4 mg ONCE ONE Administration Medical Decision Making Medical Decision Making MDM Narrative: 7:34 PM 08/23/2024 (Rosibel HERRMANN): The patient is a 44-year-old female presenting to the ED for evaluation after a near syncopal episode while taking a shower after she has had decreased p.o. fluid intake following bariatric surgery on 08/08. The patient in the ED today appears in no acute distress, exam is benign. Patient's laboratory evaluation shows no evidence of leukocytosis, significant anemia, or DAMON. There is evidence of hypokalemia and the patient's troponin is slightly elevated at 18.3. Patient denies any chest pain throughout the incident. EKG is nonischemic. The patient's UA is pending. The patient's abdominal exam is nontender and patient denies any vomiting, no indication for abdominal CT imaging. The patient's mental status and neurologic exam are benign, patient had no head strike and no true syncope, no indication for head CT imaging at this time. Patient will be treated with IV fluid hydration, potassium supplementation, and we will obtain repeat troponin and EKG. Pending no significant uptrend in the patient's troponin the patient's case will be discussed with her bariatric surgeon for consideration of admission for dehydration with near-syncope. 8:57 PM 08/23/2024 (Rosibel HERRMANN): Patient remained hemodynamically stable in the ED, 2nd troponin is pending. The patient's bariatric surgery PA Palmer Mack has been messaged and we are awaiting response. 8:58 PM 08/23/2024 (Rosibel HERRMANN): The patient's repeat troponin just now resulted and is mildly increased at 22. Patient continues to endorse no chest pain in the ED. repeat EKG will be obtained. We will await response from bariatric surgery coordinator, however patient is likely appropriate for admission given the up trending troponin. Seeing as patient is chest pain-free there is no indication for heparinization, and aspirin will be held due to recent bariatric surgery. 9:59 PM 08/23/2024 (Rosibel HERRMANN): Patient's case discussed with Dr. Lucas who agrees with the plan for admission for hydration and electrolyte correction. Patient will be admitted to the medicine service. 10:13 PM 08/23/2024 (Rosibel HERRMANN): Following discussion with the Medicine Service, Dr. Zavaleta is requesting a D-dimer prior to completing the patient's admission. The patient is not hypoxic, tachycardic, hypotensive, or complaining of chest pain, shortness of breath, or pleurisy. In this provider's opinion the likelihood of saddle embolus or other pulmonary embolus causing right heart strain/requiring transfer is highly unlikely, however a D-dimer will be added and Dr. Zavaleta will be updated with the results per his request. Admission/Observation Consideration of admission/observation: Escalation of care including admission/observation considered Lab Data MDM Lab Attestation statement: I reviewed the patient's lab results. 08/23/24 17:45 08/23/24 17:45 Labs: Lab Results 08/23/24 08/23/24 Range/Units 17:45 20:26 WBC 7.5 (4.8-10.8) X10*3/uL RBC 4.64 (4.20-5.50) X10*6/uL Hgb 11.2 L (12.0-16.0) g/dl Hct 34.2 L (37.0-47.0) % MCV 73.7 L (80.0-98.0) fL MCH 24.1 L (27.0-33.0) pg MCHC 32.7 (31.0-35.0) g/dl RDW 19.1 H (11.0-16.0) % Plt Count 287 (160-400) X10*3/uL MPV 10.0 (9.4-12.3) fL Immature Gran % (Auto) 0.4 (0.0-0.4) % Neut % (Auto) 67.1 (45-73) % Lymph % (Auto) 22.7 (20-40) % [place] % (Auto) 8.4 (2-11) % Eos % (Auto) 0.9 (0-4) % Baso % (Auto) 0.5 (0-2) % Lymph # (Auto) 1.7 (1.2-4.9) X10*3/uL [place] # (Auto) 0.6 (0.1-1.2) X10*3/uL Eos # (Auto) 0.1 (0.0-0.4) X10*3/uL Baso # (Auto) 0.0 (0.0-0.2) X10*3/uL Abs Immat Gran (auto) 0.03 (0.00-0.03) X10*3/uL Absolute Neuts (auto) 5.1 (2.0-8.3) x10*3/uL Absolute Nucleated RBC 0.000 (0.0-0.012) X10*3/uL Nucleated RBC % (auto) 0.0 (0.0-0.2) /100WBC Sodium 144 (135-145) mmol/L Potassium 3.0 L (3.3-5.1) mmol/L Chloride 108 (96-108) mmol/L Carbon Dioxide 18 L (22-29) mmol/L Anion Gap 21 H (12-20) BUN 11 (9-16) mg/dL Creatinine 1.00 (0.5-1.4) mg/dL Estim Creat Clear Calc 75.1 Estimated GFR > 60 Random Glucose 98 (60-115) mg/dL Calcium 9.5 (8.4-10.2) mg/dL Total Bilirubin 0.4 (0.0-1.0) mg/dL Direct Bilirubin 0.3 (0.0-0.5) mg/dL AST 25 (5-31) U/L ALT 20 (0-31) U/L Alkaline Phosphatase 38 L (39-117) U/L Troponin I High Sens 18.3 H 22.0 H (<3.5-17.0) ng/L Total Protein 7.4 (6.5-8.0) g/dL Albumin 3.9 (3.5-5.0) g/dL Beta HCG, Quant < 2 mIU/mL Independent Interpretation I performed an independent interpretation of an: EKG (EKG shows sinus bradycardia with a rate of 50, no evidence of acute ischemia, no ST elevation, no ectopy. QTC 371. Compared to previous on 08/21/2024 there are no acute morphology changes. ) Interpretation: Initial repeat at 21:09 EKG showed question of atrial fibrillation however there was significant artifact in the baseline. Repeat EKG at 21:15 redemonstrates sinus bradycardia with rate of 50, no evidence of acute ischemia, no ST elevation, no ectopy. QTC 375. Compared to initial EKG there are no acute morphology changes. Discharge Plan Discharge Clinical Impression: Hypokalemia, Dehydration Patient Disposition: Admitted As Inpatient Print Language: Surinamese
--- NOTE | 2024-08-23 19:37 | ECG_ITS ---
Test Reason : NEAR SYNCOPE Blood Pressure : */* mmHG Vent. Rate : 55 BPM Atrial Rate : * BPM P-R Int : * ms QRS Dur : 88 ms QT Int : 412 ms P-R-T Axes : * 18 13 degrees QTcB Int : 394 ms Poor data quality Normal sinus bradycardia Junctional ST depression, probably normal Abnormal ECG When compared with ECG of 23-Aug-2024 17:50, No significant changes seen Referred By: Fortunato Rodrigues Electronically Signed By: NERY LEE MD
[2024-08-23] MEDS: Potassium Chloride/H20 10 MEQ/100 ML PIGGYBACK 100 MEQ IV ×4 (19:46→23:35)
[2024-08-23 20:02] VITALS: BP 132/69; PULSE 54; RESP 16; TEMP 36.6; O2SAT 97
[2024-08-23 20:54] LABS: Troponin-I High Sensitivity 22.0 ng/L (<3.5-17.0)
[2024-08-23 21:12] VITALS: O2SAT 98
--- NOTE | 2024-08-23 21:13 | PC.NURSE ---
Repeat EKG ordered by linn hernandez 2nd trop elevation, completed by FELICITAS Sandhu.
[2024-08-23 21:51] VITALS: BP 144/82; PULSE 57; RESP 16; TEMP 36.8; O2SAT 98
--- NOTE | 2024-08-23 22:17 | PM.IMHP ---
History of Present Illness Date of Service: 08/23/24 Chief Complaint: Syncope 45-year-old female with a past medical history of elevated BMI-recent gastric sleeve surgery, anxiety, depression, GERD, vitamin B12 deficiency, asthma; presented to the hospital today with a chief complaint of syncope. Patient reports that she was in the shower she felt lightheaded followed by she called her son and then by the time her son came in she passed out briefly; subsequently her son helped her to sit. Denies any chest pain or palpitations. Denies any fevers and chills. Denies any urinary symptoms. Mentioned that she had recent gastric sleeve procedure done; has been having nausea and vomiting and decreased oral intake since the procedure. Denies any abdominal pain. Review of all other systems is negative except mentioned above ER course: Per ER team, patient's EKG was nonischemic; troponin was 18. Abdominal exam was benign. On blood pressure was stable. Notified the patient's surgeon Dr. Lucas-who mentioned no acute intervention, conservative management for her nausea and vomiting. [facility] Medical History COVID-19 Anemia Hiatal hernia Postoperative nausea Depression Asthma Prediabetes Agoraphobia without history of panic disorder MDD (major depressive disorder), recurrent severe, without psychosis Intentional overdose Back pain GERD (gastroesophageal reflux disease) Morbid obesity Hypertension Family History Mother Fibromyalgia Arthritis Father Heart problem Brother No problems noted. Son Asthma Maternal Grandmother Diabetes Surgical History S/P laparoscopic sleeve gastrectomy History of esophagogastroduodenoscopy (EGD) Previous back surgery History of appendectomy Hx of eye surgery Social History Household Members: Family Household Members Other:: mother & minor child Housing: Apartment Are you a primary housekeeper caregiver to a significant other at home: Yes (minor child) Do you presently have visiting nurse or other home services: No Alcohol intake: current Alcohol intake frequency: does not drink Patient Tobacco Use Status: Never used Tobacco Smoked in Last 30 Days: No e-Cigarette/Vaping Use: Never Used Second Hand Smoke Exposure: No Use of substances other than those prescribed or required for medical reasons: No Advance Directives: No Advance Directives Information Provided: No Do you have a plan to hurt others: No Plan service: No Sexual orientation: Straight/Heterosexual Meds Allergies Allergy/AdvReac Type Severity Reaction Status Date / Time adhesive tape Allergy Intermediate blister-skin Verified 08/23/24 17:26 tears amoxicillin (AMOXICILLIN) Allergy Intermediate RASH Verified 08/23/24 17:26 Active Medications: Current Medications Acetaminophen (Acetaminophen 325 Mg Tablet) 650 mg PO Q6H PRN PRN Reason: Pain, Mild 1-3,fever,headache Calcium Carbonate (Calcium Carbonate 750 Mg Tab.Chew) 750 mg PO Q4H PRN PRN Reason: Heartburn Enoxaparin Sodium (Enoxaparin Sodium 40 Mg/0.4 Ml Syringe) 40 mg SUBCUT Q24H LORRAINE Potassium Chloride (Potassium Chloride/H20) 10 meq in 100 mls @ 100 mls/hr IV Q1H LORRAINE Stop: 08/23/24 23:29 Last Admin: 08/23/24 21:44 Dose: 100 mls/hr Dextrose/Sodium Chloride (D51/2ns) 1,000 mls @ 100 mls/hr IVCONT .Q10H LORRAINE Magnesium Hydroxide (Milk Of Magnesia 30 Ml Oral.Susp) 30 ml PO DAILY PRN PRN Reason: Constipation Melatonin (Melatonin 3 Mg Tablet) 6 mg PO BEDTIME PRN PRN Reason: Insomnia Ondansetron HCl (Ondansetron Hcl 4 Mg/2 Ml Vial) 4 mg IVPUSH Q8H PRN PRN Reason: Nausea and Vomiting Sodium Chloride (0.9 % Sodium Chloride Flush 3 Ml Syringe) 3 ml IVFLUSH QSHIFT [facility] Home Medications ?Medication ?Instructions ?Recorded ?Confirmed ?Last Taken ?Type losartan 50 mg tablet 25 mg PO DAILY 03/14/22 07/26/24 08/08/24 History Held on 08/09/24. Instructions: Resume on 08/10/24. Check your blood pressure every morning as soon as you wake up and send it to Dr. Lucas. Do no take the blood pressure medication if the blood pressure is below 120/70. Wait every day to hear back from Dr. Lucas before you take the medication. albuterol sulfate 90 mcg/actuation 2 puff inhalation Q4H PRN 05/14/24 07/26/24 02/08/24 History aerosol inhaler Shortness Of Breath Or Wheezing sertraline 25 mg tablet 25 mg PO DAILY 07/26/24 07/26/24 Unknown History Physical Exam Vital Signs and Narrative: Vital Signs: Last Vital Signs Temp 98.3 F 08/23/24 21:51 Pulse 57 08/23/24 21:51 Resp 16 08/23/24 21:51 BP 144/82 H 08/23/24 21:51 Pulse Ox 98 08/23/24 21:51 O2 Del Method Room Air 08/23/24 21:51 BMI result Body Mass Index 36.6 Gen: Appears be in no acute distress HEENT: NCAT, Moist mucosa. Pulmonary: Vesicular breath sounds, fair air entry CVS: Normal S1-S2 Abdomen: BS+, Soft, Nontender Extremities: Warm well perfused Neuro: Alert and awake. Results Labs 08/23/24 17:45 08/23/24 17:45 Labs: Laboratory Results - last 24 hr 08/23/24 08/23/24 17:45 20:26 MCV 73.7 L MCH 24.1 L MCHC 32.7 RDW 19.1 H Plt Count 287 MPV 10.0 Immature Gran % (Auto) 0.4 Neut % (Auto) 67.1 Lymph % (Auto) 22.7 [place] % (Auto) 8.4 Eos % (Auto) 0.9 Baso % (Auto) 0.5 Lymph # (Auto) 1.7 [place] # (Auto) 0.6 Eos # (Auto) 0.1 Baso # (Auto) 0.0 Abs Immat Gran (auto) 0.03 Absolute Neuts (auto) 5.1 Absolute Nucleated RBC 0.000 Nucleated RBC % (auto) 0.0 Anion Gap 21 H Estim Creat Clear Calc 75.1 Estimated GFR > 60 Random Glucose 98 Calcium 9.5 Total Bilirubin 0.4 Direct Bilirubin 0.3 AST 25 ALT 20 Alkaline Phosphatase 38 L Troponin I High Sens 18.3 H 22.0 H Total Protein 7.4 Albumin 3.9 Beta HCG, Quant < 2 Assessment and Plan (1) Syncope: Qualifiers: Syncope type: vasovagal syncope Qualified Code(s): R55 - Syncope and collapse Status: Acute Plan 45-year-old female with a past medical history of elevated BMI-recent gastric sleeve surgery, anxiety, depression, GERD, vitamin B12 deficiency, asthma; presented to the hospital today with a chief complaint of syncope. Syncope: Likely vasovagal Orthostatic vitals negative EKG nonischemic Patient has decreased intake and has been having nausea and vomiting since the gastric sleeve procedure-likely contributing. Supportive care Fall precautions Troponin 18. D-dimer pending Echocardiogram Gentle IV fluids Patient educated to avoid heavy missionary, driving for 6 months after symptom free period. Nausea/vomiting: Benign abdominal examination. Likely related to her recent gastric sleeve procedure. Dr. Lucas was notified-suggested conservative management. Hypokalemia: Repleted DVT prophylaxis: Lovenox Code status: Full code Quality Stroke Does the patient have a stroke diagnosis?: No VTE Prior VTE?: No VTE Risk Level:: Medical - moderate - high VTE Device Contraindication: Treatment Not Indicated VTE Drug Contraindication: N/A - Med Ordered
[2024-08-23] MEDS: Dextrose 5 % and 0.45 % NaCl 1,000 ML 100 ML IVCONT (22:33)
[2024-08-23 22:40] LABS: Appearance Urine Clear; Glucose Urine UA Negative (Negative); PH 5.5 (5.0-9.0); Specific Gravity - Urine 1.015 (1.005-1.025); UMIC TRIGGER UACC YES
[2024-08-23 23:00] LABS: D Dimer High Sensitivity 738 NG/ML
[2024-08-23 23:09] LABS: UACC Culture Trigger YES
[2024-08-24] VITALS (7 sets, daily range): BP systolic 109–142; BP diastolic 54–69; PULSE 40–52; RESP 18–20; TEMP 36.2–37.1; O2SAT 97–100; BMI 37.3
--- NOTE | 2024-08-24 00:40 | PC.NURSE ---
IV infusion paused for CT ANGIO
[2024-08-24] MEDS: iohexoL 350 MG/ML 100 ML INFUS..BTL 65 ML IV (00:48)
[2024-08-24 07:01] LABS: MANUAL DIFF FLAG NO
[2024-08-24 07:24] LABS: Hematocrit 31.6 % (37.0-47.0); Hemoglobin 10.1 g/dl (12.0-16.0); Imm Gran Abs Auto 0.03 X10*3/uL (0.00-0.03); Imm Gran Pct Auto 0.5 % (0.0-0.4); Lymphocytes Absolute Auto 2.8 X10*3/uL (1.2-4.9); Mean Corpuscular HGB Conc 32.0 g/dl (31.0-35.0); Mean Corpuscular Hemoglobin 23.9 pg (27.0-33.0); Mean Corpuscular Volume 74.7 fL (80.0-98.0); NRBC Abs Auto 0.000 X10*3/uL (0.0-0.012); NRBC Pct Auto 0.0 /100WBC (0.0-0.2); Platelet Count 257 X10*3/uL (160-400); Red Blood Count 4.23 X10*6/uL (4.20-5.50); White Blood Count 6.5 X10*3/uL (4.8-10.8)
[2024-08-24 07:30] LABS: Alanine Aminotransferase 17 U/L (0-31); Albumin Level 3.3 g/dL (3.5-5.0); Alkaline Phosphatase 32 U/L (39-117); Anion Gap 14 (12-20); Aspartate Amino Transferase 19 U/L (5-31); Blood Urea Nitrogen 8 mg/dL (9-16); Calcium 8.7 mg/dL (8.4-10.2); Carbon Dioxide 21 mmol/L (22-29); Chloride 110 mmol/L (96-108); Creatinine Clr Calc Pharmacy 91.5; Estimated Glomerular Filt Rate > 60; Potassium 3.2 mmol/L (3.3-5.1); Sodium 142 mmol/L (135-145); Total Protein 6.3 g/dL (6.5-8.0)
[2024-08-24] MEDS: Dextrose 5 % and 0.45 % NaCl 1,000 ML 100 ML IVCONT (08:01)
[2024-08-24] MEDS: 0.9 % Sodium Chloride Flush 3 ML SYRINGE IVFLUSH ×2 (08:02→15:56)
--- NOTE | 2024-08-24 09:51 | PHA.MEDREC ---
Pharmacy Consult ? Medication Reconciliation Pharmacy has completed the medication reconciliation, spoke to patient at bedside who confirmed all medicatons, said she is no longer taking any vitamins. Confirmed losartan 25mg daily depending on her BP. Pt also stated she has only been able to tolerate taking sucralfate once a day but it is supposed to be twice daily and that the KCl oral suspension is supposed to get changed to tabs/caps as the suspension is too salty.
[2024-08-24] MEDS: Potassium Chloride/H20 10 MEQ/100 ML PIGGYBACK 100 MEQ IV (10:31)
--- NOTE | 2024-08-24 11:34 | P.PNIM_ITS ---
Subjective Subjective Date of Service: 08/24/24 Interval History: Follow up syncope So complaining of nausea, unable to keep fluids down Physical Exam 2 Vital Signs: Vital Signs: Last Vital Signs Temp 97.1 F 08/24/24 07:08 Pulse 52 08/24/24 07:08 Resp 18 08/24/24 07:08 BP 142/69 H 08/24/24 07:08 Pulse Ox 100 08/24/24 07:08 O2 Del Method Room Air 08/24/24 07:08 BMI result Body Mass Index 37.3 Appearing in no acute distress lung sounds are clear to auscultation heart regular rate rhythm, clear S1, S2 positive bowel sounds, abdomen is soft, nontender neuro patient is alert x3, no focal deficits Objective Data Active Medications Acetaminophen (Acetaminophen 325 Mg Tablet) 650 mg PO Q6H PRN PRN Reason: Pain, Mild 1-3,fever,headache Last Admin: 08/24/24 08:06 Dose: 650 mg Documented By: HARDEEP Calcium Carbonate (Calcium Carbonate 750 Mg Tab.Chew) 750 mg PO Q4H PRN PRN Reason: Heartburn Enoxaparin Sodium (Enoxaparin Sodium 40 Mg/0.4 Ml Syringe) 40 mg SUBCUT Q24H [facility] Last Admin: 08/23/24 23:35 Dose: 40 mg Documented By: DONNA Potassium Chloride (Potassium Chloride/H20) 10 meq in 100 mls @ 100 mls/hr IV Q1H [facility] Stop: 08/24/24 11:44 Last Infusion: 08/24/24 11:14 Dose: 0 mls/hr Documented By: HARDEEP Potassium Chloride/Dextrose/Sod Cl (Kcl 40 Meq In 5% Dex/0.9% Sod) 40 meq in 1,000 mls @ 100 mls/hr IVCONT .Q10H [facility] Magnesium Hydroxide (Milk Of Magnesia 30 Ml Oral.Susp) 30 ml PO DAILY PRN PRN Reason: Constipation Melatonin (Melatonin 3 Mg Tablet) 6 mg PO BEDTIME PRN PRN Reason: Insomnia Ondansetron HCl (Ondansetron Hcl 4 Mg/2 Ml Vial) 4 mg IVPUSH Q8H PRN PRN Reason: Nausea and Vomiting Last Admin: 08/24/24 08:06 Dose: 4 mg Documented By: HARDEEP Potassium Chloride (Potassium Chloride Er 20 Meq Tab.Er.Prt) 40 meq PO BID [facility] Last Admin: 08/24/24 10:26 Dose: Not Given Documented By: HARDEEP Non-Admin Reason: Inability to swallow, [employer] Brad Jewell aware Sodium Chloride (0.9 % Sodium Chloride Flush 3 Ml Syringe) 3 ml IVFLUSH QSHIFT [facility] Last Admin: 08/24/24 08:02 Dose: 3 ml Documented By: HARDEEP Labs 08/24/24 06:42 08/24/24 06:42 Labs: Laboratory Results - last 24 hr 08/23/24 08/23/24 08/23/24 17:45 20:26 22:34 MCV 73.7 L MCH 24.1 L MCHC 32.7 RDW 19.1 H Plt Count 287 MPV 10.0 Immature Gran % (Auto) 0.4 Neut % (Auto) 67.1 Lymph % (Auto) 22.7 Fannin % (Auto) 8.4 Eos % (Auto) 0.9 Baso % (Auto) 0.5 Lymph # (Auto) 1.7 Fannin # (Auto) 0.6 Eos # (Auto) 0.1 Baso # (Auto) 0.0 Abs Immat Gran (auto) 0.03 Absolute Neuts (auto) 5.1 Absolute Nucleated RBC 0.000 Nucleated RBC % (auto) 0.0 D-Dimer High Sensitivty Anion Gap 21 H Estim Creat Clear Calc 75.1 Estimated GFR > 60 Random Glucose 98 Calcium 9.5 Total Bilirubin 0.4 Direct Bilirubin 0.3 AST 25 ALT 20 Alkaline Phosphatase 38 L Troponin I High Sens 18.3 H 22.0 H Total Protein 7.4 Albumin 3.9 Beta HCG, Quant < 2 Urine Color Yellow Urine Appearance Clear Urine pH 5.5 Ur Specific [place] 1.015 Urine Protein Trace Urine Glucose (UA) Negative Urine Ketones 80 Urine Blood Moderate (2+) H Urine Nitrite Negative Ur Leukocyte Esterase Small (1+) H Urine RBC 0-2 Urine WBC 0-5 Ur Squamous Epith Cells 3-5 Urine Bacteria None Seen Hyaline Casts 6-10 08/23/24 08/24/24 22:42 06:42 MCV 74.7 L MCH 23.9 L MCHC 32.0 RDW 19.3 H Plt Count 257 MPV 10.3 Immature Gran % (Auto) 0.5 H Neut % (Auto) 45.8 Lymph % (Auto) 42.4 H Fannin % (Auto) 10.1 Eos % (Auto) 0.9 Baso % (Auto) 0.3 Lymph # (Auto) 2.8 Fann[place] # (Auto) 0.7 Eos # (Auto) 0.1 Baso # (Auto) 0.0 Abs Immat Gran (auto) 0.03 Absolute Neuts (auto) 3.0 Absolute Nucleated RBC 0.000 Nucleated RBC % (auto) 0.0 D-Dimer High Sensitivty 738 Anion Gap 14 Estim Creat Clear Calc 91.5 Estimated GFR > 60 Random Glucose 99 Calcium 8.7 D Total Bilirubin 0.3 Direct Bilirubin AST 19 ALT 17 Alkaline Phosphatase 32 L Troponin I High Sens Total Protein 6.3 L Albumin 3.3 L Beta HCG, Quant Urine Color Urine Appearance Urine pH Ur Specific [place] Urine Protein Urine Glucose (UA) Urine Ketones Urine Blood Urine Nitrite Ur Leukocyte Esterase Urine RBC Urine WBC Ur Squamous Epith Cells Urine Bacteria Hyaline Casts Assessment and Plan (1) Hypokalemia: Status: Acute Plan 45-year-old female with a past medical history of elevated BMI-recent gastric sleeve surgery, anxiety, depression, GERD, vitamin B12 deficiency, asthma; presented to the hospital today with a chief complaint of syncope. Sinus bradycardia no blocks noted not on rate lowering medications on telemetry cardiology consultation Syncope Likely vasovagal from dehydration and poor po intake Bariatric surgery on 08/08/2024 Orthostatic vitals negative EKG nonischemic CTA negative for PE Echocardiogram pending Continue IV fluids Bariatric diet Nausea/vomiting Benign abdominal examination. Likely related to her recent gastric sleeve procedure. Consult to bariatric surgery team Hypokalemia unable to tolerate po or IV pot potassium added to IV fluids DVT prophylaxis: Lovenox Code status: Full code Quality Stroke Does the patient have a stroke diagnosis?: No VTE Prior VTE?: No VTE Risk Level:: Medical - moderate - high VTE Device Contraindication: Treatment Not Indicated VTE Drug Contraindication: N/A - Med Ordered
[2024-08-24] MEDS: KCl 40 mEq in 5% Dex/0.9% Sod 40 MEQ/1,000 ML IV.SOLN 100 MEQ IVCONT ×2 (11:49→22:06)
--- NOTE | 2024-08-24 13:46 | MHC.CM.PN ---
Female S/P Gastric Sleeve 08/08/24 DC to home self care. She returns with near syncope. She lives with her Mother and son. She is independent with all functional mobility. A new HCP has been documented. DP home self care. She has arranged for her aunt to provide transportation home.
[2024-08-25 02:57] VITALS: BP 126/60; PULSE 50; RESP 18; TEMP 36.6; O2SAT 98
[2024-08-25 07:18] VITALS: BP 123/59; PULSE 52; RESP 18; TEMP 35.7; O2SAT 98
[2024-08-25 07:42] LABS: Anion Gap 12 (12-20); Blood Urea Nitrogen 4 mg/dL (9-16); Calcium 8.3 mg/dL (8.4-10.2); Carbon Dioxide 20 mmol/L (22-29); Chloride 114 mmol/L (96-108); Creatinine Clr Calc Pharmacy 108.5; Estimated Glomerular Filt Rate > 60; Potassium 3.3 mmol/L (3.3-5.1); Sodium 143 mmol/L (135-145)
[2024-08-25] MEDS: KCl 40 mEq in 5% Dex/0.9% Sod 40 MEQ/1,000 ML IV.SOLN 100 MEQ IVCONT ×2 (08:49→21:27)
--- NOTE | 2024-08-25 10:00 | PM.CNCAR ---
History of Present Illness History of Present Illness Date of Service: 08/25/24 Requesting physician: Marya Jewell Consult reason: other (Syncope) Chief complaint: near syncope Narrative: I was consulted to see Nichelle in cardiology consultation today for syncopal episode. She is accompanied by her mother in the room. Patient was 44 year female who underwent gastric sleeve surgery for obesity couple weeks ago. Since then she has had 2 episodes of syncope 1 was yesterday. She says she was in the shower and did not feel well called for her son who came up and got her out of the shower and sat on the toilet. She has continued to fell not well nauseous and felt like she was having issues and then she suddenly had a lot bank and she passed out. Sudden notice that she was pale. She was then brought to the emergency room. Since the surgery she says she has not been able to drink a lot of fluid because she feels uncomfortable and nauseous. She is also says she drinks water with a stiff range which is very inconvenient for an that prevents her from drinking a lot of water. The 2nd episode after surgery was similar. Patient also says about 11 years ago she had a similar episode and passed out. Does not recall any workup at that point in time. She denies any palpitations, chest pain. She has not had any orthopnea, PND. She noted overnight to have sinus bradycardia. She does have prior history of hypertension currently on losartan. Review of Systems Constitutional: Constitutional: Reports no additional constitutional complaints Cardiovascular: Cardiovascular: Denies chest pain, Denies rapid heart rate, Reports lightheadedness, Reports Loss of Consciousness and Denies dyspnea Respiratory: Respiratory: Reports no additional respiratory complaints and Denies dyspnea Gastrointestinal: Gastrointestinal: Reports nausea Genitourinary: Genitourinary: Reports no additional female genitourinary complaints Musculoskeletal: Musculoskeletal: Reports no additional musculoskeletal complaints Integumentary/Breasts: Skin/Breast: Reports system reviewed and no additional complaints, except as docu Neurologic: Reports system reviewed and no additional complaints, except as documented Psychiatric: Psychiatric: Reports no additional psychiatric complaints Endocrine: Endocrine: Reports no additional endocrine complaints Hematologic/Lymphatic: Hematologic/Lymphatic: Reports no additional hematologic/lymphatic complaints Allergic/Immunologic: Allergic/Immunologic: Reports no additional allergic/immunologic complaints [facility] Past Medical History Medical History COVID-19 Anemia Hiatal hernia Postoperative nausea Depression Asthma Prediabetes Agoraphobia without history of panic disorder MDD (major depressive disorder), recurrent severe, without psychosis Intentional overdose Back pain GERD (gastroesophageal reflux disease) Morbid obesity Hypertension Family History Family History Mother Fibromyalgia Arthritis Father Heart problem Brother No problems noted. Son Asthma Maternal Grandmother Diabetes Surgical History Surgical History S/P laparoscopic sleeve gastrectomy History of esophagogastroduodenoscopy (EGD) Previous back surgery History of appendectomy Hx of eye surgery Social History Social History Household Members: Family and Children Household Members Other:: mother & minor child Housing: House Are you a primary health care manager to a significant other at home: Yes (minor child) Do you presently have visiting nurse or other home services: No Alcohol intake: current Alcohol intake frequency: does not drink Patient Tobacco Use Status: Never used Tobacco Smoked in Last 30 Days: No e-Cigarette/Vaping Use: Never Used Second Hand Smoke Exposure: No Use of substances other than those prescribed or required for medical reasons: No Currently Displaying Signs/Symptoms of Drug Intoxication Withdrawal: No Advance Directives: No Advance Directives Information Provided: No Do you have a plan to hurt others: No Plan Recently lost weight without trying: No Nutrition Risks: Poor intake 0-25% >4 days Patient : No service: No Sexual orientation: Straight/Heterosexual Meds Allergies Allergy/AdvReac Type Severity Reaction Status Date / Time adhesive tape Allergy Intermediate blister-skin Verified 08/23/24 17:26 tears amoxicillin (AMOXICILLIN) Allergy Intermediate RASH Verified 08/23/24 17:26 Active Medications: Current Medications Acetaminophen (Acetaminophen 325 Mg Tablet) 650 mg PO Q6H PRN PRN Reason: Pain, Mild 1-3,fever,headache Last Admin: 08/24/24 08:06 Dose: 650 mg Calcium Carbonate (Calcium Carbonate 750 Mg Tab.Chew) 750 mg PO Q4H PRN PRN Reason: Heartburn Last Admin: 08/24/24 19:44 Dose: 750 mg Diazepam (Diazepam 10 Mg/2 Ml Cartridge) 10 mg IVPUSH Q8H PRN PRN Reason: Nausea and Vomiting Enoxaparin Sodium (Enoxaparin Sodium 40 Mg/0.4 Ml Syringe) 40 mg SUBCUT Q24H [facility] Last Admin: 08/24/24 22:07 Dose: 40 mg Folic Acid (Folic Acid 1 Mg Tablet) 1 mg PO DAILY [facility] Last Admin: 08/25/24 08:48 Dose: 1 mg Hydroxyzine HCl (Hydroxyzine Hcl 25 Mg Tablet) 25 mg PO TID PRN PRN Reason: Anxiety Potassium Chloride/Dextrose/Sod Cl (Kcl 40 Meq In 5% Dex/0.9% Sod) 40 meq in 1,000 mls @ 100 mls/hr IVCONT .Q10H [facility] Last Admin: 08/25/24 08:49 Dose: 100 mls/hr Magnesium Hydroxide (Milk Of Magnesia 30 Ml Oral.Susp) 30 ml PO DAILY PRN PRN Reason: Constipation Melatonin (Melatonin 3 Mg Tablet) 6 mg PO BEDTIME PRN PRN Reason: Insomnia Metoclopramide HCl (Metoclopramide Hcl 10 Mg/2 Ml Vial) 10 mg IVPUSH Q4H PRN PRN Reason: Nausea and Vomiting Ondansetron HCl (Ondansetron Hcl 4 Mg/2 Ml Vial) 4 mg IVPUSH Q8H PRN PRN Reason: Nausea and Vomiting Last Admin: 08/24/24 22:07 Dose: 4 mg Potassium Chloride (Potassium Chloride Er 20 Meq Tab.Er.Prt) 40 meq PO BID [facility] Last Admin: 08/25/24 08:52 Dose: Not Given Sertraline HCl (Sertraline Hcl 25 Mg Tablet) 25 mg PO DAILY [facility] Last Admin: 08/25/24 08:48 Dose: 25 mg Sodium Chloride (0.9 % Sodium Chloride Flush 3 Ml Syringe) 3 ml IVFLUSH QSHIFT [facility] Last Admin: 08/25/24 08:52 Dose: Not Given Thiamine HCl (Thiamine Hcl 100 Mg Tablet) 100 mg PO DAILY [facility] Last Admin: 08/25/24 08:49 Dose: 100 mg Home Medications ?Medication ?Instructions ?Recorded ?Confirmed ?Last Taken ?Type losartan 50 mg tablet 25 mg PO DAILY 03/14/22 08/24/24 08/22/24 History Held on 08/09/24. Instructions: Resume on 08/10/24. Check your blood pressure every morning as soon as you wake up and send it to Dr. Lucas. Do no take the blood pressure medication if the blood pressure is below 120/70. Wait every day to hear back from Dr. Lucas before you take the medication. albuterol sulfate 90 mcg/actuation 2 puff inhalation Q4H PRN 05/14/24 08/24/24 02/08/24 History aerosol inhaler Shortness Of Breath Or Wheezing sertraline 25 mg tablet 25 mg PO DAILY 07/26/24 08/24/24 08/22/24 History acetaminophen 325 mg tablet 650 mg PO Q6H PRN Pain 08/24/24 08/24/24 Unknown History hydroxyzine HCl 25 mg tablet 25 mg PO TID PRN Anxiety 08/24/24 08/24/24 Unknown History ondansetron 4 mg disintegrating 4 mg PO Q12H PRN nausea and 08/24/24 08/24/24 08/22/24 History tablet vomiting pantoprazole 40 mg tablet,delayed 40 mg PO DAILY@0630 08/24/24 08/24/24 08/22/24 History release Physical Exam Vital Signs: Vital Signs: Last Vital Signs Temp 96.2 F L 08/25/24 07:18 Pulse 52 08/25/24 07:18 Resp 18 08/25/24 07:18 BP 123/59 L 08/25/24 07:18 Pulse Ox 98 08/25/24 07:18 O2 Del Method Room Air 08/25/24 07:18 BMI result Body Mass Index 37.3 Const: General: cooperative, comfortable, no acute distress, alert, awake and Physically active Nutritional Appearance: obese Orientation/consciousness: patient oriented x3 Limitations: no limitations HEENT: Head: Yes normocephalic and Yes atraumatic Neck: Neck: Yes trachea midline, Yes supple and Yes no JVD Resp: Effort & Inspection: normal respiratory effort Auscultation: clear to auscultation bilaterally Cardio: Jugular venous distension: no JVD Palpation: normal PMI Rate: regular rate Rhythm: regular rhythm Heart sounds: S1 normal heart sound present, S2 normal heart sound present, no click, no gallops, no murmurs and no rubs GI: Auscultation: normal bowel sounds Skin: General skin exam: no rashes or lesions noted Neuro: General: patient oriented x3 and no focal motor deficits Extrem: General: Yes no clubbing, cyanosis or edema Objective Labs and Meds 08/24/24 06:42 08/25/24 07:00 Lab results: Laboratory Results - last 24 hr 08/25/24 08/25/24 07:00 07:20 Hold Purple Top SEE NOTE Sodium 143 Potassium 3.3 Chloride 114 H Carbon Dioxide 20 L Anion Gap 12 BUN 4 L Creatinine 0.70 Estim Creat Clear Calc 108.5 Estimated GFR > 60 Random Glucose 114 Calcium 8.3 L Assessment and Plan (1) Syncope: Qualifiers: Syncope type: vasovagal syncope Qualified Code(s): R55 - Syncope and collapse Status: Acute Syncope in this middle-aged woman after gastric sleeve surgery with overall reduced oral intake of water related to surgery and lifestyle modification as well as situation as do the syncope happening in warm shower. He is highly suggestive of vasovagal syncope. Patient has had prior history of syncope about 11 years ago. With had a detailed discussion about vasovagal syncope and mechanism of vasovagal syncope. Main treatment is to increase water intake. At this point time I would Holter losartan therapy. Advised to monitor blood pressure at home and follow it up. Improved electrolyte intake was also discussed. Will set up for outpatient workup with tilt-table test, Holter monitor and echocardiogram. This was discussed with her and her mother and they understand agree. Orthostatic precautions were discussed. Will follow up in the clinic after above workup. Thank you for allowing me to partake in her care Procedures Date of Service Date of Service: 08/25/24
--- NOTE | 2024-08-25 10:21 | HO.PM.IMPN ---
Subjective Subjective Date of Service: 08/25/24 Interval History: Follow up syncope So complaining of nausea taking fluids Physical Exam Vital Signs: Vital Signs: Last Vital Signs Temp 96.2 F L 08/25/24 07:18 Pulse 52 08/25/24 07:18 Resp 18 08/25/24 07:18 BP 123/59 L 08/25/24 07:18 Pulse Ox 98 08/25/24 07:18 O2 Del Method Room Air 08/25/24 07:18 BMI result Body Mass Index 37.3 Appearing in no acute distress lung sounds are clear to auscultation heart regular rate rhythm, clear S1, S2 positive bowel sounds, abdomen is soft, nontender neuro patient is alert x3, no focal deficits Objective Data Active Medications Acetaminophen (Acetaminophen 325 Mg Tablet) 650 mg PO Q6H PRN PRN Reason: Pain, Mild 1-3,fever,headache Last Admin: 08/24/24 08:06 Dose: 650 mg Documented By: HARDEEP Calcium Carbonate (Calcium Carbonate 750 Mg Tab.Chew) 750 mg PO Q4H PRN PRN Reason: Heartburn Last Admin: 08/24/24 19:44 Dose: 750 mg Documented By: WICHO Diazepam (Diazepam 10 Mg/2 Ml Cartridge) 10 mg IVPUSH Q8H PRN PRN Reason: Nausea and Vomiting Enoxaparin Sodium (Enoxaparin Sodium 40 Mg/0.4 Ml Syringe) 40 mg SUBCUT Q24H [facility] Last Admin: 08/24/24 22:07 Dose: 40 mg Documented By: WICHO Folic Acid (Folic Acid 1 Mg Tablet) 1 mg PO DAILY [facility] Last Admin: 08/25/24 08:48 Dose: 1 mg Documented By: TRAVON Hydroxyzine HCl (Hydroxyzine Hcl 25 Mg Tablet) 25 mg PO TID PRN PRN Reason: Anxiety Potassium Chloride/Dextrose/Sod Cl (Kcl 40 Meq In 5% Dex/0.9% Sod) 40 meq in 1,000 mls @ 100 mls/hr IVCONT .Q10H [facility] Last Admin: 08/25/24 08:49 Dose: 100 mls/hr Documented By: TRAVON Magnesium Hydroxide (Milk Of Magnesia 30 Ml Oral.Susp) 30 ml PO DAILY PRN PRN Reason: Constipation Melatonin (Melatonin 3 Mg Tablet) 6 mg PO BEDTIME PRN PRN Reason: Insomnia Metoclopramide HCl (Metoclopramide Hcl 10 Mg/2 Ml Vial) 10 mg IVPUSH Q4H PRN PRN Reason: Nausea and Vomiting Ondansetron HCl (Ondansetron Hcl 4 Mg/2 Ml Vial) 4 mg IVPUSH Q8H PRN PRN Reason: Nausea and Vomiting Last Admin: 08/24/24 22:07 Dose: 4 mg Documented By: WICHO Potassium Chloride (Potassium Chloride Er 20 Meq Tab.Er.Prt) 40 meq PO BID [facility] Last Admin: 08/25/24 08:52 Dose: Not Given Documented By: TRAVON Non-Admin Reason: Patient Refused Sertraline HCl (Sertraline Hcl 25 Mg Tablet) 25 mg PO DAILY [facility] Last Admin: 08/25/24 08:48 Dose: 25 mg Documented By: TRAVON Sodium Chloride (0.9 % Sodium Chloride Flush 3 Ml Syringe) 3 ml IVFLUSH QSHIFT [facility] Last Admin: 08/25/24 08:52 Dose: Not Given Documented By: TRAVON Non-Admin Reason: IV Running Thiamine HCl (Thiamine Hcl 100 Mg Tablet) 100 mg PO DAILY [facility] Last Admin: 08/25/24 08:49 Dose: 100 mg Documented By: TRAVON Labs 08/24/24 06:42 08/25/24 07:00 Labs: Laboratory Results - last 24 hr 08/25/24 08/25/24 07:00 07:20 Hold Purple Top SEE NOTE Anion Gap 12 Estim Creat Clear Calc 108.5 Estimated GFR > 60 Random Glucose 114 Calcium 8.3 L Microbiology Microbiology Results: Microbiology 08/23/24 Unknown Urine Culture - Final Urine clean catch - Clean Catch Midstream No growth. Assessment and Plan (1) Hypokalemia: Status: Acute Plan 45-year-old female with a past medical history of elevated BMI-recent gastric sleeve surgery, anxiety, depression, GERD, vitamin B12 deficiency, asthma; presented to the hospital today with a chief complaint of syncope. Sinus bradycardia no blocks noted not on rate lowering medications on telemetry cardiology consultation> likely vasovagal, stop losartan Syncope Likely vasovagal from dehydration and poor po intake Bariatric surgery on 08/08/2024 Orthostatic vitals negative EKG nonischemic CTA negative for PE Echocardiogram pending Continue IV fluids with potassium Discussed with bariatric surgeon. Patient is on a Bariatric 3 diet, she must drink at least 30 oz of fluid a day including electrolyte drinks and protein shakes. 2 mL of fluid every minute Nausea/vomiting Benign abdominal examination. Likely related to her recent gastric sleeve procedure. Consult to bariatric surgery team Hypokalemia unable to tolerate po or IV pot potassium added to IV fluids DVT prophylaxis: Lovenox Code status: Full code Quality Stroke Does the patient have a stroke diagnosis?: No VTE Prior VTE?: No VTE Risk Level:: Medical - moderate - high VTE Device Contraindication: Treatment Not Indicated VTE Drug Contraindication: N/A - Med Ordered
[2024-08-25 11:49] VITALS: PULSE 54; RESP 18; TEMP 36.4; O2SAT 100
[2024-08-25 16:00] VITALS: BP 126/75; PULSE 53; RESP 18; TEMP 36.3; O2SAT 99
[2024-08-25 19:55] VITALS: BP 126/64; PULSE 54; RESP 18; TEMP 36.4; O2SAT 96
[2024-08-25] MEDS: 0.9 % Sodium Chloride Flush 3 ML SYRINGE IVFLUSH (20:17)
[2024-08-25 23:38] VITALS: BP 145/64; PULSE 54; RESP 18; TEMP 36; O2SAT 98
[2024-08-26 04:00] VITALS: BP 119/57; PULSE 52; RESP 18; TEMP 36; O2SAT 98
[2024-08-26 07:07] VITALS: BP 125/69; PULSE 73; RESP 19; TEMP 36.2; O2SAT 99
[2024-08-26] MEDS: 0.9 % Sodium Chloride Flush 3 ML SYRINGE IVFLUSH (08:24)
--- NOTE | 2024-08-26 08:25 | PM.PNGS ---
Subjective Subjective Date of Service: 08/26/24 Interval history: Feels better. Was able to have 17oz of water, Propel, apple juice or broth. No vomiting or abdominal pain Physical Exam Vital Signs: Vital Signs: Last Vital Signs Temp 97.2 F 08/26/24 07:07 Pulse 73 08/26/24 07:07 Resp 19 08/26/24 07:07 BP 125/69 08/26/24 07:07 Pulse Ox 99 08/26/24 07:07 O2 Del Method Room Air 08/26/24 07:07 BMI result Body Mass Index 37.3 GI: Inspection: Yes normal to inspection and Yes incision (well healed) Palpation (GI): Soft to palpation Objective Data Active Medications Acetaminophen (Acetaminophen 325 Mg Tablet) 650 mg PO Q6H PRN PRN Reason: Pain, Mild 1-3,fever,headache Last Admin: 08/24/24 08:06 Dose: 650 mg Documented By: HARDEEP Calcium Carbonate (Calcium Carbonate 750 Mg Tab.Chew) 750 mg PO Q4H PRN PRN Reason: Heartburn Last Admin: 08/25/24 20:15 Dose: 750 mg Documented By: BRUCE Diazepam (Diazepam 10 Mg/2 Ml Cartridge) 10 mg IVPUSH Q8H PRN PRN Reason: Nausea and Vomiting Enoxaparin Sodium (Enoxaparin Sodium 40 Mg/0.4 Ml Syringe) 40 mg SUBCUT Q24H [facility] Last Admin: 08/25/24 20:17 Dose: Not Given Documented By: BRUCE Non-Admin Reason: Patient Refused Folic Acid (Folic Acid 1 Mg Tablet) 1 mg PO DAILY [facility] Last Admin: 08/26/24 08:22 Dose: 1 mg Documented By: HARDEEP Hydroxyzine HCl (Hydroxyzine Hcl 25 Mg Tablet) 25 mg PO TID PRN PRN Reason: Anxiety Potassium Chloride/Dextrose/Sod Cl (Kcl 40 Meq In 5% Dex/0.9% Sod) 40 meq in 1,000 mls @ 100 mls/hr IVCONT .Q10H [facility] Last Admin: 08/25/24 21:27 Dose: 100 mls/hr Documented By: BRUCE Magnesium Hydroxide (Milk Of Magnesia 30 Ml Oral.Susp) 30 ml PO DAILY PRN PRN Reason: Constipation Melatonin (Melatonin 3 Mg Tablet) 6 mg PO BEDTIME PRN PRN Reason: Insomnia Metoclopramide HCl (Metoclopramide Hcl 10 Mg/2 Ml Vial) 10 mg IVPUSH Q4H PRN PRN Reason: Nausea and Vomiting Ondansetron HCl (Ondansetron Hcl 4 Mg/2 Ml Vial) 4 mg IVPUSH Q8H PRN PRN Reason: Nausea and Vomiting Last Admin: 08/24/24 22:07 Dose: 4 mg Documented By: WICHO Potassium Chloride (Potassium Chloride Er 20 Meq Tab.Er.Prt) 40 meq PO BID [facility] Last Admin: 08/26/24 08:12 Dose: Not Given Documented By: HARDEEP Non-Admin Reason: Patient Refused Sertraline HCl (Sertraline Hcl 25 Mg Tablet) 25 mg PO DAILY [facility] Last Admin: 08/26/24 08:22 Dose: 25 mg Documented By: HARDEEP Sodium Chloride (0.9 % Sodium Chloride Flush 3 Ml Syringe) 3 ml IVFLUSH QSHIFT [facility] Last Admin: 08/26/24 08:24 Dose: 3 ml Documented By: HARDEEP Thiamine HCl (Thiamine Hcl 100 Mg Tablet) 100 mg PO DAILY [facility] Last Admin: 08/26/24 08:22 Dose: 100 mg Documented By: HARDEEP Labs 08/24/24 06:42 08/25/24 07:00 Microbiology Microbiology Results: Microbiology 08/23/24 Unknown Urine Culture - Final Urine clean catch - Clean Catch Midstream No growth. Procedures Date of Service Date of Service: 08/26/24 Progress Note: A&P Assessment and plan (1) Hypokalemia: Status: Acute Assessment and Plan: Will discharge home The meal plan was discussed with the patient and will include 2 food-based meals of 3 forkfuls each of either scrambled eggs, romansh yogurt or cottage cheese and 2 Fit Crunch protein bars. She knows that she needs to update me daily with how many oz she has per day and the meal plan she was able to do. She is in agrrement with the plan Time Spent With Patient Time: Total time managing care of this patient today ____ minutes. Quality Stroke Does the patient have a stroke diagnosis?: No VTE Prior VTE?: No VTE Risk Level:: Medical - moderate - high VTE Device Contraindication: Treatment Not Indicated VTE Drug Contraindication: N/A - Med Ordered
--- NOTE | 2024-08-26 08:51 | MHC.CM.PN ---
Patient has been medically cleared for dc to home today, self care.
--- NOTE | 2024-08-26 10:31 | P.DS_ITS ---
DS: Providers Provider Date of Service: 08/26/24 Date of admission: 08/23/24 22:15 Date of discharge: 08/26/24 Primary care physician: ALIZE Diamond Consults: 08/24/24 11:33 Consult to Bariatric Surgery Routine Consulting Provider: Jermaine Lucas Reason for consultation: nausea and vomiting 08/24/24 11:48 Consult to Cardiology Routine Consulting Provider: [facility] Reason for consultation: bradycardia DS: Diagnosis Discharge Diagnosis (1) Hypokalemia: Status: Acute DS: Summary Hospital Course Hospital Course: 45-year-old female with a past medical history of elevated BMI-recent gastric sleeve surgery, anxiety, depression, GERD, vitamin B12 deficiency, asthma; presented to the hospital today with a chief complaint of syncope. Patient reports that she was in the shower she felt lightheaded followed by she called her son and then by the time her son came in she passed out briefly; subsequently her son helped her to sit. Denies any chest pain or palpitations. Denies any fevers and chills. Denies any urinary symptoms. Mentioned that she had recent gastric sleeve procedure done; has been having nausea and vomiting and decreased oral intake since the procedure. Denies any abdominal pain. Review of all other systems is negative except mentioned above ER course: Per ER team, patient's EKG was nonischemic; troponin was 18. Abdominal exam was benign. On blood pressure was stable. Notified the patient's surgeon Dr. Lucas-who mentioned no acute intervention, conservative management for her nausea and vomiting. 44-year-old woman treated for syncope, likely vasovagal from dehydration and poor p.o. appetite. Patient is status post bariatric surgery on 08/08/2024. She was likely not drinking enough fluids or following her bariatric diet. She was treated with IV fluids, CTA was negative for pulmonary embolism, EKG was nonischemic, orthostatic vital signs negative. Patient was also noted to have some episodes of sinus bradycardia with no blocks noted on EKG, she was not on any rate lowering medications, she was monitor on telemetry with no sinus arrhythmias. He was seen evaluated by Cardiology who thought this was likely vasovagal, her blood pressures have been stable on her losartan was stopped. Plan is to discharge patient home and and she should follow up with bariatric surgery team. Nausea and vomiting, benign abdominal examination likely related to recent gastric sleeve procedure. Seen and evaluated by Bariatric surgery team while inpatient. Resolved Hypokalemia. Treated with p.o. and IV potassium. Resolved Time Attestation Discharge Coordination Time (in mins): 42 Quality: Safe Use of Opioids Does Pt have an Active Cancer Diagnosis on the Problem List?: No Quality: Stroke Does the patient have a stroke diagnosis?: No Physical Exam Vital Signs: Vital Signs: Last Vital Signs Temp 97.2 F 08/26/24 07:07 Pulse 73 08/26/24 07:07 Resp 19 08/26/24 07:07 BP 125/69 08/26/24 07:07 Pulse Ox 99 08/26/24 07:07 O2 Del Method Room Air 08/26/24 07:07 BMI result Body Mass Index 37.3 Appearing in no acute distress head is normocephalic atraumatic eyes pupils are PERRLA sclera is anicteric mouth throat mucous membranes are intact and moist neck is supple no lymphadenopathy, no JVD noted lung sounds are clear to auscultation heart regular rate rhythm, clear S1, S2 positive bowel sounds, abdomen is soft, nontender neuro patient is alert x3, no focal deficits DS: Data Data Completed and Pending Completed studies during hospitalization [Text1]: Procedures Excision of Stomach, Percutaneous Endoscopic Approach, Vertical (08/08/24) Release Peritoneum, Percutaneous Endoscopic Approach (08/08/24) Discharge Plan Discharge Anticipated Discharge Date/Time: 08/26/24 08:28 Patient Disposition: Home, Self-Care Discharge Diagnosis: Near-syncope Referrals: Tarah Muller PA [Primary Care Provider, Hospitalist] - 1 Week Discharge Medications: Continued sertraline 25 mg tablet 25 mg PO DAILY pantoprazole 40 mg tablet,delayed release (DR/EC) 40 mg PO DAILY@0630 hydroxyzine HCl 25 mg tablet 25 mg PO TID PRN (Reason: Anxiety) ondansetron 4 mg tablet,disintegrating 4 mg PO Q12H PRN (Reason: nausea and vomiting) Patient Comments: postop med Rx Instructions: Only take one every 12 hours as needed if you have nausea acetaminophen 325 mg Tablet 650 mg PO Q6H PRN (Reason: Pain) sucralfate 100 mg/mL suspension 10 ml PO BID Qty: 600 2RF Patient Comments: postop med albuterol sulfate 90 mcg/actuation HFA aerosol inhaler 2 puff inhalation Q4H PRN (Reason: Shortness Of Breath Or Wheezing) Discontinued potassium chloride 40 mEq/15 mL liquid 40 meq PO DAILY Qty: 473 1RF losartan 50 mg tablet 25 mg PO DAILY No Action potassium chloride [K-Tab] 20 mEq tablet extended release 20 meq PO DAILY Qty: 30 0RF Discharge Orders: Discharge Order (Routine); Ordered 08/26/24 Ordered By: Jermaine Lucas Activity on Discharge: As tolerated Stand Alone Forms: Patient Portal Discharge page Print Language: Anguill[place] Care Plan Goals: Follow up with bariatric surgery team Follow bariatric diet Health Concerns: Near-syncope Plan of Treatment: Follow-up with primary care provider as needed Take all medications as prescribed Assessment: See discharge summary
[2024-08-26 12:00] VITALS: BP 132/95; PULSE 51; TEMP 36.2; O2SAT 100
== END 2024-08-26 13:00 | disposition home or self-care (01) | DRG 422 ==
LOC: HO.ED 22:00 → HO.EDOVER 22:19 → HO.IMC 23:50
PROVIDERS: Physician Assistant; Physician Assistant Medical; Admitting Provider Hospitalist; Emergency Provider Internal Medicine; PCP Physician Assistant; Visit Provider Nurse Practitioner Acute Care
DX: E86.0 Dehydration (principal); E87.6 Hypokalemia; R00.1 Bradycardia, unspecified; Z98.84 Bariatric surgery status; Z79.899 Other long term (current) drug therapy
CPT/HCPCS: 36415; 71275; 80048; 80053; 80076; 81001; 84484; 84702; 85025; 85379; 87086; 93005; 99222; 99285; J1650; J2405; J3420; J3480; Q9967

== ENCOUNTER → 2024-08-23 17:30 | Outpatient (BNV) | payer OTHER, SELFPAY | PROVIDERS: Admitting Provider Hospitalist; Emergency Provider Internal Medicine; PCP Physician Assistant; Visit Provider Internal Medicine Cardiovascular Disease | DX: R94.31 Abnormal electrocardiogram [ECG] [EKG] (principal); R55 Syncope and collapse; R00.0 Tachycardia, unspecified | CPT/HCPCS: 93010 ==

== ENCOUNTER 2024-08-23 22:15 | Outpatient (BNV) | payer OTHER, SELFPAY | END 2024-08-24 00:02 | PROVIDERS: Admitting Provider Hospitalist; Emergency Provider Internal Medicine; PCP Physician Assistant; Visit Provider Radiology Diagnostic Radiology | DX: R79.89 Other specified abnormal findings of blood chemistry (principal) | CPT/HCPCS: 71275 ==

== ENCOUNTER → 2024-08-23 22:15 | Outpatient (BNV) | payer OTHER, SELFPAY | PROVIDERS: Admitting Provider Hospitalist; Emergency Provider Internal Medicine; PCP Physician Assistant; Visit Provider Nurse Practitioner Acute Care | DX: E87.6 Hypokalemia (principal) | CPT/HCPCS: 99223; 99232; 99239 ==

== ENCOUNTER → 2024-08-23 22:15 | Outpatient (BNV) | payer OTHER, SELFPAY | PROVIDERS: Admitting Provider Hospitalist; Emergency Provider Internal Medicine; PCP Physician Assistant; Visit Provider Surgery | DX: E87.6 Hypokalemia (principal) | CPT/HCPCS: 99024 ==

== ENCOUNTER → 2024-08-23 22:15 | Outpatient (BNV) | payer OTHER, SELFPAY | PROVIDERS: Admitting Provider Hospitalist; Emergency Provider Internal Medicine; PCP Physician Assistant; Visit Provider Internal Medicine Cardiovascular Disease | DX: R55 Syncope and collapse (principal); Z98.890 Other specified postprocedural states | CPT/HCPCS: 99222 ==

== ENCOUNTER 2024-08-27 09:07 | Outpatient (AMB) | payer OTHER, SELFPAY ==
--- NOTE | 2024-08-27 09:15 | A.OFFPC_ITS ---
Vital Signs 08/27/24 09:18 Height 5 ft 2 in Weight 92.533 kg BMI 37.3 BP 112/82 Pulse 70 Pulse Source Pulse Oximeter Temp 97.2 F Temp Source Temporal Artery Scan Pulse Oximetry (%) 99 Oxygen Delivery Method Room Air Intake Visit Reasons: S/P 08/21/24, dehydration, passed out Pit Slagman Required: No Accompanied by: Self / Same As Patient Allergies adhesive tape Allergy (Intermediate, Verified 08/27/24 09:16) blister-skin tears amoxicillin (AMOXICILLIN) Allergy (Intermediate, Verified 08/27/24 09:16) RASH HPI HPI Comments History of Present Illness Details 44 year old female presents to the [facility] e for hospital discharge follow up. Reviewed H&P, DC summary, bariatric surgery consult, labs, cta chest reviewed. Discharge meds reconciled. She had presented and was admitted for vasovagal syncope due to dehydration and poor po intake. She is s/p sleeve gastrectomy on 08/08. Wasnt following diet d/t poor appetite or drinking enough fluids. Treated with IVF, PO K due to hypokalemia. Monitored on tele without arrhythmia though did have some episodes of bradycardia. Cardiology consulted and felt syncope was vasovagal. EKG nonishemic, no blocks. DDimer was elevated, CTA chest negative for PE. Losartan was stopped in the hospital due to stable BPs. Seen by bariatric surgery for diet and discharge recommendations. Continues following with them. Diet now advanced with 2 bars daily, 2 meals (eggs, cottage cheese) and small amounts of fluids. Next appt 09/04. She is feeling good overall, no ongoing dizziness/syncope. She had been using the treadmill prior to the episode and hopes to resume soon. ROS: Negative except as noted above EXAM: Constitutional - Awake and Alert, No apparent distress Eyes - PERRL Cardiovascular - S1S2, RRR, No edema Respiratory - Normal lung expansion, Normal respiratory effort, No respiratory distress, CTA bilaterally Extremities - no calf tenderness bilaterally, no swelling Skin - Warm/Dry Neurological - Alert & oriented x3 Psychological - Appropriate affect [facility] Medical History COVID-19 Anemia Hiatal hernia Postoperative nausea Depression Asthma Prediabetes Agoraphobia without history of panic disorder MDD (major depressive disorder), recurrent severe, without psychosis Intentional overdose Back pain GERD (gastroesophageal reflux disease) Morbid obesity Hypertension Surgical History S/P laparoscopic sleeve gastrectomy History of esophagogastroduodenoscopy (EGD) Previous back surgery History of appendectomy Hx of eye surgery Family History Mother Fibromyalgia Arthritis Father Heart problem Brother No problems noted. Son Asthma Maternal Grandmother Diabetes Social History Household Members: Family and Children Household Members Other:: mother & minor child Housing: House Are you a primary customer care manager to a significant other at home: Yes (minor child) Do you presently have visiting nurse or other home services: No Alcohol intake: current Alcohol intake frequency: does not drink Patient Tobacco Use Status: Never used Tobacco e-Cigarette/Vaping Use: Never Used Second Hand Smoke Exposure: No service: No Sexual orientation: Straight/Heterosexual Questionnaire Thrive Questionnaire Date Thrive assessed: 08/24/24 WILLIAN-7 AMB Questionnaire WILLIAN-7 Date WILLIAN - 7 assessed: 07/22/24 Source: Developed by Drs. Jesse Tovar, Jerica Colmean, Henrique Grimaldo and colleagues, with an educational marito from [employer]. Physical exam (Primary Care) Vital Signs: Last Vital Signs Temp 97.2 F 08/27/24 09:18 Pulse 70 08/27/24 09:18 BP 112/82 08/27/24 09:18 Pulse Ox 99 08/27/24 09:18 Oxygen Delivery Method Room Air 08/27/24 09:18 BMI result Body Mass Index 37.3 Tobacco/Smoking Status: Tobacco use Status Patient Tobacco Use Status Never used Tobacco 08/27/24 09:21 e-Cigarette/Vaping Use Never Used 08/27/24 09:21 Thrive Assessment: Date of Thrive Assessment Date Thrive assessed 08/24/24 08/27/24 09:21 Coding Level of Care Code Est Pt Level 4 (68989) Diagnoses Vasovagal syncope R55 Syncope type: vasovagal syncope S/P laparoscopic sleeve gastrectomy Z98.84 BMI 39.0-39.9,adult Z68.39 Hypertension I10 Assessment & Plan Assessment & Plan (1) Syncope: Code(s): R55 - Syncope and collapse Category: Medical Qualifiers: Syncope type: vasovagal syncope Qualified Code(s): R55 - Syncope and collapse Plan: Ensure adequate hydration and compliance with bariatric diet. Per cardiology consult, referred to cardiology for further evaluation. Consult reviewed. (2) S/P laparoscopic sleeve gastrectomy: Code(s): Z98.84 - Bariatric surgery status Category: Medical Plan: Follow up with baratric surgery on 09/04. Compliance with bariatric diet. (3) BMI 39.0-39.9,adult: Code(s): Z68.39 - Body mass index [BMI] 39.0-39.9, adult Category: Medical Plan: Commended on weight loss thus far. As above (4) Hypertension: Code(s): I10 - Essential (primary) hypertension Category: Medical Plan: BP remains stable. Continue off of losartan Plan Follow up in the office as scheduled BMP ordered to evaluate lytes. Orders: Orders Basic Metabolic Panel 08/27/24 E87.6 - Hypokalemia Referrals Cardiology Referral R55 - Syncope and collapse
[2024-08-27 09:18] VITALS: BP 112/82; PULSE 70; TEMP 36.2; O2SAT 99; BMI 37.3
--- OUTSIDE RECORDS SUMMARY | 2024-08-27 09:31 | XMS_ITS | Clinical Summary ---
Author Organization [facility] Address [address] [place] [phone] Phone Care Team Providers Care Senior Licensing Manager Name Role Phone Unavailable Primary Care Provider [...]
== END 2024-08-27 10:15 | disposition home or self-care (01) ==
LOC: HO.HMCHD 09:10
PROVIDERS: PCP Physician Assistant; Visit Provider Physician Assistant
DX: R55 Syncope and collapse (principal); Z98.84 Bariatric surgery status; Z68.39 Body mass index [BMI] 39.0-39.9, adult; I10 Essential (primary) hypertension

== ENCOUNTER → 2024-08-27 09:07 | Outpatient (BNVA) | payer OTHER, SELFPAY | PROVIDERS: PCP Physician Assistant; Visit Provider Physician Assistant | DX: Z09 Encounter for follow-up examination after completed treatment for conditions other than malignant neoplasm (principal); R55 Syncope and collapse; E86.0 Dehydration; I10 Essential (primary) hypertension; Z98.84 Bariatric surgery status | CPT/HCPCS: 99212 ==

== ENCOUNTER 2024-09-04 14:39 | Outpatient (AMB) | payer OTHER, SELFPAY ==
--- NOTE | 2024-09-04 14:41 | A.OFFVIS_ITS ---
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44?yo female who is s/p LSG without hiatal hernia repair on?08/08/2024. Presents for 1 month post op visit. Weight today is 195.2 pounds, with a BMI of 35.7. There has been a 55.6 pound weight loss,(initial weight 250.8 pounds) since starting the program on 05/20/2024 reflecting a 22.1 % total body weight loss and a weight loss of 26.1 pounds since surgery (operative weight 221.3 pounds) reflecting a 11.7 % TBWL since surgery. No complaints of nausea, emesis, abdominal pain or reflux. Reports infrequent but normal bowel movements every 7 days. She states that she had difficulty with regular bowel movements prior to surgery, currently denies any abdominal pain, nausea, vomiting. Patient was seen in the emergency room on 08/21, ultimately admitted to the hospital on 08/23 due to syncope and dehydration. This resolved and she was discharged home. She was seen in follow-up by her primary care physician on 08/27/2024 and per record was doing well and tolerating meal plan and fluids.. Present meal plan includes: 2 bars and 2 meals (3 forks of protein-eggs, cottage cheese or [place] islander yogurt) currently doing 2 bars and 1 meal although is supposed to be having 2 bars and 2 meals Drinking 35 oz water and vitamin water ? Exercise routine includes: walking treadmill x 1 PFSH Medical History COVID-19 Anemia Hiatal hernia Postoperative nausea Depression Asthma Prediabetes Agoraphobia without history of panic disorder MDD (major depressive disorder), recurrent severe, without psychosis Intentional overdose Back pain GERD (gastroesophageal reflux disease) Morbid obesity Hypertension Surgical History S/P laparoscopic sleeve gastrectomy History of esophagogastroduodenoscopy (EGD) Previous back surgery History of appendectomy Hx of eye surgery Family History Mother Fibromyalgia Arthritis Father Heart problem Brother No problems noted. Son Asthma Maternal Grandmother Diabetes Social History Household Members: Family and Children Household Members Other:: mother & minor child Housing: House Are you a primary animal care assistant to a significant other at home: Yes (minor child) Do you presently have visiting nurse or other home services: No Alcohol intake: current Alcohol intake frequency: does not drink Patient Tobacco Use Status: Never used Tobacco e-Cigarette/Vaping Use: Never Used Second Hand Smoke Exposure: No service: No Sexual orientation: Straight/Heterosexual Physical Exam Const General: healthy appearing and no acute distress Resp Effort & Inspection: normal respiratory effort Auscultation: clear to auscultation bilaterally Cardio Rate: regular rate Rhythm: regular rhythm GI Auscultation: normal bowel sounds Extrem General: Yes normal to inspection Assessment & Plan Assessment & Plan (1) S/P laparoscopic sleeve gastrectomy: Code(s): Z98.84 - Bariatric surgery status Category: Surgical Plan: There was some confusion about what she is supposed to be doing for her meal plan. She is supposed to be doing 2 bars and 2 small meals. She is to have an extra bar if she is unable to tolerate the 2nd meal. This has been clarified and she will improve. Additionally, she is having not enough fluids. Discussed the importance of getting at least 40 oz of fluid per day. She states that she will improve. Encouraged to resume exercise as she is able. Continue to communicate with Dr. Lucas. She is no longer having any abdominal discomfort or nausea or lightheadedness. (2) Constipation: Code(s): K59.00 - Constipation, unspecified Category: Medical Plan: Add Dulcolax suppository x 1 today with repeat tomorrow if no bowel movement Colace 100 mg daily Milk of magnesia 15 mL p.o. daily until bowel movement Medications: New bisacodyl (Dulcolax (bisacodyl)) 10 mg GA DAILY PRN 12 ea 0RF constipation
[2024-09-04 14:45] VITALS: BP 162/80; PULSE 57; TEMP 36.5; O2SAT 99; BMI 35.7
--- OUTSIDE RECORDS SUMMARY | 2024-09-04 15:17 | XMS_ITS | Clinical Summary ---
Author Organization [facility] Address [address] [place] [phone] Phone Care Team Providers Care Maple Sugar Maker Name Role Phone Unavailable Primary Care Provider [...]
== END 2024-09-04 15:04 | disposition home or self-care (01) ==
LOC: HO.HBS 14:40
PROVIDERS: PCP Internal Medicine; Visit Provider Physician Assistant Surgical
DX: K59.00 Constipation, unspecified (principal); Z98.84 Bariatric surgery status
CPT/HCPCS: 99024

== ENCOUNTER 2024-09-04 14:39 | Outpatient (REF) | payer OTHER, SELFPAY ==
[2024-09-04 15:58] LABS: Anion Gap 14 (12-20); Blood Urea Nitrogen 10 mg/dL (9-16); Calcium 9.6 mg/dL (8.4-10.2); Carbon Dioxide 25 mmol/L (22-29); Chloride 105 mmol/L (96-108); Estimated Glomerular Filt Rate > 60; Potassium 4.3 mmol/L (3.3-5.1); Sodium 140 mmol/L (135-145)
== END 2024-09-04 14:40 | disposition home or self-care (01) ==
LOC: HO.LAB 14:39
PROVIDERS: Absent Provider Physician Assistant; PCP Physician Assistant; Visit Provider Physician Assistant Surgical
DX: E87.6 Hypokalemia (principal); K59.00 Constipation, unspecified; Z98.84 Bariatric surgery status; Z79.899 Other long term (current) drug therapy; Z68.35 Body mass index [BMI] 35.0-35.9, adult
CPT/HCPCS: 36415; 80048; 99212

== ENCOUNTER 2024-09-22 12:57 | Emergency (ER) | payer OTHER, SELFPAY ==
[2024-09-22] VITALS (7 sets, daily range): BP systolic 128–157; BP diastolic 65–93; PULSE 53–74; RESP 16–17; TEMP 36.3–36.4; O2SAT 98–100; BMI 33.1
--- NOTE | 2024-09-22 13:02 | ED.DIZZY ---
HPI - Dizziness General Chief Complaint: Weakness Stated Complaint: Dizzy, weak, Dehydrated Time Seen by Provider: 09/22/24 14:22 Source: patient Mode of arrival: ambulatory Limitations: no limitations History of Present Illness ED Provider: DR. Yap HPI Narrative: 44-year-old female with PMH of morbid obesity and elevated BMI, recent gastric sleeve bypass surgery (on 08/08/2024) lost about 70 lb since the surgery., anxiety, depression, GERD, vitamin B12 deficiency, asthma. Walked in today with her mother for evaluation of possible dehydration and decreased p.o. intake for the past week, patient feel nauseous with no vomiting, had a normal bowel movement this morning passing flatus, no blood in the stool, no fever, no chills, patient is trying to keep up with the postoperative dietary instructions, patient on her menstruation now declined chance of being , no sick contacts, no recent travel, no recent use of antibiotic. Patient presented with generalized weakness, feel lightheadedness, dry mouth. Related Data Home Medications ?Medication ?Instructions ?Recorded ?Confirmed albuterol sulfate 90 mcg/actuation 2 puff inhalation Q4H PRN 05/14/24 09/04/24 aerosol inhaler Shortness Of Breath Or Wheezing sertraline 25 mg tablet 25 mg PO DAILY 07/26/24 09/04/24 acetaminophen 325 mg tablet 650 mg PO Q6H PRN Pain 08/24/24 09/04/24 hydroxyzine HCl 25 mg tablet 25 mg PO TID PRN Anxiety 08/24/24 09/04/24 ondansetron 4 mg disintegrating 4 mg PO Q12H PRN nausea and 08/24/24 09/04/24 tablet vomiting pantoprazole 40 mg tablet,delayed 40 mg PO DAILY@0630 08/24/24 09/04/24 release Previous Rx's ?Medication ?Instructions ?Recorded sucralfate 100 mg/mL oral 10 ml PO BID #600 mL 07/24/24 suspension potassium chloride 20 mEq 20 meq PO DAILY #30 tabs 08/26/24 tablet,extended release (K-Tab) bisacodyl 10 mg rectal suppository 10 mg DE DAILY PRN constipation 09/04/24 (Dulcolax (bisacodyl)) #12 ea Allergies Allergy/AdvReac Type Severity Reaction Status Date / Time adhesive tape Allergy Intermediate blister-skin Verified 09/22/24 13:04 tears amoxicillin (AMOXICILLIN) Allergy Intermediate RASH Verified 09/22/24 13:04 Review of Systems Review of Systems: All other systems are reviewed and are negative Constitutional: Reports as per HPI and Reports no additional constitutional complaints Eyes: Reports as per HPI and Reports no additional eye complaints Reports system reviewed and no additional complaints, except as documented Cardiovascular: Reports as per HPI and Reports no additional cardiovascular complaints Respiratory: Reports as per HPI and Reports no additional respiratory complaints Gastrointestinal: Reports as per HPI and Reports no additional gastrointestinal complaints Genitourinary: Reports no additional female genitourinary complaints Musculoskeletal: Reports no additional musculoskeletal complaints Skin/Breast: Reports system reviewed and no additional complaints, except as docu Psychiatric: Reports no additional psychiatric complaints Endocrine: Reports no additional endocrine complaints Hematologic/Lymphatic: Reports no additional hematologic/lymphatic complaints Allergic/Immunologic: Reports no additional allergic/immunologic complaints Reports system reviewed and no additional complaints, except as documented and Reports Abnormal speech present [facility] Past Medical History Medical History COVID-19 Anemia Hiatal hernia Postoperative nausea Depression Asthma Prediabetes Agoraphobia without history of panic disorder MDD (major depressive disorder), recurrent severe, without psychosis Intentional overdose Back pain GERD (gastroesophageal reflux disease) Morbid obesity Hypertension Surgical History S/P laparoscopic sleeve gastrectomy History of esophagogastroduodenoscopy (EGD) Previous back surgery History of appendectomy Hx of eye surgery Family History Family History Mother Fibromyalgia Arthritis Father Heart problem Brother No problems noted. 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 (minor child) Do you presently have visiting nurse or other home services: No Alcohol intake: current Alcohol intake frequency: does not drink Patient Tobacco Use Status: Never used Tobacco Smoked in Last 30 Days: No e-Cigarette/Vaping Use: Never Used Second Hand Smoke Exposure: No Use of substances other than those prescribed or required for medical reasons: No Advance Directives: Yes Advance Directives Information Provided: No Advance Directives on File: No Do you have a plan to hurt others: No Plan Patient : No service: No Sexual orientation: Straight/Heterosexual Physical Exam Vital Signs: Vital Signs: Last Vital Signs Temp 97.6 F 09/22/24 16:03 Pulse 53 09/22/24 16:03 Resp 16 09/22/24 16:03 BP 128/65 09/22/24 16:03 Pulse Ox 100 09/22/24 16:03 O2 Del Method Room Air 09/22/24 16:03 BMI result Body Mass Index 33.1 Vital signs have been reviewed and appear to be correct. Blood pressure elevated. Heart rate normal. Respiratory rate normal. Temperature normal. Oxygen saturation normal. Appearance: Alert. Oriented X3. No acute distress. Head: Normal external exam. Normocephalic. Atraumatic. No Montes signs noted. No raccoon eyes noted Eyes: PERRLA. EOMI. Conjunctiva and sclera normal. Eyelids normal. ENT: TM's Normal. Pharynx normal. Uvula midline. Moist mucous membranes. No trismus noted. No drooling noted. No muffled voice noted. Neck: Normal inspection. Neck supple. FROM. No adenopathy. Thyroid Normal. No meningeal signs. No neck mass noted. CVS: Normal heart rate and rhythm. Heart sound normal. No murmurs noted. Pulses normal throughout. Respiratory: No respiratory distress. Painless inspiration. Breath sounds normal. No wheezes/rales/rhonchi noted. Chest nontender. No accessory muscle usage noted or decreased air movement noted. Abdomen: Soft and nontender. Bowel sounds normal in all 4 quadrants. No distention noted. No organomegaly noted. No visible injury noted. Back: No CVA tenderness. Full range of motion noted. Skin: Skin warm and dry. Normal skin color. Normal skin turgor. No rashes/lesions/lacerations noted. Extremities: No lower extremity edema. Extremities exhibit normal range of motion. Extremities nontender. Neuro: Oriented X 3. Cranial nerve exam: II-XII are grossly intact No motor deficit. No sensory deficit. Reflexes normal. NIH Stroke Scale Time: 16:23 Level of Consciousness: Alert Level of Consciousness Questions: Answers both questions correctly Level of Consciousness Commands: Performs both tasks correctly Best Gaze: Normal Visual: No visual loss Facial Palsy: Normal Motor Arm (Right): No drift Motor Arm (Left): No drift Motor Leg (Right): No drift Motor Leg (Left): No drift Limb Ataxia: Absent Sensory: Normal Best Language: No aphasia Dysarthia: Normal Extinction and Inattention: No abnormality Score: 0 Course Course Course Narrative: This is an RME performed by Nenita Barraza CNP: Additional HPI, ROS, PE not included below will be deferred to primary provider. Patient is a 44 year old female with past medical history of recent gastric sleeve surgery 08/08/2024, anxiety, depression, GERD, vitamin B12 deficiency, asthma who presents emergency department for evaluation of generalized weakness, dizziness, and feeling dehydrated. Hospitalization last month for the same symptoms improved some but over the past week feeling worse again. Admitted to [facility] [place] 08/23/24-08/26/24 Plan: Serum labs, UA hCG, urinalysis Reevaluation(s) Reevaluation #1: S/p sleeve gastrectomy on 08/08/2024 presented with decreased p.o. intake and dehydration. Physical exam reveals abdominal tenderness, no rebound tenderness, no guarding. Able to take sips of p.o. intake, patient was given 2 L of normal saline and feels much better and much stronger. No further intervention at this point follow postoperative dietary instruction and follow-up with Dr. Lucas as outpatient. Time: 19:55 Medications Administered Discontinued Medications Generic Name Dose Route Start Last Admin Trade Name Freq PRN Reason Stop Dose Admin Sodium Chloride 1,000 mls @ 999 mls/hr 09/22/24 16:09 09/22/24 17:48 Ns IV 09/22/24 17:09 Infused .Q1H1M ONE Infusion Sodium Chloride 1,000 mls @ 999 mls/hr 09/22/24 18:15 09/22/24 19:12 Ns IV 09/22/24 19:15 Infused .Q1H1M LORRAINE Infusion Ondansetron HCl 4 mg 09/22/24 16:16 09/22/24 16:46 Ondansetron Hcl 4 Mg/2 Ml Vial IVPUSH 09/22/24 16:17 4 mg ONCE ONE Administration Pantoprazole Sodium 40 mg 09/22/24 16:16 09/22/24 16:46 Pantoprazole Sodium 40 Mg/10 Ml Vial IVPUSH 09/22/24 16:17 40 mg ONCE ONE Administration Medical Decision Making Differential Diagnosis Differential Diagnoses: The differential diagnosis associated with the presentation includes (Dehydration, persistent vomiting, electrolyte derangement, severe anemia, postoperative complication.) Admission/Observation Consideration of admission/observation: Escalation of care including admission/observation considered Lab Data MDM Lab Attestation statement: I reviewed the patient's lab results. 09/22/24 13:18 09/22/24 13:18 Labs: Lab Results 09/22/24 09/22/24 09/22/24 Range/Units 13:18 16:44 16:52 WBC 4.9 (4.8-10.8) X10*3/uL RBC 4.50 (4.20-5.50) X10*6/uL Hgb 11.2 L (12.0-16.0) g/dl Hct 34.2 L (37.0-47.0) % MCV 76.0 L (80.0-98.0) fL MCH 24.9 L (27.0-33.0) pg MCHC 32.7 (31.0-35.0) g/dl RDW 20.0 H (11.0-16.0) % Plt Count 275 (160-400) X10*3/uL MPV 9.8 (9.4-12.3) fL Immature Gran % (Auto) 0.2 (0.0-0.4) % Neut % (Auto) 49.5 (45-73) % Lymph % (Auto) 37.4 (20-40) % [place] % (Auto) 10.0 (2-11) % Eos % (Auto) 2.5 (0-4) % Baso % (Auto) 0.4 (0-2) % Lymph # (Auto) 1.8 (1.2-4.9) X10*3/uL [place] # (Auto) 0.5 (0.1-1.2) X10*3/uL Eos # (Auto) 0.1 (0.0-0.4) X10*3/uL Baso # (Auto) 0.0 (0.0-0.2) X10*3/uL Abs Immat Gran (auto) 0.01 (0.00-0.03) X10*3/uL Absolute Neuts (auto) 2.4 (2.0-8.3) x10*3/uL Absolute Nucleated RBC 0.000 (0.0-0.012) X10*3/uL Nucleated RBC % (auto) 0.0 (0.0-0.2) /100WBC Sodium 143 (135-145) mmol/L Potassium 3.3 D (3.3-5.1) mmol/L Chloride 107 (96-108) mmol/L Carbon Dioxide 23 (22-29) mmol/L Anion Gap 16 (12-20) BUN 11 (9-16) mg/dL Creatinine 0.73 (0.5-1.4) mg/dL Estim Creat Clear Calc 97.7 Estimated GFR > 60 Random Glucose 96 (60-115) mg/dL Calcium 9.4 (8.4-10.2) mg/dL Magnesium 1.8 (1.6-2.6) mg/dL Total Bilirubin 0.5 (0.0-1.0) mg/dL AST 30 (5-31) U/L ALT 26 (0-31) U/L Alkaline Phosphatase 40 (39-117) U/L Troponin I High Sens 16.0 (<3.5-17.0) ng/L Total Protein 7.5 (6.5-8.0) g/dL Albumin 4.0 (3.5-5.0) g/dL Lipase 36 (8-78) U/L Urine Color Dark Yellow Urine Appearance Clear Urine pH 5.5 (5.0-9.0) Ur Specific [place] >= 1.030 H (1.005-1.025) Urine Protein Trace (Neg-Trace) mg/dL Urine Glucose (UA) Negative (Negative) mg/dL Urine Ketones 15 (Negative) mg/dL Urine Blood Moderate (2+) H (Negative) Urine Nitrite Negative (Negative) Ur Leukocyte Esterase Negative (Negative) Urine RBC 0-2 (0-2) /HPF Urine WBC 0-5 (0-5) /HPF Ur Squamous Epith Cells 3-5 (0-2) /HPF Urine Bacteria None Seen (None Seen) Hyaline Casts 6-10 (0-2) /LPF Granular Casts Present Urine Test NEGATIVE (NEGATIVE) Influenza Type A (PCR) NEGATIVE (Negative) Influenza Type B (PCR) NEGATIVE (Negative) RSV RNA Qual (PCR) NEGATIVE (Negative) SARS-CoV-2 RNA (RT-PCR) NEGATIVE (Negative) Discharge Plan Discharge Clinical Impression: Dehydration Patient Disposition: Home, Self-Care Instructions: Dehydration (ED) Prescriptions: No Action potassium chloride [K-Tab] 20 mEq tablet extended release 20 meq PO DAILY Qty: 30 0RF sertraline 25 mg tablet 25 mg PO DAILY pantoprazole 40 mg tablet,delayed release (DR/EC) 40 mg PO DAILY@0630 hydroxyzine HCl 25 mg tablet 25 mg PO TID PRN (Reason: Anxiety) ondansetron 4 mg tablet,disintegrating 4 mg PO Q12H PRN (Reason: nausea and vomiting) Patient Comments: postop med Rx Instructions: Only take one every 12 hours as needed if you have nausea acetaminophen 325 mg Tablet 650 mg PO Q6H PRN (Reason: Pain) sucralfate 100 mg/mL suspension 10 ml PO BID Qty: 600 2RF Patient Comments: postop med bisacodyl [Dulcolax (bisacodyl)] 10 mg suppository 10 mg DE DAILY PRN (Reason: constipation) Qty: 12 0RF albuterol sulfate 90 mcg/actuation HFA aerosol inhaler 2 puff inhalation Q4H PRN (Reason: Shortness Of Breath Or Wheezing) Referrals: Jermaine Lucas MD [Physician, Bariatric Surgery] Tarah Muller PA [Primary Care Provider, Hospitalist] Print Language: Burundian
--- NOTE | 2024-09-22 13:05 | ECG_ITS ---
Test Reason : DIZZINESS Blood Pressure : */* mmHG Vent. Rate : 71 BPM Atrial Rate : 71 BPM P-R Int : 158 ms QRS Dur : 82 ms QT Int : 390 ms P-R-T Axes : 27 14 12 degrees QTcB Int : 423 ms Normal sinus rhythm Cannot rule out Anterior infarct , age undetermined Abnormal ECG When compared with ECG of 23-Aug-2024 21:09, No significant changes seen Referred By: Estrella Barraza Electronically Signed By: BERNARDO ESPINOZA
[2024-09-22 13:22] LABS: MANUAL DIFF FLAG NO
[2024-09-22 13:24] LABS: Hematocrit 34.2 % (37.0-47.0); Hemoglobin 11.2 g/dl (12.0-16.0); Imm Gran Abs Auto 0.01 X10*3/uL (0.00-0.03); Imm Gran Pct Auto 0.2 % (0.0-0.4); Lymphocytes Absolute Auto 1.8 X10*3/uL (1.2-4.9); Mean Corpuscular HGB Conc 32.7 g/dl (31.0-35.0); Mean Corpuscular Hemoglobin 24.9 pg (27.0-33.0); Mean Corpuscular Volume 76.0 fL (80.0-98.0); NRBC Abs Auto 0.000 X10*3/uL (0.0-0.012); NRBC Pct Auto 0.0 /100WBC (0.0-0.2); Platelet Count 275 X10*3/uL (160-400); Red Blood Count 4.50 X10*6/uL (4.20-5.50); White Blood Count 4.9 X10*3/uL (4.8-10.8)
[2024-09-22 13:39] LABS: Alanine Aminotransferase 26 U/L (0-31); Albumin Level 4.0 g/dL (3.5-5.0); Alkaline Phosphatase 40 U/L (39-117); Anion Gap 16 (12-20); Aspartate Amino Transferase 30 U/L (5-31); Blood Urea Nitrogen 11 mg/dL (9-16); Calcium 9.4 mg/dL (8.4-10.2); Carbon Dioxide 23 mmol/L (22-29); Chloride 107 mmol/L (96-108); Creatinine Clr Calc Pharmacy 97.7; Estimated Glomerular Filt Rate > 60; Lipase 36 U/L (8-78); Magnesium 1.8 mg/dL (1.6-2.6); Potassium 3.3 mmol/L (3.3-5.1); Sodium 143 mmol/L (135-145); Total Protein 7.5 g/dL (6.5-8.0)
[2024-09-22 14:02] LABS: Resp Syncy Virus RNA Qual PCR NEGATIVE (Negative); SARS COV2 PCR INHOUSE NEGATIVE (Negative)
--- NOTE | 2024-09-22 16:06 | PC.NURSE ---
PAtient presents to ED c/o generalized weakness, nausea, and dizziness. Denies pain and nausea. Symptoms started 6 days ago and have not subsided. Patient had gastric sleeve surgery in July. Blood collected sent. Notified provider of patient nausea via tiger text. Awaiting new orders
[2024-09-22 17:00] LABS: Appearance Urine Clear; Glucose Urine UA Negative (Negative); PH 5.5 (5.0-9.0); Specific Gravity - Urine >= 1.030 (1.005-1.025); UMIC TRIGGER UACC YES; UPreg QC Valid YES
[2024-09-22 17:15] LABS: Troponin-I High Sensitivity 16.0 ng/L (<3.5-17.0)
== END 2024-09-22 20:15 | disposition home or self-care (01) ==
PROVIDERS: Nurse Practitioner Family; Emergency Provider Emergency Medicine; PCP Physician Assistant
DX: E86.0 Dehydration (principal); R42 Dizziness and giddiness; Z98.84 Bariatric surgery status; F41.9 Anxiety disorder, unspecified; F32.A Depression, unspecified; K21.9 Gastro-esophageal reflux disease without esophagitis; J45.909 Unspecified asthma, uncomplicated
CPT/HCPCS: 36415; 80053; 81001; 81003; 81025; 83690; 83735; 84484; 85025; 87637; 93005; 96361; 96374; 96375; 99285; J2405; J2470

== ENCOUNTER → 2024-09-22 13:05 | Outpatient (BNV) | payer OTHER, SELFPAY | PROVIDERS: Emergency Provider Emergency Medicine; PCP Physician Assistant; Visit Provider Internal Medicine | DX: R94.31 Abnormal electrocardiogram [ECG] [EKG] (principal); R42 Dizziness and giddiness | CPT/HCPCS: 93010 ==

== ENCOUNTER 2024-09-25 11:11 | Outpatient (AMB) | payer OTHER, SELFPAY ==
--- NOTE | 2024-09-25 08:51 | MHC.OFFVISWM ---
VS Expanded 09/25/24 08:52 Height 5 ft 2 in Weight 184 lb 8 oz BMI 33.7 Body Fat % 43.1 Body Fat Mass 79.6 Fat Free Mass 10.2 Visceral Fat Rating 16 Body Water % 39 Body Water Mass 72 Muscle Mass/Score 98.8 Basal Metabolic Rate/Score 1,400 Intake Visit Reasons: (OV) PO LSG 08/08/24 Allergies adhesive tape Allergy (Intermediate, Verified 09/22/24 13:04) blister-skin tears amoxicillin (AMOXICILLIN) Allergy (Intermediate, Verified 09/22/24 13:04) RASH HPI Comments Details: This?a?44?yo female who is s/p LSG without hiatal hernia repair on?08/08/2024. Presents for 2 month post op visit. Weight today is 184.8 pounds, with a BMI of 33.7. There has been a 66 pound weight loss,(initial weight 250.8 pounds) since starting the program on 05/20/2024 reflecting a 32 % total body weight loss and a weight loss of 36.5 pounds since surgery (operative weight 221.3 pounds) reflecting a 16.4 % TBWL since surgery. No complaints of nausea, emesis, abdominal pain or reflux. Patient was seen in the emergency room on 08/21, ultimately admitted to the hospital on 08/23 due to syncope and dehydration. This resolved and she was discharged home. She was seen in follow-up by her primary care physician on 08/27/2024 and per record was doing well and tolerating meal plan and fluids. Patient had done well until 09/22/2024 when she felt weak, presenting to the emergency department, given 2 L of fluids and discharged home. She felt much better. She states she has been having an intolerance to solids and is scheduled for upper endopscopy on monday. Of note she was taking Zepbound prior to surgery. Feels as though anything that she takes in does not sit well. Was taking both MVI and KCl in the morning. She is taking gatorade and ordered protein 2.0 Taking celebrate protein bars 1 piece of one bar and she also has celebrate protein water Present meal plan includes: 2 bars and 2 meals (3 forks of protein-eggs, cottage cheese or bengali yogurt) currently doing 2 bars and 1 meal although is supposed to be having 2 bars and 2 meals ? Exercise routine includes: walking treadmill x 1 PFSH Medical History COVID-19 Anemia Hiatal hernia Postoperative nausea Depression Asthma Prediabetes Agoraphobia without history of panic disorder MDD (major depressive disorder), recurrent severe, without psychosis Intentional overdose Back pain GERD (gastroesophageal reflux disease) Morbid obesity Hypertension Surgical History S/P laparoscopic sleeve gastrectomy History of esophagogastroduodenoscopy (EGD) Previous back surgery History of appendectomy Hx of eye surgery Family History Mother Fibromyalgia Arthritis Father Heart problem Brother No problems noted. 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: Yes (minor child) Do you presently have visiting nurse or other home services: No Alcohol intake: current Alcohol intake frequency: does not drink Patient Tobacco Use Status: Never used Tobacco e-Cigarette/Vaping Use: Never Used Second Hand Smoke Exposure: No service: No Sexual orientation: Straight/Heterosexual Physical Exam Vital Signs: BMI result Body Mass Index 33.7 Telehealth Telehealth Telehealth Platform: Telephone Location of provider rendering services: practice address Location of patient: address on file Patient Identification confirmed using: Name, : Yes Telehealth method: voice only Patient verbally consented to treatment: Yes Patient verbally consented to billing insurance company: Yes Patient informed of any privacy concerns related to visit: Yes Minutes spent on Phone/Video with Pt.: 20 Assessment & Plan Assessment & Plan (1) S/P laparoscopic sleeve gastrectomy: Code(s): Z98.84 - Bariatric surgery status Category: Surgical Plan: Patient has developed intolerance to food and fluids not sitting well. Question if multivitamin in the morning is causing nausea persisting throughout the day. Advised to stop doing this. Additionally, after 2 days if this is improved then discontinue multivitamin in the morning and consider taking it at night. Additionally, if there is not a significant change then recommended discontinuing pantoprazole to see if this is part of the etiology. She may have mild persistent gastroparesis from previous GLP 1 medication. She may have worsening hiatal hernia. She is scheduled for upper endoscopy on Monday. Encouraged to take celebrate protein water and to continue to communicate with Dr. Lucas which she has been doing. No complaints of lightheadedness as of today, discussed the importance of maintaining adequate hydration. Discussed going back to using the syringe as it may be that she is taking too much at once. We will have her return to the office in 1 week
[2024-09-25 08:52] VITALS: BMI 33.7
--- OUTSIDE RECORDS SUMMARY | 2024-09-25 11:59 | XMS_ITS | Clinical Summary ---
Author Organization [facility] Address [address] [place] [phone] Phone Care Team Providers Care Credit Control Assistant Name Role Phone Unavailable Primary Care [...]
== END 2024-09-25 11:23 | disposition home or self-care (01) ==
LOC: HO.HBS 11:11
PROVIDERS: PCP Physician Assistant; Visit Provider Physician Assistant Surgical
DX: Z98.84 Bariatric surgery status (principal)
CPT/HCPCS: 99024

== ENCOUNTER → 2024-09-25 11:11 | Outpatient (BNVA) | payer OTHER, SELFPAY | PROVIDERS: PCP Physician Assistant; Visit Provider Physician Assistant Surgical | DX: K91.2 Postsurgical malabsorption, not elsewhere classified (principal); E66.01 Morbid (severe) obesity due to excess calories; Z68.33 Body mass index [BMI] 33.0-33.9, adult; Z90.3 Acquired absence of stomach [part of] | CPT/HCPCS: 99212 ==

== ENCOUNTER 2024-09-30 12:00 | Day surgery (SDC) | payer OTHER, SELFPAY ==
--- NOTE | 2024-09-27 09:23 | P.CONAN_ITS ---
Documented by User: Gregoria Concepcion NP 09/27/24 09:24 HPI - Anesthesia Eval Consult details Narrative: 44yo F for Upper Endoscopy s/p gastric sleeve 07/2024 with GA-ETT 7 PMFSH Active Problems Active Problems: All Active Problems Constipation (Acute) Syncope (Acute) Dehydration (Acute) Hypokalemia (Acute) S/P laparoscopic sleeve gastrectomy (Acute) Asthma (Acute) Anxiety (Acute) Intra-abdominal adhesions (Acute) Congenital intra-abdominal adhesions (Acute) BMI 39.0-39.9,adult (Acute) Obesity (Acute) Vitamin B1 deficiency (Acute) Vitamin A deficiency (Acute) Vitamin B12 deficiency (Acute) Vitamin D deficiency (Acute) Anemia (Acute) Prediabetes (Acute) Agoraphobia without history of panic disorder (Acute) MDD (major depressive disorder), recurrent severe, without psychosis (Acute) Back pain (Acute) GERD (gastroesophageal reflux disease) (Acute) Hypertension (Acute) Past Medical History Medical History COVID-19 Anemia Hiatal hernia Postoperative nausea Depression Asthma Prediabetes Agoraphobia without history of panic disorder MDD (major depressive disorder), recurrent severe, without psychosis Intentional overdose Back pain GERD (gastroesophageal reflux disease) Morbid obesity Hypertension Family History Family History Mother Fibromyalgia Arthritis Father Heart problem Brother No problems noted. Son Asthma Maternal Grandmother Diabetes Family history of problems with anesthesia: No Surgical History Surgical History S/P laparoscopic sleeve gastrectomy History of esophagogastroduodenoscopy (EGD) Previous back surgery History of appendectomy Hx of eye surgery History of Problems with Anesthesia: Yes Social History Social History Household Members: Family and Children Household Members Other:: mother & minor child Housing: House Are you a primary career guidance technician to a significant other at home: No Do you presently have visiting nurse or other home services: No Alcohol intake: current Alcohol intake frequency: does not drink Patient Tobacco Use Status: Never used Tobacco e-Cigarette/Vaping Use: Never Used Second Hand Smoke Exposure: No Use of substances other than those prescribed or required for medical reasons: No Have you been hit, kicked, punched, or otherwise hurt by someone within the past year? If so, by whom?: No Are you DNR?: No Advance Directives: No Advance Directives Information Provided: Yes Patient : No FDLMP: 09/16/2024 : No service: No Sexual orientation: Straight/Heterosexual Meds Allergies Allergy/AdvReac Type Severity Reaction Status Date / Time adhesive tape Allergy Intermediate blister-skin Verified 09/22/24 13:04 tears amoxicillin (AMOXICILLIN) Allergy Intermediate RASH Verified 09/22/24 13:04 Home Medications ?Medication ?Instructions ?Recorded ?Confirmed ?Last Taken ?Type albuterol sulfate 90 mcg/actuation 2 puff inhalation Q 4H PRN 05/14/24 09/04/24 02/08/24 History aerosol inhaler Shortness Of Breath Or [place]ez ing sertraline 25 mg tablet 25 mg PO DAILY 07/26/24 0708/1408/22/24 History acetaminophen 325 mg tablet 650 mg PO Q6H PRN Pain 07/1409/04/24 Unknown History hydroxyzine HCl 25 mg tablet 25 mg PO TID PRN Anxiety 08/24/24 09/04/24 Unknown History ondansetron 4 mg disintegrating 4 mg PO Q12H PRN nause a and 08/24/24 09/04/24 08/22/24 History tablet vomiting pantoprazole 40 mg tablet,delayed 40 mg PO DAILY@0630 08/24/24 09/04/24 08/22/24 History release Exam Pertinent Lab Results Pertinent Lab Results: Laboratory Tests 09/22/24 13:18 WBC 4.9 Hgb 11.2 L Hct 34.2 L Plt Count 275 Sodium 143 Potassium 3.3 D Chloride 107 Carbon Dioxide 23 BUN 11 Creatinine 0.73 Narrative Narrative: EKG 09/2024 Vent. Rate : 71 BPM Atrial Rate : 71 BPM P-R Int : 158 ms QRS Dur : 82 ms QT Int : 390 ms P-R-T Axes : 27 14 12 degrees QTcB Int : 423 ms Normal sinus rhythm Cannot rule out Anterior infarct , age undetermined Abnormal ECG When compared with ECG of 23-Aug-2024 21:09, No significant changes seen Assessment and Plan Assessment Anesthesia Assessment: Chart Reviewed Final Anesthetic Review Family History of Problems with Anesthesia: No History of Problems with Anesthesia: Yes Documented by User: Lupis Yun MD 09/30/24 14:22 PMFSH Past Medical History Medical History COVID-19 Anemia Hiatal hernia Postoperative nausea Depression Asthma Prediabetes Agoraphobia without history of panic disorder MDD (major depressive disorder), recurrent severe, without psychosis Intentional overdose Back pain GERD (gastroesophageal reflux disease) Morbid obesity Hypertension Family History Family History Mother Fibromyalgia Arthritis Father Heart problem Brother No problems noted. Son Asthma Maternal Grandmother Diabetes Surgical History Surgical History S/P laparoscopic sleeve gastrectomy History of esophagogastroduodenoscopy (EGD) Previous back surgery History of appendectomy Hx of eye surgery Social History Social History Household Members: Family and Children Household Members Other:: mother & minor child Housing: House Are you a primary career guidance technician to a significant other at home: No Do you presently have visiting nurse or other home services: No Alcohol intake: current Alcohol intake frequency: does not drink Patient Tobacco Use Status: Never used Tobacco e-Cigarette/Vaping Use: Never Used Second Hand Smoke Exposure: No Use of substances other than those prescribed or required for medical reasons: No Have you been hit, kicked, punched, or otherwise hurt by someone within the past year? If so, by whom?: No Are you DNR?: No Advance Directives: No Advance Directives Information Provided: Yes Patient : No FDLMP: 09/16/2024 : No service: No Sexual orientation: Straight/Heterosexual Meds Allergies Allergy/AdvReac Type Severity Reaction Status Date / Time adhesive tape Allergy Intermediate blister-skin Verified 09/22/24 13:04 tears amoxicillin (AMOXICILLIN) Allergy Intermediate RASH Verified 09/22/24 13:04 Home Medications ?Medication ?Instructions ?Recorded ?Confirmed ?Last Taken ?Type albuterol sulfate 90 mcg/actuation 2 puff inhalation Q 4H PRN 05/14/24 09/04/24 02/08/24 History aerosol inhaler Shortness Of Breath Or Wheez ing sertraline 25 mg tablet 25 mg PO DAILY 07/26/24 07/08/1408/22/24 History acetaminophen 325 mg tablet 650 mg PO Q6H PRN Pain 07/1409/04/24 Unknown History hydroxyzine HCl 25 mg tablet 25 mg PO TID PRN Anxiety 08/24/24 09/04/24 Unknown History ondansetron 4 mg disintegrating 4 mg PO Q12H PRN nause a and 08/24/24 09/04/24 08/22/24 History tablet vomiting pantoprazole 40 mg tablet,delayed 40 mg PO DAILY@0630 08/24/24 09/04/24 08/22/24 History release Exam Airway Mallampati Class: II TM Dist: >3cm Neck ROM: Full Loose/Missing/Broken Teeth: No Heart: RRR Lungs: CTA Assessment and Plan Assessment Anesthesia Assessment: Anesthesia Plan Discussed Final Anesthetic Review NPO: Yes ASA Class: II Final Preanesthetic Review: Meds/Allgs Chart Reviewed, Consent Obtained/Reviewed and Anes Risks/Benef Reviewed Patient Risk: Low Procedure Risk: Intermediate Anesthetic Plan Anesthetic Plan: MAC: Disposition: Standard PACU
[2024-09-30 12:48] VITALS: BP 174/74; PULSE 78; RESP 12; TEMP 36.6; O2SAT 99; BMI 33.5
[2024-09-30 12:58] LABS: UPreg QC Valid YES
[2024-09-30] MEDS: Lactated Ringers 1,000 ML 100 ML IVCONT (13:06)
--- NOTE | 2024-09-30 14:04 | MHC.SHP ---
Pre-Procedural Eval Section A - 24 Hr Update-Section A only Date of Service: 09/30/24 The patient is an INPATIENT: No The patient has been examined within 24 hours of the surgical procedure. The History & Physical has been completed within 30 days and I have reviewed it.: Yes Section B - Complete if H&P > 30 days Chief Complaint: Bariatric surgery status Details of Present Illness: Inadequate PO intake after sleeve gastrectomy Relevant Family History (Specify if Yes): No Relevant Social History: None Present Medications: None Medical History: No relevant PMH History of Previous Operations: Relevant previous surgery/procedure and date(s) (Laparoscopic sleeve gastrectomy) Allergies: Allergies Allergy/AdvReac Type Severity Reaction Status Date / Time adhesive tape Allergy Intermediate blister-skin Verified 09/22/24 13:04 tears amoxicillin (AMOXICILLIN) Allergy Intermediate RASH Verified 09/22/24 13:04 Review of Systems Sugical H&P ROS: Negative: Constitution, Cardiovascular, Respiratory, Neurological, Psychiatric, Hem-Onc, Allergic/Immunologic, Gastrointestinal, Genitourinary, Musculoskeletal, Integumentary, Endocrine and Eyes/Ears/Nose/Throat Exam Surgical H&P Exam: Normal: HEENT, Normal: Heart, Normal: Lungs, Normal: Extremities, Normal: Abdomen, Normal: Skin and Normal: Neurological Plan Diagnosis/Plan: Unchanged (EGD to assess the sleeve's anatomy. Risks of bleeding and perforation were discussed with the patient and she is in agreement with the plan.) I have reviewed the history and physical and performed a pertinent physical examination on my patient. No changes have occurred unless specified. Time Spent With Patient Time: Total time managing care of this patient today ____ minutes.
--- NOTE | 2024-09-30 14:05 | P.BOP_ITS ---
Brief Operative Note Date of Service: 09/30/24 Pre-op diagnosis: Inadequate PO after sleeve gastrectomy Post-op diagnosis: same Procedure: PROCEDURE DATE: 09/30/2024 PREOPERATIVE DIAGNOSIS: Inadequate PO intake, s/p sleeve gastrectomy POSTOPERATIVE DIAGNOSIS: ?Same as above. Small diaphragmatic hernia PROCEDURE: [id number] Surgeon: Vargas Lucas M.D.. Ph.D. Grape Crusher: None ? Anesthesia: IV sedation Estimated blood loss: ?Minimal FINDINGS AND PROCEDURE: ? OPERATIVE INDICATIONS: ?The patient is a 44 year old female known to me who underwent a laparoscopic sleeve gastrectomy on 08/08/2024. The patient had very good weight loss so far.? The patient has not been able to receive consistently adequate PO intake despite several modifications in her diet plan. As a result she has been seen in the ER twice and required a short admission. Based on this information I recommended an upper endoscopy to evaluate the patient's symptoms. Risks and complications of the surgery were discussed with the patient in advance particularly the possibility of perforation or bleeding that may require surgical intervention. The patient understood the risks and was in agreement with the plan. ? PROCEDURE: After informed consent was obtained by the patient, the patient was ?transferred to the Operating Room and was placed in the supine position.? After successful induction of IV sedation, a mouth block was inserted and the patient was placed in the left lateral decubitus position. An upper endoscopy was performed next, the oropharynx and esophagus appeared within the normal limits. There was a small 2cm sliding hiatal hernia. The z- line was smooth. The sleeve was entered and it appeared to be of normal size. There was no gastritis. There was no stricture or ulcer, or unusual twist. The scope was then advanced into the duodenum which appeared to be normal as well. At that point the duodenum ?and the sleeve were decompressed and the scope was withdrawn from the patient's mouth. The patient extubated and was transferred in stable condition to the Recovery Room for further care. I was present and performed all steps of the procedure. There were no residents to assist with this case. Christiano Lucas M.D., Ph.D. Surgeon: Jermaine Lucas MD Anesthesia: MAC Was an Grape Crusher used for this Procedure?: No Estimated blood loss (mL): 0 IV fluids (mL): 400 Urine output (mL): 0 (No [place] to record output) Pathology: none sent Condition: stable Disposition: PACU
[2024-09-30 14:50] VITALS: BP 133/74; PULSE 92; RESP 18; TEMP 36.3; O2SAT 99
[2024-09-30 15:05] VITALS: BP 138/76; PULSE 64; RESP 16; O2SAT 97
[2024-09-30 15:19] VITALS: BP 146/82; PULSE 61; RESP 16; TEMP 36.4; O2SAT 99
== END 2024-09-30 15:30 | disposition home or self-care (01) ==
PROVIDERS: Nurse Practitioner; PCP Physician Assistant; Visit Provider Surgery
PROC: 0DJ08ZZ Inspection of Upper Intestinal Tract, Via Natural or Artificial Opening Endoscopic (ICD-10-PCS; CPT 43235; principal; 2024-09-30 14:30)
DX: R63.8 Other symptoms and signs concerning food and fluid intake (principal); Z98.84 Bariatric surgery status; Z90.3 Acquired absence of stomach [part of]; E66.01 Morbid (severe) obesity due to excess calories; Z68.41 Body mass index [BMI] 40.0-44.9, adult; K44.9 Diaphragmatic hernia without obstruction or gangrene; K21.9 Gastro-esophageal reflux disease without esophagitis; I10 Essential (primary) hypertension; R73.03 Prediabetes; M54.9 Dorsalgia, unspecified; F32.9 Major depressive disorder, single episode, unspecified; L23.1 Allergic contact dermatitis due to adhesives; Z88.1 Allergy status to other antibiotic agents; Z98.890 Other specified postprocedural states
CPT/HCPCS: 43235; 81025; J2003; J2704

== ENCOUNTER 2024-10-04 09:00 | Outpatient (AMB) | payer OTHER, SELFPAY ==
--- NOTE | 2024-10-04 08:34 | MHC.OFFVISWM ---
VS Expanded 10/04/24 08:37 Height 5 ft 2 in Weight 180 lb 4 oz BMI 33.0 Body Fat % 41.8 Body Fat Mass 75.4 Fat Free Mass 105 Visceral Fat Rating 15 Body Water % 39.9 Body Water Mass 72 Muscle Mass/Score 98.6 Basal Metabolic Rate/Score 1,396 Intake Visit Reasons: (TV) PO LSG 08/08/24 Director Of Public Relations Required: No Allergies adhesive tape Allergy (Intermediate, Verified 09/22/24 13:04) blister-skin tears amoxicillin (AMOXICILLIN) Allergy (Intermediate, Verified 09/22/24 13:04) RASH Medication List - Last Reconciled 10/04/24 by ALIZE Cunningham acetaminophen 650 mg PO Q6H PRN albuterol sulfate 90 mcg/actuation 2 puffs inhalation Q4H PRN bisacodyl (Dulcolax (bisacodyl)) 10 mg [place] DAILY PRN hydroxyzine HCl 25 mg PO TID PRN ondansetron 4 mg PO Q12H PRN pantoprazole 40 mg PO DAILY@0630 potassium chloride ER (K-Tab) 20 mEq PO DAILY sertraline 25 mg PO DAILY sucralfate 10 mL PO BID HPI Comments Details: This?a?44?yo female who is s/p LSG without hiatal hernia repair on?08/08/2024. Presents for 2 month post op visit. Weight today is 180.4 pounds, with a BMI of 33.0. There has been a 70.4 pound weight loss,(initial weight 250.8 pounds) since starting the program on 05/20/2024 reflecting a 28 % total body weight loss and a weight loss of 40.9 pounds since surgery (operative weight 221.3 pounds) reflecting a 18.4 % TBWL since surgery. No complaints of nausea, emesis, abdominal pain or reflux. Patient was seen in the emergency room on 08/21, ultimately admitted to the hospital on 08/23 due to syncope and dehydration. This resolved and she was discharged home. She was seen in follow-up by her primary care physician on 08/27/2024 and per record was doing well and tolerating meal plan and fluids. Patient had done well until 09/22/2024 when she felt weak, presenting to the emergency department, given 2 L of fluids and discharged home. She felt much better. Of note she was taking Zepbound prior to surgery. Feels as though anything that she takes in does not sit well. Was taking both MVI and KCl in the morning. She tried fairlife shake and found it too sweet. She underwent upper endoscopy by Dr. Lucas on 09/30/2024 revealing an unchanged 2 cm small hiatal hernia, as mentioned above, unchanged from preop. Patient states that she continues to have difficulty with fluids, especially if she is out of the home, drinking her protein water from the bottle. She denied using a straw, however when at home using the 2 mL syringe, she has much less nausea. She reports yogurt and solids go much more easily. It is unclear why, she will continue to use the syringe at the pace of 2 mL/minute. Present meal plan includes: Celebrate Protein water at 8-10 Fit crunch bar at 11-2 Meal at 3 with 2 forks of protein and 2 forks of vegetables Fit crunch bar at 5-8 Drinking 10 oz? Exercise routine includes: walking treadmill x 1 PFSH Medical History COVID-19 Anemia Hiatal hernia Postoperative nausea Depression Asthma Prediabetes Agoraphobia without history of panic disorder MDD (major depressive disorder), recurrent severe, without psychosis Intentional overdose Back pain GERD (gastroesophageal reflux disease) Morbid obesity Hypertension Surgical History S/P laparoscopic sleeve gastrectomy History of esophagogastroduodenoscopy (EGD) Previous back surgery History of appendectomy Hx of eye surgery Family History Mother Fibromyalgia Arthritis Father Heart problem Brother No problems noted. Son Asthma Maternal Grandmother Diabetes Social History Household Members: Family and Children Household Members Other:: mother & minor child Housing: House Are you a primary career services representative to a significant other at home: No Do you presently have visiting nurse or other home services: No Alcohol intake: current Alcohol intake frequency: does not drink Patient Tobacco Use Status: Never used Tobacco e-Cigarette/Vaping Use: Never Used Second Hand Smoke Exposure: No service: No Sexual orientation: Straight/Heterosexual Telehealth Telehealth Telehealth Platform: Telephone Location of provider rendering services: practice address Location of patient: address on file Patient Identification confirmed using: Name, : Yes Telehealth method: voice only Patient verbally consented to treatment: Yes Patient verbally consented to billing insurance company: Yes Patient informed of any privacy concerns related to visit: Yes Minutes spent on Phone/Video with Pt.: 15 Assessment & Plan Assessment & Plan (1) S/P laparoscopic sleeve gastrectomy: Code(s): Z98.84 - Bariatric surgery status Category: Surgical Plan: Overall, patient is doing fair. She had upper endoscopy which did not reveal any new abnormalities. It is unclear why she is having intolerance to liquids, I suspect that she is drinking too much at once when she drinks from the bottle. I recommended that she drink from the syringe as previously instructed at the rate of 2 mL/minute over the weekend, discuss this with Dr. Lucas, she is able to tolerate solids without much difficulty. She does take ondansetron once daily although she states that she is taking it more out of habit than need. She does find it helpful though when she is having to work outside of the home as she is drinking from her bottle at that time. Plan for return to clinic in 3-4 weeks.
[2024-10-04 08:37] VITALS: BMI 33.0
--- OUTSIDE RECORDS SUMMARY | 2024-10-04 09:36 | XMS_ITS | Clinical Summary ---
Author Organization [facility] Address [address] [place] [phone] Phone Care Team Providers Care Manager Credit Collections Name Role Phone Unavailable Primary Care Provider [...] of 3 - 3-dose series) 10/05/1998 09/07/1998 HPV Vaccines (1 - 3-dose SCDM series) 02/17/2007 COVID-19 Vaccine (2023- season) 2023 Influenza Vaccines (#1) 2024 IPV [...]
== END 2024-10-04 09:51 | disposition home or self-care (01) ==
LOC: HO.HBS 09:22
PROVIDERS: PCP Physician Assistant; Visit Provider Physician Assistant Surgical
DX: Z98.84 Bariatric surgery status (principal)
CPT/HCPCS: 99024

== ENCOUNTER → 2024-10-04 09:00 | Outpatient (BNVA) | payer OTHER, SELFPAY | PROVIDERS: PCP Physician Assistant; Visit Provider Physician Assistant Surgical | DX: Z98.84 Bariatric surgery status (principal) | CPT/HCPCS: 99212 ==

== ENCOUNTER → 2024-10-07 07:48 | Outpatient (REF) | payer OTHER, SELFPAY ==
--- NOTE | 2024-10-07 07:51 | HM_ITS ---
* Total monitoring time 3 days. * Underlying rhythm is sinus with an average rate of 66/Min. * Rare supraventricular ectopy. * Rare ventricular ectopy. * No significant pauses or high-grade AV blocks. * No patient markers or diary events. MTDD
--- NOTE | 2024-10-07 07:51 | CA_ITS ---
Transthoracic Echocardiogram Patient (Last, First, Middle): Nichelle Galvin, Gender: Female Date of : 1980 Age: 44 Procedure Date: 10/07/2024 Procedure Type: Transthoracic Echocardiogram Location: OP Height: 157.48 cm Weight: 81.65 kg BSA: 1.83 m2 Heart Rate: bpm BP: 126 / 84 mmHg Cell Cleaner: TO Referring MD: Mani Moctezuma MD Director Of Health Education: Mani Moctezuma MD Symptoms: R55 - Syncope and collapse Study Quality: Adequate w contrast ECG Rhythm: Sinus Conclusions: - Low normal LV ejection fraction 50-55% otherwise normal study Findings Procedure Information Contrast agent, definity, is being given per protocol without apparent complications. Left Ventricle Normal left ventricular cavity size. There is normal left ventricular wall thickness. The left ventricular systolic function is low normal. The visually estimated ejection fraction is between 50-55%. Spectral Doppler is indicative of a normal filling pattern. Right Ventricle Normal right ventricular cavity size. There is normal right ventricular systolic function. Atria The left atrium is normal in size. Interatrial shunt cannot be excluded. The right atrium is normal in size. Aortic Valve The aortic valve structure and function is likely normal. There is no aortic valve stenosis. There is no aortic valve regurgitation. Mitral Valve Normal mitral valve structure and function. There is trace mitral valve regurgitation. There is no mitral valve stenosis. Pulmonic Valve The pulmonic valve was not well visualized. Tricuspid Valve Likely normal tricuspid valve structure and function. Tricuspid regurgitation envelope is inadequate for calculation of right ventricular systolic pressure. Normal right atrial pressure. Great Vessels All visible segments of the aorta are normal in size. The pulmonary artery was not well visualized. Venous The inferior vena cava is normal in size and collapses greater than 50% with inspiration. Pericardium/Pleural There is no evidence of pericardial effusion. Prior Study Comparison No previous study in the last 5 years for comparison Measurements 2D Linear Measurements IVSd: 0.79 0.6-0.9/0.6-1.0 cm LVIDd: 4.65 3.9-5.3/4.2-5.9 cm LVIDd Index: 2.54 2.4-3.2/2.2-3.1 cm/m2 LVIDs: 3.21 2.0-3.6 cm LVPWd: 0.79 0.7-1.1 cm LA Diam: 3.30 2.7-3.8/3.0-4.0 cm LAIDs Index: 1.80 1.5-2.3 cm/m2 LV Mass: 146.91 67-162/88-224 g LV Mass Index: 80.28 43-95/49-115 g/m2 LVOT Diam: 2.10 3.0+(-)1.3 cm 2D Systolic Function EF 4C: 51.00 >55% EF 2C: 52.20 >55% EF BiP: 51.10 >55% Mitral Valve MV Pk E: 0.48 MV PK A: 0.41 MV Decel Time: 195.00 E/A: 1.20 E'Lateral: 9.46 E'Medial: 6.74 E/E' Med: 7.20 E/E' Lat: 5.10 PHT: 57.00 MVA PHT: 3.86 Decel Norton: 2.48 Aortic Valve AoV Pk Lazaro: 1.45 AoV Mn Lazaro: 0.79 AoV VTI: 0.26 AoV Pk Grad: 8.00 Aov Mn Grad: 3.00 VICKIE Cont.VTI: 2.75 LVOT LVOT Pk Lazaro: 0.99 LVOT Mn Lazaro: 0.67 LVOT VTI: 0.21 LVOT Pk Grad: 4.00 LVOT Mn Grad: 2.00 LVOT Diam: 2.10 LVOT Area: 3.46 Diastolic Function MV Pk E: 0.48 MV Pk A: 0.41 E/A: 1.20 E'Medial: 6.74 E/E' Med: 7.20 E' Laterial: 9.46 E/E' Lat: 5.10 Right Ventricle TAPSE (mm): 21.10 TVS' Lazaro: 12.40 Tricuspid Valve RA Press: 3.00 Great Vessels Aorta Sinus of Valsalva: 3.11 2.0-3.[address] [place]: 2.50 1.7-3.4 cm Ao Asc: 3.30 2.1-3.4 cm Updated in Other Vendor System with Status of Final Mani Moctezuma MD electronically signed on 10/08/2024 11:48:19 AM with status of Final
== END ==
LOC: HO.CARD 07:48
PROVIDERS: PCP Physician Assistant; Visit Provider Internal Medicine Cardiovascular Disease
DX: R55 Syncope and collapse (principal); I10 Essential (primary) hypertension
CPT/HCPCS: 93242; 93306; Q9957

== ENCOUNTER → 2024-10-07 07:51 | Outpatient (BNV) | payer OTHER, SELFPAY | PROVIDERS: PCP Physician Assistant; Visit Provider Internal Medicine Cardiovascular Disease | DX: R55 Syncope and collapse (principal) | CPT/HCPCS: 93306 ==

== ENCOUNTER 2024-10-18 08:42 | Outpatient (AMB) | payer OTHER, SELFPAY ==
[2024-10-18 08:44] VITALS: BP 134/80; PULSE 65; BMI 33.6
--- NOTE | 2024-10-18 08:44 | MHC.OFFVIS ---
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[place] Follow up/Testing School Bus Operator Required: No Allergies adhesive tape Allergy (Intermediate, Verified 10/18/24 08:46) blister-skin tears amoxicillin (AMOXICILLIN) Allergy (Intermediate, Verified 10/18/24 08:46) RASH Medication List - Last Reconciled 10/18/24 by MITCHELL Waddell acetaminophen 650 mg PO Q6H PRN albuterol sulfate 90 mcg/actuation 2 puffs inhalation Q4H PRN bisacodyl (Dulcolax (bisacodyl)) 10 mg SD DAILY PRN hydroxyzine HCl 25 mg PO TID PRN ondansetron 4 mg PO Q12H PRN pantoprazole 40 mg PO DAILY@0630 potassium chloride ER (K-Tab) 20 mEq PO DAILY sertraline 25 mg PO DAILY sucralfate 10 mL PO BID HPI HPI [place] [place] Follow up/Testing: Details: Nichelle is a 44-year-old female past medical history of obesity status post sleeve gastrectomy 08/08/2024, hypertension who has had ER evaluations and admission for presyncope/syncope and treated for dehydration. She was seen by Cardiology in consultation and a tilt-table test, Holter monitor and echocardiogram were ordered and she now presents for follow-up. Today she reports she has not received an appointment for the tilt-table test. The Holter monitor has been worn but results are not available as of yet. The echocardiogram shows low normal EF, otherwise normal. She has not had any recurrent presyncope or syncopal events. She states when these symptoms were occurring she was not drinking much liquids as she had issues with nausea following surgery. She is now feeling much better overall and is able to drink close to 40 oz daily. She describes at least 1 syncopal event that occurred in the past in the setting of taking a very hot shower. This was thought to be vasovagal at that time. She has no cardiac symptoms of chest pain, shortness of breath, palpitations, edema. She reports good activity tolerance and is supposed to be using the treadmill most days which she does try. 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 She takes her medications as directed. [facility] Medical History COVID-19 Anemia Hiatal hernia Postoperative nausea Depression Asthma Prediabetes Agoraphobia without history of panic disorder MDD (major depressive disorder), recurrent severe, without psychosis Intentional overdose Back pain GERD (gastroesophageal reflux disease) Morbid obesity Hypertension Surgical History S/P laparoscopic sleeve gastrectomy History of esophagogastroduodenoscopy (EGD) Previous back surgery History of appendectomy Hx of eye surgery Family History Mother Fibromyalgia Arthritis Father Heart problem Brother No problems noted. Son Asthma Maternal Grandmother Diabetes Social History Household Members: Family and Children Household Members Other:: mother & minor child Housing: House Are you a primary customer care consultant to a significant other at home: No Do you presently have visiting nurse or other home services: No Alcohol intake: current Alcohol intake frequency: does not drink Patient Tobacco Use Status: Never used Tobacco e-Cigarette/Vaping Use: Never Used Second Hand Smoke Exposure: No service: No Sexual orientation: Straight/Heterosexual Review of Systems Const All systems reviewed & are unremarkable except as noted in HPI and below ENT Denies dizziness Card Denies chest pain, Denies chest pain at rest, Denies chest pain with activity, Denies rapid heart rate, Denies pedal edema, Denies edema, Denies leg edema, Denies lightheadedness, Denies palpitations, Denies dyspnea, Denies dyspnea on exertion and Denies orthopnea Resp Denies cough, Denies dyspnea and Denies dyspnea on exertion GI Denies hematochezia and Denies change in stool character Musc Denies abnormal gait, Denies limited range of motion, Denies muscle cramps, Denies muscle weakness, Denies numbness, Denies radiating pain into limb, Denies stiffness and Denies tingling Neuro Denies abnormal gait, Denies dizziness, Denies numbness and Denies tingling Endo Denies palpitations Physical Exam Vital Signs: Last Vital Signs Pulse 65 10/18/24 08:44 BP 134/80 10/18/24 08:44 BMI result Body Mass Index 33.6 Const General: cooperative, healthy appearing, comfortable and no acute distress Orientation/consciousness: patient oriented x3 Neck Neck: Yes normal visual inspection and Yes no JVD Resp Effort & Inspection: normal respiratory effort Auscultation: clear to auscultation bilaterally, no rales, no rhonchi and no wheezes Cardio Rate: regular rate Rhythm: regular rhythm Heart sounds: S1 normal heart sound present, S2 normal heart sound present, no gallops, no murmurs and no rubs Neuro General: patient oriented x3 Extrem General: Yes normal to inspection, No no pedal edema and No calf tenderness Psych Appearance: grossly normal Mental Status: mental status grossly normal Speech and movement: Normal speech and movement present Assessment & Plan Assessment & Plan (1) Syncope: Code(s): R55 - Syncope and collapse Category: Medical Qualifiers: Syncope type: vasovagal syncope Qualified Code(s): R55 - Syncope and collapse Plan: Recent episodes of presyncope and syncope in the setting of dehydration status post sleeve gastrectomy. Hospital evaluation without other significant findings. She was thought to have vasovagal syncope and tilt-table test ordered, not completed as of yet. Holter monitor results are still pending, plan to call her when results are available. Echocardiogram done 10/07/2024 showed EF 50-55%, otherwise normal study. EKG from 09/22/2024 shows sinus rhythm with normal SD, QRS and QTC intervals. Reviewed all the above with her. Instructed on maintaining good hydration. Cardiology follow-up 4 months to go overall test results and symptoms, sooner if needed. (2) Hypertension: Code(s): I10 - Essential (primary) hypertension Category: Medical Plan: History of hypertension, previously on losartan. More recently with lower blood pressure readings and 70 lb weight loss in the last 5 months. Losartan has been stopped and she is not on any antihypertensives. Blood pressure today 134/80. (3) Obesity: Code(s): E66.9 - Obesity, unspecified Category: Medical Plan: Follows with [place] [facility] [place]. Had sleeve gastrectomy 08/08/2024. (4) Hospital discharge follow-up: Code(s): Z09 - Encounter for follow-up examination after completed treatment for conditions other than malignant neoplasm Category: Medical Plan: Discharge summary and cardiology consult reviewed. Plan We discussed the likelihood of vasovagal syncope and the importance of maintaining adequate hydration to prevent episodes. The tilt table test was explained as a diagnostic tool to further evaluate the syncope, with scheduling expected in the coming months. The patient was advised to follow up in a few months to reassess symptoms and fluid intake. Patient Instructions: - Increase fluid intake to at least 48 ounces daily. - Monitor for symptoms of dehydration or fainting. - Follow up in a few months to reassess symptoms and fluid intake. Patient was informed and verbally consented to the use of an ambient scribe for clinic note documentation during this visit. Visit time spent on chart review, interview, assessment, orders, documentation. Coding Level of Care Code Est Pt Level 4 (13200) Complex EM visit Add On G2211 Diagnoses Vasovagal syncope R55 Syncope type: vasovagal syncope Hypertension I10 Obesity E66.9 Hospital discharge follow-up Z09
--- OUTSIDE RECORDS SUMMARY | 2024-10-18 09:36 | XMS_ITS | Clinical Summary ---
Author Organization [facility] Address [address] [place] [id number] Phone Care Team Providers Care Chief Operator Lock Tender Name Role Phone Unavailable Primary Care Provider [...]
== END 2024-10-18 09:30 | disposition home or self-care (01) ==
LOC: HO.HCS 08:42
PROVIDERS: PCP Physician Assistant; Visit Provider Nurse Practitioner Family
DX: R55 Syncope and collapse (principal); I10 Essential (primary) hypertension; E66.9 Obesity, unspecified; Z09 Encounter for follow-up examination after completed treatment for conditions other than malignant neoplasm
CPT/HCPCS: 99214

== ENCOUNTER → 2024-10-18 08:42 | Outpatient (BNVA) | payer OTHER, SELFPAY | PROVIDERS: PCP Physician Assistant; Visit Provider Nurse Practitioner Family | DX: Z09 Encounter for follow-up examination after completed treatment for conditions other than malignant neoplasm (principal); R55 Syncope and collapse; I10 Essential (primary) hypertension; E66.9 Obesity, unspecified; Z68.33 Body mass index [BMI] 33.0-33.9, adult | CPT/HCPCS: 99212 ==

== ENCOUNTER 2024-11-27 10:23 | Outpatient (AMB) | payer OTHER, SELFPAY ==
--- NOTE | 2024-11-27 10:39 | A.OFFVIS_ITS ---
VS Expanded 11/27/24 11:05 Height 5 ft 3 in Weight 173 lb 4 oz BMI 30.7 Intake Visit Reasons: (TV) PO LSG 08/08/24 Allergies adhesive tape Allergy (Intermediate, Verified 11/18/24 11:53) blister-skin tears amoxicillin (AMOXICILLIN) Allergy (Intermediate, Verified 11/18/24 11:53) RASH Medication List - Last Reconciled 11/27/24 by ALIZE Solano acetaminophen 650 mg PO Q6H PRN albuterol sulfate 90 mcg/actuation 2 puffs inhalation Q4H PRN bisacodyl (Dulcolax (bisacodyl)) 10 mg ND DAILY PRN hydroxyzine HCl 25 mg PO TID PRN sertraline 25 mg PO DAILY HPI Comments Details: This a 44 yo female who is s/p LSG without hiatal hernia repair on 08/08/2024. Presents for 4 month post op visit. Weight at last visit on 10/04/2024 was 180.4 pounds, with a BMI of 33.0. Iinitial weight 250.8 pounds starting the program on 05/20/2024. Patient was seen in the emergency room on 08/21, ultimately admitted to the hospital on 08/23 due to syncope and dehydration. This resolved and she was discharged home. She was seen in follow-up by her primary care physician on 08/27/2024 and per record was doing well and tolerating meal plan and fluids. Patient had done well until 09/22/2024 when she felt weak, presenting to the emergency department, given 2 L of fluids and discharged home. She felt much better. She underwent upper endoscopy by Dr. Lucas on 09/30/2024 revealing an unchanged 2 cm small hiatal hernia, as mentioned above, unchanged from preop. Pt reports feeling better since last OV. Tolerating PO intake without difficulty. Present meal plan includes: 3 [employer] bars Meal at 3 with 2 forks of protein and 2 forks of vegetables Hydration is adequate MVI -notes she is not following the plan closely, less consistent with bars, will i ncorporate avocado into dinner meal Exercise routine includes: walking, treadmill -this week did not exercise PFSH Medical History COVID-19 Anemia Hiatal hernia Postoperative nausea Depression Asthma Prediabetes Agoraphobia without history of panic disorder MDD (major depressive disorder), recurrent severe, without psychosis Intentional overdose Back pain GERD (gastroesophageal reflux disease) Morbid obesity Hypertension Surgical History S/P laparoscopic sleeve gastrectomy History of esophagogastroduodenoscopy (EGD) Previous back surgery History of appendectomy Hx of eye surgery Family History Mother Fibromyalgia Arthritis Father Heart problem Brother No problems noted. Son Asthma Maternal Grandmother Diabetes Social History Household Members: Family and Children Household Members Other:: mother & minor child Housing: House Are you a primary day care worker to a significant other at home: No Do you presently have visiting nurse or other home services: No Alcohol intake: current Alcohol intake frequency: does not drink Patient Tobacco Use Status: Never used Tobacco e-Cigarette/Vaping Use: Never Used Second Hand Smoke Exposure: No service: No Sexual orientation: Straight/Heterosexual Telehealth Telehealth Telehealth Platform: Telephone Location of provider rendering services: practice address Location of patient: address on file Patient Identification confirmed using: Name, : Yes Telehealth method: voice only Patient verbally consented to treatment: Yes Patient verbally consented to billing insurance company: Yes Patient informed of any privacy concerns related to visit: Yes Minutes spent on Phone/Video with Pt.: 16 Assessment & Plan Assessment & Plan (1) Obesity: Code(s): E66.9 - Obesity, unspecified Category: Medical (2) S/P laparoscopic sleeve gastrectomy: Code(s): Z98.84 - Bariatric surgery status Category: Surgical Plan Sent healthy foods list. She asked about [employer] strawberry [employer] shakes and using them, can exchange for 2 bars. Discussed the importance of adequate protein intake and not skipping protein items. Clotrimazole ointment ordered for complaint of excess skin of abdomen, pt experiencing rashes. RTC 3mo. Medications: New clotrimazole 1% 1 appl topical BID 45 grams 3RF
[2024-11-27 11:05] VITALS: BMI 30.7
== END 2024-11-27 11:24 | disposition home or self-care (01) ==
LOC: HO.HBS 10:23
PROVIDERS: PCP Physician Assistant; Visit Provider Physician Assistant Surgical
DX: E66.9 Obesity, unspecified (principal); Z98.84 Bariatric surgery status
CPT/HCPCS: 99214

== ENCOUNTER → 2024-11-27 10:23 | Outpatient (BNVA) | payer OTHER, SELFPAY | PROVIDERS: PCP Physician Assistant; Visit Provider Physician Assistant Surgical | DX: Z98.84 Bariatric surgery status (principal); Z98.890 Other specified postprocedural states; E66.9 Obesity, unspecified | CPT/HCPCS: 99212 ==

== ENCOUNTER 2025-01-27 07:53 | Outpatient (AMB) | payer OTHER, SELFPAY ==
--- NOTE | 2025-01-27 07:58 | MHC.PC.OV ---
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 Hypertension-no longer on any antihypertensives. Blood pressure in the office today 134/80 Major depressive disorder/anxiety-much improved. Has taken herself off of her sertraline and reports doing well. No longer following with a counselor. No SI/HI. Obesity- BMI 30.0. s/p gastric sleeve 07/2024. Has lost about 25 lb and is feeling good about this. She continues on a multivitamin. Is following a high-protein diet. She is exercising on the treadmill, not doing any weights. Asthma-rare albuterol use Concerns: Ongoing right-sided sciatica. Overall tolerable. No weakness or paresthesias. Hair loss-s/p sleeve ectomy Health maintenance: Mammogram-overdue. Does have history of breast cancer in her maternal aunt. She is unsure about her aunts genetic screenings. 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 No sore throat, nasal congestion, rhinorrhea, sinus pain, ear pain Cardiovascular: No chest pain, palpitations, or leg edema Respiratory: No shortness of breath, wheezing, cough Neuro: No headaches, weakness, paresthesias Psych: see hpi Skin: No rashes or lesions EXAM: Constitutional - Awake and Alert, No apparent distress Eyes - PERRLA, EOMI Cardiovascular - S1S2, RRR, No edema Respiratory - Normal lung expansion, Normal respiratory effort, No respiratory distress, CTA bilaterally Extremities - no calf tenderness bilaterally, no swelling Skin - Warm/Dry Neurological - Alert & oriented x3 Psychological - Appropriate affect [facility] Medical History COVID-19 Anemia Hiatal hernia Postoperative nausea Depression Asthma Prediabetes Agoraphobia without history of panic disorder MDD (major depressive disorder), recurrent severe, without psychosis Intentional overdose Back pain GERD (gastroesophageal reflux disease) Morbid obesity Hypertension Surgical History S/P laparoscopic sleeve gastrectomy History of esophagogastroduodenoscopy (EGD) Previous back surgery History of appendectomy Hx of eye surgery Family History Mother Fibromyalgia Arthritis Father Heart problem Brother No problems noted. Son Asthma Maternal Grandmother Diabetes Social History Household Members: Family and Children Household Members Other:: mother & minor child Housing: House Are you a primary home care manager to a significant other at home: No Do you presently have visiting nurse or other home services: No Alcohol intake: current Alcohol intake frequency: does not drink Patient Tobacco Use Status: Never used Tobacco e-Cigarette/Vaping Use: Never Used Second Hand Smoke Exposure: No service: No Sexual orientation: Straight/Heterosexual Questionnaire Thrive Questionnaire Date Thrive assessed: 08/24/24 AUDIT C Alcohol Use Questionnaire (AUDIT-C) 2. How many drinks containing alcohol do you have on a typical day when you are drinking?: 1 or 2 3. How often do you have six or more drinks on one occasion?: Never Total Score: 0 WILLIAN-7 AMB Questionnaire WILLIAN-7 Date WILLIAN - 7 assessed: 07/22/24 Source: Developed by Drs. Jesse Tovar, Jerica Coleman, Henrique Grimaldo and colleagues, with an educational marito from [employer]. Physical exam (Primary Care) Vital Signs: Last Vital Signs Temp 97.7 F 01/27/25 08:01 Pulse 62 01/27/25 08:01 Resp 14 01/27/25 08:01 BP 134/80 01/27/25 08:01 Pulse Ox 99 01/27/25 08:01 Oxygen Delivery Method Room Air 01/27/25 08:01 BMI result Body Mass Index 30.0 Tobacco/Smoking Status: Tobacco use Status Patient Tobacco Use Status Never used Tobacco 01/27/25 08:03 e-Cigarette/Vaping Use Never Used 01/27/25 08:03 Thrive Assessment: Date of Thrive Assessment Date Thrive assessed 08/24/24 01/27/25 08:03 Coding Level of Care Code Est Pt Level 4 (95660) Complex visit Add On G2211 Diagnoses Hypertension I10 MDD (major depressive disorder), recurrent severe, without psychosis F33.2 Prediabetes R73.03 Obesity E66.9 Iron deficiency anemia D50.9 Hair loss L65.9 Assessment & Plan Assessment & Plan (1) Hypertension: Code(s): I10 - Essential (primary) hypertension Category: Medical Plan: Controlled. We will continue monitoring. No antihypertensives needed at this time (2) MDD (major depressive disorder), recurrent severe, without psychosis: Code(s): F33.2 - Major depressive disorder, recurrent severe without psychotic features Category: Medical Plan: Stable. Remain off of sertraline and monitor for any worsening mood symptoms (3) Prediabetes: Code(s): R73.03 - Prediabetes Category: Medical Plan: A1c ordered (4) Obesity: Code(s): E66.9 - Obesity, unspecified Category: Medical Plan: Commended on weight loss thus far. Continue with healthy diet with increased protein, fruits, vegetables and limiting simple carbohydrates and highly processed foods as well as refined sugars. Recommend ongoing suicide but add weights to her regimen (5) Iron deficiency anemia: Code(s): D50.9 - Iron deficiency anemia, unspecified Category: Medical Plan: Check CBC and iron levels (6) Hair loss: Code(s): L65.9 - Nonscarring hair loss, unspecified Category: Medical Plan: Trial collagen supplement and increased protein in her diet Plan Follow-up in 6 months with labs completed today as well as several days prior to next visit Orders: Orders Vitamin D 25-OH Total Today Z98.84 - Bariatric surgery status TSH reflex Free T4 Today L65.9 - Nonscarring hair loss, unspecified Vitamin B12 and Folate Today Z98.84 - Bariatric surgery status IRON PROFILE Today Z98.84 - Bariatric surgery status Complete Blood Count Auto Diff Today Z98.84 - Bariatric surgery status Basic Metabolic Panel 6 Months I10 - Essential (primary) hypertension Patient Instructions: Try collagen supplement
--- OUTSIDE RECORDS SUMMARY | 2025-01-27 08:00 | XMS_ITS | Clinical Summary ---
Author Organization [facility] Address [address] [place] [phone] Phone Care Team Providers Care Tank Driver Name Role Phone Unavailable Primary Care Provider [...] Vaccines (1 - 3-dose SCDM series) 02/17/2007 Influenza Vaccines (#1) 2024 COVID-19 Vaccine ( - 2024- season) 2024 IPV Vaccines Completed 1985, 03/23, 1980, [...]
--- OUTSIDE RECORDS SUMMARY | 2025-01-27 08:00 | XMS_ITS | Clinical Summary ---
Author Organization [facility] [facility] Address [address] [place] [address] Care Team Providers Care Director Counseling Bureau Name Role Phone Boris Jones MD Primary Care Provider [phone] Surgical History Surgery Date Site/Laterality Comments OVARIAN CYST REMOVAL PROCEDURE: [place] OVARIAN CYSTECTOMY UNI/BI Medical History Medical History Date Comments Essential hypertension DX:Essent ial hypertension Ovarian cyst DX:Ovarian cyst Family History Medical History Relation Name Comments Anemia Mother Relation Name Status Comments Father Mother Alive Social History Tobacco Use Types Packs/Day Years Used Date Smoking Tobacco: Never Smokeless Tobacco: Never Alcohol Use Standard Drinks/Week Comments No 0 (1 standard drink = 0.6 oz pur e alcohol) Comments Unknown Sex and Gender Information Value Date Recorded Sex Assigned at Not on file Legal Sex Female 5:38 AM EST Gender Identity Not on file Sexual Orientation Not on file Plan of Treatment Upcoming Encounters Date Type Department Care Team (Late st Contact Info) Description 02/04/2025 1:[address] [facility] [address] [place] [id number] Health Maintenance Due Date Last Done Comments Breast Cancer Screening 1980 DTaP,Tdap,and Td Vaccines (1 - Tdap) 02/17/1999 Hepatitis B Vaccines (1 of 3 - 19+ 3-dose series) 02/17/1999 Cervical Cancer Screening: P ap Smear 02/17/2001 HPV Vaccines (1 - 3-dose SCD M series) 02/17/2007 Depression Screening 02/21/2024 COVID-19 Vaccine (1 - 2024-2 6 season) 2024 Influenza Vaccine (#1) 2024 Cholesterol Screening (Lipid Panel) 11/11/2024 HIV Screening 11/11/2024 Hepatitis C Screening 11/11/2024 Hypertension/CHF/CAD Annual BMP Blood Test 11/11/2024 Social Influencers of Health Screening 11/11/2024 RSV Immunization Adult Patie nts (1 - 1-dose 75+ series) 02/17/2055 HIB Vaccines Aged Out No longer eligi ble based on patient's age to complete this topic Hepatitis A Vaccines Aged Out No long er eligible based on patient's age to complete this topic IPV Vaccines Aged Out No longer eligi ble based on patient's age to complete this topic MMR Vaccines Aged Out No longer eligi ble based on patient's age to complete this topic Meningococcal ACWY Vaccine Aged Out N o longer eligible based on patient's age to complete this topic Meningococcal B Vaccine Aged Out No l onger eligible based on patient's age to complete this topic Pneumococcal Vaccine: Pediat rics (0 to 5 Years) and At-Risk Patients (6 to 49 Years) Aged Out No longer eligible b ased on patient's age to complete this topic RSV Immunization Patients Un harrison 20 months Aged Out No longer eligible b ased on patient's age to complete this topic Varicella Vaccines Aged Out No longer eligible based on patient's age to complete this topic Insurance [facility] PUBLIC PLANS Care Teams Director Counseling Bureau Relationship Specialty Start Date End Date Boris Jones MD [address] [place] [address] Dr Omar MA PCP - General Internal Medicine 03/11/19
[2025-01-27 08:01] VITALS: BP 134/80; PULSE 62; RESP 14; TEMP 36.5; O2SAT 99
== END 2025-01-27 08:32 | disposition home or self-care (01) ==
LOC: HO.HMCHD 07:53
PROVIDERS: Visit Provider Physician Assistant
DX: I10 Essential (primary) hypertension (principal); F33.2 Major depressive disorder, recurrent severe without psychotic features; R73.03 Prediabetes; E66.9 Obesity, unspecified; D50.9 Iron deficiency anemia, unspecified; L65.9 Nonscarring hair loss, unspecified

== ENCOUNTER → 2025-01-27 07:53 | Outpatient (BNVA) | payer OTHER, SELFPAY | PROVIDERS: Visit Provider Physician Assistant | DX: I10 Essential (primary) hypertension (principal); F33.2 Major depressive disorder, recurrent severe without psychotic features; R73.03 Prediabetes; E66.9 Obesity, unspecified; D50.9 Iron deficiency anemia, unspecified; L65.9 Nonscarring hair loss, unspecified | CPT/HCPCS: 99212 ==

== ENCOUNTER 2025-01-27 08:36 | Outpatient (REF) | payer OTHER, SELFPAY ==
[2025-01-27 11:01] LABS: MANUAL DIFF FLAG NO
[2025-01-27 11:22] LABS: Hematocrit 36.1 % (37.0-47.0); Hemoglobin 11.1 g/dl (12.0-16.0); Imm Gran Abs Auto 0.02 X10*3/uL (0.00-0.03); Imm Gran Pct Auto 0.3 % (0.0-0.4); Lymphocytes Absolute Auto 2.2 X10*3/uL (1.2-4.9); Mean Corpuscular HGB Conc 30.7 g/dl (31.0-35.0); Mean Corpuscular Hemoglobin 23.6 pg (27.0-33.0); Mean Corpuscular Volume 76.8 fL (80.0-98.0); NRBC Abs Auto 0.000 X10*3/uL (0.0-0.012); NRBC Pct Auto 0.0 /100WBC (0.0-0.2); Platelet Count 365 X10*3/uL (160-400); Red Blood Count 4.70 X10*6/uL (4.20-5.50); White Blood Count 6.8 X10*3/uL (4.8-10.8)
[2025-01-27 12:12] LABS: Anion Gap 13 (12-20); Blood Urea Nitrogen 13 mg/dL (9-16); Calcium 9.6 mg/dL (8.4-10.2); Carbon Dioxide 26 mmol/L (22-29); Chloride 106 mmol/L (96-108); Cholesterol 174 mg/dL (<200); Estimated Glomerular Filt Rate > 60; HDL Cholesterol 56 mg/dL (>40); Iron 37 mcg/dL (30-160); Percent Iron Saturation 11 % (15-50); Potassium 3.8 mmol/L (3.3-5.1); Sodium 141 mmol/L (135-145); Total Iron Binding Capacity 352 mcg/dL (228-428); Triglycerides 81 mg/dL (<150); Unsaturated Iron Binding 315 ug/dL
[2025-01-27 14:09] LABS: Folate 7.9 ng/mL (> or = 4.0); Vitamin B12 481 pg/mL (200-900)
== END 2025-01-27 08:37 | disposition home or self-care (01) ==
LOC: HO.10HDL 08:36
PROVIDERS: Visit Provider Physician Assistant
DX: I10 Essential (primary) hypertension (principal); L65.9 Nonscarring hair loss, unspecified; F33.2 Major depressive disorder, recurrent severe without psychotic features; E66.01 Morbid (severe) obesity due to excess calories; Z98.84 Bariatric surgery status
CPT/HCPCS: 36415; 80048; 80061; 82306; 82607; 82746; 83540; 84443; 85025